=== PATIENT | male | born 1960 | race Caucasian/White ===

== ENCOUNTER 2018-07-11 15:12 | Inpatient (IN) ==
[2018-07-11] MEDS ORDERED: Ipratropium/Albuterol Neb 3 ML IH ONE (15:18)
[2018-07-11] MEDS ORDERED: predniSONE 20 MG TABLET PO ONE (15:18)
--- NOTE | 2018-07-11 15:19 | Emergency Department Note ---
Disposition Clinical Impression: COPD exacerbation, Hypercarbia Community acquired pneumonia Qualifiers: Laterality: right Lung location: lower lobe of lung Qualified Code(s): J18.1 - Lobar pneumonia, unspecified organism Disposition: Admitted As Inpatient Condition: Good General Adult HPI - General Chief complaint: ED Shortness of Breath/Dyspnea Stated complaint: ISHA Time Seen by Provider: 07/11/18 15:18 Source: patient, EMS Mode of arrival: EMS Limitations: no limitations Nursing Notes Reviewed: Yes Vital Signs Reviewed: Yes - History of Present Illness HPI Narrative: 58-year-old male with significant past medical history of COPD who wears 4 L nasal cannula baseline at home presenting to the emergency department with chief complaint of shortness of breath. Patient states today he woke up from a nap and had acute onset of shortness of breath. He denies any chest pain with this. Does state he had intermittent fevers at home but is unsure of what his maximum temperature has been. Patient denies any known sick contacts. Denies any chest pain, dizziness or headache. He has been trying his home nebulizer treatments without relief. - Related Data Home Medications Medication Instructions Recorded Confirmed ALPRAZolam [Xanax 1 MG Tablet] 1 mg PO QID 01/08/16 01/14/16 Albuterol Sulfate [Proair Hfa] 2 puff IH Q4H PRN 01/08/16 01/14/16 Budesonide/Formoterol 80/4.5 2 puff IH BID 01/08/16 01/14/16 [Symbicort 80/4.5] Carisoprodol [Soma] 350 mg PO TID 01/08/16 01/14/16 Oxycodone HCl/Acetaminophen 10 mg PO Q3H PRN 01/08/16 01/14/16 [Percocet 10-325 mg Tablet] Previous Rx's Medication Instructions Recorded Albuterol Neb [Proventil Neb] 2.5 mg IH Q4H PRN 30 Days inhsol 01/18/16 Nicotine Patch [Nicoderm] 21 mg TD HS #28 patch.td24 01/18/16 Tiotropium [Spiriva] 18 mcg IH DAILY #30 capsule 01/18/16 predniSONE [PredniSONE] 10 mg PO AD #53 tablet 01/18/16 Allergies Allergy/AdvReac Type Severity Reaction Status Date / Time No Known Allergies Allergy Verified 01/08/16 09:48 All systems ED: reviewed and negative except as stated. Constitutional: Reports: fever Eyes: Reports: as per HPI ENT ED: Reports: as per HPI Cardiovascular: Reports: dyspnea on exertion. Denies: chest pain, palpitations Respiratory: Reports: cough, dyspnea, wheezes. Denies: hemoptysis, stridor Gastrointestinal: Reports: as per HPI Genitourinary: Reports: as per HPI Musculoskeletal: Reports: as per HPI Integumentary: Reports: as per HPI Neurological: Denies: weakness, numbness, paresthesias Psychiatric: Reports: as per HPI Endocrine: Reports: as per HPI Hematological/Lymphatic: Reports: as per HPI Allergic/Immunologic: Reports: as per HPI Past Medical History - Past Medical History Attestation: Yes The following information was validated with the patient. Medical history: Reports: COPD, other Surgical history: Reports: no surgical history Psychiatric history: Reports: anxiety - Social History Smoking Status: Current every day smoker Alcohol use: Reports: none Drug use: Reports: none Physical Exam - General Limitations: no limitations General appearance: alert - Head Head exam: atraumatic, normocephalic, normal inspection - Eye Eye exam: Present: normal appearance. Absent: scleral icterus, conjunctival injection - ENT ENT exam: mucous membranes dry - Neck Neck exam: Present: normal inspection, full ROM. Absent: tenderness, meningismus - Chest Chest inspection: Present: normal inspection, symmetric chest wall rise. Absent : tenderness, rash - Respiratory Respiratory exam: Present: other (Diffuse inspiratory and expiratory wheezing, coarse breath sounds throughout) - Cardiovascular Cardiovascular exam: Present: regular rate, normal rhythm, normal heart sounds - Abdominal Exam Abdominal exam: Present: soft, Non-Tender. Absent: distention, guarding, rebound - Extremities Exam Extremities exam: Present: normal inspection, full ROM - Neurological Exam Neurological exam: Present: alert, oriented X3 - Psychiatric Psychiatric exam: Present: normal affect - Skin Skin exam: Present: warm, intact Course Course Narrative: 58-year-old male presenting for shortness of breath. On exam patient has inspiratory and expiratory wheezing along with coarse breath sounds throughout. Patient has known history of COPD. Patient arrived on 6 L nasal cannula with oxygen saturation in the upper 90s. We will obtain basic laboratory analysis along with chest x-ray, 3 [id number] DuoNeb nebs and oral prednisone. Disposition pending results. Patient agrees with this plan. He is alert and oriented 3 in the room with stable vital signs. - Reevaluation(s) Reevaluation #1: Patient has clear breath sounds on exam after 3 nebs but still tight. Chest x- ray does show pneumonia. Patient states he has become very dyspneic on exertion at home even on his home oxygen. Due to this and failure of nebulizer treatments as an outpatient will plan to admit the patient for pneumonia and COPD exacerbation. Patient is alert and oriented 3 in room with stable vital signs. Patient agrees with this plan. I spoke with the hospitalist psychological operations Dr. Justice who agrees to accept the patient at this time Vital Signs Temperature 97.6 F 07/11/18 15:21 Pulse Rate 89 07/11/18 15:21 Respiratory Rate 18 07/11/18 15:21 Blood Pressure 103/81 07/11/18 15:21 O2 Sat by Pulse Oximetry 100 07/11/18 15:21 Temperature 97.6 F 07/11/18 15:21 Pulse Rate 86 07/11/18 18:25 Respiratory Rate 16 07/11/18 18:25 Blood Pressure 105/73 07/11/18 18:25 O2 Sat by Pulse Oximetry 97 07/11/18 18:25 Oxygen Delivery Oxygen Delivery Nasal Cannula Medical Decision Making - Lab Data Result diagrams: 07/11/18 15:49 07/11/18 15:49 Lab Results 07/11/18 07/11/18 07/11/18 Range/Units 15:49 15:49 15:49 WBC 6.3 (4.3-11.1) K/mcL RBC 5.06 (4.19-5.50) M/mcL Hgb 14.8 (12.9-16.9) g/dL Hct 46.4 (37.5-50.1) % MCV 91.7 (83.0-100.0) fL MCH 29.2 (28.0-33.3) pg MCHC 31.9 (31.6-35.5) g/dL RDW 13.2 (11.5-14.5) % Plt Count 240 (140-400) K/mcL MPV 9.3 L (9.4-12.4) fL Immature Gran % 0.2 (0-4) % Seg Neutrophils % 78.0 % Lymphocytes % 9.8 % Monocytes % 8.1 % Eosinophils % 3.3 % Basophils % 0.6 % Neutrophils # 4.9 (1.6-8.9) K/mcL Lymphocytes # 0.6 (0.6-4.6) K/mcL Monocytes # 0.5 (0.0-1.3) K/mcL Eosinophils # 0.2 (0.0-0.6) K/mcL Basophils # 0.0 (0.0-0.2) K/mcL VBG pH (7.32-7.42) pH Units VBG pCO2 (41-51) mmHg VBG pO2 (25-50) mmHg VBG HCO3 (21-27) mEq/L Sodium 140 (136-145) mEq/L Potassium 4.4 (3.5-5.1) mEq/L Chloride 95 L (98-107) mEq/L Carbon Dioxide 42 H* (23-29) mEq/L BUN 8 (8-23) mg/dL Creatinine 0.80 (0.70-1.30) mg/dL Est GFR ( Amer) > 60 (> 60) Est GFR (Non-Af Amer) > 60 (> 60) BUN/Creatinine Ratio 10 (6-26) Glucose 97 (70-105) mg/dL Calculated Osmolality 288 (280-300) Lactic Acid 0.9 (0.5-2.2) mmol/L Calcium 9.1 (8.6-10.3) mg/dL Troponin I 0.03 (< 0.04) ng/mL B-Natriuretic Peptide (Less than 100) pg/mL Person Notif of [facility] 07/11/18 07/11/18 Range/Units 15:49 17:41 WBC (4.3-11.1) K/mcL RBC (4.19-5.50) M/mcL Hgb (12.9-16.9) g/dL Hct (37.5-50.1) % MCV (83.0-100.0) fL MCH (28.0-33.3) pg MCHC (31.6-35.5) g/dL RDW (11.5-14.5) % Plt Count (140-400) K/mcL MPV (9.4-12.4) fL Immature Gran % (0-4) % Seg Neutrophils % % Lymphocytes % % Monocytes % % Eosinophils % % Basophils % % Neutrophils # (1.6-8.9) K/mcL Lymphocytes # (0.6-4.6) K/mcL Monocytes # (0.0-1.3) K/mcL Eosinophils # (0.0-0.6) K/mcL Basophils # (0.0-0.2) K/mcL VBG pH 7.34 (7.32-7.42) pH Units VBG pCO2 80 H* (41-51) mmHg VBG pO2 41 (25-50) mmHg VBG HCO3 43 H (21-27) mEq/L Sodium (136-145) mEq/L Potassium (3.5-5.1) mEq/L Chloride (98-107) mEq/L Carbon Dioxide (23-29) mEq/L BUN (8-23) mg/dL Creatinine (0.70-1.30) mg/dL Est GFR ( Amer) (> 60) Est GFR (Non-Af Amer) (> 60) BUN/Creatinine Ratio (6-26) Glucose (70-105) mg/dL Calculated Osmolality (280-300) Lactic Acid (0.5-2.2) mmol/L Calcium (8.6-10.3) mg/dL Troponin I (< 0.04) ng/mL B-Natriuretic Peptide 30 (Less than 100) pg/mL Person Notif of [facility] - EKG Data EKG #1 EKG attestation: Yes I reviewed and interpreted this EKG. EKG results narrative: Sinus rhythm. Incomplete right bundle branch block 90 beats for minute. WA interval 134, QRS 112, QTC 452. No sign of acute ST segment elevation or ischemia. Compared to previous EKG completed on 01/13/2016 no significant changes noted
--- NOTE | 2018-07-11 15:49 | Emergency Department Note ---
Disposition Clinical Impression: Community acquired pneumonia, COPD exacerbation, Hypercarbia Disposition: Admitted As Inpatient Condition: Good General Adult HPI - General Chief complaint: ED Shortness of Breath/Dyspnea Stated complaint: ISHA Time Seen by Provider: 07/11/18 15:18 Source: EMS Limitations: no limitations - History of Present Illness Pain Scale: 7 - Related Data Home Medications Medication Instructions Recorded Confirmed ALPRAZolam [Xanax 1 MG Tablet] 1 mg PO QID 01/08/16 01/14/16 Albuterol Sulfate [Proair Hfa] 2 puff IH Q4H PRN 01/08/16 01/14/16 Budesonide/Formoterol 80/4.5 2 puff IH BID 01/08/16 01/14/16 [Symbicort 80/4.5] Carisoprodol [Soma] 350 mg PO TID 01/08/16 01/14/16 Oxycodone HCl/Acetaminophen 10 mg PO Q3H PRN 01/08/16 01/14/16 [Percocet 10-325 mg Tablet] Previous Rx's Medication Instructions Recorded Albuterol Neb [Proventil Neb] 2.5 mg IH Q4H PRN 30 Days inhsol 01/18/16 Nicotine Patch [Nicoderm] 21 mg TD HS #28 patch.td24 01/18/16 Tiotropium [Spiriva] 18 mcg IH DAILY #30 capsule 01/18/16 predniSONE [PredniSONE] 10 mg PO AD #53 tablet 01/18/16 Allergies Allergy/AdvReac Type Severity Reaction Status Date / Time No Known Allergies Allergy Verified 01/08/16 09:48 Past Medical History - Past Medical History Medical history: Reports: COPD, other Surgical history: Reports: no surgical history Psychiatric history: Reports: anxiety - Social History Smoking Status: Current every day smoker Smokeless Tobacco Status: No Alcohol use: Reports: none Drug use: Reports: none Physical Exam - General Limitations: no limitations General appearance: alert Course Vital Signs Temperature 97.6 F 07/11/18 15:21 Pulse Rate 89 07/11/18 15:21 Respiratory Rate 18 07/11/18 15:21 Blood Pressure 103/81 07/11/18 15:21 O2 Sat by Pulse Oximetry 100 07/11/18 15:21 Temperature 97.6 F 07/11/18 15:21 Pulse Rate 86 07/11/18 18:25 Respiratory Rate 16 07/11/18 18:25 Blood Pressure 105/73 07/11/18 18:25 O2 Sat by Pulse Oximetry 97 07/11/18 18:25 Oxygen Delivery Oxygen Delivery Nasal Cannula Medical Decision Making - Lab Data Result diagrams: 07/11/18 15:49 07/11/18 15:49 Lab Results 07/11/18 07/11/18 07/11/18 Range/Units 15:49 15:49 15:49 WBC 6.3 (4.3-11.1) K/mcL RBC 5.06 (4.19-5.50) M/mcL Hgb 14.8 (12.9-16.9) g/dL Hct 46.4 (37.5-50.1) % MCV 91.7 (83.0-100.0) fL MCH 29.2 (28.0-33.3) pg MCHC 31.9 (31.6-35.5) g/dL RDW 13.2 (11.5-14.5) % Plt Count 240 (140-400) K/mcL MPV 9.3 L (9.4-12.4) fL Immature Gran % 0.2 (0-4) % Seg Neutrophils % 78.0 % Lymphocytes % 9.8 % Monocytes % 8.1 % Eosinophils % 3.3 % Basophils % 0.6 % Neutrophils # 4.9 (1.6-8.9) K/mcL Lymphocytes # 0.6 (0.6-4.6) K/mcL Monocytes # 0.5 (0.0-1.3) K/mcL Eosinophils # 0.2 (0.0-0.6) K/mcL Basophils # 0.0 (0.0-0.2) K/mcL VBG pH (7.32-7.42) pH Units VBG pCO2 (41-51) mmHg VBG pO2 (25-50) mmHg VBG HCO3 (21-27) mEq/L Sodium 140 (136-145) mEq/L Potassium 4.4 (3.5-5.1) mEq/L Chloride 95 L (98-107) mEq/L Carbon Dioxide 42 H* (23-29) mEq/L BUN 8 (8-23) mg/dL Creatinine 0.80 (0.70-1.30) mg/dL Est GFR ( Amer) > 60 (> 60) Est GFR (Non-Af Amer) > 60 (> 60) BUN/Creatinine Ratio 10 (6-26) Glucose 97 (70-105) mg/dL Calculated Osmolality 288 (280-300) Lactic Acid 0.9 (0.5-2.2) mmol/L Calcium 9.1 (8.6-10.3) mg/dL Troponin I 0.03 (< 0.04) ng/mL B-Natriuretic Peptide (Less than 100) pg/mL Person Notif of Crit 07/11/18 07/11/18 Range/Units 15:49 17:41 WBC (4.3-11.1) K/mcL RBC (4.19-5.50) M/mcL Hgb (12.9-16.9) g/dL Hct (37.5-50.1) % MCV (83.0-100.0) fL MCH (28.0-33.3) pg MCHC (31.6-35.5) g/dL RDW (11.5-14.5) % Plt Count (140-400) K/mcL MPV (9.4-12.4) fL Immature Gran % (0-4) % Seg Neutrophils % % Lymphocytes % % Monocytes % % Eosinophils % % Basophils % % Neutrophils # (1.6-8.9) K/mcL Lymphocytes # (0.6-4.6) K/mcL Monocytes # (0.0-1.3) K/mcL Eosinophils # (0.0-0.6) K/mcL Basophils # (0.0-0.2) K/mcL VBG pH 7.34 (7.32-7.42) pH Units VBG pCO2 80 H* (41-51) mmHg VBG pO2 41 (25-50) mmHg VBG HCO3 43 H (21-27) mEq/L Sodium (136-145) mEq/L Potassium (3.5-5.1) mEq/L Chloride (98-107) mEq/L Carbon Dioxide (23-29) mEq/L BUN (8-23) mg/dL Creatinine (0.70-1.30) mg/dL Est GFR ( Amer) (> 60) Est GFR (Non-Af Amer) (> 60) BUN/Creatinine Ratio (6-26) Glucose (70-105) mg/dL Calculated Osmolality (280-300) Lactic Acid (0.5-2.2) mmol/L Calcium (8.6-10.3) mg/dL Troponin I (< 0.04) ng/mL B-Natriuretic Peptide 30 (Less than 100) pg/mL Person Notif of [facility] Attestation Statement - Attestation Attestation: I examined this patient and my medical decision-making was reviewed with the Resident Physician. I agree with the documented findings, disposition and treatment plan as described except to the extent set forth below. Patient presents to the ED with chief clinic office shortness of breath and subjective fever. Patient woke up from a nap today short of breath. History of COPD. Has home nebulizer that he has not used today. On examination he is visibly dyspneic. Tachycardic with accessory muscle use. Lungs diminished. Plan. steroids cardiac workup and reevaluate. Patient improved but still dyspneic above his baseline. Chest x-ray shows a right-sided infiltrate. Patient treated for pneumonia and admitted. Chest X-Ray 07/11/18 15:18 IMPRESSION: Right basilar consolidation is suspicious for pneumonia and there is an associated pleural effusion. D/ / William Manning MD / William Manning MD Interpreting Provider: William Manning MD
[2018-07-11 16:06] LABS: Basophils % 0.6 %; Eosinophils # 0.2 K/mcL (0.0-0.6); Eosinophils % 3.3 %; Hematocrit 46.4 % (37.5-50.1); Hemoglobin 14.8 g/dL (12.9-16.9); Immature Granulocytes % 0.2 % (0-4); Lymphocytes # 0.6 K/mcL (0.6-4.6); Lymphocytes % 9.8 %; Mean Corpuscular HGB Conc 31.9 g/dL (31.6-35.5); Mean Corpuscular Hemoglobin 29.2 pg (28.0-33.3); Mean Corpuscular Volume 91.7 fL (83.0-100.0); Mean Platelet Volume 9.3 fL (9.4-12.4); Monocytes # 0.5 K/mcL (0.0-1.3); Monocytes % 8.1 %; Neutrophils # 4.9 K/mcL (1.6-8.9); Platelet Count 240 K/mcL (140-400); Red Blood Count 5.06 M/mcL (4.19-5.50); Red Cell Distribution Width 13.2 % (11.5-14.5)
[2018-07-11 16:32] LABS: BUN/Creatinine Ratio 10 (6-26); Blood Urea Nitrogen 8 mg/dL (8-23); Calcium 9.1 mg/dL (8.6-10.3); Chloride 95 mEq/L (98-107); Glucose 97 mg/dL (70-105); Osmolality,Calculated 288 (280-300); Potassium 4.4 mEq/L (3.5-5.1); Sodium 140 mEq/L (136-145); Troponin I 0.03 ng/mL (< 0.04); eGFR For Non-African Americans > 60 (> 60)
[2018-07-11 16:35] LABS: Carbon Dioxide 42 mEq/L (23-29)
[2018-07-11] MEDS ORDERED: Levofloxacin 750 MG/150 ML 750 MG/150 ML BAG IVPB ONE (17:18)
[2018-07-11 17:50] LABS: VBG HCO3 43 mEq/L (21-27); VBG PCO2 80 mmHg (41-51); VBG PH 7.34 pH Units (7.32-7.42); VBG PO2 41 mmHg (25-50)
[2018-07-11] MEDS ORDERED: *HR* HYDROcodone/Acet 5/325 mg TABLET PO PRN (17:51)
[2018-07-11] MEDS ORDERED: *HR* Promethazine 25 MG/ML VIAL IVP PRN (17:51)
[2018-07-11] MEDS ORDERED: Naloxone 0.4 MG/ML INJ IVP PRN (17:51)
[2018-07-11] MEDS ORDERED: *HR* OxyCODONE/APAP 10/325 TABLET PO PRN (17:55)
--- NOTE | 2018-07-11 18:34 | Internal Med History&Physical ---
Date of Encounter: 07/11/18 Time of Encounter: 18:32 Internal Medicine - H&P: HPI Chief complaint: Shortness of breath Admitted From: Emergency Dept Plans for Post Hospital Care: Home History of present illness: Mr. Bermudez is a 58 year old male with a known past medical history of COPD, chronic hypoxic respiratory failure on 4 lit oxygen dependent at home, hypertension and chronic tobacco dependence patient presented emergency room complaining about a progressively worsening shortness of breath, cough with expectoration. Patient stated has been feeling sick for almost one month. His also had a similar symptoms at home. Denied any recent travel history. His shortness of breath seems to be worsening last few days. Denied any chest pain. Past Med Surg Social Fam HX - Past Medical History Medical history: COPD, other Additional medical history: SMOKER ANXIETY Psychiatric history: anxiety - Past Surgical History Surgical History: no surgical history - Social History Smoking Status: Current every day smoker Smokeless Tobacco Status: No Alcohol use: none Drug use: none - Family History Father Living Status: Hx Family Respiratory Disorders: Yes (emphysema) Internal Medicine - H&P: Meds ALPRAZolam [Xanax 1 MG Tablet] 1 mg PO QID 01/08/16 [History] Albuterol Sulfate [Proair Hfa] 2 puff IH Q4H PRN 01/08/16 [History] Budesonide/Formoterol 80/4.5 [Symbicort 80/4.5] 2 puff IH BID 01/08/16 [History ] Carisoprodol [Soma] 350 mg PO TID 01/08/16 [History] Oxycodone HCl/Acetaminophen [Percocet 10-325 mg Tablet] 10 mg PO Q3H PRN [History] Albuterol Neb [Proventil Neb] 2.5 mg IH Q4H PRN 30 Days inhsol 01/18/16 [Rx] Nicotine Patch [Nicoderm] 21 mg TD HS #28 patch.td24 01/18/16 [Rx] Tiotropium [Spiriva] 18 mcg IH DAILY #30 capsule 01/18/16 [Rx] predniSONE [PredniSONE] 10 mg PO AD #53 tablet 01/18/16 [Rx] 3 Allergy/AdvReac Type Severity Reaction Status Date / Time No Known Allergies Allergy Verified 01/08/16 09:48 All Systems PM: A 10-system review of systems was performed and is negative for pertinent findings except as documented above in the HPI. Review of systems: All the systems are reviewed everything is benign except the systems and symptoms I mentioned in the history of present illness - Constitutional Vitals: Temp Pulse Resp BP Pulse Ox 97.6 F 86 16 105/73 97 07/11/18 15:21 07/11/18 18:25 07/11/18 18:25 07/11/18 18:25 07/11/18 18:25 General appearance: Present: cooperative, mild distress (Able to finish full sentence without any pause), A&O X 3, answers questions appropriately Exam: C - Head Head exam: Present: atraumatic, normal inspection - Neck Neck exam general surgery: Present: supple - Respiratory Respiratory exam: Present: decreased breath sounds, respiratory distress (Mild) , wheezes (Moderate to severe), tachypnea. Absent: chest wall tenderness, rales , rhonchi - Cardiovascular Cardiovascular exam: Present: RRR, +S1, +S2. Absent: tachycardia - GI/Abdominal GI/Abdominal exam: Present: normal bowel sounds, soft. Absent: rebound, rigid, tenderness - Extremities Exam Extremities exam: Present: pedal edema. Absent: calf tenderness, tenderness Additional comments: 1+ - Back Exam Back exam: Absent: CVA tenderness (L), CVA tenderness (R) - Neurological Exam Neurological exam: Present: alert, oriented X3 - Psychiatric Psychiatric exam: Present: normal affect, normal mood - Skin Skin exam: Absent: rash Internal Med - H&P Results - Labs CBC & Chem 7: 07/11/18 15:49 07/11/18 15:49 - Assessment and plan (1) Acute and chronic respiratory failure with hypoxia Current Visit: No Status: Acute Assessment and plan: Admit the patient into tele his COPD exacerbation might be triggered by a bronchitis placed him on empirical antibiotic with levofloxacin will send for sputum culture, step pneumonia, Legionella and respiratory viral panel started him on high-dose IV steroids continue Duoneb scheduled he does use 4 lit O2 at home currently in the ER he was placed on 6 L oxygen try to wean him off the oxygen down to his baseline (2) Acute hypercapnic respiratory failure Current Visit: Yes Status: Acute Assessment and plan: Reviewed his alicia blood gas does have moderate hypercapnic we use BiPAP as needed patient requested for full-code (3) COPD exacerbation Current Visit: Yes Status: Acute Assessment and plan: See above (4) Acute bronchitis Current Visit: No Status: Acute Assessment and plan: Mostly bacterial started him on empirical antibiotic with the levofloxacin Qualifiers: Bronchitis organism: unspecified organism Qualified Code(s): J20.9 - Acute bronchitis, unspecified (5) DVT prophylaxis Current Visit: No Status: Acute Assessment and plan: on SQ Lovenox (6) Anxiety Current Visit: No Status: Chronic Assessment and plan: Resumed home benzo's (7) Tobacco abuse Current Visit: No Status: Chronic Assessment and plan: Counseled to quit smoking placed on nicotine patch - Time Spent With Patient Total time spent is greater than 50% in coordination of care (as documented) at patient's floor/unit and/or counseling patient:
[2018-07-11] MEDS: MethylPREDNISolone 40 MG/ML VIAL IVP SCH (19:37)
[2018-07-11] MEDS: Carisoprodol 350 MG TABLET PO SCH (19:57)
[2018-07-11] MEDS: Ipratropium/Albuterol Neb 3 ML IH SCH (20:27)
[2018-07-11] MEDS: Budesonide/Formoterol 80/4.5 MDI IH SCH (20:27)
[2018-07-11] MEDS ORDERED: Nicotine 21 MG PATCH.TD24 TD SCH (21:00)
[2018-07-11] MEDS: ALPRAZolam 1 MG TABLET PO PRN (21:12)
[2018-07-11 23:55] LABS: Adenovirus Not Detected (Not Detect); Bordetella Pertussis Not Detected (Not Detect); Chlamydophila pneumoniae Not Detected (Not Detect); Coronavirus 229E Not Detected (Not Detect); Coronavirus HKU1 Not Detected (Not Detect); Coronavirus NL63 Not Detected (Not Detect); Coronavirus OC43 Not Detected (Not Detect); Human Metapneumovirus Not Detected (Not Detect); Human Rhinovirus/Enterovirus Not Detected (Not Detect); Influenza A Subtype 2009 H1 Not Detected (Not Detect); Influenza A Untypeable Not Detected (Not Detect); Influenza B Not Detected (Not Detect); Mycoplasma pneumoniae Not Detected (Not Detect); Parainfluenza Virus 1 Not Detected (Not Detect); Parainfluenza Virus 2 Not Detected (Not Detect); Parainfluenza Virus 3 Not Detected (Not Detect); Parainfluenza Virus 4 Not Detected (Not Detect); Respiratory Syncytial Virus Not Detected (Not Detect)
[2018-07-12] MEDS: Ipratropium/Albuterol Neb 3 ML IH SCH ×7 (00:12→23:05)
[2018-07-12] MEDS: MethylPREDNISolone 40 MG/ML VIAL IVP SCH ×4 (00:39→21:25)
[2018-07-12] MEDS: *HR* OxyCODONE Immed Rel 15 MG TABLET PO SCH ×7 (00:39→21:26)
[2018-07-12] MEDS: ALPRAZolam 1 MG TABLET PO PRN ×4 (04:20→21:26)
[2018-07-12 05:11] LABS: Hematocrit 41.2 % (37.5-50.1); Immature Granulocytes % 0.5 % (0-4); Lymphocytes # 0.2 K/mcL (0.6-4.6); Lymphocytes % 4.4 %; Mean Corpuscular Volume 90.5 fL (83.0-100.0); Mean Platelet Volume 9.6 fL (9.4-12.4); Monocytes % 0.8 %; Platelet Count 230 K/mcL (140-400); Red Blood Count 4.55 M/mcL (4.19-5.50); Segmented Neutrophils % 94.3 %
[2018-07-12 05:32] LABS: BUN/Creatinine Ratio 13 (6-26); Blood Urea Nitrogen 10 mg/dL (8-23); Calcium 8.9 mg/dL (8.6-10.3); Carbon Dioxide 37 mEq/L (23-29); Chloride 91 mEq/L (98-107); Glucose 225 mg/dL (70-105); Hemoglobin 13.2 g/dL (12.9-16.9); Neutrophils # 3.7 K/mcL (1.6-8.9); Osmolality,Calculated 286 (280-300); Potassium 3.9 mEq/L (3.5-5.1); Sodium 135 mEq/L (136-145); eGFR For Non-African Americans > 60 (> 60)
[2018-07-12 05:56] LABS: Platelet Estimate Normal (Normal)
[2018-07-12] MEDS: *HR* Enoxaparin 40 MG/0.4 ML SYRINGE SQ SCH (06:10)
[2018-07-12] MEDS: Budesonide/Formoterol 80/4.5 MDI IH SCH ×2 (07:31→19:30)
[2018-07-12] MEDS: Nicotine 7 MG PATCH.TD24 TD SCH (09:03)
[2018-07-12] MEDS: Levofloxacin 750 MG/150 ML 750 MG/150 ML BAG IVPB SCH (09:04)
[2018-07-12] MEDS: Carisoprodol 350 MG TABLET PO SCH ×3 (10:11→21:26)
--- NOTE | 2018-07-12 13:12 | Internal Med Progress Note ---
<Sher Camargo - Last Filed: 07/12/18 12:59> Hospitalist Progress Note - Encounter Date of Encounter: 07/12/18 Time of Encounter: 12:59 - Subjective Interval History: Mr. Bermudez was admitted for COPD exacerbation, suspicious for pneumonia Patient reports continued shortness of breath though improved from yesterday He denies chest pain or hemoptysis, he does complain of cough but not very productive We are continuing treatment with antibiotics and bronchodilators - Exam Vitals: Temp Pulse Resp BP Pulse Ox 98.3 F 90 18 104/69 93 07/12/18 10:55 07/12/18 10:55 07/12/18 10:55 07/12/18 10:55 07/12/18 10:55 Exam: Patient will acute distress, alert and oriented 3 Heart in regular rate and rhythm without murmur or gallop Lung sounds diffusely diminished, however negative for wheeze or rales or rhonchi Abdomen soft and nontender with normal bowel sounds and no organomegaly Legs nonedematous or erythematous Skin warm and dry - Assessment and Plan (1) Acute on chronic respiratory failure with hypoxia and hypercapnia Current Visit: Yes Status: Acute Assessment and Plan: Patient saturating in the 90s on 4 L nasal cannula which is his home oxygen use day and night COPD exacerbation likely secondary to pneumonia, right lower lobe consolidation seen on chest x-ray at admission Legionella and Streptococcus pneumonia antigens negative, sputum culture pending Patient did not have admission in the last 90 days Plan Patient is receiving 40 mg methylprednisolone twice a day We will continue supplemental oxygen to maintain saturation above 88% We will continue Levaquin for pneumonia for 3 more days, today is #2 and 5 day course We will continue Duonebs as scheduled (2) COPD exacerbation Current Visit: Yes Status: Acute Assessment and Plan: Continue bronchodilator therapy and inhaled corticosteroids and systemic corticosteroids Rest of plan as seen above (3) Tobacco abuse Current Visit: No Status: Chronic Assessment and Plan: Counseled to quit smoking placed on nicotine patch (4) DVT prophylaxis Current Visit: No Status: Acute Assessment and Plan: on SQ Lovenox (5) Anxiety Current Visit: No Status: Chronic Assessment and Plan: Resumed home benzo's (6) Pneumonia Current Visit: Yes Status: Acute Assessment and Plan: Findings suspicious for pneumonia seen on chest x-ray at admission Patient has already been started on empiric antibiotics with levofloxacin This is suspected community-acquired pneumonia secondary to COPD exacerbation Plan Plan as seen above - Time Spent with Patient Total time spent is greater than 50% in coordination of care (as documented) at patient's floor/unit and/or counseling patient: less than 15 minutes Plan of Care Discussed with: patient Internal Medicine: Result - Labs CBC & Chem 7: 07/12/18 04:46 07/12/18 04:46 Labs: Short CBC 07/12/18 Range/Units 04:46 WBC 3.9 L (4.3-11.1) K/mcL Hgb 13.2 D (12.9-16.9) g/dL Hct 41.2 (37.5-50.1) % Plt Count 230 (140-400) K/mcL Neutrophils # 3.7 (1.6-8.9) K/mcL BMP 07/12/18 04:46 Sodium 135 L Potassium 3.9 Chloride 91 L Carbon Dioxide 37 H BUN 10 Creatinine 0.78 Glucose 225 H Calcium 8.9 Consult Discharge Plan - Plan Referrals: Andry Abdi Jr, MD [Primary Care Provider] - <Martha Vasques - Last Filed: 07/12/18 16:52> Hospitalist Progress Note - Encounter Date of Encounter: 07/12/18 - Exam Vitals: Temp Pulse Resp BP Pulse Ox 97.7 F 100 18 101/70 93 07/12/18 16:17 07/12/18 16:17 07/12/18 16:17 07/12/18 16:17 07/12/18 16:17 - Assessment and Plan (1) Tobacco abuse Current Visit: No Status: Chronic (2) DVT prophylaxis Current Visit: No Status: Acute (3) Anxiety Current Visit: No Status: Chronic (4) COPD exacerbation Current Visit: Yes Status: Acute (5) Acute on chronic respiratory failure with hypoxia and hypercapnia Current Visit: Yes Status: Acute (6) Pneumonia Current Visit: Yes Status: Acute - Time Spent with Patient Total time spent is greater than 50% in coordination of care (as documented) at patient's floor/unit and/or counseling patient: Internal Medicine: Result - Labs CBC & Chem 7: 07/12/18 04:46 07/12/18 04:46 Labs: Short CBC 07/12/18 Range/Units 04:46 WBC 3.9 L (4.3-11.1) K/mcL Hgb 13.2 D (12.9-16.9) g/dL Hct 41.2 (37.5-50.1) % Plt Count 230 (140-400) K/mcL Neutrophils # 3.7 (1.6-8.9) K/mcL BMP 07/12/18 04:46 Sodium 135 L Potassium 3.9 Chloride 91 L Carbon Dioxide 37 H BUN 10 Creatinine 0.78 Glucose 225 H Calcium 8.9 - Attending Attestation I examined this patient and my medical decision-making was reviewed with the Resident Physician Dr. Camargo. I agree with the documented findings, disposition and treatment plan as described except to the extent set forth below. Mr. Bermudez is a 58 year old male with a known past medical history of COPD, chronic hypoxic respiratory failure on 4 lit oxygen dependent at home, hypertension and chronic tobacco dependence patient presented emergency room complaining about a progressively worsening shortness of breath, cough with expectoration. Pt denied any CP. States he is feeling better today. Gen: A, A< O x3 Chest: Diminished BS b/l mild wheezing Heart: S1S2+ RRR a/p 1. Acute pneumonia - bacterial 2. Acute COPD exacerbation 3. Acute on chronic hypoxic respiratory failure improving start tapering steroids continue empirical antibiotic levofloxacin <Sher Camargo - Last Filed: 07/12/18 12:59> (6) Pneumonia Qualifiers: Pneumonia type: due to unspecified organism Laterality: right Lung location : lower lobe of lung Qualified Code(s): J18.1 - Lobar pneumonia, unspecified organism <Martha Vasques - Last Filed: 07/12/18 16:52> (6) Pneumonia Qualifiers: Pneumonia type: due to unspecified organism Laterality: right Lung location : lower lobe of lung Qualified Code(s): J18.1 - Lobar pneumonia, unspecified organism
[2018-07-13] MEDS: *HR* OxyCODONE Immed Rel 15 MG TABLET PO SCH ×8 (01:05→22:14)
[2018-07-13] MEDS: Ipratropium/Albuterol Neb 3 ML IH SCH ×6 (03:58→23:07)
[2018-07-13 04:38] LABS: Basophils % 0.1 %; Hematocrit 39.4 % (37.5-50.1); Hemoglobin 12.5 g/dL (12.9-16.9); Immature Granulocytes % 0.4 % (0-4); Lymphocytes # 0.3 K/mcL (0.6-4.6); Lymphocytes % 1.7 %; Mean Corpuscular HGB Conc 31.7 g/dL (31.6-35.5); Mean Corpuscular Hemoglobin 28.7 pg (28.0-33.3); Mean Corpuscular Volume 90.4 fL (83.0-100.0); Mean Platelet Volume 9.6 fL (9.4-12.4); Monocytes # 0.4 K/mcL (0.0-1.3); Monocytes % 1.9 %; Platelet Count 248 K/mcL (140-400); Red Blood Count 4.36 M/mcL (4.19-5.50); Red Cell Distribution Width 13.3 % (11.5-14.5); Segmented Neutrophils % 95.9 %
[2018-07-13 04:54] LABS: BUN/Creatinine Ratio 18 (6-26); Blood Urea Nitrogen 15 mg/dL (8-23); Carbon Dioxide 39 mEq/L (23-29); Chloride 93 mEq/L (98-107); Glucose 142 mg/dL (70-105); Osmolality,Calculated 285 (280-300); Potassium 4.6 mEq/L (3.5-5.1); Sodium 136 mEq/L (136-145); eGFR For Non-African Americans > 60 (> 60)
[2018-07-13] MEDS: *HR* Enoxaparin 40 MG/0.4 ML SYRINGE SQ SCH (05:57)
[2018-07-13] MEDS: Budesonide/Formoterol 80/4.5 MDI IH SCH ×2 (07:16→19:44)
[2018-07-13] MEDS: Carisoprodol 350 MG TABLET PO SCH ×3 (09:11→23:56)
[2018-07-13] MEDS: Nicotine 7 MG PATCH.TD24 TD SCH (09:13)
[2018-07-13] MEDS: Levofloxacin 750 MG/150 ML 750 MG/150 ML BAG IVPB SCH (09:15)
[2018-07-13] MEDS: MethylPREDNISolone 40 MG/ML VIAL IVP SCH ×3 (09:16→22:15)
[2018-07-13] MEDS: ALPRAZolam 1 MG TABLET PO PRN ×2 (09:20→18:23)
--- NOTE | 2018-07-13 09:20 | Internal Med Progress Note ---
<Sher Camargo - Last Filed: 07/13/18 11:48> Hospitalist Progress Note - Encounter Date of Encounter: 07/13/18 Time of Encounter: 09:16 - Subjective Interval History: Mr. Bermudez was admitted for COPD exacerbation, suspicious for pneumonia Patient reports continued shortness of breath, exacerbated today by increased activity He denies chest pain or hemoptysis, he does complain of cough but not very productive We are continuing treatment with antibiotics and bronchodilators and steroids - Exam Vitals: Temp Pulse Resp BP Pulse Ox 98.0 F 81 18 99/68 93 07/13/18 07:00 07/13/18 07:00 07/13/18 07:17 07/13/18 07:00 07/13/18 07:35 Exam: Patient in no acute distress, alert and oriented 3 Heart in regular rate and rhythm without murmur or gallop Lung sounds diffusely diminished, positive minimal scattered wheeze and rales, no rhonchi Abdomen soft , minimally tender in umbilical region, abdominal pulse visible and palpable, 1/6 bruit auscultated Legs nonedematous or erythematous Skin warm and dry - Assessment and Plan (1) Acute on chronic respiratory failure with hypoxia and hypercapnia Current Visit: Yes Status: Acute Assessment and Plan: Patient saturating in the 90s on 4 L nasal cannula which is his home oxygen use day and night COPD exacerbation likely secondary to pneumonia, right lower lobe consolidation seen on chest x-ray at admission Legionella and Streptococcus pneumonia antigens negative, sputum culture pending Patient did not have admission in the last 90 days Shortness of breath and physical exam slightly worse today Plan Patient is receiving 40 mg methylprednisolone twice a day, will increase to TID We will continue supplemental oxygen to maintain saturation above 88% We will continue Levaquin for pneumonia for 2 more days, today is #3 in 5 day course We will continue Duonebs as scheduled (2) COPD exacerbation Current Visit: Yes Status: Acute Assessment and Plan: Continue bronchodilator therapy and inhaled corticosteroids and systemic corticosteroids Rest of plan as seen above (3) Tobacco abuse Current Visit: No Status: Chronic Assessment and Plan: Counseled to quit smoking placed on nicotine patch patient did not tolerate lowest dose of nicotine patch because he is smoking so little at home Encouraged to quit altogether (4) DVT prophylaxis Current Visit: Yes Status: Acute Assessment and Plan: on SQ Lovenox (5) Anxiety Current Visit: Yes Status: Chronic Assessment and Plan: Resumed home benzo's (6) Pneumonia Current Visit: Yes Status: Acute Assessment and Plan: Findings suspicious for pneumonia seen on chest x-ray at admission Patient has already been started on empiric antibiotics with levofloxacin This is suspected community-acquired pneumonia secondary to COPD exacerbation White count increased today from 3 to 20 Sputum culture, strep pneumo antigen, legionella antigen all negative Plan Blood cultures ordered We will continue to monitor labs and clinical disposition Plan as seen above - Time Spent with Patient Total time spent is greater than 50% in coordination of care (as documented) at patient's floor/unit and/or counseling patient: Internal Medicine: Result - Labs CBC & Chem 7: 07/13/18 09:30 07/13/18 04:18 Labs: Short CBC 07/13/18 Range/Units 04:18 WBC 19.8 H D (4.3-11.1) K/mcL Hgb 12.5 L (12.9-16.9) g/dL Hct 39.4 (37.5-50.1) % Plt Count 248 (140-400) K/mcL Neutrophils # 19.0 H (1.6-8.9) K/mcL BMP 07/13/18 04:18 Sodium 136 Potassium 4.6 Chloride 93 L Carbon Dioxide 39 H BUN 15 Creatinine 0.84 Glucose 142 H Calcium 9.0 Consult Discharge Plan - Plan Referrals: Anrdy Abdi Jr, MD [Primary Care Provider] - <Maurilio Plummer - Last Filed: 07/13/18 18:33> Hospitalist Progress Note - Encounter Date of Encounter: 07/13/18 - Exam Vitals: Temp Pulse Resp BP Pulse Ox 97.8 F 102 18 101/62 90 07/13/18 15:42 07/13/18 15:42 07/13/18 15:45 07/13/18 15:42 07/13/18 15:45 - Assessment and Plan (1) Tobacco abuse Current Visit: No Status: Chronic (2) DVT prophylaxis Current Visit: Yes Status: Acute (3) Anxiety Current Visit: Yes Status: Chronic (4) COPD exacerbation Current Visit: Yes Status: Acute (5) Acute on chronic respiratory failure with hypoxia and hypercapnia Current Visit: Yes Status: Acute (6) Pneumonia Current Visit: Yes Status: Acute - Time Spent with Patient Total time spent is greater than 50% in coordination of care (as documented) at patient's floor/unit and/or counseling patient: Internal Medicine: Result - Labs CBC & Chem 7: 07/13/18 09:30 07/13/18 04:18 Labs: Short CBC 07/13/18 07/13/18 Range/Units 04:18 09:30 WBC 19.8 H D 21.4 H (4.3-11.1) K/mcL Hgb 12.5 L 12.9 (12.9-16.9) g/dL Hct 39.4 39.9 (37.5-50.1) % Plt Count 248 242 (140-400) K/mcL Neutrophils # 19.0 H 20.3 H (1.6-8.9) K/mcL BMP 07/13/18 04:18 Sodium 136 Potassium 4.6 Chloride 93 L Carbon Dioxide 39 H BUN 15 Creatinine 0.84 Glucose 142 H Calcium 9.0 - Attending Attestation I examined this patient and my medical decision-making was reviewed with the Resident Physician Dr. Guzman. I agree with the documented findings, disposition and treatment plan as described except to the extent set forth below. <Sher Camargo - Last Filed: 07/13/18 11:48> (6) Pneumonia Qualifiers: Pneumonia type: due to unspecified organism Laterality: right Lung location : lower lobe of lung Qualified Code(s): J18.1 - Lobar pneumonia, unspecified organism <Maurilio Plummer - Last Filed: 07/13/18 18:33> (6) Pneumonia Qualifiers: Pneumonia type: due to unspecified organism Laterality: right Lung location : lower lobe of lung Qualified Code(s): J18.1 - Lobar pneumonia, unspecified organism
[2018-07-13 09:45] LABS: Basophils % 0.1 %; Hematocrit 39.9 % (37.5-50.1); Hemoglobin 12.9 g/dL (12.9-16.9); Immature Granulocytes % 0.3 % (0-4); Lymphocytes # 0.4 K/mcL (0.6-4.6); Lymphocytes % 1.6 %; Mean Corpuscular HGB Conc 32.3 g/dL (31.6-35.5); Mean Corpuscular Hemoglobin 29.5 pg (28.0-33.3); Mean Corpuscular Volume 91.3 fL (83.0-100.0); Mean Platelet Volume 9.6 fL (9.4-12.4); Monocytes # 0.7 K/mcL (0.0-1.3); Monocytes % 3.2 %; Neutrophils # 20.3 K/mcL (1.6-8.9); Platelet Count 242 K/mcL (140-400); Red Blood Count 4.37 M/mcL (4.19-5.50); Red Cell Distribution Width 13.3 % (11.5-14.5); Segmented Neutrophils % 94.8 %
[2018-07-14] MEDS: *HR* OxyCODONE Immed Rel 15 MG TABLET PO SCH ×8 (00:46→21:58)
[2018-07-14] MEDS: Ipratropium/Albuterol Neb 3 ML IH SCH ×6 (04:04→23:55)
[2018-07-14] MEDS: ALPRAZolam 1 MG TABLET PO PRN ×4 (04:16→21:58)
[2018-07-14] MEDS: *HR* Enoxaparin 40 MG/0.4 ML SYRINGE SQ SCH (05:42)
[2018-07-14 06:57] LABS: Basophils % 0.1 %; Hematocrit 36.8 % (37.5-50.1); Hemoglobin 11.9 g/dL (12.9-16.9); Immature Granulocytes % 0.4 % (0-4); Lymphocytes # 0.3 K/mcL (0.6-4.6); Lymphocytes % 1.7 %; Mean Corpuscular HGB Conc 32.3 g/dL (31.6-35.5); Mean Corpuscular Hemoglobin 29.6 pg (28.0-33.3); Mean Corpuscular Volume 91.5 fL (83.0-100.0); Mean Platelet Volume 9.6 fL (9.4-12.4); Monocytes # 0.3 K/mcL (0.0-1.3); Monocytes % 1.7 %; Neutrophils # 15.1 K/mcL (1.6-8.9); Platelet Count 216 K/mcL (140-400); Red Blood Count 4.02 M/mcL (4.19-5.50); Red Cell Distribution Width 13.6 % (11.5-14.5); Segmented Neutrophils % 96.1 %
[2018-07-14 07:23] LABS: BUN/Creatinine Ratio 19 (6-26); Blood Urea Nitrogen 12 mg/dL (8-23); Calcium 8.8 mg/dL (8.6-10.3); Carbon Dioxide 37 mEq/L (23-29); Chloride 95 mEq/L (98-107); Glucose 123 mg/dL (70-105); Osmolality,Calculated 283 (280-300); Potassium 4.7 mEq/L (3.5-5.1); Sodium 136 mEq/L (136-145); eGFR For Non-African Americans > 60 (> 60)
[2018-07-14] MEDS: MethylPREDNISolone 40 MG/ML VIAL IVP SCH ×2 (10:13→16:00)
[2018-07-14] MEDS: Levofloxacin 750 MG/150 ML 750 MG/150 ML BAG IVPB SCH (10:13)
[2018-07-14] MEDS: Carisoprodol 350 MG TABLET PO SCH ×4 (10:14→22:03)
[2018-07-14] MEDS: Nicotine 7 MG PATCH.TD24 TD SCH (10:14)
[2018-07-14] MEDS: Budesonide/Formoterol 80/4.5 MDI IH SCH ×2 (11:28→19:48)
--- NOTE | 2018-07-14 17:15 | Internal Med Progress Note ---
<Sher Camargo - Last Filed: 07/14/18 16:59> Hospitalist Progress Note - Encounter Date of Encounter: 07/14/18 Time of Encounter: 09:00 - Subjective Interval History: Mr. Bermudez was admitted for COPD exacerbation, suspicious for pneumonia Patient reports continued shortness of breath, better today than yesterday We are continuing treatment with antibiotics and bronchodilators and steroids - Exam Vitals: Temp Pulse Resp BP Pulse Ox 97.8 F 109 17 105/75 90 07/14/18 15:15 07/14/18 15:15 07/14/18 15:15 07/14/18 15:15 07/14/18 15:15 Exam: Patient in no acute distress, alert and oriented 3 Heart in regular rate and rhythm without murmur or gallop Lung sounds diffusely diminished, no wheeze or rales, no rhonchi Abdomen soft , minimally tender in umbilical region, palpable abdominal mass in left upper quadrant Legs nonedematous or erythematous Skin warm and dry - Assessment and Plan (1) Acute on chronic respiratory failure with hypoxia and hypercapnia Current Visit: Yes Status: Acute Assessment and Plan: Patient saturating in the 90s on 4 L nasal cannula which is his home oxygen use day and night COPD exacerbation likely secondary to pneumonia, right lower lobe consolidation seen on chest x-ray at admission Legionella and Streptococcus pneumonia antigens negative, sputum culture pending Patient did not have admission in the last 90 days Shortness of breath and physical exam much better today Plan Patient is receiving 40 mg methylprednisolone TID We will continue supplemental oxygen to maintain saturation above 88% We will continue Levaquin for pneumonia for 1 more day, today is #4 in 5 day course We will continue Duonebs as scheduled (2) Pneumonia Current Visit: Yes Status: Acute Assessment and Plan: Findings suspicious for pneumonia seen on chest x-ray at admission Patient has already been started on empiric antibiotics with levofloxacin This is suspected community-acquired pneumonia secondary to COPD exacerbation White count decreased today from 20 to 15 Sputum culture, strep pneumo antigen, legionella antigen all negative Plan Blood cultures negative for growth so far We will continue to monitor labs and clinical disposition Plan as seen above (3) COPD exacerbation Current Visit: Yes Status: Acute Assessment and Plan: Continue bronchodilator therapy and inhaled corticosteroids and systemic corticosteroids Rest of plan as seen above (4) Tobacco abuse Current Visit: No Status: Chronic Assessment and Plan: Counseled to quit smoking placed on nicotine patch patient did not tolerate lowest dose of nicotine patch because he is smoking so little at home Encouraged to quit altogether (5) DVT prophylaxis Current Visit: Yes Status: Acute Assessment and Plan: on SQ Lovenox (6) Anxiety Current Visit: Yes Status: Chronic Assessment and Plan: Resumed home benzo's (7) Mass Current Visit: Yes Status: Acute Assessment and Plan: Palpable mass found on exam and left upper quadrant of abdomen Abdominal/pelvic CT without contrast was performed to rule out neoplasm CT revealed multiple nodules in the left lung, peritoneum Upper abdominal lymphadenopathy, sclerotic foci in iliac bone Left anterior abdominal wall mass Chest CTA in 2016 did not show any acute process Nodules suspicious for metastatic disease Patient was informed of imaging findings and offered consult to hematology/ oncology Patient preferred not to immediately pursue consultation or workup Patient was offered consultation once discharged and he is considering - Time Spent with Patient Total time spent is greater than 50% in coordination of care (as documented) at patient's floor/unit and/or counseling patient: Internal Medicine: Result - Labs CBC & Chem 7: 07/14/18 06:44 07/14/18 06:44 Labs: Short CBC 07/14/18 Range/Units 06:44 WBC 15.7 H (4.3-11.1) K/mcL Hgb 11.9 L (12.9-16.9) g/dL Hct 36.8 L (37.5-50.1) % Plt Count 216 (140-400) K/mcL Neutrophils # 15.1 H (1.6-8.9) K/mcL BMP 07/14/18 06:44 Sodium 136 Potassium 4.7 Chloride 95 L Carbon Dioxide 37 H BUN 12 Creatinine 0.62 L Glucose 123 H Calcium 8.8 - Impressions Impressions Aorta Ultrasound 07/14/18 09:00 IMPRESSION: No evidence of abdominal aortic aneurysm. Incidental subcutaneous mass measuring up to 1.5 cm corresponding to the palpable abnormality. Finding is of unclear etiology. Consider dedicated CT as clinically warranted. Cholelithiasis. D/ / 07/14/2018 11:56:39 [facility] Provider: Stacey Rojas MD Abdomen/Pelvis CT 07/14/18 14:15 IMPRESSION: Constellation of findings are highly suspicious for metastatic disease including left anterior abdominal palpable lesion, lung nodules, upper abdominal lymphadenopathy and multiple scattered peritoneal nodules. Left iliac bone lesions are favored to represent bone islands, though metastatic disease remains a possibility. Correlate for history of known malignancy. Consider PET-CT for further evaluation. Moderate right-sided effusion and associated airspace disease suspicious for pneumonia. The findings were sent to the Radiology Results Communication Center at 4:10 pm on 07/14/2018to be communicated to a licensed caregiver. D/ / Zach Caceres MD / Zach Caceres MD Interpreting Provider: Zach Caceres MD Consult Discharge Plan - Plan Referrals: Andry Abdi Jr, MD [Primary Care Provider] - <Maurilio Plummer - Last Filed: 07/14/18 17:54> Hospitalist Progress Note - Encounter Date of Encounter: 07/14/18 - Exam Vitals: Temp Pulse Resp BP Pulse Ox 97.8 F 109 17 105/75 90 07/14/18 15:15 07/14/18 15:15 07/14/18 15:15 07/14/18 15:15 07/14/18 15:15 - Assessment and Plan (1) Tobacco abuse Current Visit: No Status: Chronic (2) DVT prophylaxis Current Visit: Yes Status: Acute (3) Anxiety Current Visit: Yes Status: Chronic (4) COPD exacerbation Current Visit: Yes Status: Acute (5) Acute on chronic respiratory failure with hypoxia and hypercapnia Current Visit: Yes Status: Acute (6) Pneumonia Current Visit: Yes Status: Acute (7) Mass Current Visit: Yes Status: Acute - Time Spent with Patient Total time spent is greater than 50% in coordination of care (as documented) at patient's floor/unit and/or counseling patient: Internal Medicine: Result - Labs CBC & Chem 7: 07/14/18 06:44 07/14/18 06:44 Labs: Short CBC 07/14/18 Range/Units 06:44 WBC 15.7 H (4.3-11.1) K/mcL Hgb 11.9 L (12.9-16.9) g/dL Hct 36.8 L (37.5-50.1) % Plt Count 216 (140-400) K/mcL Neutrophils # 15.1 H (1.6-8.9) K/mcL BMP 07/14/18 06:44 Sodium 136 Potassium 4.7 Chloride 95 L Carbon Dioxide 37 H BUN 12 Creatinine 0.62 L Glucose 123 H Calcium 8.8 - Impressions Impressions Aorta Ultrasound 07/14/18 09:00 IMPRESSION: No evidence of abdominal aortic aneurysm. Incidental subcutaneous mass measuring up to 1.5 cm corresponding to the palpable abnormality. Finding is of unclear etiology. Consider dedicated CT as clinically warranted. Cholelithiasis. D/ / 07/14/2018 11:56:39 Stacey Rojas MD / [facility] Interpreting Provider: Stacey Rojas MD Abdomen/Pelvis CT 07/14/18 14:15 IMPRESSION: Constellation of findings are highly suspicious for metastatic disease including left anterior abdominal palpable lesion, lung nodules, upper abdominal lymphadenopathy and multiple scattered peritoneal nodules. Left iliac bone lesions are favored to represent bone islands, though metastatic disease remains a possibility. Correlate for history of known malignancy. Consider PET-CT for further evaluation. Moderate right-sided effusion and associated airspace disease suspicious for pneumonia. The findings were sent to the Radiology Results Communication Center at 4:10 pm on 07/14/2018to be communicated to a licensed caregiver. D/ / Zach Caceres MD / Zach Caceres MD Interpreting Provider: Zach Caceres MD - Attending Attestation I examined this patient and my medical decision-making was reviewed with the Resident Physician. I agree with the documented findings, disposition and treatment plan as described except to the extent set forth below. Respiratory-mcrae, he is not back to baseline breathing. But he is back to 4 L o2 which he is on at home. He has improving WBC count. There is slightly better air exchange on lung auscultation. A CT abdomen/pelvis was done to further evaluate abdominal mass. Findings were concerning for metastatic disease. I discussed this with him and offered to consult Oncology. Patient declined this and stated he would like to address this after discharge. He would like to talk to his about it before even considering seeking a consultation. We discussed risks of being lost to follow-up with these findings. Patient acknowledges this but does request to discuss this after being discharged. Will coordinate with primary care provider. <Sher Camargo - Last Filed: 07/14/18 16:59> (2) Pneumonia Qualifiers: Pneumonia type: due to unspecified organism Laterality: right Lung location : lower lobe of lung Qualified Code(s): J18.1 - Lobar pneumonia, unspecified organism <Maurilio Plummer - Last Filed: 07/14/18 17:54> (6) Pneumonia Qualifiers: Pneumonia type: due to unspecified organism Laterality: right Lung location : lower lobe of lung Qualified Code(s): J18.1 - Lobar pneumonia, unspecified organism
[2018-07-15] MEDS: MethylPREDNISolone 40 MG/ML VIAL IVP SCH ×4 (01:27→23:55)
[2018-07-15] MEDS: *HR* OxyCODONE Immed Rel 15 MG TABLET PO SCH ×9 (01:28→23:55)
[2018-07-15] MEDS: Ipratropium/Albuterol Neb 3 ML IH SCH ×5 (03:51→19:16)
[2018-07-15 04:20] LABS: Basophils % 0.1 %; Hematocrit 37.8 % (37.5-50.1); Hemoglobin 12.1 g/dL (12.9-16.9); Immature Granulocytes % 0.9 % (0-4); Lymphocytes # 0.2 K/mcL (0.6-4.6); Lymphocytes % 1.6 %; Mean Corpuscular Hemoglobin 29.9 pg (28.0-33.3); Mean Corpuscular Volume 93.3 fL (83.0-100.0); Mean Platelet Volume 9.6 fL (9.4-12.4); Monocytes # 0.5 K/mcL (0.0-1.3); Monocytes % 3.2 %; Neutrophils # 13.6 K/mcL (1.6-8.9); Platelet Count 230 K/mcL (140-400); Red Blood Count 4.05 M/mcL (4.19-5.50); Red Cell Distribution Width 13.5 % (11.5-14.5); Segmented Neutrophils % 94.2 %
[2018-07-15 04:40] LABS: Alanine Aminotransferase 20 Units/L (7-52); Albumin 3.2 g/dL (3.5-5.7); Albumin/Globulin Ratio 1.6 (1.1-2.2); Alkaline Phosphatase 69 Units/L (34-104); Aspartate Amino Transferase 19 Units/L (13-39); BUN/Creatinine Ratio 14 (6-26); Bilirubin,Total 0.3 mg/dL (0.3-1.0); Blood Urea Nitrogen 10 mg/dL (8-23); Calcium 8.5 mg/dL (8.6-10.3); Carbon Dioxide 41 mEq/L (23-29); Chloride 94 mEq/L (98-107); Glucose 174 mg/dL (70-105); Osmolality,Calculated 287 (280-300); Potassium 3.9 mEq/L (3.5-5.1); Sodium 137 mEq/L (136-145); Total Protein 5.2 g/dL (6.4-8.9); eGFR For Non-African Americans > 60 (> 60)
[2018-07-15] MEDS: ALPRAZolam 1 MG TABLET PO PRN ×3 (05:05→14:41)
[2018-07-15] MEDS: *HR* Enoxaparin 40 MG/0.4 ML SYRINGE SQ SCH (05:05)
[2018-07-15] MEDS: Budesonide/Formoterol 80/4.5 MDI IH SCH ×2 (07:30→19:15)
[2018-07-15] MEDS: Nicotine 7 MG PATCH.TD24 TD SCH (09:30)
[2018-07-15] MEDS: Carisoprodol 350 MG TABLET PO SCH ×3 (09:30→20:32)
[2018-07-15] MEDS: Levofloxacin 750 MG/150 ML 750 MG/150 ML BAG IVPB SCH (09:30)
--- NOTE | 2018-07-15 09:40 | Discharge Summary ---
- NOTES TO OUTPATIENT PROVIDER Notes to Outpatient Provider: Patient was admitted and treated for COPD exacerbation and community-acquired pneumonia. He was treated with Levaquin and bronchodilators and IV and systemic steroids. Patient was incidentally found to have multiple lung and peritoneal nodules on CT. This was reported to the patient and he decided that he wanted to discuss a consultation with oncology with his first, and possibly follow up outpatient. Orders not resulted at time of discharge: Pending orders 07/13/18 10:56 Culture,Blood [BC] Stat 07/15/18 07:46 Ionized Calcium,venous blood Routine Date of Encounter: 07/15/18 Time of Encounter: 09:35 - Discharge Diagnosis (1) Acute on chronic respiratory failure with hypoxia and hypercapnia Priority: Primary Status: Acute Assessment and Plan: Patient saturating in the 90s on 6 L nasal cannula which is his home oxygen use day and night COPD exacerbation likely secondary to pneumonia, right lower lobe consolidation seen on chest x-ray at admission Legionella and Streptococcus pneumonia antigens negative, sputum culture negative, blood cultures pending Patient did not have admission in the last 90 days Shortness of breath and physical exam baseline today Plan Patient is receiving 40 mg methylprednisolone TID We will continue supplemental oxygen to maintain saturation above 88% We will continue Levaquin for pneumonia 2 more days after discharge We will continue Duonebs as scheduled (2) Pneumonia Status: Acute Qualifiers: Pneumonia type: due to unspecified organism Laterality: right Lung location: lower lobe of lung Qualified Code(s): J18.1 - Lobar pneumonia, unspecified organism (3) COPD exacerbation Status: Acute (4) Tobacco abuse Status: Chronic (5) DVT prophylaxis Status: Acute (6) Anxiety Status: Chronic (7) Mass Status: Acute Hospital course: Mr. Bermudez is a 58 year old male - Time Spent with Patient Total time spent providing and/or coordinating discharge services: - Discharge Medications Home Medications: ALPRAZolam [Xanax 1 MG Tablet] 1 mg PO TID PRN 01/08/16 [History] Carisoprodol [Soma] 350 mg PO DAILY PRN 01/08/16 [History] OxyCODONE Immed Rel [Roxicodone 15 MG] 15 mg PO Q4HR 07/11/18 [History] predniSONE [PredniSONE] 10 mg PO DAILY 07/11/18 [History] Albuterol Sulfate [Proair Hfa] 2 puff IH Q4H PRN 07/12/18 [History] Allergies/Adverse Reactions: 3 Allergy/AdvReac Type Severity Reaction Status Date / Time No Known Allergies Allergy Verified 01/08/16 09:48 Date of admission: 07/11/18 17:51 Primary care physician: Andry Abdi Jr, MD Consults: 07/11/18 19:54 Consult to Nutrition [CONS] Routine Comment: Consulting Provider: NUTRITION Reason for Dietary Consult: MST Score Consult to Recycling Assistant [CONS] Routine Reason for SW Consult: [facility], UNABLE TO AFFORD MEDICATIONS, REHAB ( NOT SNF, BUT WOULD CONSIDER HH) 07/13/18 09:03 Consult to Physical Therapy [CONS] Routine Comment: Evaluate, develop and implement POC Reason for Consult: Patient has diminished mobility secondary to weakness, likely physical deconditioning. This is apart from his shortness of breath. Does patient have active BEDREST order?: No Is patient medically & hemodynamically stable?: Yes Patient assessed for mobility or mobilized this visit?: No Discharging clinician: Sher Camargo - Constitutional Vitals: Temp Pulse Resp BP Pulse Ox 97.8 F 88 18 103/68 86 07/15/18 07:13 07/15/18 07:13 07/15/18 07:31 07/15/18 07:13 07/15/18 07:31 General appearance: Present: cooperative, mild distress (Able to finish full sentence without any pause), A&O X 3, answers questions appropriately - Patient Status Condition: Good - Discharge Instructions Follow Up With: Andry Abdi Jr, MD [Primary Care Provider] -
[2018-07-15] MEDS ORDERED: *HR* Metoprolol 5 MG/5 ML VIAL IVP ONE ×2 (09:57→09:58)
--- NOTE | 2018-07-15 14:29 | Cardiology Consult Note ---
<Renata Short - Last Filed: 07/15/18 14:47> Date of Encounter: 07/15/18 Time of Encounter: 14:00 Assessment and Plan (1) Acute on chronic respiratory failure with hypoxia and hypercapnia Current Visit: Yes Status: Acute Per cardiology: -Admitted with respiratory failure. -Currently on Bipap. -Management per primary service. (2) Atrial fibrillation with RVR Current Visit: Yes Status: Acute Per cardiology: -New onset a.fib RVR in the setting of COPD, pneumonia. -Denies palpitations inpatient, however has had some outpateint. -No previous cardiac testing noted. -Mg, K within normal limits. -TTE pending. -Qurfo2hlxv score 1, possibly 2 (HTN, ?DM). Patient denies history of DM. Blood sugars have been elevated this admission, however is also receiving steroids. At this time recommend ASA. Of note, CT chest reviewed with possible metastatic disease. -Hemoglobin 14.8 admission, now 12.1. Denies active bleeding or blood loss. -Average HR previous 12 hours noted to be 115, a.fib. ECG with a.fib RVR, HR 144. -Currently on cardizem drip at 15mg/hour. Now in SR, HR 90s. -Will check hemoglobin A1C in am. IF elevated, would recommend head CT to rule out brain metastasis, also anemia work up for further recommendations regarding anticoagulation. -TSH ordered. -Will switch cardizem to po, since patient is now back in SR. -Consider outpatient stress test. Discussion w patient/family: The assessment and plan as outlined above was discussed with the patient who expressed understanding and agreement. All questions were answered. Thank you for involving us in the care of your patient. Please call with any questions. Discussed and reviewed with . History of Present Illness Consult date: 07/15/18 Requesting physician: Sher Camargo Consult reason: a.fib rvr Chief complaint: shortness of breath History of present illness: Mr. Bermudez is a 58 year old male with a relevant past medical history of COPD O2 dependent, degenerative disk disease, tobacco abuse, anxiety, ?HTN, ?DM who presented to [facility] with complaints of increased shortness of breath. Cardiology has been consulted for a.fib RVR. Patient denies current palpitations or fluttering. Patient states does have occasional palpitations at home. Denies chest pain. Past Med Surg Social Fam HX - Past Medical History Attestation: Yes The following information was validated with the patient. Source: patient, old records reviewed Medical history: COPD, hypertension, other Additional medical history: SMOKER ANXIETY Psychiatric history: anxiety - Past Surgical History Surgical History: no surgical history - Social History Smoking Status: Current every day smoker Packs per day: 0.25 Smokeless Tobacco Status: No Alcohol use: none Drug use: none - Family History Mother Living Status: Age at : 82 Hx Family Endocrine Disorder: Yes (DM) Hx Family Neurologic Disorders: Yes (ALZHEIMERS) Father Living Status: Age at : 67 Hx Family Respiratory Disorders: Yes (emphysema) Medications and Allergies ALPRAZolam [Xanax 1 MG Tablet] 1 mg PO TID PRN 01/08/16 [History] Carisoprodol [Soma] 350 mg PO DAILY PRN 01/08/16 [History] OxyCODONE Immed Rel [Roxicodone 15 MG] 15 mg PO Q4HR 07/11/18 [History] predniSONE [PredniSONE] 10 mg PO DAILY 07/11/18 [History] Albuterol Sulfate [Proair Hfa] 2 puff IH Q4H PRN 07/12/18 [History] 3 Allergy/AdvReac Type Severity Reaction Status Date / Time No Known Allergies Allergy Verified 01/08/16 09:48 All Systems Review: The remainder of the systems were reviewed and are negative - Cardiovascular Cardiovascular: as per HPI, dyspnea on exertion, palpitations Physical Examination Vital Signs, Last 4 Hours Temp Pulse Resp BP Pulse Ox 07/15/18 13:21 125 16 103/68 93 07/15/18 12:21 152 18 101/65 87 07/15/18 11:02 20 92 07/15/18 10:56 97.6 F 98 19 101/68 90 General: Conversant, No Apparent Distress HEENT: Atraumatic, Normocephaly, Mucus Membranes Moist Neck: No JVD, Normal carotid pulses Cardiac: Reg Rate and Rhythm, Normal S1 and S2, No Murmur Lungs: Other (Lung sounds diminished throughout. ) Neuro: Alert and responsive, No focal deficits noted Abdomen: Soft, Non-Tender Skin: No rashes noted on visualized skin Musculoskeletal: No Chest Wall Tenderness Extremities: No Clubbing, No Cyanosis, No Edema, Normal Pulses Results 07/15/18 03:59 07/15/18 03:59 Lab Results Impressions Abdomen/Pelvis CT 07/14/18 14:15 IMPRESSION: Constellation of findings are highly suspicious for metastatic disease including left anterior abdominal palpable lesion, lung nodules, upper abdominal lymphadenopathy and multiple scattered peritoneal nodules. Left iliac bone lesions are favored to represent bone islands, though metastatic disease remains a possibility. Correlate for history of known malignancy. Consider PET-CT for further evaluation. Moderate right-sided effusion and associated airspace disease suspicious for pneumonia. The findings were sent to the Radiology Results Communication Center at 4:10 pm on 07/14/2018to be communicated to a licensed caregiver. D/ / Zach Caceres MD / Zach Caceres MD Interpreting Provider: Zach Caceres MD Active Medications Albuterol/Ipratropium (Duoneb) 3 ml IH [id number] [facility] Stop: 01/10/19 20:01 Last Admin: 07/15/18 11:01 Dose: 3 ml Alprazolam (Xanax) 1 mg PO QID PRN; Protocol PRN Reason: Anxiety Stop: 01/10/19 17:56 Last Admin: 07/15/18 14:41 Dose: 1 mg Aspirin (Aspirin Ec) 81 mg PO DAILY [facility] Stop: 01/15/19 09:01 Budesonide/Formoterol Fumarate (Symbicort) 2 puff IH BIDR LIAN PRN Reason: Protocol Stop: 01/10/19 22:01 Last Admin: 07/15/18 07:30 Dose: 2 puff Carisoprodol (Soma) 350 mg PO TID [facility] Stop: 01/10/19 21:01 Last Admin: 07/15/18 14:43 Dose: Not Given Docusate Sodium (Colace) 100 mg PO BID PRN PRN Reason: Constipation Stop: 01/10/19 21:01 Enoxaparin Sodium (Lovenox) 40 mg SQ 0600 [facility] PRN Reason: Protocol Stop: 01/11/19 06:01 Last Admin: 07/15/18 05:05 Dose: 40 mg Levofloxacin/Dextrose (Levaquin Premix 750mg/150 Ml) 750 mg in 150 mls @ 100 mls/hr IVPB DAILY LIAN PRN Reason: Protocol Stop: 07/18/18 09:01 Last Infusion: 07/15/18 12:59 Dose: Infused Diltiazem HCl 50 mg/ Sodium (Chloride) 50 mls @ 5 mls/hr IVC .Q10H LIAN; 5 MG/HR PRN Reason: Protocol Stop: 01/14/19 11:01 Last Infusion: 07/15/18 14:20 Dose: 15 mg/hr, 15 mls/hr Ketorolac Tromethamine (Toradol) 10 mg PO Q6HR PRN PRN Reason: Severe Pain Stop: 07/17/18 10:19 Methylprednisolone (Solu-Medrol) 40 mg IVP Q8HR LIAN Stop: 01/12/19 16:01 Last Admin: 07/15/18 09:29 Dose: 40 mg Naloxone HCl (Narcan) 0.4 mg IVP Q2MIN PRN PRN Reason: SEE COMMENTS Stop: 01/10/19 17:52 Nicotine (Nicoderm) 7 mg TD DAILY LIAN PRN Reason: Protocol Stop: 01/11/19 09:01 Last Admin: 07/15/18 09:30 Dose: Not Given Oxycodone HCl (Roxicodone) 15 mg PO Q3HR LIAN PRN Reason: Protocol Stop: 01/11/19 12:01 Last Admin: 07/15/18 14:42 Dose: 15 mg Promethazine HCl (Phenergan) 12.5 mg IVP Q6HR PRN PRN Reason: Nausea And Vomiting Stop: 01/10/19 17:52 Laboratory Tests 07/11/18 07/11/18 07/12/18 15:49 15:49 04:46 Hgb 14.8 Potassium Creatinine Magnesium 2.0 Troponin I 0.03 07/15/18 07/15/18 03:59 03:59 Hgb 12.1 L Potassium 3.9 Creatinine 0.70 Magnesium Troponin I - Imaging and Cardiology Chest Xray: report reviewed Echo: pending - EKG Interpretation EKG results cardiology: personally reviewed (ECG with valeri RVR, HR 144.), other (Telemetry reviewed with average HR previous 12 hours noted to be 115, a.fib. Currently SR, HR 90s.) Consult Discharge Plan - Plan Referrals: Andry Abdi Jr, MD [Primary Care Provider] - 07/19/18 2:15 pm (Please follow up as schedule....) <Mir Guerra - Last Filed: 07/15/18 18:01> Date of Encounter: 07/15/18 - Attending Attestation Patient was seen and evaluated independently by me. Findings, assessment and plan were discussed at length with patient, questions answered. Agree with nurse practitioner's documentation. Addition as follows, 58 yoCM ho COPD, smoking. Admitted for COPD exacerbation/PNA. Consulted for Afib RVR with spontaneous conversion to SR. Also suspicion for wide spread of metastatic cancer (lung, abd, bone) VS stable, scattered rhonchi B/L, RRR, no LE edema A: Paroxysmal Afib, C score 1 currently, possible metast. cancer P: - TTE - cardizem po unless low LVEF on TTE given COPD - ASA for now till clear on C score and benefit and risk of anticoagulation Mir Guerra MD, PhD Assessment and Plan Discussion w patient/family: The assessment and plan as outlined above was discussed with the patient and/or family members who expressed understanding and agreement. All questions were answered. Thank you for involving us in the care of your patient. Please call with any questions. History of Present Illness History of present illness: Mr. Bermudez is a 58 year old male All Systems Review: The remainder of the systems were reviewed and are negative Physical Examination Vital Signs, Last 4 Hours Temp Pulse Resp BP Pulse Ox 07/15/18 16:07 18 91 07/15/18 15:17 97.8 F 66 16 109/79 93 07/15/18 14:47 81 17 108/75 93 Results 07/15/18 03:59 07/15/18 03:59 Lab Results 07/15/18 07/15/18 07/15/18 03:59 03:59 14:15 WBC 14.5 H Hgb 12.1 L Hct 37.8 Plt Count 230 Sodium 137 Potassium 3.9 Chloride 94 L Carbon Dioxide 41 H* BUN 10 Creatinine 0.70 Glucose 174 H Calcium 8.5 L Total Bilirubin 0.3 AST 19 ALT 20 Alkaline Phosphatase 69 TSH 0.275 L
--- NOTE | 2018-07-15 15:05 | Electrocardiograph Report ---
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
[2018-07-15] MEDS: Diltiazem CD (24hr) 300 MG CAPSULE PO SCH (15:48)
--- NOTE | 2018-07-15 17:25 | Internal Med Progress Note ---
<Morenonubiajuan miguelOjMichaelsamson Bell - Last Filed: 07/15/18 17:34> Hospitalist Progress Note - Encounter Date of Encounter: 07/15/18 - Exam Vitals: Temp Pulse Resp BP Pulse Ox 97.8 F 66 18 109/79 91 07/15/18 15:17 07/15/18 15:17 07/15/18 16:07 07/15/18 15:17 07/15/18 16:07 - Assessment and Plan (1) Tobacco abuse Current Visit: No Status: Chronic (2) DVT prophylaxis Current Visit: Yes Status: Acute (3) Anxiety Current Visit: Yes Status: Chronic (4) COPD exacerbation Current Visit: Yes Status: Acute (5) Acute on chronic respiratory failure with hypoxia and hypercapnia Current Visit: Yes Status: Acute (6) Pneumonia Current Visit: Yes Status: Acute (7) Mass Current Visit: Yes Status: Acute - Time Spent with Patient Total time spent is greater than 50% in coordination of care (as documented) at patient's floor/unit and/or counseling patient: Internal Medicine: Result - Labs CBC & Chem 7: 07/15/18 03:59 07/15/18 03:59 Labs: Short CBC 07/15/18 Range/Units 03:59 WBC 14.5 H (4.3-11.1) K/mcL Hgb 12.1 L (12.9-16.9) g/dL Hct 37.8 (37.5-50.1) % Plt Count 230 (140-400) K/mcL Neutrophils # 13.6 H (1.6-8.9) K/mcL BMP 07/15/18 03:59 Sodium 137 Potassium 3.9 Chloride 94 L Carbon Dioxide 41 H* BUN 10 Creatinine 0.70 Glucose 174 H Calcium 8.5 L Liver Function 07/15/18 Range/Units 03:59 Total Bilirubin 0.3 (0.3-1.0) mg/dL AST 19 (13-39) Units/L ALT 20 (7-52) Units/L Alkaline Phosphatase 69 (34-104) Units/L Albumin 3.2 L (3.5-5.7) g/dL Consult Discharge Plan - Plan Referrals: Andry Abdi Jr, MD [Primary Care Provider] - 07/19/18 2:15 pm (Please follow up as schedule....) - Attending Attestation I examined this patient and my medical decision-making was reviewed with the Resident Physician. I agree with the documented findings, disposition and treatment plan as described except to the extent set forth below. Patient insisted on going home today. However, he became severely tachycardic with HR in 170s and desaturated oxygen to 70-80% and needed increase in supplemental O2. An EKG done showed atrial fibrillation with RVR. Patient remained in moderate respiratory distress. He was started on Cardizem drip, given BIPAP, and Cardiology consulted. His heart rate improved on drip. BIPAP has helped patient symptoms significantly. Patient is not ready for discharge and he is in agreement to staying in hospital due to his rapid respiratory decline today. Continue steroids and duo neb therapy with antibiotics. <Sher Camargo - Last Filed: 07/15/18 18:22> Hospitalist Progress Note - Encounter Date of Encounter: 07/15/18 Time of Encounter: 08:00 - Subjective Interval History: Mr. Bermudez was admitted for COPD exacerbation, suspicious for pneumonia Patient reports continued shortness of breath, at baseline We are continuing treatment with antibiotics and bronchodilators and steroids He was anticipated for discharge today until he developed AFib RVR - Exam Vitals: Temp Pulse Resp BP Pulse Ox 97.8 F 66 18 109/79 91 07/15/18 15:17 07/15/18 15:17 07/15/18 16:07 07/15/18 15:17 07/15/18 16:07 Exam: Patient in no acute distress, alert and oriented 3 Heart tachycardic and irregular, no murmur or gallop Lung sounds diffusely diminished, no wheeze or rales, no rhonchi Abdomen soft , minimally tender in umbilical region, palpable abdominal mass in left upper quadrant Legs nonedematous or erythematous Skin warm and dry - Assessment and Plan (1) Acute on chronic respiratory failure with hypoxia and hypercapnia Current Visit: Yes Status: Acute Assessment and Plan: Patient saturating in the 90s on 6 L nasal cannula, 4L is his home oxygen use day and night COPD exacerbation likely secondary to pneumonia, right lower lobe consolidation seen on chest x-ray at admission Legionella and Streptococcus pneumonia antigens negative, sputum culture pending Patient did not have admission in the last 90 days Shortness of breath and physical exam much better today Plan Patient is receiving 40 mg methylprednisolone TID We will continue supplemental oxygen to maintain saturation above 88% We will continue Levaquin for pneumonia for 2 more days, today is #5 in 7 day course We will continue Duonebs as scheduled Patient receiving BiPAP (2) Pneumonia Current Visit: Yes Status: Acute Assessment and Plan: Findings suspicious for pneumonia seen on chest x-ray at admission Patient has already been started on empiric antibiotics with levofloxacin This is suspected community-acquired pneumonia secondary to COPD exacerbation White count decreased today from 15 to 14, coul be elevated secondary to steroids Sputum culture, strep pneumo antigen, legionella antigen all negative Plan Blood cultures negative for growth so far We will continue to monitor labs and clinical disposition Plan as seen above (3) COPD exacerbation Current Visit: Yes Status: Acute Assessment and Plan: Continue bronchodilator therapy and inhaled corticosteroids and systemic corticosteroids Rest of plan as seen above (4) Tobacco abuse Current Visit: No Status: Chronic Assessment and Plan: Counseled to quit smoking placed on nicotine patch patient did not tolerate lowest dose of nicotine patch because he is smoking so little at home Encouraged to quit altogether (5) DVT prophylaxis Current Visit: Yes Status: Acute Assessment and Plan: on SQ Lovenox (6) Anxiety Current Visit: Yes Status: Chronic Assessment and Plan: Resumed home benzo's (7) Mass Current Visit: Yes Status: Acute Assessment and Plan: Palpable mass found on exam and left upper quadrant of abdomen Abdominal/pelvic CT without contrast was performed to rule out neoplasm CT revealed multiple nodules in the left lung, peritoneum Upper abdominal lymphadenopathy, sclerotic foci in iliac bone Left anterior abdominal wall mass Chest CTA in 2016 did not show any acute process Nodules suspicious for metastatic disease Patient was informed of imaging findings and offered consult to hematology/ oncology Patient preferred not to immediately pursue consultation or workup Patient was offered consultation once discharged and he is considering (8) Atrial fibrillation with RVR Current Visit: Yes Status: Acute Assessment and Plan: Patient developed new onset atrial fibrillation with rapid ventricular rate today His blood pressure remained stable Cardizem drip was started and cardiology was consulted Rate was controlled on Cardizem drip Cardiology transitioning Cardizem drip to oral Cardizem, recommended aspirin for anticoagulation Patient currently hemodynamically stable, we will continue to monitor and defer to cardiology recommendations - Time Spent with Patient Total time spent is greater than 50% in coordination of care (as documented) at patient's floor/unit and/or counseling patient: Internal Medicine: Result - Labs CBC & Chem 7: 07/15/18 03:59 07/15/18 03:59 Labs: Short CBC 07/15/18 Range/Units 03:59 WBC 14.5 H (4.3-11.1) K/mcL Hgb 12.1 L (12.9-16.9) g/dL Hct 37.8 (37.5-50.1) % Plt Count 230 (140-400) K/mcL Neutrophils # 13.6 H (1.6-8.9) K/mcL BMP 07/15/18 03:59 Sodium 137 Potassium 3.9 Chloride 94 L Carbon Dioxide 41 H* BUN 10 Creatinine 0.70 Glucose 174 H Calcium 8.5 L Liver Function 07/15/18 Range/Units 03:59 Total Bilirubin 0.3 (0.3-1.0) mg/dL AST 19 (13-39) Units/L ALT 20 (7-52) Units/L Alkaline Phosphatase 69 (34-104) Units/L Albumin 3.2 L (3.5-5.7) g/dL <Maurilio Plummer - Last Filed: 07/15/18 17:34> (6) Pneumonia Qualifiers: Pneumonia type: due to unspecified organism Laterality: right Lung location : lower lobe of lung Qualified Code(s): J18.1 - Lobar pneumonia, unspecified organism <Sher Camargo - Last Filed: 07/15/18 18:22> (2) Pneumonia Qualifiers: Pneumonia type: due to unspecified organism Laterality: right Lung location : lower lobe of lung Qualified Code(s): J18.1 - Lobar pneumonia, unspecified organism
--- NOTE | 2018-07-15 17:42 | Electrocardiograph Report ---
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
[2018-07-15 21:22] LABS: ABG Base Excess 10 mEq/L (-2 to 3); ABG HCO3 41 mEq/L (21-27); ABG Oxygen Saturation 95 % (95-98); ABG PCO2 91 mmHg (35-45); ABG PH 7.26 pH Units (7.32-7.45); ABG PO2 94 mmHg (85-104); ABG TCO2 44 mEq/L (20-26); Blood Gas PEEP 6 cm H2O; Blood Gas Pressure Support 12 cm H2O
[2018-07-15] MEDS ORDERED: *HR* LORazepam 2 MG/ML VIAL IVP ONE (21:45)
--- NOTE | 2018-07-15 23:35 | Event Note ---
Date of Encounter: 07/15/18 Time of Encounter: 20:21 Alerted by patient's nurse FABIO Spring that she was finding it very hard to arouse patient and found him lethargic. Stated patient was currently on BiPAP and was alert and oriented 3 earlier today. Went to see patient who is sitting up in bed on BiPAP and attempting to eat fruit from a cup. Pt. stated he felt fine. ABG ordered which showed pH of 7.26, PCO2 91, PO2 94, HCO3 of 41, total CO2 44, O2 saturation of 95, and ABG base excess of 10. Discussed pt. w/Dr. Lord w/recommendation to continue BiPAP, order sitter to ensure that pt. kept BiPAP in place, and repeat ABG at 23:30. CXR 1V portable ordered. Nurse instructed to continue to monitor pt. closely for signs of respiratory distress or improvement.
[2018-07-15 23:37] LABS: ABG Base Excess 14 mEq/L (-2 to 3); ABG HCO3 46 mEq/L (21-27); ABG Oxygen Saturation 99 % (95-98); ABG PCO2 102 mmHg (35-45); ABG PH 7.26 pH Units (7.32-7.45); ABG PO2 168 mmHg (85-104); ABG TCO2 49 mEq/L (20-26); Blood Gas Modality avaps; Blood Gas PEEP 8 cm H2O; Blood Gas Respiration Rate 14; Blood Gas VT 500 cc
[2018-07-16] MEDS: Ipratropium/Albuterol Neb 3 ML IH SCH ×7 (00:10→23:04)
[2018-07-16] MEDS ORDERED: Furosemide 20 MG/2 ML VIAL IVP ONE (00:11)
[2018-07-16] MEDS: *HR* OxyCODONE Immed Rel 15 MG TABLET PO SCH ×8 (02:09→23:29)
[2018-07-16 02:41] LABS: ABG Base Excess 12 mEq/L (-2 to 3); ABG HCO3 41 mEq/L (21-27); ABG Oxygen Saturation 93 % (95-98); ABG PCO2 73 mmHg (35-45); ABG PH 7.35 pH Units (7.32-7.45); ABG PO2 75 mmHg (85-104); ABG TCO2 43 mEq/L (20-26)
[2018-07-16] MEDS: *HR* Enoxaparin 40 MG/0.4 ML SYRINGE SQ SCH (05:18)
[2018-07-16 05:51] LABS: Basophils % 0.1 %; Hematocrit 42.8 % (37.5-50.1); Hemoglobin 13.1 g/dL (12.9-16.9); Immature Granulocytes % 0.9 % (0-4); Lymphocytes # 0.4 K/mcL (0.6-4.6); Lymphocytes % 2.3 %; Mean Corpuscular HGB Conc 30.6 g/dL (31.6-35.5); Mean Corpuscular Volume 94.9 fL (83.0-100.0); Mean Platelet Volume 9.9 fL (9.4-12.4); Monocytes # 0.7 K/mcL (0.0-1.3); Monocytes % 4.5 %; Neutrophils # 14.8 K/mcL (1.6-8.9); Platelet Count 231 K/mcL (140-400); Red Blood Count 4.51 M/mcL (4.19-5.50); Red Cell Distribution Width 13.5 % (11.5-14.5); Segmented Neutrophils % 92.2 %
[2018-07-16 06:16] LABS: Triiodothyronine (T3) Free 2.36 pg/mL (2.50-3.90)
[2018-07-16 06:18] LABS: BUN/Creatinine Ratio 20 (6-26); Blood Urea Nitrogen 18 mg/dL (8-23); Calcium 9.1 mg/dL (8.6-10.3); Carbon Dioxide 41 mEq/L (23-29); Chloride 88 mEq/L (98-107); Glucose 148 mg/dL (70-105); Osmolality,Calculated 283 (280-300); Potassium 5.2 mEq/L (3.5-5.1); Sodium 134 mEq/L (136-145); eGFR For Non-African Americans > 60 (> 60)
[2018-07-16] MEDS: Budesonide/Formoterol 80/4.5 MDI IH SCH ×2 (07:27→20:45)
[2018-07-16 07:30] LABS: Estimated Average Glucose 114 mg/dl; Hemoglobin A1C 5.6 %
[2018-07-16] MEDS: Nicotine 7 MG PATCH.TD24 TD SCH (08:03)
[2018-07-16] MEDS: MethylPREDNISolone 40 MG/ML VIAL IVP SCH ×4 (08:03→23:29)
[2018-07-16] MEDS: Aspirin Enteric Coated 81 MG Tablet PO SCH (08:03)
[2018-07-16] MEDS: Levofloxacin 750 MG/150 ML 750 MG/150 ML BAG IVPB SCH (08:03)
[2018-07-16] MEDS: Carisoprodol 350 MG TABLET PO SCH (08:04)
[2018-07-16] MEDS: Diltiazem CD (24hr) 300 MG CAPSULE PO SCH (08:04)
--- NOTE | 2018-07-16 09:31 | Pulmonology Consult Note ---
Date of Encounter: 07/16/18 Time of Encounter: 09:30 Assessment and Plan (1) Acute on chronic respiratory failure with hypoxia and hypercapnia Current Visit: Yes Status: Acute Patient is presenting with COPD exacerbation complicated by pneumonia and moderate right-sided pleural effusion . Patient will need noninvasive ventilatory support to put him on BiPAP 18/8 overnight we will reassess in the morning (2) COPD exacerbation Current Visit: Yes Status: Acute To continue with bronchodilators and steroids. (3) Pneumonia Current Visit: Yes Status: Acute Patient has clinical and imaging evidence of pneumonia to continue with broad- spectrum antibiotics will broaden the coverage to cover anaerobic Organisms Qualifiers: Pneumonia type: due to unspecified organism Laterality: right Lung location: lower lobe of lung Qualified Code(s): J18.1 - Lobar pneumonia, unspecified organism (4) Mediastinal lymphadenopathy Current Visit: Yes Status: Acute Patient has mediastinal hilar lymphadenopathy with hilar mass suspicious for primary lung malignancy will need endobronchial ultrasound will do it as an outpatient as patient is having acute on chronic respiratory failure . (5) Hilar mass Current Visit: Yes Status: Acute (6) Atrial fibrillation with RVR Current Visit: Yes Status: Resolved Management according to cardiology History of Present Illness Consult date: 07/16/18 Requesting physician: Maurilio Plummer Reason for consult: dyspnea, COPD, pneumonia, pleural effusion, lung mass Chief complaint: Shortness of Breadth History of present illness: 58-year-old male with past medical history significant for extensive smoking history, COPD with oxygen-dependent baseline 3-4 L per minute with symptoms of acute exacerbation of COPD complicated by symptoms of pneumonia was recovering well but had atrial fibrillation with RVR most likely due to mental diastolic dysfunction worsening acute on chronic hypoxic and hypercapnic respiratory failure patient was shifted to stepdown pulmonary was consulted for evaluation for hilar mass with mediastinal lymphadenopathy to assess the need for bronchoscopy. Past Med Surg Social Fam HX - Past Medical History Medical history: COPD, hypertension, other Additional medical history: SMOKER ANXIETY Psychiatric history: anxiety - Past Surgical History Surgical History: no surgical history - Social History Smoking Status: Current every day smoker Packs per day: 0.25 Smokeless Tobacco Status: No Alcohol use: none Drug use: none - Family History Mother Living Status: Age at : 82 Hx Family Endocrine Disorder: Yes (DM) Hx Family Neurologic Disorders: Yes (ALZHEIMERS) Father Living Status: Age at : 67 Hx Family Respiratory Disorders: Yes (emphysema) Medications and Allergies ALPRAZolam [Xanax 1 MG Tablet] 1 mg PO TID PRN 01/08/16 [History] Carisoprodol [Soma] 350 mg PO DAILY PRN 01/08/16 [History] OxyCODONE Immed Rel [Roxicodone 15 MG] 15 mg PO Q4HR 07/11/18 [History] predniSONE [PredniSONE] 10 mg PO DAILY 07/11/18 [History] Albuterol Sulfate [Proair Hfa] 2 puff IH Q4H PRN 07/12/18 [History] 3 Allergy/AdvReac Type Severity Reaction Status Date / Time No Known Allergies Allergy Verified 01/08/16 09:48 All Systems: The remainder of the systems were reviewed and are negative Physical Examination Vital Signs: Vital Signs, Last 4 Hours Temp Pulse Resp BP Pulse Ox 07/16/18 07:31 16 91 07/16/18 06:46 98.0 F 59 16 99/65 91 Results - Laboratory Findings CBC and BMP: 07/16/18 05:16 07/16/18 10:44 ABG ABG pH 7.35 pH Units (7.32-7.45) 07/16/18 02:35 ABG pCO2 73 mmHg (35-45) H* D 07/16/18 02:35 ABG pO2 75 mmHg (85-104) L D 07/16/18 02:35 ABG O2 Saturation 93 % (95-98) L 07/16/18 02:35 Abnormal lab findings: Abnormal lab results WBC 16.1 K/mcL (4.3-11.1) H 07/16/18 05:16 MCHC 30.6 g/dL (31.6-35.5) L 07/16/18 05:16 Neutrophils # 14.8 K/mcL (1.6-8.9) H 07/16/18 05:16 Lymphocytes # 0.4 K/mcL (0.6-4.6) L 07/16/18 05:16 ABG pCO2 73 mmHg (35-45) H* D 07/16/18 02:35 ABG pO2 75 mmHg (85-104) L D 07/16/18 02:35 ABG HCO3 41 mEq/L (21-27) H 07/16/18 02:35 ABG Total CO2 43 mEq/L (20-26) H 07/16/18 02:35 ABG O2 Saturation 93 % (95-98) L 07/16/18 02:35 ABG Base Excess 12 mEq/L (-2 to 3) H 07/16/18 02:35 VBG pCO2 80 mmHg (41-51) H* 07/11/18 17:41 VBG HCO3 43 mEq/L (21-27) H 07/11/18 17:41 Sodium 134 mEq/L (136-145) L 07/16/18 05:16 Potassium 5.2 mEq/L (3.5-5.1) H 07/16/18 05:16 Chloride 88 mEq/L (98-107) L 07/16/18 05:16 Carbon Dioxide 41 mEq/L (23-29) H* 07/16/18 05:16 Glucose 148 mg/dL (70-105) H 07/16/18 05:16 Serum Total Protein 5.2 g/dL (6.4-8.9) L 07/15/18 03:59 Albumin 3.2 g/dL (3.5-5.7) L 07/15/18 03:59 Globulin 2.0 g/dL (2.4-3.5) L 07/15/18 03:59 TSH 0.275 mcIU/mL (0.340-5.600) L 07/15/18 14:15 Free T3 2.36 pg/mL (2.50-3.90) L 07/16/18 05:16 - Microbiology Findings Microbiology Findings: Microbiology, Last 48 Hours 07/11/18 20:25 Sputum Culture - Final Sputum - Clinical Findings Intake & Output: Intake & Output 07/15/18 07/16/18 07/16/18 23:59 07:59 15:59 Intake Total 126.5 / 126.5 Output Total 100 / 100 1250 / 1250 Balance 26.5 / 26.5 -1250 / -1250 Weight 80.1 kg Consult Discharge Plan - Plan Referrals: Andry Abdi Jr, MD [Primary Care Provider] - 07/26/18 12:00 pm (Please follow up as schedule....)
--- NOTE | 2018-07-16 09:33 | Internal Med Progress Note ---
<Sher Camargo - Last Filed: 07/16/18 13:42> Hospitalist Progress Note - Encounter Date of Encounter: 07/16/18 Time of Encounter: 09:29 - Subjective Interval History: Mr. Bermudez was admitted for COPD exacerbation, suspicious for pneumonia We have been treating with antibiotics and bronchodilators and steroids Yesterday patient developed atrial fibrillation with rapid ventricular rate, this was treated with Cardizem drip and aspirin for anticoagulation The patient did manage to convert back to sinus rhythm and is now in normal rate and rhythm Overnight patient had increasing hypoxia and lethargy with increased CO2 on ABG Patient was treated with increased steroids and BiPAP and ABG improved Patient is now saturating in the low 90s on 10 L high flow nasal cannula and is being transferred to [facility]. - Exam Vitals: Temp Pulse Resp BP Pulse Ox 98.0 F 59 16 99/65 91 07/16/18 06:46 07/16/18 06:46 07/16/18 07:31 07/16/18 06:46 07/16/18 07:31 Exam: Patient in no acute distress, alert and oriented 3, lethargic Heart in normal rate and rhythm without murmur or gallop Lung sounds diffusely diminished, no wheeze or rales, no rhonchi Abdomen soft , minimally tender in umbilical region, palpable abdominal mass in left upper quadrant Legs nonedematous or erythematous Skin warm and dry - Assessment and Plan (1) Acute on chronic respiratory failure with hypoxia and hypercapnia Current Visit: Yes Status: Acute Assessment and Plan: Patient saturating in the low 90s on 10 L HF nasal cannula, 4L is his home oxygen use day and night COPD exacerbation likely secondary to pneumonia, right lower lobe consolidation seen on chest x-ray at admission CXR yesterday showed worsening infiltrates, attributed to pneumonia or nodules Legionella and Streptococcus pneumonia antigens negative, sputum culture pending Patient did not have admission in the last 90 days Shortness of breath and physical exam worse today Plan Patient is receiving 60 mg methylprednisolone TID We will continue supplemental oxygen to maintain saturation above 88% Patient has gotten 6 days Levaquin, Cefepime and Vancomycin added today Pulmonology consulted who recommended stop Levaquin, add Flagyl, CT chest We will continue Duonebs and symbicort as scheduled Patient will be transferred to [facility] for closer management BiPAP (2) Pneumonia Current Visit: Yes Status: Acute Assessment and Plan: Worsening CXR findings, pulmonology consulted Antibiotics adjusted as seen above White count increased today from 114 to 16, could be elevated secondary to steroids Sputum culture, strep pneumo antigen, legionella antigen all negative Plan Blood cultures negative for growth so far We will continue to monitor labs and clinical disposition Plan as seen above (3) COPD exacerbation Current Visit: Yes Status: Acute Assessment and Plan: Continue bronchodilator therapy and inhaled corticosteroids and systemic corticosteroids Rest of plan as seen above (4) Tobacco abuse Current Visit: No Status: Chronic Assessment and Plan: Counseled to quit smoking placed on nicotine patch patient did not tolerate lowest dose of nicotine patch because he is smoking so little at home Encouraged to quit altogether (5) DVT prophylaxis Current Visit: Yes Status: Acute Assessment and Plan: on SQ Lovenox (6) Anxiety Current Visit: Yes Status: Chronic Assessment and Plan: Resumed home benzo's (7) Mass Current Visit: Yes Status: Acute Assessment and Plan: Palpable mass found on exam and left upper quadrant of abdomen Abdominal/pelvic CT without contrast was performed to rule out neoplasm CT revealed multiple nodules in the left lung, peritoneum Upper abdominal lymphadenopathy, sclerotic foci in iliac bone Left anterior abdominal wall mass Chest CTA in 2016 did not show any acute process Nodules suspicious for metastatic disease Patient was informed of imaging findings and offered consult to hematology/ oncology Patient preferred not to immediately pursue consultation or workup Patient was offered consultation once discharged and he is considering (8) Atrial fibrillation with RVR Current Visit: Yes Status: Resolved Assessment and Plan: Patient developed new onset atrial fibrillation with rapid ventricular rate yesterday His blood pressure remained stable Cardizem drip was started and cardiology was consulted Rate was controlled on Cardizem drip Cardiology transitioning Cardizem drip to oral Cardizem, recommended aspirin for anticoagulation Patient converted back to sinus normal rate We will continue to monitor - Time Spent with Patient Total time spent is greater than 50% in coordination of care (as documented) at patient's floor/unit and/or counseling patient: Internal Medicine: Result - Labs CBC & Chem 7: 07/16/18 05:16 07/16/18 10:44 Labs: Short CBC 07/16/18 Range/Units 05:16 WBC 16.1 H (4.3-11.1) K/mcL Hgb 13.1 (12.9-16.9) g/dL Hct 42.8 (37.5-50.1) % Plt Count 231 (140-400) K/mcL Neutrophils # 14.8 H (1.6-8.9) K/mcL BMP 07/16/18 05:16 Sodium 134 L Potassium 5.2 H Chloride 88 L Carbon Dioxide 41 H* BUN 18 Creatinine 0.89 Glucose 148 H Calcium 9.1 - ABG Interpretation ABG results: ABG ABG pH 7.35 pH Units (7.32-7.45) 07/16/18 02:35 ABG pCO2 73 mmHg (35-45) H* D 07/16/18 02:35 ABG pO2 75 mmHg (85-104) L D 07/16/18 02:35 ABG O2 Saturation 93 % (95-98) L 07/16/18 02:35 - Impressions Impressions Chest X-Ray 07/15/18 22:20 IMPRESSION: Progressive bibasilar airspace disease is suspicious for aspiration sequela versus multifocal pneumonia, however, this could also represent malignancy. As mentioned on recent prior CT, consideration should be given to PET-CT for further evaluation. Small right pleural effusion- either the parapneumonic or malignant. Consideration could be given to thoracentesis and sending fluid for cytology. D/ / Kamron Francisco / Kamron Francisco Interpreting Provider: Kamron Francisco Consult Discharge Plan - Plan Referrals: Andry Abdi Jr, MD [Primary Care Provider] - 07/26/18 12:00 pm (Please follow up as schedule....) <Maurilio Plummer - Last Filed: 07/16/18 14:38> Hospitalist Progress Note - Encounter Date of Encounter: 07/16/18 - Exam Vitals: Temp Pulse Resp BP Pulse Ox 97.7 F 65 18 112/70 92 07/16/18 12:37 07/16/18 12:37 07/16/18 12:37 07/16/18 12:37 07/16/18 12:37 - Assessment and Plan (1) Tobacco abuse Current Visit: No Status: Chronic (2) DVT prophylaxis Current Visit: Yes Status: Acute (3) Anxiety Current Visit: Yes Status: Chronic (4) COPD exacerbation Current Visit: Yes Status: Acute (5) Acute on chronic respiratory failure with hypoxia and hypercapnia Current Visit: Yes Status: Acute (6) Pneumonia Current Visit: Yes Status: Acute (7) Mass Current Visit: Yes Status: Acute (8) Atrial fibrillation with RVR Current Visit: Yes Status: Resolved - Time Spent with Patient Total time spent is greater than 50% in coordination of care (as documented) at patient's floor/unit and/or counseling patient: Internal Medicine: Result - Labs CBC & Chem 7: 07/16/18 05:16 07/16/18 10:44 Labs: Short CBC 07/16/18 Range/Units 05:16 WBC 16.1 H (4.3-11.1) K/mcL Hgb 13.1 (12.9-16.9) g/dL Hct 42.8 (37.5-50.1) % Plt Count 231 (140-400) K/mcL Neutrophils # 14.8 H (1.6-8.9) K/mcL BMP 07/16/18 07/16/18 05:16 10:44 Sodium 134 L Potassium 5.2 H 5.3 H Chloride 88 L Carbon Dioxide 41 H* BUN 18 Creatinine 0.89 Glucose 148 H Calcium 9.1 - ABG Interpretation ABG results: ABG ABG pH 7.35 pH Units (7.32-7.45) 07/16/18 02:35 ABG pCO2 73 mmHg (35-45) H* D 07/16/18 02:35 ABG pO2 75 mmHg (85-104) L D 07/16/18 02:35 ABG O2 Saturation 93 % (95-98) L 07/16/18 02:35 - Impressions Impressions Chest X-Ray 07/15/18 22:20 IMPRESSION: Progressive bibasilar airspace disease is suspicious for aspiration sequela versus multifocal pneumonia, however, this could also represent malignancy. As mentioned on recent prior CT, consideration should be given to PET-CT for further evaluation. Small right pleural effusion- either the parapneumonic or malignant. Consideration could be given to thoracentesis and sending fluid for cytology. D/ / Kamron Francisco / Kamron Francisco Interpreting Provider: Kamron Francisco Chest CT 07/16/18 11:00 IMPRESSION: There is significant mediastinal and right hilar adenopathy. There is a 5.9 cm right para-aortic lymph node along side the ascending thoracic aorta. Other mediastinal nodes as noted above. Right hilar mass/adenopathy size difficult to accurately estimate due to lack of IV contrast. Estimated at about 6 cm in AP dimension. Findings most compatible with neoplasm until proven otherwise. Several inferior lingular and left lower lobe nodules up to 1.1 cm at the lung base probably metastatic. Masslike right perihilar/basal lower lobe irregular consolidation also felt to be neoplastic. There is accompanying moderate right pleural effusion. Severe centrilobular emphysema. D/ / Harry Ferreira MD / Harry Ferreira MD Interpreting Provider: Harry Ferreira MD - Attending Attestation I examined this patient and my medical decision-making was reviewed with the Resident Physician. I agree with the documented findings, disposition and treatment plan as described except to the extent set forth below. Patient respiratory status worsened overnight. He required bipap therapy and this morning nursing noted to me that he was still respiratory distress. ABGs showed hypoxia and hypercapneia that improved with BIPAP. He is currently in moderate respiratory distress. Tachycardia resolved - Acute on Chronic Respiratory Failure with hypoxia: Worsening COPD and pneumonia. He is in moderate respiratory distress. Reviewed overnight Chest x- ray. Suspect worsening pneumonia and metastatic process. Will increase Solu Medrol to 40 mg IV Q8H, and consult Pulmonology. Will increase Solu Medrol to 40 mg IV Q8H, and consult Pulmonology. He does not want Heme/Oncology consulted at this time. - Atrial fibrillation with RVR - patient converted to sinus rhythm yesterday. He was started on Cardizem yesterday and since HR now <60 we will hold AM Cardizem dose for now. Cardiology is following and recommendations appreciated. Echocardiogram is pending. - Tobacco abuse - Abnormal CT abdomen/pelvis findings: highly suspicious for metastatic disease. As above. I discussed code status with him. Currently he is full code but would like to discuss with his code status and if he should get a Oncology consult. He is currently full code. <Sher Camargo - Last Filed: 07/16/18 13:42> (2) Pneumonia Qualifiers: Pneumonia type: due to unspecified organism Laterality: right Lung location : lower lobe of lung Qualified Code(s): J18.1 - Lobar pneumonia, unspecified organism <Maurilio Plummer - Last Filed: 07/16/18 14:38> (6) Pneumonia Qualifiers: Pneumonia type: due to unspecified organism Laterality: right Lung location : lower lobe of lung Qualified Code(s): J18.1 - Lobar pneumonia, unspecified organism
[2018-07-16 11:06] LABS: VBG Ionized Calcium 1.08 mmol/L (1.15-1.35)
[2018-07-16 11:30] LABS: Phosphorous 4.3 mg/dL (2.7-4.5); Potassium 5.3 mEq/L (3.5-5.1)
[2018-07-16] MEDS: Cefepime HCl 2,000 MG in Water for inj. (sterile) 20 ML 20 ML IVP SCH ×3 (12:51→23:28)
[2018-07-16] MEDS: MetroNIDAZOLE 500 MG/100 ML 500 MG/100 ML BAG IVPB SCH ×2 (15:45→23:28)
--- NOTE | 2018-07-16 16:08 | Event Note ---
Date of Encounter: 07/16/18 Time of Encounter: 16:05 - Cardiology Event Note Patient with a.fib in the setting of COPD, pneumonia, possible metastatic disease. Patient was started on cardizem. Patient currently SR. [id number] score 1 (HTN), hemoglobin A1c normal this am. TTE reviewed with LVEF 60-65%, moderate diastolic dysfunction, severe pulmonary hypertension, mild TR, aortic root dilated, measuring 4.1cm, no segmental wall motion abnormalities noted. Cardiology will sign off.
[2018-07-17] MEDS: *HR* OxyCODONE Immed Rel 15 MG TABLET PO SCH ×8 (03:34→23:28)
[2018-07-17] MEDS: Ipratropium/Albuterol Neb 3 ML IH SCH ×6 (04:24→23:49)
[2018-07-17] MEDS: *HR* Enoxaparin 40 MG/0.4 ML SYRINGE SQ SCH (06:16)
[2018-07-17 06:25] LABS: Basophils % 0.1 %; Hematocrit 39.8 % (37.5-50.1); Hemoglobin 12.4 g/dL (12.9-16.9); Lymphocytes # 0.4 K/mcL (0.6-4.6); Lymphocytes % 2.5 %; Mean Corpuscular HGB Conc 31.2 g/dL (31.6-35.5); Mean Corpuscular Volume 93.2 fL (83.0-100.0); Mean Platelet Volume 9.9 fL (9.4-12.4); Monocytes # 0.5 K/mcL (0.0-1.3); Monocytes % 3.7 %; Neutrophils # 12.8 K/mcL (1.6-8.9); Platelet Count 217 K/mcL (140-400); Red Blood Count 4.27 M/mcL (4.19-5.50); Red Cell Distribution Width 13.3 % (11.5-14.5); Segmented Neutrophils % 92.7 %
[2018-07-17 06:32] LABS: Heparin anti-factor XA LMWH 0.09 IU/mL (0.50-1.10); Prothrombin Time 11.1 Seconds (9.4-12.1)
[2018-07-17 06:35] LABS: Activated Partial Thrombo Time 22.5 Seconds (26.0-36.0)
[2018-07-17 06:46] LABS: BUN/Creatinine Ratio 27 (6-26); Blood Urea Nitrogen 15 mg/dL (8-23); Calcium 8.8 mg/dL (8.6-10.3); Carbon Dioxide 44 mEq/L (23-29); Chloride 90 mEq/L (98-107); Glucose 129 mg/dL (70-105); Osmolality,Calculated 287 (280-300); Potassium 4.6 mEq/L (3.5-5.1); Sodium 137 mEq/L (136-145); eGFR For Non-African Americans > 60 (> 60)
--- NOTE | 2018-07-17 08:26 | Electrocardiograph Report ---
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
[2018-07-17] MEDS: Nicotine 7 MG PATCH.TD24 TD SCH (08:45)
[2018-07-17] MEDS: Aspirin Enteric Coated 81 MG Tablet PO SCH (08:50)
[2018-07-17] MEDS: MethylPREDNISolone 40 MG/ML VIAL IVP SCH ×3 (08:50→23:24)
[2018-07-17] MEDS: Cefepime HCl 2,000 MG in Water for inj. (sterile) 20 ML 20 ML IVP SCH ×3 (08:50→23:21)
[2018-07-17] MEDS: Diltiazem CD (24hr) 300 MG CAPSULE PO SCH (08:50)
[2018-07-17] MEDS: MetroNIDAZOLE 500 MG/100 ML 500 MG/100 ML BAG IVPB SCH ×3 (08:51→23:26)
--- NOTE | 2018-07-17 09:48 | Internal Med Progress Note ---
<Sher Camargo - Last Filed: 07/17/18 10:43> Hospitalist Progress Note - Encounter Date of Encounter: 07/17/18 Time of Encounter: 09:48 - Subjective Interval History: Mr. Bermudez was admitted for COPD exacerbation, suspicious for pneumonia We have been treating with antibiotics and bronchodilators and steroids Patient developed atrial fibrillation with rapid ventricular rate, this was treated with Cardizem drip and aspirin for anticoagulation The patient did manage to convert back to sinus rhythm and is now in normal rate and rhythm, transitioned to oral diltiazem Patient had increasing hypoxia and lethargy with increased CO2 on ABG Patient was treated with increased steroids and BiPAP and ABG improved, Pulmonology consulted Patient had increased bicarb last night and this morning is lethargic - Exam Vitals: Temp Pulse Resp BP Pulse Ox 97.8 F 75 16 113/78 91 07/17/18 07:14 07/17/18 07:14 07/17/18 08:21 07/17/18 07:14 07/17/18 08:21 Exam: Patient in no acute distress, alert and oriented 3, lethargic Heart in normal rate and rhythm without murmur or gallop Lung sounds diffusely diminished, no wheeze or rales, no rhonchi, currently receiving breathing treatment Abdomen soft ,nontender, palpable subcutaneous abdominal mass in left upper quadrant Legs nonedematous or erythematous Skin warm and dry - Assessment and Plan (1) Acute on chronic respiratory failure with hypoxia and hypercapnia Current Visit: Yes Status: Acute Assessment and Plan: Patient saturating in the low 90s on 4 L HF nasal cannula, 4L is his home oxygen use day and night COPD exacerbation likely secondary to pneumonia, right lower lobe consolidation seen on chest x-ray at admission CXR 07/15 showed worsening infiltrates, attributed to pneumonia or nodules 07/[address] showed lymphadenopathy and nodules, with accompanying RLL pleural effusion Legionella and Streptococcus pneumonia antigens negative, sputum culture negative Plan Patient is receiving 60 mg methylprednisolone TID We will continue supplemental oxygen to maintain saturation above 88% Patient has gotten 6 days Levaquin, 2 days Cefepime and 2 days Vancomycin Pulmonology consulted who recommended stop Levaquin, add Flagyl, BiPAP, and outpatient EBUS We will continue Duonebs and symbicort as scheduled (2) Pneumonia Current Visit: Yes Status: Acute Assessment and Plan: Pulmonology assisting Antibiotics adjusted as seen above White count decreased today from 16 to 13 Sputum culture, strep pneumo antigen, legionella antigen all negative Plan Blood cultures negative for growth so far We will continue to monitor labs and clinical disposition Plan as seen above (3) COPD exacerbation Current Visit: Yes Status: Acute Assessment and Plan: Continue bronchodilator therapy and inhaled corticosteroids and systemic corticosteroids Rest of plan as seen above (4) Tobacco abuse Current Visit: No Status: Chronic Assessment and Plan: Counseled to quit smoking placed on nicotine patch patient did not tolerate lowest dose of nicotine patch because he is smoking so little at home Encouraged to quit altogether (5) DVT prophylaxis Current Visit: Yes Status: Acute Assessment and Plan: on SQ Lovenox (6) Anxiety Current Visit: Yes Status: Chronic Assessment and Plan: Resumed home benzo's (7) Mass Current Visit: Yes Status: Acute Assessment and Plan: Palpable mass found on exam and left upper quadrant of abdomen Abdominal/pelvic CT without contrast was performed to rule out neoplasm CT revealed multiple nodules in the left lung, peritoneum Upper abdominal lymphadenopathy, sclerotic foci in iliac bone Left anterior abdominal wall mass Chest CTA in 2016 did not show any acute process Nodules suspicious for metastatic disease Patient was informed of imaging findings and offered consult to hematology/ oncology Patient preferred not to immediately pursue consultation or workup Patient was offered consultation once discharged and he is considering Pulmonology offering outpatient EBUS (8) Atrial fibrillation with RVR Current Visit: Yes Status: Resolved Assessment and Plan: Patient developed new onset atrial fibrillation with rapid ventricular rate Cardizem drip was started and cardiology was consulted Rate was controlled on Cardizem drip Cardiology transitioning Cardizem drip to oral Cardizem, recommended aspirin for anticoagulation Patient converted back to sinus normal rate Patient currently hemodynamically stable We will continue to monitor Cardiology signed off - Time Spent with Patient Total time spent is greater than 50% in coordination of care (as documented) at patient's floor/unit and/or counseling patient: Internal Medicine: Result - Labs CBC & Chem 7: 07/17/18 05:43 07/17/18 05:43 Labs: Short CBC 07/17/18 Range/Units 05:43 WBC 13.8 H (4.3-11.1) K/mcL Hgb 12.4 L (12.9-16.9) g/dL Hct 39.8 (37.5-50.1) % Plt Count 217 (140-400) K/mcL Neutrophils # 12.8 H (1.6-8.9) K/mcL BMP 07/16/18 07/16/18 07/17/18 10:44 20:34 05:43 Sodium 137 Potassium 5.3 H 4.5 4.6 Chloride 90 L Carbon Dioxide 44 H* BUN 15 Creatinine 0.56 L Glucose 129 H Calcium 8.8 - ABG Interpretation ABG results: ABG ABG pH 7.35 pH Units (7.32-7.45) 07/16/18 02:35 ABG pCO2 73 mmHg (35-45) H* D 07/16/18 02:35 ABG pO2 75 mmHg (85-104) L D 07/16/18 02:35 ABG O2 Saturation 93 % (95-98) L 07/16/18 02:35 PT/INR, D-dimer PT 11.1 Seconds (9.4-12.1) 07/17/18 05:43 - Impressions Impressions Chest CT 07/16/18 11:00 IMPRESSION: There is significant mediastinal and right hilar adenopathy. There is a 5.9 cm right para-aortic lymph node along side the ascending thoracic aorta. Other mediastinal nodes as noted above. Right hilar mass/adenopathy size difficult to accurately estimate due to lack of IV contrast. Estimated at about 6 cm in AP dimension. Findings most compatible with neoplasm until proven otherwise. Several inferior lingular and left lower lobe nodules up to 1.1 cm at the lung base probably metastatic. Masslike right perihilar/basal lower lobe irregular consolidation also felt to be neoplastic. There is accompanying moderate right pleural effusion. Severe centrilobular emphysema. D/ / Harry Ferreira MD / Harry Ferreira MD Interpreting Provider: Harry Ferreira MD Echocardiogram 07/16/18 11:37 Impressions: LVEF 60-65%. Normal LV chamber size, wall thickness and function. Moderate left ventricular diastolic dysfunction. Normal right ventricular structure and function. Mild tricuspid regurgitation. Severe pulmonary hypertension. Estimated RVSP is 65 mmHg. Grossly, the aortic root appeared mildly dilated measuring 4.1 cm. Left Ventricular Wall Motion: Rest Echo Findings All wall segments showed normal motion. Findings: Study Quality * Technically sub-optimal due to poor echocardiographic windows. ECG Findings * Sinus bradycardia. Left Ventricle * LVEF 60-65%. * Normal LV chamber size, wall thickness and function. * Moderate left ventricular diastolic dysfunction. Right Ventricle * Normal right ventricular structure and function. Left Atrium * Mildly dilated left atrium. Right Atrium * Normal right atrial size. Interatrial Septum * Lipomatous appearing interatrial septum. Aortic Valve * Aortic valve not well visualized. * No aortic regurgitation. * No aortic stenosis. Mitral Valve * Normal mitral valve structure and function. * No mitral regurgitation. * No mitral stenosis. Tricuspid Valve * Normal tricuspid valve structure. * Mild tricuspid regurgitation. * Severe pulmonary hypertension. * Estimated RVSP is 65 mmHg. * Estimated RA pressure is 5 mmHg. Pulmonic Valve * Pulmonic valve is not well visualized. Aorta * Grossly, the aortic root appeared mildly dilated measuring 4.1 cm. Pericardium * The pericardium appears normal. IVC * Normal IVC dimensions and inspiratory collapse. Pulmonary Artery * Pulmonary artery not well visualized. Consult Discharge Plan - Plan Referrals: Andry Abdi Jr, MD [Primary Care Provider] - 07/26/18 12:00 pm (Please follow up as schedule....) <Maurilio Plummer - Last Filed: 07/17/18 15:21> Hospitalist Progress Note - Encounter Date of Encounter: 07/17/18 - Exam Vitals: Temp Pulse Resp BP Pulse Ox 97.5 F L 91 18 116/77 92 07/17/18 11:28 07/17/18 11:28 07/17/18 15:07 07/17/18 11:28 07/17/18 15:07 - Assessment and Plan (1) Tobacco abuse Current Visit: No Status: Chronic (2) DVT prophylaxis Current Visit: Yes Status: Acute (3) Anxiety Current Visit: Yes Status: Chronic (4) COPD exacerbation Current Visit: Yes Status: Acute (5) Acute on chronic respiratory failure with hypoxia and hypercapnia Current Visit: Yes Status: Acute (6) Pneumonia Current Visit: Yes Status: Acute (7) Mass Current Visit: Yes Status: Acute (8) Atrial fibrillation with RVR Current Visit: Yes Status: Resolved - Time Spent with Patient Total time spent is greater than 50% in coordination of care (as documented) at patient's floor/unit and/or counseling patient: Internal Medicine: Result - Labs CBC & Chem 7: 07/17/18 05:43 07/17/18 05:43 Labs: Short CBC 07/17/18 Range/Units 05:43 WBC 13.8 H (4.3-11.1) K/mcL Hgb 12.4 L (12.9-16.9) g/dL Hct 39.8 (37.5-50.1) % Plt Count 217 (140-400) K/mcL Neutrophils # 12.8 H (1.6-8.9) K/mcL BMP 07/16/18 07/17/18 20:34 05:43 Sodium 137 Potassium 4.5 4.6 Chloride 90 L Carbon Dioxide 44 H* BUN 15 Creatinine 0.56 L Glucose 129 H Calcium 8.8 - ABG Interpretation ABG results: ABG ABG pH 7.35 pH Units (7.32-7.45) 07/16/18 02:35 ABG pCO2 73 mmHg (35-45) H* D 07/16/18 02:35 ABG pO2 75 mmHg (85-104) L D 07/16/18 02:35 ABG O2 Saturation 93 % (95-98) L 07/16/18 02:35 PT/INR, D-dimer PT 11.1 Seconds (9.4-12.1) 07/17/18 05:43 - Impressions Impressions Echocardiogram 07/16/18 11:37 Impressions: LVEF 60-65%. Normal LV chamber size, wall thickness and function. Moderate left ventricular diastolic dysfunction. Normal right ventricular structure and function. Mild tricuspid regurgitation. Severe pulmonary hypertension. Estimated RVSP is 65 mmHg. Grossly, the aortic root appeared mildly dilated measuring 4.1 cm. Left Ventricular Wall Motion: Rest Echo Findings All wall segments showed normal motion. Findings: Study Quality * Technically sub-optimal due to poor echocardiographic windows. ECG Findings * Sinus bradycardia. Left Ventricle * LVEF 60-65%. * Normal LV chamber size, wall thickness and function. * Moderate left ventricular diastolic dysfunction. Right Ventricle * Normal right ventricular structure and function. Left Atrium * Mildly dilated left atrium. Right Atrium * Normal right atrial size. Interatrial Septum * Lipomatous appearing interatrial septum. Aortic Valve * Aortic valve not well visualized. * No aortic regurgitation. * No aortic stenosis. Mitral Valve * Normal mitral valve structure and function. * No mitral regurgitation. * No mitral stenosis. Tricuspid Valve * Normal tricuspid valve structure. * Mild tricuspid regurgitation. * Severe pulmonary hypertension. * Estimated RVSP is 65 mmHg. * Estimated RA pressure is 5 mmHg. Pulmonic Valve * Pulmonic valve is not well visualized. Aorta * Grossly, the aortic root appeared mildly dilated measuring 4.1 cm. Pericardium * The pericardium appears normal. IVC * Normal IVC dimensions and inspiratory collapse. Pulmonary Artery * Pulmonary artery not well visualized. - Attending Attestation I examined this patient and my medical decision-making was reviewed with the Resident Physician. I agree with the documented findings, disposition and treatment plan as described except to the extent set forth below. Patient states he feels better but still fatigued. 1. Acute and chronic Respiratory failure 2. Pneumonia 3. COPD exacerbation 4. Tobacco abuse 5. Abnormal CT exam: of chest and abdomen/pelvis 6. Atrial fibrillation with RVR (resolved) 7. Severe pulmonary hypertension - I discussed CT chest findings that are likely metastatic findings. He spoke with his and then later told me they want to be aggressive in his care. - He still wants me to discuss the case with his before consulted Hematology/Oncology. I called her with no response. He allows to leave a message of his status. He stated it is hard to get her to answer her phone. - Continue steroids, neb therapy, antibiotics <Sher Camargo - Last Filed: 07/17/18 10:43> (2) Pneumonia Qualifiers: Pneumonia type: due to unspecified organism Laterality: right Lung location : lower lobe of lung Qualified Code(s): J18.1 - Lobar pneumonia, unspecified organism <Maurilio Plummer - Last Filed: 07/17/18 15:21> (6) Pneumonia Qualifiers: Pneumonia type: due to unspecified organism Laterality: right Lung location : lower lobe of lung Qualified Code(s): J18.1 - Lobar pneumonia, unspecified organism
[2018-07-17] MEDS: Budesonide/Formoterol 80/4.5 MDI IH SCH ×2 (11:19→20:38)
[2018-07-17] MEDS: ALPRAZolam 1 MG TABLET PO PRN ×2 (13:56→18:11)
[2018-07-17 22:16] LABS: Adenovirus Not Detected (Not Detect); Bordetella Pertussis Not Detected (Not Detect); Chlamydophila pneumoniae Not Detected (Not Detect); Coronavirus 229E Not Detected (Not Detect); Coronavirus HKU1 Not Detected (Not Detect); Coronavirus NL63 Not Detected (Not Detect); Coronavirus OC43 Not Detected (Not Detect); Human Metapneumovirus Not Detected (Not Detect); Human Rhinovirus/Enterovirus Not Detected (Not Detect); Influenza A Subtype 2009 H1 Not Detected (Not Detect); Influenza A Untypeable Not Detected (Not Detect); Influenza B Not Detected (Not Detect); Mycoplasma pneumoniae Not Detected (Not Detect); Parainfluenza Virus 1 Not Detected (Not Detect); Parainfluenza Virus 2 Not Detected (Not Detect); Parainfluenza Virus 3 Not Detected (Not Detect); Parainfluenza Virus 4 Not Detected (Not Detect); Respiratory Syncytial Virus Not Detected (Not Detect)
[2018-07-18 00:45] LABS: Basophils % 0.1 %; Hematocrit 39.3 % (37.5-50.1); Hemoglobin 12.5 g/dL (12.9-16.9); Immature Granulocytes % 1.4 % (0-4); Lymphocytes # 0.2 K/mcL (0.6-4.6); Lymphocytes % 1.3 %; Mean Corpuscular HGB Conc 31.8 g/dL (31.6-35.5); Mean Corpuscular Hemoglobin 29.4 pg (28.0-33.3); Mean Corpuscular Volume 92.5 fL (83.0-100.0); Monocytes # 0.8 K/mcL (0.0-1.3); Monocytes % 4.8 %; Neutrophils # 16.1 K/mcL (1.6-8.9); Platelet Count 227 K/mcL (140-400); Red Blood Count 4.25 M/mcL (4.19-5.50); Red Cell Distribution Width 13.5 % (11.5-14.5); Segmented Neutrophils % 92.4 %
[2018-07-18 01:05] LABS: BUN/Creatinine Ratio 26 (6-26); Blood Urea Nitrogen 21 mg/dL (8-23); Calcium 8.5 mg/dL (8.6-10.3); Carbon Dioxide 38 mEq/L (23-29); Chloride 92 mEq/L (98-107); Glucose 174 mg/dL (70-105); Osmolality,Calculated 289 (280-300); Potassium 4.4 mEq/L (3.5-5.1); Sodium 136 mEq/L (136-145); eGFR For Non-African Americans > 60 (> 60)
[2018-07-18] MEDS: Ipratropium/Albuterol Neb 3 ML IH SCH ×6 (03:50→22:59)
[2018-07-18] MEDS: *HR* OxyCODONE Immed Rel 15 MG TABLET PO SCH ×8 (03:55→23:43)
[2018-07-18] MEDS: ALPRAZolam 1 MG TABLET PO PRN ×3 (04:05→21:00)
[2018-07-18] MEDS: *HR* Enoxaparin 40 MG/0.4 ML SYRINGE SQ SCH (06:43)
[2018-07-18] MEDS: Budesonide/Formoterol 80/4.5 MDI IH SCH ×2 (07:39→22:58)
[2018-07-18] MEDS: Aspirin Enteric Coated 81 MG Tablet PO SCH (08:52)
[2018-07-18] MEDS: Diltiazem CD (24hr) 300 MG CAPSULE PO SCH (08:52)
[2018-07-18] MEDS: Nicotine 7 MG PATCH.TD24 TD SCH (08:53)
[2018-07-18] MEDS: Cefepime HCl 2,000 MG in Water for inj. (sterile) 20 ML 20 ML IVP SCH ×3 (08:53→23:44)
[2018-07-18] MEDS: MethylPREDNISolone 40 MG/ML VIAL IVP SCH ×3 (08:54→23:44)
[2018-07-18] MEDS: MetroNIDAZOLE 500 MG/100 ML 500 MG/100 ML BAG IVPB SCH ×3 (08:54→23:44)
--- NOTE | 2018-07-18 10:11 | Internal Med Progress Note ---
<Sher Camargo - Last Filed: 07/18/18 10:09> Hospitalist Progress Note - Encounter Date of Encounter: 07/18/18 Time of Encounter: 10:11 - Subjective Interval History: Patient seen and examined this morning, no acute events overnight Mr. Bermudez was admitted for COPD exacerbation, suspicious for pneumonia We have been treating with antibiotics and bronchodilators and steroids Patient developed atrial fibrillation with rapid ventricular rate, this was treated with Cardizem drip and aspirin for anticoagulation The patient did manage to convert back to sinus rhythm and is now in normal rate and rhythm, transitioned to oral diltiazem Patient had increasing hypoxia and lethargy with increased CO2 on ABG Patient was treated with increased steroids and BiPAP and ABG improved, Pulmonology consulted Patient was found to have suspicious nodules on chest and abdomen and pelvis CT , hematology/oncology consulted His bicarbonate did improve overnight, he is still short of breath and slightly lethargic this morning - Exam Vitals: Temp Pulse Resp BP Pulse Ox 97.1 F L 110 18 102/62 96 07/18/18 07:32 07/18/18 09:00 07/18/18 07:39 07/18/18 07:32 07/18/18 07:39 Exam: Patient in no acute distress, alert and oriented 3, lethargic Heart in normal rate and rhythm without murmur or gallop Lungs diffusely diminished, right lower lobe rales, left lower lobe wheeze Abdomen soft ,nontender, palpable subcutaneous abdominal mass in left upper quadrant Legs nonedematous or erythematous Skin warm and dry - Assessment and Plan (1) Acute on chronic respiratory failure with hypoxia and hypercapnia Current Visit: Yes Status: Acute Assessment and Plan: Patient saturating in the low 90s on 15 L HF nasal cannula, 4L is his home oxygen use day and night COPD exacerbation, right lower lobe consolidation seen on chest x-ray at admission CXR 07/15 showed worsening infiltrates, attributed to pneumonia or nodules 07/[address] showed lymphadenopathy and nodules, with accompanying RLL pleural effusion Legionella and Streptococcus pneumonia antigens negative, sputum culture negative Plan Patient is receiving 60 mg methylprednisolone TID We will continue supplemental oxygen to maintain saturation above 88% Patient has gotten 3 days Cefepime, 3 days Flagyl and 3 days Vancomycin He was started on 6 days of Levaquin Pulmonology consulted who recommended stop Levaquin, add Flagyl, BiPAP, and outpatient EBUS We will continue Duonebs and symbicort as scheduled (2) Pneumonia Current Visit: Yes Status: Acute Assessment and Plan: Pulmonology assisting Antibiotics adjusted as seen above White count increased today from 13 to 17 Sputum culture, strep pneumo antigen, legionella antigen all negative Plan Blood cultures negative for growth so far We will continue to monitor labs and clinical disposition Plan as seen above (3) COPD exacerbation Current Visit: Yes Status: Acute Assessment and Plan: Continue bronchodilator therapy and inhaled corticosteroids and systemic corticosteroids Rest of plan as seen above (4) Mass Current Visit: Yes Status: Acute Assessment and Plan: Palpable mass found on exam and left upper quadrant of abdomen Abdominal/pelvic CT without contrast was performed to rule out neoplasm CT revealed multiple nodules in the left lung, peritoneum Upper abdominal lymphadenopathy, sclerotic foci in iliac bone Left anterior abdominal wall mass Chest CTA in 2016 did not show any acute process Nodules suspicious for metastatic disease Patient was informed of imaging findings and offered consult to hematology/ oncology Patient consented and consultation is pending Pulmonology offering outpatient EBUS (5) Tobacco abuse Current Visit: No Status: Chronic Assessment and Plan: Counseled to quit smoking placed on nicotine patch patient did not tolerate lowest dose of nicotine patch because he is smoking so little at home Encouraged to quit altogether (6) DVT prophylaxis Current Visit: Yes Status: Acute Assessment and Plan: on SQ Lovenox (7) Anxiety Current Visit: Yes Status: Chronic Assessment and Plan: Resumed home benzo's (8) Atrial fibrillation with RVR Current Visit: Yes Status: Resolved Assessment and Plan: Patient developed new onset atrial fibrillation with rapid ventricular rate Cardizem drip was started and cardiology was consulted Rate was controlled on Cardizem drip Cardiology transitioning Cardizem drip to oral Cardizem, recommended aspirin for anticoagulation Patient converted back to sinus normal rate Patient currently hemodynamically stable We will continue to monitor Cardiology signed off - Time Spent with Patient Total time spent is greater than 50% in coordination of care (as documented) at patient's floor/unit and/or counseling patient: Internal Medicine: Result - Labs CBC & Chem 7: 07/18/18 00:22 07/18/18 00:22 Labs: Short CBC 07/18/18 Range/Units 00:22 WBC 17.4 H (4.3-11.1) K/mcL Hgb 12.5 L (12.9-16.9) g/dL Hct 39.3 (37.5-50.1) % Plt Count 227 (140-400) K/mcL Neutrophils # 16.1 H (1.6-8.9) K/mcL BMP 07/18/18 00:22 Sodium 136 Potassium 4.4 Chloride 92 L Carbon Dioxide 38 H BUN 21 Creatinine 0.81 Glucose 174 H Calcium 8.5 L - ABG Interpretation ABG results: ABG ABG pH 7.35 pH Units (7.32-7.45) 07/16/18 02:35 ABG pCO2 73 mmHg (35-45) H* D 07/16/18 02:35 ABG pO2 75 mmHg (85-104) L D 07/16/18 02:35 ABG O2 Saturation 93 % (95-98) L 07/16/18 02:35 PT/INR, D-dimer PT 11.1 Seconds (9.4-12.1) 07/17/18 05:43 Consult Discharge Plan - Plan Referrals: Andry Abdi Jr, MD [Primary Care Provider] - 07/26/18 12:00 pm (Please follow up as schedule....) <Maurilio Plummer - Last Filed: 07/18/18 13:48> Hospitalist Progress Note - Encounter Date of Encounter: 07/18/18 - Exam Vitals: Temp Pulse Resp BP Pulse Ox 97.1 F L 110 18 98/65 91 07/18/18 11:39 07/18/18 09:00 07/18/18 11:39 07/18/18 11:39 07/18/18 11:39 - Assessment and Plan (1) Tobacco abuse Current Visit: No Status: Chronic (2) DVT prophylaxis Current Visit: Yes Status: Acute (3) Anxiety Current Visit: Yes Status: Chronic (4) COPD exacerbation Current Visit: Yes Status: Acute (5) Acute on chronic respiratory failure with hypoxia and hypercapnia Current Visit: Yes Status: Acute (6) Pneumonia Current Visit: Yes Status: Acute (7) Mass Current Visit: Yes Status: Acute (8) Atrial fibrillation with RVR Current Visit: Yes Status: Resolved - Time Spent with Patient Total time spent is greater than 50% in coordination of care (as documented) at patient's floor/unit and/or counseling patient: Internal Medicine: Result - Labs CBC & Chem 7: 07/18/18 00:22 07/18/18 00:22 Labs: Short CBC 07/18/18 Range/Units 00:22 WBC 17.4 H (4.3-11.1) K/mcL Hgb 12.5 L (12.9-16.9) g/dL Hct 39.3 (37.5-50.1) % Plt Count 227 (140-400) K/mcL Neutrophils # 16.1 H (1.6-8.9) K/mcL BMP 07/18/18 00:22 Sodium 136 Potassium 4.4 Chloride 92 L Carbon Dioxide 38 H BUN 21 Creatinine 0.81 Glucose 174 H Calcium 8.5 L - ABG Interpretation ABG results: ABG ABG pH 7.35 pH Units (7.32-7.45) 07/16/18 02:35 ABG pCO2 73 mmHg (35-45) H* D 07/16/18 02:35 ABG pO2 75 mmHg (85-104) L D 07/16/18 02:35 ABG O2 Saturation 93 % (95-98) L 07/16/18 02:35 PT/INR, D-dimer PT 11.1 Seconds (9.4-12.1) 07/17/18 05:43 - Attending Attestation I examined this patient and my medical decision-making was reviewed with the Resident Physician. I agree with the documented findings, disposition and treatment plan as described except to the extent set forth below. Patient states he feels significantly better. Staff did notice that he was fatigued this afternoon and somnolent. 1. Acute and chronic Respiratory failure 2. Pneumonia 3. COPD exacerbation 4. Tobacco abuse 5. Abnormal CT exam: of chest and abdomen/pelvis - likely cancer 6. Atrial fibrillation with RVR (resolved) 7. Severe pulmonary hypertension - I discussed CT chest findings that are likely metastatic findings. He spoke with his and then later told me they want to be aggressive in his care. - In regards to contacting , I called her with no answer to phone. He stated it is hard to get her to answer her phone. - Patient now would like Oncology consult, since at some point his told him he should do everything to make a full recovery. The patient and I discussed the course of COPD and likely cancer and that full recovery is unlikely. - Continue steroids, neb therapy, antibiotics - Patient states he would like to go home, however, he is unstable from a respiratory standpoint, he voices understanding of this. <Sher Camargo - Last Filed: 07/18/18 10:09> (2) Pneumonia Qualifiers: Pneumonia type: due to unspecified organism Laterality: right Lung location : lower lobe of lung Qualified Code(s): J18.1 - Lobar pneumonia, unspecified organism <Maurilio Plummer - Last Filed: 07/18/18 13:48> (6) Pneumonia Qualifiers: Pneumonia type: due to unspecified organism Laterality: right Lung location : lower lobe of lung Qualified Code(s): J18.1 - Lobar pneumonia, unspecified organism
[2018-07-18] MEDS: *HR* Metoprolol 5 MG/5 ML VIAL IVP PRN (13:46)
--- NOTE | 2018-07-18 15:50 | Oncology Inp Consult Note ---
Date of Encounter: 07/18/18 Time of Encounter: 15:47 Assessment and Plan (1) Hilar mass Status: Acute Assessment and plan: Large right hilar mass. Right anterior mediastinal lymphadenopathy and subcarinal adenopathy and upper abdominal adenopathy. Right pleural effusion. This is concerning for metastatic lung cancer. Small cell versus non-small cell. He has been symptomatic for last 1 month. We will try to establish diagnosis quickly. A bronchoscopy biopsy should be easy. Another option is to biopsy anterior mediastinal lymph node by CT guidance May consider a PET scan to complete staging Treatment to start shortly after confirming diagnosis He did smoke about a pack a day for 50 years trying to quit - Data of Consult Patient: new to practice Requesting Physician: Maurilio Plummer MD Primary Care Provider: Andry Abdi Jr, MD - Consult Narrative History of present illness: Mr. Bermudez is a 58 year old male admitted with acute shortness of breath and exacerbation of COPD. He is oxygen dependent 4 liters by nasal cannula at home CT abdomen and pelvis 07/14/2018 without contrast showed Upper abdominal lymphadenopathy with the largest periportal node measuring 2.7 x 1.2 Bones/Soft Tissues: Several sclerotic foci noted in the left iliac bone. Lesion in left anterior abdominal wall likely corresponds to palpable abnormality. This measures 1.[address] chest without contrast 07/16/2018 showed mediastinal and right hilar adenopathy. 6 cm right parietal aortic lymph node along ascending thoracic aorta. 3 x 5.3 cm subcarinal adenopathy also 5.9 x 4.9 cm right aortic lymph nodes right side of thoracic aorta 3.3 cm retrosternal lymph node Echocardiogram July 2018 showed ejection fraction 60-65%. Severe pulmonary hypertension with pulmonary pressure on 65. Significant diastolic dysfunction. Multiple tricuspid regurgitation CBC shows mild anemia hemoglobin 12.5. Mildly elevated glucose 180 secondary to steroids Currently treated with multiple antibiotics including cefepime, vancomycin and Flagyl. Also Solu-Medrol 40 mg IV every 8 hours Past Med Surg Social Fam HX - Past Medical History Medical history: COPD, hypertension, other Additional medical history: SMOKER ANXIETY Psychiatric history: anxiety - Past Surgical History Surgical History: no surgical history - Social History Smoking Status: Current every day smoker Packs per day: 0.25 Smokeless Tobacco Status: No Alcohol use: none Drug use: none - Family History Mother Living Status: Age at : 82 Hx Family Endocrine Disorder: Yes (DM) Hx Family Neurologic Disorders: Yes (ALZHEIMERS) Father Living Status: Age at : 67 Hx Family Respiratory Disorders: Yes (emphysema) Medications and Allergies ALPRAZolam [Xanax 1 MG Tablet] 1 mg PO TID PRN 01/08/16 [History] Carisoprodol [Soma] 350 mg PO DAILY PRN 01/08/16 [History] OxyCODONE Immed Rel [Roxicodone 15 MG] 15 mg PO Q4HR 07/11/18 [History] predniSONE [PredniSONE] 10 mg PO DAILY 07/11/18 [History] Albuterol Sulfate [Proair Hfa] 2 puff IH Q4H PRN 07/12/18 [History] 3 Allergy/AdvReac Type Severity Reaction Status Date / Time No Known Allergies Allergy Verified 01/08/16 09:48 Oncology - Exam - Constitutional Vitals: Temp Pulse Resp BP Pulse Ox 97.4 F L 73 20 95/73 90 07/18/18 15:31 07/18/18 15:31 07/18/18 15:31 07/18/18 15:31 07/18/18 15:31 Exam: GENERAL: Alert and oriented, well appearing. Mental Status: Affect appropriate for circumstances HEENT: Sclerae anicteric. No mucositis or thrush. No other oral or pharyngeal lesions or erythema. Skin: No rashes or petechiae. No evidence of skin malignancy Lymph nodes: No cervical, supraclavicular, axillary, or inguinal adenopathy. Lungs: Air entry decreased both lung right worse than left Cardiovascular: Regular rate and rhythm. No skipped beats Abdomen: Soft, nontender; no organomegaly or masses palpable. Extremities: No edema. No calf swelling or tenderness. No joint deformity. Neurologic: Alert, cranial nerves II-XII intact; normal gait; no focal weakness or sensory abnormalities Oncology - Results Labs: 3 07/18/18 07/18/18 07/18/18 00:22 00:22 00:22 WBC 17.4 H RBC 4.25 Hgb 12.5 L Hct 39.3 MCV 92.5 MCH 29.4 MCHC 31.8 RDW 13.5 Plt Count 227 MPV 10.0 Immature Gran % 1.4 Seg Neutrophils % 92.4 Lymphocytes % 1.3 Monocytes % 4.8 Eosinophils % 0.0 Basophils % 0.1 Neutrophils # 16.1 H Lymphocytes # 0.2 L Monocytes # 0.8 Eosinophils # 0.0 Basophils # 0.0 Platelet Estimate PT INR APTT Heparin Anti-Xa, LM Wt Sample Site ABG pH ABG pCO2 ABG pO2 ABG HCO3 ABG Total CO2 ABG O2 Saturation ABG Base Excess Misha Test Respiration Rate O2 Delivery Device Blood Gas Modality Inspired O2 Tidal Volume PEEP Pressure Support Sodium 136 Potassium 4.4 Chloride 92 L Carbon Dioxide 38 H BUN 21 Creatinine 0.81 Est GFR ( Amer) > 60 Est GFR (Non-Af Amer) > 60 BUN/Creatinine Ratio 26 Glucose 174 H Est Mean Plasma Glucose Hemoglobin A1c Calculated Osmolality 289 Calcium 8.5 L Venous Ioniz Calcium Phosphorus Magnesium Total Bilirubin AST ALT Alkaline Phosphatase B-Natriuretic Peptide Serum Total Protein Albumin Globulin Albumin/Globulin Ratio TSH Free T4 Free T3 Nasal Screen MRSA (PCR) Vancomycin Trough 10 Chlamy pneumoniae PCR Adenovirus (PCR) B. pertussis DNA (PCR) B.parapertussis DNA PCR Coronavirus OC43 (PCR) Coronavirus HKU1 (PCR) Coronavirus 229E (PCR) Coronavirus NL63 (PCR) Human Metapneumovir PCR Influenza A (H1) PCR Influ A (H1N1/09) PCR Influenza A (H3) PCR Influenza A Untype (PCR) Influenza Type B (PCR) M.pneumoniae DNA (PCR) Parainfluenza 1 (PCR) Parainfluenza 2 (PCR) Parainfluenza 3 (PCR) Parainfluenza 4 (PCR) RSV (PCR) Entero/Rhino (PCR) 3 07/17/18 07/17/18 07/17/18 21:00 21:00 05:43 WBC RBC Hgb Hct MCV MCH MCHC RDW Plt Count MPV Immature Gran % Seg Neutrophils % Lymphocytes % Monocytes % Eosinophils % Basophils % Neutrophils # Lymphocytes # Monocytes # Eosinophils # Basophils # Platelet Estimate PT 11.1 INR 1.0 APTT 22.5 L Heparin Anti-Xa, LM Wt 0.09 L Sample Site ABG pH ABG pCO2 ABG pO2 ABG HCO3 ABG Total CO2 ABG O2 Saturation ABG Base Excess Misha Test Respiration Rate O2 Delivery Device Blood Gas Modality Inspired O2 Tidal Volume PEEP Pressure Support Sodium Potassium Chloride Carbon Dioxide BUN Creatinine Est GFR ( Amer) Est GFR (Non-Af Amer) BUN/Creatinine Ratio Glucose Est Mean Plasma Glucose Hemoglobin A1c Calculated Osmolality Calcium Venous Ioniz Calcium Phosphorus Magnesium Total Bilirubin AST ALT Alkaline Phosphatase B-Natriuretic Peptide Serum Total Protein Albumin Globulin Albumin/Globulin Ratio TSH Free T4 Free T3 Nasal Screen MRSA (PCR) Negative Vancomycin Trough Chlamy pneumoniae PCR Not Detected Adenovirus (PCR) Not Detected B. pertussis DNA (PCR) Not Detected B.parapertussis DNA PCR Not Detected Coronavirus OC43 (PCR) Not Detected Coronavirus HKU1 (PCR) Not Detected Coronavirus 229E (PCR) Not Detected Coronavirus NL63 (PCR) Not Detected Human Metapneumovir PCR Not Detected Influenza A (H1) PCR Not Detected Influ A (H1N1/) PCR Not Detected Influenza A (H3) PCR Not Detected Influenza A Untype (PCR) Not Detected Influenza Type B (PCR) Not Detected M.pneumoniae DNA (PCR) Not Detected Parainfluenza 1 (PCR) Not Detected Parainfluenza 2 (PCR) Not Detected Parainfluenza 3 (PCR) Not Detected Parainfluenza 4 (PCR) Not Detected RSV (PCR) Not Detected Entero/Rhino (PCR) Not Detected 3 07/17/18 07/17/18 07/16/18 05:43 05:43 20:34 WBC 13.8 H RBC 4.27 Hgb 12.4 L Hct 39.8 MCV 93.2 MCH 29.0 MCHC 31.2 L RDW 13.3 Plt Count 217 MPV 9.9 Immature Gran % 1.0 Seg Neutrophils % 92.7 Lymphocytes % 2.5 Monocytes % 3.7 Eosinophils % 0.0 Basophils % 0.1 Neutrophils # 12.8 H Lymphocytes # 0.4 L Monocytes # 0.5 Eosinophils # 0.0 Basophils # 0.0 Platelet Estimate PT INR APTT Heparin Anti-Xa, LM Wt Sample Site ABG pH ABG pCO2 ABG pO2 ABG HCO3 ABG Total CO2 ABG O2 Saturation ABG Base Excess Misha Test Respiration Rate O2 Delivery Device Blood Gas Modality Inspired O2 Tidal Volume PEEP Pressure Support Sodium 137 Potassium 4.6 4.5 Chloride 90 L Carbon Dioxide 44 H* BUN 15 Creatinine 0.56 L Est GFR ( Amer) > 60 Est GFR (Non-Af Amer) > 60 BUN/Creatinine Ratio 27 H Glucose 129 H Est Mean Plasma Glucose Hemoglobin A1c Calculated Osmolality 287 Calcium 8.8 Venous Ioniz Calcium Phosphorus Magnesium Total Bilirubin AST ALT Alkaline Phosphatase B-Natriuretic Peptide Serum Total Protein Albumin Globulin Albumin/Globulin Ratio TSH Free T4 Free T3 Nasal Screen MRSA (PCR) Vancomycin Trough Chlamy pneumoniae PCR Adenovirus (PCR) B. pertussis DNA (PCR) B.parapertussis DNA PCR Coronavirus OC43 (PCR) Coronavirus HKU1 (PCR) Coronavirus 229E (PCR) Coronavirus NL63 (PCR) Human Metapneumovir PCR Influenza A (H1) PCR Influ A (H1N1) PCR Influenza A (H3) PCR Influenza A Untype (PCR) Influenza Type B (PCR) M.pneumoniae DNA (PCR) Parainfluenza 1 (PCR) Parainfluenza 2 (PCR) Parainfluenza 3 (PCR) Parainfluenza 4 (PCR) RSV (PCR) Entero/Rhino (PCR) 3 07/16/18 07/16/18 07/16/18 11:04 10:44 10:44 WBC RBC Hgb Hct MCV MCH MCHC RDW Plt Count MPV Immature Gran % Seg Neutrophils % Lymphocytes % Monocytes % Eosinophils % Basophils % Neutrophils # Lymphocytes # Monocytes # Eosinophils # Basophils # Platelet Estimate PT INR APTT Heparin Anti-Xa, LM Wt Sample Site ABG pH ABG pCO2 ABG pO2 ABG HCO3 ABG Total CO2 ABG O2 Saturation ABG Base Excess Misha Test Respiration Rate O2 Delivery Device Blood Gas Modality Inspired O2 Tidal Volume PEEP Pressure Support Sodium Potassium 5.3 H Chloride Carbon Dioxide BUN Creatinine Est GFR ( Amer) Est GFR (Non-Af Amer) BUN/Creatinine Ratio Glucose Est Mean Plasma Glucose Hemoglobin A1c Calculated Osmolality Calcium Venous Ioniz Calcium 1.08 L Phosphorus 4.3 Magnesium Total Bilirubin AST ALT Alkaline Phosphatase B-Natriuretic Peptide 68 Serum Total Protein Albumin Globulin Albumin/Globulin Ratio TSH Free T4 Free T3 Nasal Screen MRSA (PCR) Vancomycin Trough Chlamy pneumoniae PCR Adenovirus (PCR) B. pertussis DNA (PCR) B.parapertussis DNA PCR Coronavirus OC43 (PCR) Coronavirus HKU1 (PCR) Coronavirus 229E (PCR) Coronavirus NL63 (PCR) Human Metapneumovir PCR Influenza A (H1) PCR Influ A (H1N1) PCR Influenza A (H3) PCR Influenza A Untype (PCR) Influenza Type B (PCR) M.pneumoniae DNA (PCR) Parainfluenza 1 (PCR) Parainfluenza 2 (PCR) Parainfluenza 3 (PCR) Parainfluenza 4 (PCR) RSV (PCR) Entero/Rhino (PCR) 3 07/16/18 07/16/18 07/16/18 05:16 05:16 05:16 WBC 16.1 H RBC 4.51 Hgb 13.1 Hct 42.8 MCV 94.9 MCH 29.0 MCHC 30.6 L RDW 13.5 Plt Count 231 MPV 9.9 Immature Gran % 0.9 Seg Neutrophils % 92.2 Lymphocytes % 2.3 Monocytes % 4.5 Eosinophils % 0.0 Basophils % 0.1 Neutrophils # 14.8 H Lymphocytes # 0.4 L Monocytes # 0.7 Eosinophils # 0.0 Basophils # 0.0 Platelet Estimate PT INR APTT Heparin Anti-Xa, LM Wt Sample Site ABG pH ABG pCO2 ABG pO2 ABG HCO3 ABG Total CO2 ABG O2 Saturation ABG Base Excess Misha Test Respiration Rate O2 Delivery Device Blood Gas Modality Inspired O2 Tidal Volume PEEP Pressure Support Sodium 134 L Potassium 5.2 H Chloride 88 L Carbon Dioxide 41 H* BUN 18 Creatinine 0.89 Est GFR ( Amer) > 60 Est GFR (Non-Af Amer) > 60 BUN/Creatinine Ratio 20 Glucose 148 H Est Mean Plasma Glucose Hemoglobin A1c Calculated Osmolality 283 Calcium 9.1 Venous Ioniz Calcium Phosphorus Magnesium Total Bilirubin AST ALT Alkaline Phosphatase B-Natriuretic Peptide Serum Total Protein Albumin Globulin Albumin/Globulin Ratio TSH Free T4 0.75 Free T3 2.36 L Nasal Screen MRSA (PCR) Vancomycin Trough Chlamy pneumoniae PCR Adenovirus (PCR) B. pertussis DNA (PCR) B.parapertussis DNA PCR Coronavirus OC43 (PCR) Coronavirus HKU1 (PCR) Coronavirus 229E (PCR) Coronavirus NL63 (PCR) Human Metapneumovir PCR Influenza A (H1) PCR Influ A (H1N1/09) PCR Influenza A (H3) PCR Influenza A Untype (PCR) Influenza Type B (PCR) M.pneumoniae DNA (PCR) Parainfluenza 1 (PCR) Parainfluenza 2 (PCR) Parainfluenza 3 (PCR) Parainfluenza 4 (PCR) RSV (PCR) Entero/Rhino (PCR) 3 07/16/18 07/16/18 07/15/18 05:16 02:35 23:34 WBC RBC Hgb Hct MCV MCH MCHC RDW Plt Count MPV Immature Gran % Seg Neutrophils % Lymphocytes % Monocytes % Eosinophils % Basophils % Neutrophils # Lymphocytes # Monocytes # Eosinophils # Basophils # Platelet Estimate PT INR APTT Heparin Anti-Xa, Wt Sample Site L Radial R Radial ABG pH 7.35 7.26 L ABG pCO2 73 H* D 102 H* ABG pO2 75 L D 168 H D ABG HCO3 41 H 46 H ABG Total CO2 43 H 49 H ABG O2 Saturation 93 L 99 H ABG Base Excess 12 H 14 H Misha Test N/A N/A Respiration Rate 14 O2 Delivery Device BiPAP BiPAP Blood Gas Modality avaps Inspired O2 50.0 80.0 Tidal Volume 500 PEEP 8 Pressure Support Sodium Potassium Chloride Carbon Dioxide BUN Creatinine Est GFR ( Amer) Est GFR (Non-Af Amer) BUN/Creatinine Ratio Glucose Est Mean Plasma Glucose 114 Hemoglobin A1c 5.6 Calculated Osmolality Calcium Venous Ioniz Calcium Phosphorus Magnesium Total Bilirubin AST ALT Alkaline Phosphatase B-Natriuretic Peptide Serum Total Protein Albumin Globulin Albumin/Globulin Ratio TSH Free T4 Free T3 Nasal Screen MRSA (PCR) Vancomycin Trough Chlamy pneumoniae PCR Adenovirus (PCR) B. pertussis DNA (PCR) B.parapertussis DNA PCR Coronavirus OC43 (PCR) Coronavirus HKU1 (PCR) Coronavirus 229E (PCR) Coronavirus NL63 (PCR) Human Metapneumovir PCR Influenza A (H1) PCR Influ A (H1N1/09) PCR Influenza A (H3) PCR Influenza A Untype (PCR) Influenza Type B (PCR) M.pneumoniae DNA (PCR) Parainfluenza 1 (PCR) Parainfluenza 2 (PCR) Parainfluenza 3 (PCR) Parainfluenza 4 (PCR) RSV (PCR) Entero/Rhino (PCR) 3 07/15/18 07/15/18 07/15/18 21:17 14:15 03:59 WBC RBC Hgb Hct MCV MCH MCHC RDW Plt Count MPV Immature Gran % Seg Neutrophils % Lymphocytes % Monocytes % Eosinophils % Basophils % Neutrophils # Lymphocytes # Monocytes # Eosinophils # Basophils # Platelet Estimate PT INR APTT Heparin Anti-Xa, Wt Sample Site R Radial ABG pH 7.26 L ABG pCO2 91 H* ABG pO2 94 ABG HCO3 41 H ABG Total CO2 44 H ABG O2 Saturation 95 ABG Base Excess 10 H Misha Test Negative Respiration Rate O2 Delivery Device BiPAP Blood Gas Modality Inspired O2 80.0 Tidal Volume PEEP 6 Pressure Support 12 Sodium 137 Potassium 3.9 Chloride 94 L Carbon Dioxide 41 H* BUN 10 Creatinine 0.70 Est GFR ( Amer) > 60 Est GFR (Non-Af Amer) > 60 BUN/Creatinine Ratio 14 Glucose 174 H Est Mean Plasma Glucose Hemoglobin A1c Calculated Osmolality 287 Calcium 8.5 L Venous Ioniz Calcium Phosphorus Magnesium Total Bilirubin 0.3 AST 19 ALT 20 Alkaline Phosphatase 69 B-Natriuretic Peptide Serum Total Protein 5.2 L Albumin 3.2 L Globulin 2.0 L Albumin/Globulin Ratio 1.6 TSH 0.275 L Free T4 Free T3 Nasal Screen MRSA (PCR) Vancomycin Trough Chlamy pneumoniae PCR Adenovirus (PCR) B. pertussis DNA (PCR) B.parapertussis DNA PCR Coronavirus OC43 (PCR) Coronavirus HKU1 (PCR) Coronavirus 229E (PCR) Coronavirus NL63 (PCR) Human Metapneumovir PCR Influenza A (H1) PCR Influ A (H1N1/09) PCR Influenza A (H3) PCR Influenza A Untype (PCR) Influenza Type B (PCR) M.pneumoniae DNA (PCR) Parainfluenza 1 (PCR) Parainfluenza 2 (PCR) Parainfluenza 3 (PCR) Parainfluenza 4 (PCR) RSV (PCR) Entero/Rhino (PCR) 3 07/15/18 07/14/18 07/14/18 03:59 06:44 06:44 WBC 14.5 H 15.7 H RBC 4.05 L 4.02 L Hgb 12.1 L 11.9 L Hct 37.8 36.8 L MCV 93.3 91.5 MCH 29.9 29.6 MCHC 32.0 32.3 RDW 13.5 13.6 Plt Count 230 216 MPV 9.6 9.6 Immature Gran % 0.9 0.4 Seg Neutrophils % 94.2 96.1 Lymphocytes % 1.6 1.7 Monocytes % 3.2 1.7 Eosinophils % 0.0 0.0 Basophils % 0.1 0.1 Neutrophils # 13.6 H 15.1 H Lymphocytes # 0.2 L 0.3 L Monocytes # 0.5 0.3 Eosinophils # 0.0 0.0 Basophils # 0.0 0.0 Platelet Estimate PT INR APTT Heparin Anti-Xa, LM Wt Sample Site ABG pH ABG pCO2 ABG pO2 ABG HCO3 ABG Total CO2 ABG O2 Saturation ABG Base Excess Misha Test Respiration Rate O2 Delivery Device Blood Gas Modality Inspired O2 Tidal Volume PEEP Pressure Support Sodium 136 Potassium 4.7 Chloride 95 L Carbon Dioxide 37 H BUN 12 Creatinine 0.62 L Est GFR ( Amer) > 60 Est GFR (Non-Af Amer) > 60 BUN/Creatinine Ratio 19 Glucose 123 H Est Mean Plasma Glucose Hemoglobin A1c Calculated Osmolality 283 Calcium 8.8 Venous Ioniz Calcium Phosphorus Magnesium Total Bilirubin AST ALT Alkaline Phosphatase B-Natriuretic Peptide Serum Total Protein Albumin Globulin Albumin/Globulin Ratio TSH Free T4 Free T3 Nasal Screen MRSA (PCR) Vancomycin Trough Chlamy pneumoniae PCR Adenovirus (PCR) B. pertussis DNA (PCR) B.parapertussis DNA PCR Coronavirus OC43 (PCR) Coronavirus HKU1 (PCR) Coronavirus 229E (PCR) Coronavirus NL63 (PCR) Human Metapneumovir PCR Influenza A (H1) PCR Influ A (H1N1/09) PCR Influenza A (H3) PCR Influenza A Untype (PCR) Influenza Type B (PCR) M.pneumoniae DNA (PCR) Parainfluenza 1 (PCR) Parainfluenza 2 (PCR) Parainfluenza 3 (PCR) Parainfluenza 4 (PCR) RSV (PCR) Entero/Rhino (PCR) 3 07/13/18 07/13/18 07/13/18 09:30 04:18 04:18 WBC 21.4 H 19.8 H D RBC 4.37 4.36 Hgb 12.9 12.5 L Hct 39.9 39.4 MCV 91.3 90.4 MCH 29.5 28.7 MCHC 32.3 31.7 RDW 13.3 13.3 Plt Count 242 248 MPV 9.6 9.6 Immature Gran % 0.3 0.4 Seg Neutrophils % 94.8 95.9 Lymphocytes % 1.6 1.7 Monocytes % 3.2 1.9 Eosinophils % 0.0 0.0 Basophils % 0.1 0.1 Neutrophils # 20.3 H 19.0 H Lymphocytes # 0.4 L 0.3 L Monocytes # 0.7 0.4 Eosinophils # 0.0 0.0 Basophils # 0.0 0.0 Platelet Estimate PT INR APTT Heparin Anti-Xa, LM Wt Sample Site ABG pH ABG pCO2 ABG pO2 ABG HCO3 ABG Total CO2 ABG O2 Saturation ABG Base Excess Misha Test Respiration Rate O2 Delivery Device Blood Gas Modality Inspired O2 Tidal Volume PEEP Pressure Support Sodium 136 Potassium 4.6 Chloride 93 L Carbon Dioxide 39 H BUN 15 Creatinine 0.84 Est GFR ( Amer) > 60 Est GFR (Non-Af Amer) > 60 BUN/Creatinine Ratio 18 Glucose 142 H Est Mean Plasma Glucose Hemoglobin A1c Calculated Osmolality 285 Calcium 9.0 Venous Ioniz Calcium Phosphorus Magnesium Total Bilirubin AST ALT Alkaline Phosphatase B-Natriuretic Peptide Serum Total Protein Albumin Globulin Albumin/Globulin Ratio TSH Free T4 Free T3 Nasal Screen MRSA (PCR) Vancomycin Trough Chlamy pneumoniae PCR Adenovirus (PCR) B. pertussis DNA (PCR) B.parapertussis DNA PCR Coronavirus OC43 (PCR) Coronavirus HKU1 (PCR) Coronavirus 229E (PCR) Coronavirus NL63 (PCR) Human Metapneumovir PCR Influenza A (H1) PCR Influ A (H1N1/) PCR Influenza A (H3) PCR Influenza A Untype (PCR) Influenza Type B (PCR) M.pneumoniae DNA (PCR) Parainfluenza 1 (PCR) Parainfluenza 2 (PCR) Parainfluenza 3 (PCR) Parainfluenza 4 (PCR) RSV (PCR) Entero/Rhino (PCR) 3 07/12/18 07/12/18 07/11/18 04:46 04:46 20:04 WBC 3.9 L RBC 4.55 Hgb 13.2 D Hct 41.2 MCV 90.5 MCH 29.0 MCHC 32.0 RDW 13.0 Plt Count 230 MPV 9.6 Immature Gran % 0.5 Seg Neutrophils % 94.3 Lymphocytes % 4.4 Monocytes % 0.8 Eosinophils % 0.0 Basophils % 0.0 Neutrophils # 3.7 Lymphocytes # 0.2 L Monocytes # 0.0 Eosinophils # 0.0 Basophils # 0.0 Platelet Estimate Normal PT INR APTT Heparin Anti-Xa, LM Wt Sample Site ABG pH ABG pCO2 ABG pO2 ABG HCO3 ABG Total CO2 ABG O2 Saturation ABG Base Excess Misha Test Respiration Rate O2 Delivery Device Blood Gas Modality Inspired O2 Tidal Volume PEEP Pressure Support Sodium 135 L Potassium 3.9 Chloride 91 L Carbon Dioxide 37 H BUN 10 Creatinine 0.78 Est GFR ( Amer) > 60 Est GFR (Non-Af Amer) > 60 BUN/Creatinine Ratio 13 Glucose 225 H Est Mean Plasma Glucose Hemoglobin A1c Calculated Osmolality 286 Calcium 8.9 Venous Ioniz Calcium Phosphorus Magnesium 2.0 Total Bilirubin AST ALT Alkaline Phosphatase B-Natriuretic Peptide Serum Total Protein Albumin Globulin Albumin/Globulin Ratio TSH Free T4 Free T3 Nasal Screen MRSA (PCR) Vancomycin Trough Chlamy pneumoniae PCR Not Detected Adenovirus (PCR) Not Detected B. pertussis DNA (PCR) Not Detected B.parapertussis DNA PCR Not Detected Coronavirus OC43 (PCR) Not Detected Coronavirus HKU1 (PCR) Not Detected Coronavirus 229E (PCR) Not Detected Coronavirus NL63 (PCR) Not Detected Human Metapneumovir PCR Not Detected Influenza A (H1) PCR Not Detected Influ A (H1N1/09) PCR Not Detected Influenza A (H3) PCR Not Detected Influenza A Untype (PCR) Not Detected Influenza Type B (PCR) Not Detected M.pneumoniae DNA (PCR) Not Detected Parainfluenza 1 (PCR) Not Detected Parainfluenza 2 (PCR) Not Detected Parainfluenza 3 (PCR) Not Detected Parainfluenza 4 (PCR) Not Detected RSV (PCR) Not Detected Entero/Rhino (PCR) Not Detected Consult Discharge Plan - Plan Referrals: Andry Abdi Jr, MD [Primary Care Provider] - 07/26/18 12:00 pm (Please follow up as schedule....) Regis Braga MD [Partnered Physician] - 08/31/18 9:30 am Inpatient Charges Provider: Dr. Gera Orlando Consult Charges: [id number]
[2018-07-19] MEDS: *HR* OxyCODONE Immed Rel 15 MG TABLET PO SCH ×2 (03:42→06:16)
[2018-07-19] MEDS: Ipratropium/Albuterol Neb 3 ML IH SCH ×6 (04:10→23:50)
[2018-07-19 04:29] LABS: Basophils % 0.2 %; Hematocrit 41.4 % (37.5-50.1); Immature Granulocytes % 1.6 % (0-4); Lymphocytes # 0.3 K/mcL (0.6-4.6); Lymphocytes % 1.5 %; Mean Corpuscular HGB Conc 31.4 g/dL (31.6-35.5); Mean Corpuscular Hemoglobin 29.5 pg (28.0-33.3); Mean Corpuscular Volume 93.9 fL (83.0-100.0); Monocytes # 0.7 K/mcL (0.0-1.3); Monocytes % 3.1 %; Neutrophils # 20.9 K/mcL (1.6-8.9); Platelet Count 234 K/mcL (140-400); Red Blood Count 4.41 M/mcL (4.19-5.50); Red Cell Distribution Width 13.4 % (11.5-14.5); Segmented Neutrophils % 93.6 %
[2018-07-19 04:44] LABS: BUN/Creatinine Ratio 34 (6-26); Blood Urea Nitrogen 26 mg/dL (8-23); Calcium 8.6 mg/dL (8.6-10.3); Carbon Dioxide 41 mEq/L (23-29); Chloride 93 mEq/L (98-107); Glucose 157 mg/dL (70-105); Osmolality,Calculated 288 (280-300); Potassium 5.1 mEq/L (3.5-5.1); Sodium 135 mEq/L (136-145); eGFR For Non-African Americans > 60 (> 60)
[2018-07-19] MEDS: *HR* Enoxaparin 40 MG/0.4 ML SYRINGE SQ SCH (06:17)
[2018-07-19] MEDS: Cefepime HCl 2,000 MG in Water for inj. (sterile) 20 ML 20 ML IVP SCH ×3 (07:43→23:41)
[2018-07-19] MEDS: ALPRAZolam 1 MG TABLET PO PRN ×2 (07:44→23:41)
[2018-07-19] MEDS: Budesonide/Formoterol 80/4.5 MDI IH SCH ×2 (07:44→20:37)
[2018-07-19] MEDS: MetroNIDAZOLE 500 MG/100 ML 500 MG/100 ML BAG IVPB SCH ×3 (07:44→23:40)
[2018-07-19] MEDS: Diltiazem CD (24hr) 300 MG CAPSULE PO SCH (07:44)
[2018-07-19] MEDS: Aspirin Enteric Coated 81 MG Tablet PO SCH (07:44)
[2018-07-19] MEDS: Nicotine 7 MG PATCH.TD24 TD SCH ×2 (07:44→07:53)
[2018-07-19] MEDS: MethylPREDNISolone 40 MG/ML VIAL IVP SCH ×3 (07:45→23:40)
[2018-07-19] MEDS ORDERED: Aminoglycoside Consult 1 EACH MC ONE (07:59)
[2018-07-19] MEDS: *HR* OxyCODONE Immed Rel 15 MG TABLET PO PRN ×4 (10:15→23:41)
--- NOTE | 2018-07-19 10:20 | Internal Med Progress Note ---
<Sher Camargo - Last Filed: 07/19/18 13:39> Hospitalist Progress Note - Encounter Date of Encounter: 07/19/18 Time of Encounter: 10:18 - Subjective Interval History: Patient seen and examined this morning, no acute events overnight Mr. Bermudez was admitted for COPD exacerbation, suspicious for pneumonia We have been treating with antibiotics and bronchodilators and steroids Patient developed atrial fibrillation with rapid ventricular rate, this was treated with Cardizem drip and aspirin for anticoagulation The patient did manage to convert back to sinus rhythm and is now in normal rate and rhythm, transitioned to oral diltiazem Patient had increasing hypoxia and lethargy with increased CO2 on ABG Patient was treated with increased steroids and BiPAP and ABG improved, Pulmonology consulted Patient was found to have suspicious nodules on chest and abdomen and pelvis CT , hematology/oncology consulted Bicarbonate worsened overnight, however shortness of breath and lethargy improved this morning - Exam Vitals: Temp Pulse Resp BP Pulse Ox 97.3 F L 77 18 96/63 91 07/19/18 07:26 07/19/18 07:26 07/19/18 07:44 07/19/18 07:26 07/19/18 07:44 Exam: Patient in no acute distress, alert and oriented 3 Heart in normal rate and rhythm without murmur or gallop Lungs diffusely diminished, right lower lobe rales, left lower lobe wheeze Abdomen soft ,nontender, palpable subcutaneous abdominal mass in left upper quadrant New bilateral lower extremity edema 1+pitting Skin warm and dry - Assessment and Plan (1) Acute on chronic respiratory failure with hypoxia and hypercapnia Current Visit: Yes Status: Acute Assessment and Plan: Patient saturating in the low 90s on 15 L HF nasal cannula, 4L is his home oxygen use day and night COPD exacerbation, right lower lobe consolidation seen on chest x-ray at admission CXR 07/15 showed worsening infiltrates, attributed to pneumonia or nodules 07/[address] showed lymphadenopathy and nodules, with accompanying RLL pleural effusion Legionella and Streptococcus pneumonia antigens negative, sputum culture negative Patient also established new onset lower extremity edema today Plan Patient is receiving 60 mg methylprednisolone TID We will continue supplemental oxygen to maintain saturation above 88% Patient has gotten 4 days Cefepime, 4 days Flagyl Vancomycin discontinued after 3 days Pulmonology consulted who is recommending continued antimicrobial therapy, BiPAP , and outpatient EBUS We will continue Duonebs and symbicort as scheduled 20mg IV LAsix once (2) Pneumonia Current Visit: Yes Status: Acute Assessment and Plan: Pulmonology assisting Antibiotics adjusted as seen above White count increased today from 17 to 22 Sputum culture, strep pneumo antigen, legionella antigen all negative Plan Blood cultures negative for growth so far We will continue to monitor labs and clinical disposition Plan as seen above (3) COPD exacerbation Current Visit: Yes Status: Acute Assessment and Plan: Continue bronchodilator therapy and inhaled corticosteroids and systemic corticosteroids Rest of plan as seen above (4) Mass Current Visit: Yes Status: Acute Assessment and Plan: Palpable mass found on exam and left upper quadrant of abdomen Abdominal/pelvic CT without contrast was performed to rule out neoplasm CT revealed multiple nodules in the left lung, peritoneum Upper abdominal lymphadenopathy, sclerotic foci in iliac bone Left anterior abdominal wall mass Chest CTA in 2015 did not show any acute process Nodules suspicious for metastatic disease Patient was informed of imaging findings and offered consult to hematology/ oncology Heme/Onc concerned for metastatic lung cancer, squamous or small cell, they are recommending biopsy, further recommendations to come Pulmonology offering outpatient EBUS CTA performed 07/19 showed hilar lymphadenopathy compressing right pulmonary artery, multiple nodules, small bilateral pleural effusions (5) Tobacco abuse Current Visit: No Status: Chronic Assessment and Plan: Counseled to quit smoking placed on nicotine patch patient did not tolerate lowest dose of nicotine patch because he is smoking so little at home Encouraged to quit altogether (6) DVT prophylaxis Current Visit: Yes Status: Acute Assessment and Plan: on SQ Lovenox (7) Anxiety Current Visit: Yes Status: Chronic Assessment and Plan: Resumed home benzo's (8) Atrial fibrillation with RVR Current Visit: Yes Status: Resolved Assessment and Plan: Patient developed new onset atrial fibrillation with rapid ventricular rate Cardizem drip was started and cardiology was consulted Rate was controlled on Cardizem drip Cardiology transitioning Cardizem drip to oral Cardizem, recommended aspirin for anticoagulation Patient converted back to sinus normal rate Patient currently hemodynamically stable We will continue to monitor Cardiology signed off - Time Spent with Patient Total time spent is greater than 50% in coordination of care (as documented) at patient's floor/unit and/or counseling patient: Internal Medicine: Result - Labs CBC & Chem 7: 07/19/18 04:01 07/19/18 04:01 Labs: Short CBC 07/19/18 Range/Units 04:01 WBC 22.3 H (4.3-11.1) K/mcL Hgb 13.0 (12.9-16.9) g/dL Hct 41.4 (37.5-50.1) % Plt Count 234 (140-400) K/mcL Neutrophils # 20.9 H (1.6-8.9) K/mcL BMP 07/19/18 04:01 Sodium 135 L Potassium 5.1 Chloride 93 L Carbon Dioxide 41 H* BUN 26 H Creatinine 0.77 Glucose 157 H Calcium 8.6 - ABG Interpretation ABG results: ABG ABG pH 7.35 pH Units (7.32-7.45) 07/16/18 02:35 ABG pCO2 73 mmHg (35-45) H* D 07/16/18 02:35 ABG pO2 75 mmHg (85-104) L D 07/16/18 02:35 ABG O2 Saturation 93 % (95-98) L 07/16/18 02:35 PT/INR, D-dimer PT 11.1 Seconds (9.4-12.1) 07/17/18 05:43 Consult Discharge Plan - Plan Referrals: Andry Abdi Jr, MD [Primary Care Provider] - 07/26/18 12:00 pm (Please follow up as schedule....) Regis Braga MD [Partnered Physician] - 08/31/18 9:30 am <Maurilio Plummer - Last Filed: 07/19/18 17:40> Hospitalist Progress Note - Encounter Date of Encounter: 07/19/18 - Exam Vitals: Temp Pulse Resp BP Pulse Ox 97.3 F L 59 18 106/64 90 07/19/18 15:29 07/19/18 15:29 07/19/18 16:24 07/19/18 15:29 07/19/18 16:24 - Assessment and Plan (1) Tobacco abuse Current Visit: No Status: Chronic (2) DVT prophylaxis Current Visit: Yes Status: Acute (3) Anxiety Current Visit: Yes Status: Chronic (4) COPD exacerbation Current Visit: Yes Status: Acute (5) Acute on chronic respiratory failure with hypoxia and hypercapnia Current Visit: Yes Status: Acute (6) Pneumonia Current Visit: Yes Status: Acute (7) Mass Current Visit: Yes Status: Acute (8) Atrial fibrillation with RVR Current Visit: Yes Status: Resolved - Time Spent with Patient Total time spent is greater than 50% in coordination of care (as documented) at patient's floor/unit and/or counseling patient: Internal Medicine: Result - Labs CBC & Chem 7: 07/19/18 04:01 07/19/18 04:01 Labs: Short CBC 07/19/18 Range/Units 04:01 WBC 22.3 H (4.3-11.1) K/mcL Hgb 13.0 (12.9-16.9) g/dL Hct 41.4 (37.5-50.1) % Plt Count 234 (140-400) K/mcL Neutrophils # 20.9 H (1.6-8.9) K/mcL BMP 07/19/18 04:01 Sodium 135 L Potassium 5.1 Chloride 93 L Carbon Dioxide 41 H* BUN 26 H Creatinine 0.77 Glucose 157 H Calcium 8.6 - ABG Interpretation ABG results: ABG ABG pH 7.35 pH Units (7.32-7.45) 07/16/18 02:35 ABG pCO2 73 mmHg (35-45) H* D 07/16/18 02:35 ABG pO2 75 mmHg (85-104) L D 07/16/18 02:35 ABG O2 Saturation 93 % (95-98) L 07/16/18 02:35 PT/INR, D-dimer PT 11.1 Seconds (9.4-12.1) 07/17/18 05:43 - Impressions Impressions Chest CTA 07/19/18 11:22 IMPRESSION: No evidence of pulmonary embolism although there is compression of the distal right pulmonary artery and some of its branches secondary to the right hilar/infrahilar mass. Extensive mediastinal and right hilar lymphadenopathy with a large right hilar/infrahilar mass with dimensions provided above. These findings are most compatible with bronchogenic carcinoma. Enlarged nodules in the left lung most likely represent contralateral metastasis. Patchy consolidation of the right lower lobe may represent pneumonia or neoplastic involvement. Moderate right and small left pleural effusions. Upper abdominal lymphadenopathy. D/ / Armand Medel / Armand Medel Interpreting Provider: Armand Medel - Attending Attestation I examined this patient and my medical decision-making was reviewed with the Resident Physician. I agree with the documented findings, disposition and treatment plan as described except to the extent set forth below. Patient states he feels significantly better. Staff did notice that he was fatigued this afternoon and somnolent. 1. Acute and chronic Respiratory failure 2. Pneumonia 3. COPD exacerbation 4. Tobacco abuse 5. Abnormal CT exam: of chest and abdomen/pelvis - likely cancer 6. Atrial fibrillation with RVR (resolved) 7. Severe pulmonary hypertension - In regards to contacting , I called her with no answer to phone. He stated it is hard to get her to answer her phone. - Patient now would like Oncology consult, since at some point his told him he should do everything to make a full recovery. The patient and I discussed the course of COPD and likely cancer and that full recovery is unlikely. - Continue steroids, neb therapy, antibiotics - Patient agrees to continue inpatient hospital care, initially wanted to leave AMA. <Sher Camargo - Last Filed: 07/19/18 13:39> (2) Pneumonia Qualifiers: Pneumonia type: due to unspecified organism Laterality: right Lung location : lower lobe of lung Qualified Code(s): J18.1 - Lobar pneumonia, unspecified organism <Maurilio Plummer - Last Filed: 07/19/18 17:40> (6) Pneumonia Qualifiers: Pneumonia type: due to unspecified organism Laterality: right Lung location : lower lobe of lung Qualified Code(s): J18.1 - Lobar pneumonia, unspecified organism
[2018-07-19] MEDS ORDERED: Isovue-370 500 ML INFUS..BTL IV ONE (11:22)
[2018-07-19] MEDS ORDERED: Furosemide 20 MG/2 ML VIAL IVP ONE (11:29)
[2018-07-19] MEDS: *HR* Metoprolol 5 MG/5 ML VIAL IVP PRN (14:01)
--- NOTE | 2018-07-19 14:47 | Oncology Inp Progress Note ---
<Hitesh Orlando S - Last Filed: 07/19/18 17:19> Date of Encounter: 07/19/18 (1) Hilar mass Current Visit: Yes Status: Acute - Constitutional Vitals: Vital Signs Temp Pulse Resp BP Pulse Ox 07/19/18 16:24 18 90 07/19/18 15:29 97.3 F L 59 19 106/64 92 07/19/18 12:14 97.9 F 96 20 115/78 90 07/19/18 07:44 18 91 07/19/18 07:26 97.3 F L 77 20 96/63 92 07/19/18 04:10 22 91 07/19/18 03:51 97.9 F 64 22 117/77 91 07/18/18 23:22 97.8 F 65 14 95/70 89 07/18/18 22:59 16 92 07/18/18 21:42 92 07/18/18 20:45 67 07/18/18 19:49 16 97/58 90 07/18/18 18:46 97.7 F 69 18 97/58 90 Intake and Output 07/19/18 07/19/18 07/19/18 07:59 15:59 23:59 Intake Total 370 / 370 460 / 460 Output Total 250 / 250 1280 / 1280 Balance 120 / 120 -820 / -820 Intake: IV Fluids 370 / 370 100 / 100 Maxipime 2,000 MG In Water for 20 / 20 inj. (sterile) 20 ML @ 300 mls/ hr IVP Q8HR [facility] Rx#:[id number] Flagyl Premix 500 MG/100 ML 500 100 / 100 100 / 100 mg In 100 ml @ 100 mls/hr IVPB Q8HR [facility] Rx#:[id number] Vancocin 1,500 MG In 0.9 % 250 / 250 Sodium Chloride 250 ML @ 166.67 mls/hr IVPB Q12H [facility] Rx#: [id number] Oral 360 / 360 Output: Urine 250 / 250 1280 / 1280 Other: Meal Lunch Percent of Meal Consumed 100% Weight 79.8 kg Patient Weight 07/19/18 23:59 Weight 79.8 kg Oncology: Obj Data - Labs CBC & Chem 7: 07/19/18 04:01 07/19/18 04:01 Labs: Laboratory Results - last 24 hr 07/19/18 07/19/18 04:01 04:01 WBC 22.3 H RBC 4.41 Hgb 13.0 Hct 41.4 MCV 93.9 MCH 29.5 MCHC 31.4 L RDW 13.4 Plt Count 234 MPV 10.0 Immature Gran % 1.6 Seg Neutrophils % 93.6 Lymphocytes % 1.5 Monocytes % 3.1 Eosinophils % 0.0 Basophils % 0.2 Neutrophils # 20.9 H Lymphocytes # 0.3 L Monocytes # 0.7 Eosinophils # 0.0 Basophils # 0.0 Sodium 135 L Potassium 5.1 Chloride 93 L Carbon Dioxide 41 H* BUN 26 H Creatinine 0.77 Est GFR ( Amer) > 60 Est GFR (Non-Af Amer) > 60 BUN/Creatinine Ratio 34 H Glucose 157 H Calculated Osmolality 288 Calcium 8.6 - Impressions Impressions Chest CTA 07/19/18 11:22 IMPRESSION: No evidence of pulmonary embolism although there is compression of the distal right pulmonary artery and some of its branches secondary to the right hilar/infrahilar mass. Extensive mediastinal and right hilar lymphadenopathy with a large right hilar/infrahilar mass with dimensions provided above. These findings are most compatible with bronchogenic carcinoma. Enlarged nodules in the left lung most likely represent contralateral metastasis. Patchy consolidation of the right lower lobe may represent pneumonia or neoplastic involvement. Moderate right and small left pleural effusions. Upper abdominal lymphadenopathy. D/ / Armand Medel / Armand Medel Interpreting Provider: Armand Medel - ABG Interpretation ABG results: ABG ABG pH 7.35 pH Units (7.32-7.45) 07/16/18 02:35 ABG pCO2 73 mmHg (35-45) H* D 07/16/18 02:35 ABG pO2 75 mmHg (85-104) L D 07/16/18 02:35 ABG O2 Saturation 93 % (95-98) L 07/16/18 02:35 PT/INR, D-dimer PT 11.1 Seconds (9.4-12.1) 07/17/18 05:43 Consult Discharge Plan - Plan Referrals: Andry Abdi Jr, MD [Primary Care Provider] - 07/26/18 12:00 pm (Please follow up as schedule....) Regis Braga MD [Partnered Physician] - 08/31/18 9:30 am Inpatient Charges Provider: Dr. Gera Orlando Follow Up: [id number] - Attending Attestation I examined this patient and my medical decision-making was reviewed with the Advanced Practice Nurse. I agree with the documented findings, disposition and treatment plan as described except to the extent set forth below. Bulky mediastinal adenopathy and hilar mass concerning for lung cancer. This could be small cell lung cancer. We will try to get a biopsy soon so we can start treatment. Dr. Munoz is going to see the patient tomorrow <Nevaeh Mckenzie - Last Filed: 07/20/18 07:49> Date of Encounter: 07/19/18 Time of Encounter: 14:00 (1) Acute on chronic respiratory failure with hypoxia and hypercapnia Current Visit: Yes Status: Acute Assessment and plan: Discussed potential clearance for bronchoscopy with biopsy with Dr. Munoz who will see patient tomorrow morning. Made NPO after midnight for potential bronchoscopy tomorrow pending assessment of respiratory status Continue supportive management, appreciate continued recommendations per pulmonology (2) Hilar mass Current Visit: Yes Status: Acute Assessment and plan: Large right hilar mass, enlarged left lung nodules. Right anterior mediastinal lymphadenopathy and subcarinal adenopathy and upper abdominal adenopathy. Moderate right pleural effusion. This is concerning for metastatic lung cancer. Small cell versus non-small cell. He has been symptomatic for last 1 month. We will try to establish diagnosis quickly, with the idea that treatment will also help his symptoms related to lung mass. Planning for bronchoscopy with biopsy as discussed above, Dr. Munoz to assess tomorrow. Another option is to biopsy anterior mediastinal lymph node by CT guidance Currently on 15 L high flow, with desaturations with exertion, CTA today negative for PE although there is compression of the distal right pulmonary artery and some of its branches secondary to the right hilar/infrahilar mass- again findings noted as discussed above Check LDH in am May consider a outpatient PET scan to complete staging, MRI brain Treatment to start shortly after confirming diagnosis Tobacco cessation education-He did smoke about a pack a day for 50 years trying to quit Oncology: Subj Interval history: Mr. Bermudez is sitting up in bed, eating jello, denies pain, nausea, vomiting, headache, urinary complaint, dizziness or chest pain. He experiences SOB with any exertion, currently on 15L high flow NC, he desats with movement. He reports constipation with no reported BM since admission. - Constitutional Vitals: Vital Signs Temp Pulse Resp BP Pulse Ox 07/19/18 12:14 97.9 F 96 20 115/78 90 07/19/18 07:44 18 91 07/19/18 07:26 97.3 F L 77 20 96/63 92 07/19/18 04:10 22 91 07/19/18 03:51 97.9 F 64 22 117/77 91 07/18/18 23:22 97.8 F 65 14 95/70 89 07/18/18 22:59 16 92 07/18/18 21:42 92 07/18/18 20:45 67 07/18/18 19:49 16 97/58 90 07/18/18 18:46 97.7 F 69 18 97/58 90 07/18/18 15:31 97.4 F L 73 20 95/73 90 07/18/18 15:11 18 89 Intake and Output 07/18/18 07/19/18 07/19/18 23:59 07:59 15:59 Intake Total 495 / 495 350 / 350 360 / 360 Output Total 250 / 250 1280 / 1280 Balance 495 / 495 100 / 100 -920 / -920 Intake: IV Fluids 140 / 140 350 / 350 Maxipime 2,000 MG In Water for 40 / 40 inj. (sterile) 20 ML @ 300 mls/ hr IVP Q8HR [facility] Rx#:[id number] Flagyl Premix 500 MG/100 ML 500 100 / 100 100 / 100 mg In 100 ml @ 100 mls/hr IVPB Q8HR [facility] Rx#:[id number] Vancocin 1,500 MG In 0.9 % 250 / 250 Sodium Chloride 250 ML @ 166.67 mls/hr IVPB Q12H [facility] Rx#: [id number] Oral 355 / 355 360 / 360 Output: Urine 250 / 250 1280 / 1280 Other: Meal Lunch Percent of Meal Consumed 100% Weight 79.8 kg Patient Weight 07/19/18 23:59 Weight 79.8 kg General appearance: cooperative, no acute distress, no febrile - Head Head exam: Present: atraumatic - ENT ENT exam: Present: mucous membranes moist - Respiratory Respiratory exam: Present: decreased breath sounds, wheezes. Absent: respiratory distress - Cardiovascular Cardiovascular exam: Present: RRR, +S1, +S2 - GI/Abdominal GI/Abdominal exam: Present: normal bowel sounds, soft. Absent: tenderness - Extremities Exam Extremities exam: Absent: calf tenderness Additional comments: 1+ pitting BLE edema - Neurological Exam Neurological exam: Present: alert, oriented X3, no focal deficits, strengths equal and symetr throughout - Psychiatric Psychiatric exam: Present: normal affect, normal mood - Skin Skin exam: Present: dry, intact, normal color, warm Oncology: Obj Data - Labs CBC & Chem 7: 07/20/18 04:56 07/20/18 04:56 Labs: Laboratory Results - last 24 hr 07/19/18 07/19/18 04:01 04:01 WBC 22.3 H RBC 4.41 Hgb 13.0 Hct 41.4 MCV 93.9 MCH 29.5 MCHC 31.4 L RDW 13.4 Plt Count 234 MPV 10.0 Immature Gran % 1.6 Seg Neutrophils % 93.6 Lymphocytes % 1.5 Monocytes % 3.1 Eosinophils % 0.0 Basophils % 0.2 Neutrophils # 20.9 H Lymphocytes # 0.3 L Monocytes # 0.7 Eosinophils # 0.0 Basophils # 0.0 Sodium 135 L Potassium 5.1 Chloride 93 L Carbon Dioxide 41 H* BUN 26 H Creatinine 0.77 Est GFR ( Amer) > 60 Est GFR (Non-Af Amer) > 60 BUN/Creatinine Ratio 34 H Glucose 157 H Calculated Osmolality 288 Calcium 8.6 - Impressions Impressions Chest CTA 07/19/18 11:22 IMPRESSION: No evidence of pulmonary embolism although there is compression of the distal right pulmonary artery and some of its branches secondary to the right hilar/infrahilar mass. Extensive mediastinal and right hilar lymphadenopathy with a large right hilar/infrahilar mass with dimensions provided above. These findings are most compatible with bronchogenic carcinoma. Enlarged nodules in the left lung most likely represent contralateral metastasis. Patchy consolidation of the right lower lobe may represent pneumonia or neoplastic involvement. Moderate right and small left pleural effusions. Upper abdominal lymphadenopathy. D/ / Armand Medel / Armand Medel Interpreting Provider: Armand Medel - ABG Interpretation ABG results: ABG ABG pH 7.35 pH Units (7.32-7.45) 07/16/18 02:35 ABG pCO2 73 mmHg (35-45) H* D 07/16/18 02:35 ABG pO2 75 mmHg (85-104) L D 07/16/18 02:35 ABG O2 Saturation 93 % (95-98) L 07/16/18 02:35 PT/INR, D-dimer PT 11.1 Seconds (9.4-12.1) 07/17/18 05:43 Inpatient Charges Provider: Dr. Gera Orlando Follow Up: [id number]
[2018-07-19] MEDS: Sennosides/Docusate Sodium TABLET PO SCH (20:50)
[2018-07-19] MEDS ORDERED: Furosemide 40 MG/4 ML VIAL IVP ONE (21:52)
[2018-07-20] MEDS: Ipratropium/Albuterol Neb 3 ML IH SCH ×6 (04:18→23:36)
[2018-07-20 05:43] LABS: Basophils % 0.2 %; Hematocrit 38.9 % (37.5-50.1); Hemoglobin 12.4 g/dL (12.9-16.9); Immature Granulocytes % 2.1 % (0-4); Lymphocytes # 0.2 K/mcL (0.6-4.6); Lymphocytes % 1.1 %; Mean Corpuscular HGB Conc 31.9 g/dL (31.6-35.5); Mean Corpuscular Hemoglobin 28.9 pg (28.0-33.3); Mean Corpuscular Volume 90.7 fL (83.0-100.0); Monocytes # 0.7 K/mcL (0.0-1.3); Monocytes % 3.6 %; Platelet Count 212 K/mcL (140-400); Red Blood Count 4.29 M/mcL (4.19-5.50); Red Cell Distribution Width 13.5 % (11.5-14.5)
[2018-07-20] MEDS: *HR* Enoxaparin 40 MG/0.4 ML SYRINGE SQ SCH (05:44)
[2018-07-20] MEDS: *HR* OxyCODONE Immed Rel 15 MG TABLET PO PRN ×5 (05:44→21:18)
[2018-07-20 06:07] LABS: BUN/Creatinine Ratio 38 (6-26); Blood Urea Nitrogen 27 mg/dL (8-23); Calcium 8.4 mg/dL (8.6-10.3); Carbon Dioxide 45 mEq/L (23-29); Chloride 90 mEq/L (98-107); Glucose 140 mg/dL (70-105); Osmolality,Calculated 291 (280-300); Potassium 4.2 mEq/L (3.5-5.1); Sodium 137 mEq/L (136-145); eGFR For Non-African Americans > 60 (> 60)
[2018-07-20] MEDS: Budesonide/Formoterol 80/4.5 MDI IH SCH ×2 (07:43→19:44)
[2018-07-20] MEDS: MetroNIDAZOLE 500 MG/100 ML 500 MG/100 ML BAG IVPB SCH ×3 (08:41→23:29)
[2018-07-20] MEDS: MethylPREDNISolone 40 MG/ML VIAL IVP SCH ×3 (08:42→20:04)
[2018-07-20] MEDS: Cefepime HCl 2,000 MG in Water for inj. (sterile) 20 ML 20 ML IVP SCH ×3 (08:42→23:24)
--- NOTE | 2018-07-20 09:14 | Internal Med Progress Note ---
<Sher Camargo - Last Filed: 07/20/18 16:46> Hospitalist Progress Note - Encounter Date of Encounter: 07/20/18 Time of Encounter: 09:11 - Subjective Interval History: Patient seen and examined this morning, no acute events overnight Mr. Bermudez was admitted for COPD exacerbation, suspicious for pneumonia We have been treating with antibiotics and bronchodilators and steroids Patient developed atrial fibrillation with rapid ventricular rate, this was treated with Cardizem drip and aspirin for anticoagulation The patient did manage to convert back to sinus rhythm and is now in normal rate and rhythm, transitioned to oral diltiazem Patient had increasing hypoxia and lethargy with increased CO2 on ABG Patient was treated with increased steroids and BiPAP and ABG improved, Pulmonology consulted Patient was found to have suspicious nodules on chest and abdomen and pelvis CT , hematology/oncology consulted Bicarbonate worsened overnight, however shortness of breath and lethargy improved this morning Patient going for bronchoscopy this morning - Exam Vitals: Temp Pulse Resp BP Pulse Ox 98.3 F 58 18 125/87 92 07/20/18 06:57 07/20/18 06:57 07/20/18 07:45 07/20/18 06:57 07/20/18 07:45 Exam: Patient in no acute distress, alert and oriented 3 Heart in normal rate and rhythm without murmur or gallop Lungs diffusely diminished,no wheeze or rales auscultated Abdomen soft ,nontender, palpable subcutaneous abdominal mass in left upper quadrant Bilateral upper extremity non pitting edema, bilateral lower extremity pitting edema Skin warm and dry - Assessment and Plan (1) Acute on chronic respiratory failure with hypoxia and hypercapnia Current Visit: Yes Status: Acute Assessment and Plan: Patient saturating in the low 90s on 10 L HF nasal cannula, 4L is his home oxygen use day and night COPD exacerbation, right lower lobe consolidation seen on chest x-ray at admission CXR 07/15 showed worsening infiltrates, attributed to pneumonia or nodules 07/[address] showed lymphadenopathy and nodules, with accompanying RLL pleural effusion Legionella and Streptococcus pneumonia antigens negative, sputum culture negative Patient going for bronchoscopy tomorrow Plan Patient is receiving 60 mg methylprednisolone TID We will continue supplemental oxygen to maintain saturation above 88% Patient has gotten 5 days Cefepime, 5 days Flagyl Pulmonology consulted who is recommending continued antimicrobial therapy, BiPAP , and bronchoscopy We will continue Duonebs and symbicort as scheduled (2) Pneumonia Current Visit: Yes Status: Acute Assessment and Plan: Pulmonology assisting Antibiotics adjusted as seen above White count decreased today from 22 to 20 Sputum culture, strep pneumo antigen, legionella antigen all negative Plan Blood cultures negative for growth so far We will continue to monitor labs and clinical disposition Plan as seen above (3) COPD exacerbation Current Visit: Yes Status: Acute Assessment and Plan: Continue bronchodilator therapy and inhaled corticosteroids and systemic corticosteroids Rest of plan as seen above (4) Mass Current Visit: Yes Status: Acute Assessment and Plan: Palpable mass found on exam and left upper quadrant of abdomen Abdominal/pelvic CT without contrast was performed to rule out neoplasm CT revealed multiple nodules in the left lung, peritoneum Upper abdominal lymphadenopathy, sclerotic foci in iliac bone Left anterior abdominal wall mass Chest CTA in 2015 did not show any acute process Nodules suspicious for metastatic disease Patient was informed of imaging findings and offered consult to hematology/ oncology Heme/Onc concerned for metastatic lung cancer, squamous or small cell, they are recommending biopsy, further recommendations to come CTA performed 07/19 showed hilar lymphadenopathy compressing right pulmonary artery, multiple nodules, small bilateral pleural effusions Diagnostic bronchoscopy tomorrow (5) Tobacco abuse Current Visit: No Status: Chronic Assessment and Plan: Counseled to quit smoking placed on nicotine patch patient did not tolerate lowest dose of nicotine patch because he is smoking so little at home Encouraged to quit altogether (6) DVT prophylaxis Current Visit: Yes Status: Acute Assessment and Plan: on SQ Lovenox (7) Anxiety Current Visit: Yes Status: Chronic Assessment and Plan: Resumed home benzo's (8) Atrial fibrillation with RVR Current Visit: Yes Status: Resolved Assessment and Plan: Patient developed new onset atrial fibrillation with rapid ventricular rate Cardizem drip was started and cardiology was consulted Rate was controlled on Cardizem drip Cardiology transitioning Cardizem drip to oral Cardizem, recommended aspirin for anticoagulation Patient converted back to sinus normal rate Patient currently hemodynamically stable We will continue to monitor Cardiology signed off - Time Spent with Patient Total time spent is greater than 50% in coordination of care (as documented) at patient's floor/unit and/or counseling patient: Internal Medicine: Result - Labs CBC & Chem 7: 07/20/18 04:56 07/20/18 04:56 Labs: Short CBC 07/20/18 Range/Units 04:56 WBC 20.4 H (4.3-11.1) K/mcL Hgb 12.4 L (12.9-16.9) g/dL Hct 38.9 (37.5-50.1) % Plt Count 212 (140-400) K/mcL Neutrophils # 19.0 H (1.6-8.9) K/mcL BMP 07/20/18 04:56 Sodium 137 Potassium 4.2 Chloride 90 L Carbon Dioxide 45 H* BUN 27 H Creatinine 0.71 Glucose 140 H Calcium 8.4 L - ABG Interpretation ABG results: ABG ABG pH 7.35 pH Units (7.32-7.45) 07/16/18 02:35 ABG pCO2 73 mmHg (35-45) H* D 07/16/18 02:35 ABG pO2 75 mmHg (85-104) L D 07/16/18 02:35 ABG O2 Saturation 93 % (95-98) L 07/16/18 02:35 PT/INR, D-dimer PT 11.1 Seconds (9.4-12.1) 07/17/18 05:43 - Impressions Impressions Chest CTA 07/19/18 11:22 IMPRESSION: No evidence of pulmonary embolism although there is compression of the distal right pulmonary artery and some of its branches secondary to the right hilar/infrahilar mass. Extensive mediastinal and right hilar lymphadenopathy with a large right hilar/infrahilar mass with dimensions provided above. These findings are most compatible with bronchogenic carcinoma. Enlarged nodules in the left lung most likely represent contralateral metastasis. Patchy consolidation of the right lower lobe may represent pneumonia or neoplastic involvement. Moderate right and small left pleural effusions. Upper abdominal lymphadenopathy. D/ / Armand Medel / Armand Medel Interpreting Provider: Armand Medel Consult Discharge Plan - Plan Referrals: Andry Abdi Jr, MD [Primary Care Provider] - 07/26/18 12:00 pm (Please follow up as schedule....) Regis Braga MD [Partnered Physician] - 08/31/18 9:30 am <Martha Vasques - Last Filed: 07/20/18 17:23> Hospitalist Progress Note - Encounter Date of Encounter: 07/20/18 - Exam Vitals: Temp Pulse Resp BP Pulse Ox 97.7 F 70 24 117/73 84 07/20/18 17:00 07/20/18 17:00 07/20/18 17:00 07/20/18 17:00 07/20/18 17:00 - Assessment and Plan (1) Tobacco abuse Current Visit: No Status: Chronic (2) DVT prophylaxis Current Visit: Yes Status: Acute (3) Anxiety Current Visit: Yes Status: Chronic (4) COPD exacerbation Current Visit: Yes Status: Acute (5) Acute on chronic respiratory failure with hypoxia and hypercapnia Current Visit: Yes Status: Acute (6) Pneumonia Current Visit: Yes Status: Acute (7) Mass Current Visit: Yes Status: Acute (8) Atrial fibrillation with RVR Current Visit: Yes Status: Resolved - Time Spent with Patient Total time spent is greater than 50% in coordination of care (as documented) at patient's floor/unit and/or counseling patient: Internal Medicine: Result - Labs CBC & Chem 7: 07/20/18 04:56 07/20/18 04:56 Labs: Short CBC 07/20/18 Range/Units 04:56 WBC 20.4 H (4.3-11.1) K/mcL Hgb 12.4 L (12.9-16.9) g/dL Hct 38.9 (37.5-50.1) % Plt Count 212 (140-400) K/mcL Neutrophils # 19.0 H (1.6-8.9) K/mcL BMP 07/20/18 04:56 Sodium 137 Potassium 4.2 Chloride 90 L Carbon Dioxide 45 H* BUN 27 H Creatinine 0.71 Glucose 140 H Calcium 8.4 L - ABG Interpretation ABG results: ABG ABG pH 7.35 pH Units (7.32-7.45) 07/16/18 02:35 ABG pCO2 73 mmHg (35-45) H* D 07/16/18 02:35 ABG pO2 75 mmHg (85-104) L D 07/16/18 02:35 ABG O2 Saturation 93 % (95-98) L 07/16/18 02:35 PT/INR, D-dimer PT 11.1 Seconds (9.4-12.1) 07/17/18 05:43 - Attending Attestation I examined this patient and my medical decision-making was reviewed with the Resident Physician Dr. Camargo. I agree with the documented findings, disposition and treatment plan as described except to the extent set forth below. Mr. Bermudez is a 58 year old male with a known past medical history of COPD, chronic hypoxic respiratory failure on 4 lit oxygen dependent at home, hypertension and chronic tobacco dependence patient presented emergency room complaining about a progressively worsening shortness of breath, cough with expectoration. Patient was admitted in the hospital for acute hypoxic respiratory failure due to pneumonia. His his CT of the chest showed left lower lobe nodule and severe mediastinal lymphadenopathy concerning for metastatic disease. Patient hypoxia seemed to be worsened later and currently he is on 10 lit O2 now. Gen: A, A< O x3 Chest: Diminished BS b/l moderate wheezing, mild crackles,rales + Heart: S1S2+ RRR a/p 1. Acute pneumonia - bacterial 2. Acute COPD exacerbation 3. Acute on chronic hypoxic respiratory failure 4. Lung nodule - concerning for malignancy possible bronchoscope today cont steorids + Duoneb + Broad spec abx use BiPAP prn appreciate Pulm / Heme Onc recommendations <Sher Camargo - Last Filed: 07/20/18 16:46> (2) Pneumonia Qualifiers: Pneumonia type: due to unspecified organism Laterality: right Lung location : lower lobe of lung Qualified Code(s): J18.1 - Lobar pneumonia, unspecified organism <Martha Vasques - Last Filed: 07/20/18 17:23> (6) Pneumonia Qualifiers: Pneumonia type: due to unspecified organism Laterality: right Lung location : lower lobe of lung Qualified Code(s): J18.1 - Lobar pneumonia, unspecified organism
[2018-07-20] MEDS: *HR* Metoprolol 5 MG/5 ML VIAL IVP PRN (10:09)
[2018-07-20] MEDS: Diltiazem CD (24hr) 300 MG CAPSULE PO SCH (10:20)
[2018-07-20] MEDS: Sennosides/Docusate Sodium TABLET PO SCH ×2 (10:20→20:18)
[2018-07-20] MEDS: Aspirin Enteric Coated 81 MG Tablet PO SCH (10:21)
--- NOTE | 2018-07-20 13:24 | Pulmonology Progress Note ---
<Cindy Munoz M - Last Filed: 07/20/18 14:01> Date of Encounter: 07/20/18 Objective PUL Vital signs: Last Vital Signs Temp 98.0 F 07/20/18 11:44 Pulse 96 07/20/18 11:44 Resp 18 07/20/18 11:44 BP 130/79 07/20/18 11:44 Pulse Ox 96 07/20/18 11:44 Results - Laboratory Findings CBC and BMP: 07/20/18 04:56 07/20/18 04:56 ABG ABG pH 7.35 pH Units (7.32-7.45) 07/16/18 02:35 ABG pCO2 73 mmHg (35-45) H* D 07/16/18 02:35 ABG pO2 75 mmHg (85-104) L D 07/16/18 02:35 ABG O2 Saturation 93 % (95-98) L 07/16/18 02:35 PT/INR, D-dimer PT 11.1 Seconds (9.4-12.1) 07/17/18 05:43 Abnormal lab findings: Abnormal lab results WBC 20.4 K/mcL (4.3-11.1) H 07/20/18 04:56 Hgb 12.4 g/dL (12.9-16.9) L 07/20/18 04:56 Neutrophils # 19.0 K/mcL (1.6-8.9) H 07/20/18 04:56 Lymphocytes # 0.2 K/mcL (0.6-4.6) L 07/20/18 04:56 APTT 22.5 Seconds (26.0-36.0) L 07/17/18 05:43 Heparin Anti-Xa, LM Wt 0.09 IU/mL (0.50-1.10) L 07/17/18 05:43 ABG pCO2 73 mmHg (35-45) H* D 07/16/18 02:35 ABG pO2 75 mmHg (85-104) L D 07/16/18 02:35 ABG HCO3 41 mEq/L (21-27) H 07/16/18 02:35 ABG Total CO2 43 mEq/L (20-26) H 07/16/18 02:35 ABG O2 Saturation 93 % (95-98) L 07/16/18 02:35 ABG Base Excess 12 mEq/L (-2 to 3) H 07/16/18 02:35 VBG pCO2 80 mmHg (41-51) H* 07/11/18 17:41 VBG HCO3 43 mEq/L (21-27) H 07/11/18 17:41 Chloride 90 mEq/L (98-107) L 07/20/18 04:56 Carbon Dioxide 45 mEq/L (23-29) H* 07/20/18 04:56 BUN 27 mg/dL (8-23) H 07/20/18 04:56 BUN/Creatinine Ratio 38 (6-26) H 07/20/18 04:56 Glucose 140 mg/dL (70-105) H 07/20/18 04:56 Calcium 8.4 mg/dL (8.6-10.3) L 07/20/18 04:56 Venous Ioniz Calcium 1.08 mmol/L (1.15-1.35) L 07/16/18 11:04 Serum Total Protein 5.2 g/dL (6.4-8.9) L 07/15/18 03:59 Albumin 3.2 g/dL (3.5-5.7) L 07/15/18 03:59 Globulin 2.0 g/dL (2.4-3.5) L 07/15/18 03:59 TSH 0.275 mcIU/mL (0.340-5.600) L 07/15/18 14:15 Free T3 2.36 pg/mL (2.50-3.90) L 07/16/18 05:16 - Microbiology Findings Microbiology Findings: Microbiology, Last 48 Hours 07/13/18 10:56 Blood Culture - Final Peripheral Venipuncture No growth. Final report. 07/13/18 10:56 Blood Culture - Final Peripheral Venipuncture No growth. Final report. - Clinical Findings Intake & Output: Intake & Output 07/19/18 07/20/18 07/20/18 23:59 07:59 15:59 Intake Total 860 / 860 100 / 100 100 / 100 Output Total 650 / 650 1050 / 1050 425 / 425 Balance 210 / 210 -950 / -950 -325 / -325 Weight 80.7 kg Consult Discharge Plan - Plan Referrals: Andry Abdi Jr, MD [Primary Care Provider] - 07/26/18 12:00 pm (Please follow up as schedule....) Regis Braga MD [Partnered Physician] - 08/31/18 9:30 am - Attending Attestation I examined this patient and my medical decision-making was reviewed with the Resident Physician. I agree with the documented findings, disposition and treatment plan as described except to the extent set forth below. Patient seen and examined. Labs, radiology, chart personally reviewed. Agree with resident's history and physical, assessment, plan with following comments: CLINICAL EDUCATION MANAGER: Patient follows commands, Pulmonary: Acceptable oxygenation and ventilation. I have seen and examined patient with the nurse and explained to him about bronchoscopy and he is high risk, however diagnosis is important for the treatment and suspect small cell lung cancer and there is also pleural effusion that might be malignant and there is possibility he will need Pleurx bladder catheter. I have explained to him all the risks and benefits. Unfortunately anesthesia could not accommodate this morning for bronchoscopy and procedure will be scheduled for tomorrow morning.A bronchoscopy is recommended. The procedure , risks, benefits, complications, and expected outcomes have been reviewed. Benefits of diagnosis, as well as risks to include bleeding, infection, pneumothorax which may require surgical intervention, and in a small population. The patient is aware that sometimes test is nondiagnostic. Discussed with patient and agrees to proceed. <Carlito Bell - Last Filed: 07/20/18 16:24> Date of Encounter: 07/20/18 Time of Encounter: 10:30 Assessment and Plan (1) Acute exacerbation of chronic obstructive pulmonary disease (COPD) Current Visit: No Status: Acute SpO2 91% on 10lpm O2 No tachypnea Day 5 of abx therapy, currently on Cefepime and Flagyl Continue 40mg Solumedrol q8h Continue scheduled Duonebs Continue Symbicort Continue supplemental O2 with SpO2 goal of >88% Plan for bronchoscopy tomorrow since anesthesia not able to accommodate for today. NPO after midnight (2) Mediastinal lymphadenopathy Current Visit: Yes Status: Acute Lung nodules noted on CT likely metastatic Pleural effusion could also be related to metastatic disease vs infection Plan for bronchoscopy tomorrow as above (3) Tobacco abuse Current Visit: No Status: Chronic Spent >10 minutes discussing the importances of cessation and treatment alternatives with pt Subjective Principal diagnosis: COPD exacerbation Interval history: Mr. Bermudez is a 58M with PMH of COPD on 4lpm O2 at home, HTN, and tobacco dependence who originally presented to the ED on 07/11 for progressively worsening shortness of breath. CXR at that time revealed a right basilar consolidation suspicious for pneumonia. On 07/14 it was noted that there was a palpable abdominal mass and CT of the abdomen/pelvis revealed lung nodules, abdominal lymphadenopathy, and peritoneal nodules. Today pt is resting comfortably in bed. Denies any fever, chills, chest pain, worsened shortness of breath, abdominal pain, nausea, or vomiting. No new or acute complaints. He is very anxious to have the bronchoscopy done. Objective PUL Vital signs: Last Vital Signs Temp 98.0 F 07/20/18 11:44 Pulse 96 07/20/18 11:44 Resp 18 07/20/18 11:44 BP 130/79 07/20/18 11:44 Pulse Ox 96 07/20/18 11:44 General appearance: agitated Eyes: nonicteric ENT: oropharynx moist Neck: supple Effort: normal Auscultation: bilateral: diminished breath sounds Percussion: bilateral: not dull Tactile fremitus: bilateral: normal Cardiovascular: regular rate and rhythm Gastrointestinal: non-tender, non-distended Integumentary: normal Extremities: no cyanosis, no edema, no clubbing, pink and warm Musculoskeletal: no deformities Gait: normal posture normal mental status, non-focal exam mood appropriate, affect normal Results - Laboratory Findings CBC and BMP: 07/20/18 04:56 07/20/18 04:56 ABG ABG pH 7.35 pH Units (7.32-7.45) 07/16/18 02:35 ABG pCO2 73 mmHg (35-45) H* D 07/16/18 02:35 ABG pO2 75 mmHg (85-104) L D 07/16/18 02:35 ABG O2 Saturation 93 % (95-98) L 07/16/18 02:35 PT/INR, D-dimer PT 11.1 Seconds (9.4-12.1) 07/17/18 05:43 Abnormal lab findings: Abnormal lab results WBC 20.4 K/mcL (4.3-11.1) H 07/20/18 04:56 Hgb 12.4 g/dL (12.9-16.9) L 07/20/18 04:56 Neutrophils # 19.0 K/mcL (1.6-8.9) H 07/20/18 04:56 Lymphocytes # 0.2 K/mcL (0.6-4.6) L 07/20/18 04:56 APTT 22.5 Seconds (26.0-36.0) L 07/17/18 05:43 Heparin Anti-Xa, LM Wt 0.09 IU/mL (0.50-1.10) L 07/17/18 05:43 ABG pCO2 73 mmHg (35-45) H* D 07/16/18 02:35 ABG pO2 75 mmHg (85-104) L D 07/16/18 02:35 ABG HCO3 41 mEq/L (21-27) H 07/16/18 02:35 ABG Total CO2 43 mEq/L (20-26) H 07/16/18 02:35 ABG O2 Saturation 93 % (95-98) L 07/16/18 02:35 ABG Base Excess 12 mEq/L (-2 to 3) H 07/16/18 02:35 VBG pCO2 80 mmHg (41-51) H* 07/11/18 17:41 VBG HCO3 43 mEq/L (21-27) H 07/11/18 17:41 Chloride 90 mEq/L (98-107) L 07/20/18 04:56 Carbon Dioxide 45 mEq/L (23-29) H* 07/20/18 04:56 BUN 27 mg/dL (8-23) H 07/20/18 04:56 BUN/Creatinine Ratio 38 (6-26) H 07/20/18 04:56 Glucose 140 mg/dL (70-105) H 07/20/18 04:56 Calcium 8.4 mg/dL (8.6-10.3) L 07/20/18 04:56 Venous Ioniz Calcium 1.08 mmol/L (1.15-1.35) L 07/16/18 11:04 Serum Total Protein 5.2 g/dL (6.4-8.9) L 07/15/18 03:59 Albumin 3.2 g/dL (3.5-5.7) L 07/15/18 03:59 Globulin 2.0 g/dL (2.4-3.5) L 07/15/18 03:59 TSH 0.275 mcIU/mL (0.340-5.600) L 07/15/18 14:15 Free T3 2.36 pg/mL (2.50-3.90) L 07/16/18 05:16 - Microbiology Findings Microbiology Findings: Microbiology, Last 48 Hours 07/13/18 10:56 Blood Culture - Final Peripheral Venipuncture No growth. Final report. 07/13/18 10:56 Blood Culture - Final Peripheral Venipuncture No growth. Final report. - Diagnostic Findings CT scan - chest: report reviewed, image reviewed - Clinical Findings Intake & Output: Intake & Output 07/19/18 07/20/18 07/20/18 23:59 07:59 15:59 Intake Total 860 / 860 100 / 100 Output Total 650 / 650 1050 / 1050 200 / 200 Balance 210 / 210 -950 / -950 -200 / -200 Weight 80.7 kg
[2018-07-20] MEDS: Furosemide 20 MG/2 ML VIAL IVP SCH (20:18)
[2018-07-20] MEDS: ALPRAZolam 1 MG TABLET PO PRN (21:18)
--- NOTE | 2018-07-20 21:46 | Anesthesia Evaluation PreOp ---
Date of Encounter: 07/20/18 Time of Encounter: 21:43 - Past History Planned Operation: EBUS Cardiac History: HTN (NEWLY DIAGNOSED SEVERE PULM HTN), Arrhythmia (AFIB RVR THIS ADMISSION, SPONT CONVERTED TO SINUS RHYTHM), Other (SEVERE PULM HTN) Pulmonary History: Smoker, COPD (SEVERE, HOME O2 4LPM, CHRONIC HYPOXIA, CHRONIC HYPERCAPNIA, ADMITTED WITH INCREASING SOB, AND COPD EXACERBATION, ON BIPAP PRN FOR HYPERCAPNIA), Other (RIGHT HILAR MASS, ? 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: Other (ANXIETY) Other Medical History: Diabetes Type II (ELEVATED BLOOD GLUCOSE THIS ADMISSION SECONDARY STEROIDS), Other (~30 LB WEIGHT LOSS OVER LAST 4 MONTHS) Alcohol Use: none Drug use: none Medications and Allergies ALPRAZolam [Xanax 1 MG Tablet] 1 mg PO TID PRN 01/08/16 [History] Carisoprodol [Soma] 350 mg PO DAILY PRN 01/08/16 [History] OxyCODONE Immed Rel [Roxicodone 15 MG] 15 mg PO Q4HR 07/11/18 [History] predniSONE [PredniSONE] 10 mg PO DAILY 07/11/18 [History] Albuterol Sulfate [Proair Hfa] 2 puff IH Q4H PRN 07/12/18 [History] 3 Allergy/AdvReac Type Severity Reaction Status Date / Time No Known Allergies Allergy Verified 01/08/16 09:48 - Meds/Allergy Pre-op Review Medications Reviewed: Yes Allergies Reviewed: Yes Beta Blockers on Current Med List: Yes (PRN) Anesthesia Results - Labs 07/20/18 04:56 07/20/18 04:56 Laboratory Last Values WBC 20.4 K/mcL (4.3-11.1) H 07/20/18 04:56 RBC 4.29 M/mcL (4.19-5.50) 07/20/18 04:56 Hgb 12.4 g/dL (12.9-16.9) L 07/20/18 04:56 Hct 38.9 % (37.5-50.1) 07/20/18 04:56 MCV 90.7 fL (83.0-100.0) 07/20/18 04:56 MCH 28.9 pg (28.0-33.3) 07/20/18 04:56 MCHC 31.9 g/dL (31.6-35.5) 07/20/18 04:56 RDW 13.5 % (11.5-14.5) 07/20/18 04:56 Plt Count 212 K/mcL (140-400) 07/20/18 04:56 MPV 10.0 fL (9.4-12.4) 07/20/18 04:56 Immature Gran % 2.1 % (0-4) 07/20/18 04:56 Seg Neutrophils % 93.0 % 07/20/18 04:56 Lymphocytes % 1.1 % 07/20/18 04:56 Monocytes % 3.6 % 07/20/18 04:56 Eosinophils % 0.0 % 07/20/18 04:56 Basophils % 0.2 % 07/20/18 04:56 Neutrophils # 19.0 K/mcL (1.6-8.9) H 07/20/18 04:56 Lymphocytes # 0.2 K/mcL (0.6-4.6) L 07/20/18 04:56 Monocytes # 0.7 K/mcL (0.0-1.3) 07/20/18 04:56 Eosinophils # 0.0 K/mcL (0.0-0.6) 07/20/18 04:56 Basophils # 0.0 K/mcL (0.0-0.2) 07/20/18 04:56 Platelet Estimate Normal (Normal) 07/12/18 04:46 PT 11.1 Seconds (9.4-12.1) 07/17/18 05:43 INR 1.0 07/17/18 05:43 APTT 22.5 Seconds (26.0-36.0) L 07/17/18 05:43 Heparin Anti-Xa, LM Wt 0.09 IU/mL (0.50-1.10) L 07/17/18 05:43 Sample Site L Radial 07/16/18 02:35 ABG pH 7.35 pH Units (7.32-7.45) 07/16/18 02:35 ABG pCO2 73 mmHg (35-45) H* D 07/16/18 02:35 ABG pO2 75 mmHg (85-104) L D 07/16/18 02:35 ABG HCO3 41 mEq/L (21-27) H 07/16/18 02:35 ABG Total CO2 43 mEq/L (20-26) H 07/16/18 02:35 ABG O2 Saturation 93 % (95-98) L 07/16/18 02:35 ABG Base Excess 12 mEq/L (-2 to 3) H 07/16/18 02:35 Misha Test N/A 07/16/18 02:35 VBG pH 7.34 pH Units (7.32-7.42) 07/11/18 17:41 VBG pCO2 80 mmHg (41-51) H* 07/11/18 17:41 VBG pO2 41 mmHg (25-50) 07/11/18 17:41 VBG HCO3 43 mEq/L (21-27) H 07/11/18 17:41 Respiration Rate 14 07/15/18 23:34 O2 Delivery Device BiPAP 07/16/18 02:35 Blood Gas Modality avaps 07/15/18 23:34 Inspired O2 50.0 (1-15=lpm [id number]=%) 07/16/18 02:35 Tidal Volume 500 cc 07/15/18 23:34 PEEP 8 cm H2O 07/15/18 23:34 Pressure Support 12 cm H2O 07/15/18 21:17 Sodium 137 mEq/L (136-145) 07/20/18 04:56 Potassium 4.2 mEq/L (3.5-5.1) 07/20/18 04:56 Chloride 90 mEq/L (98-107) L 07/20/18 04:56 Carbon Dioxide 45 mEq/L (23-29) H* 07/20/18 04:56 BUN 27 mg/dL (8-23) H 07/20/18 04:56 Creatinine 0.71 mg/dL (0.70-1.30) 07/20/18 04:56 Est GFR ( Amer) > 60 (> 60) 07/20/18 04:56 Est GFR (Non-Af Amer) > 60 (> 60) 07/20/18 04:56 BUN/Creatinine Ratio 38 (6-26) H 07/20/18 04:56 Glucose 140 mg/dL (70-105) H 07/20/18 04:56 Est Mean Plasma Glucose 114 mg/dl 07/16/18 05:16 Hemoglobin A1c 5.6 % (-5.6) 07/16/18 05:16 Calculated Osmolality 291 (280-300) 07/20/18 04:56 Lactic Acid 0.9 mmol/L (0.5-2.2) 07/11/18 15:49 Calcium 8.4 mg/dL (8.6-10.3) L 07/20/18 04:56 Venous Ioniz Calcium 1.08 mmol/L (1.15-1.35) L 07/16/18 11:04 Phosphorus 4.3 mg/dL (2.7-4.5) 07/16/18 10:44 Magnesium 2.0 mg/dL (1.6-2.6) 07/12/18 04:46 Total Bilirubin 0.3 mg/dL (0.3-1.0) 07/15/18 03:59 AST 19 Units/L (13-39) 07/15/18 03:59 ALT 20 Units/L (7-52) 07/15/18 03:59 Alkaline Phosphatase 69 Units/L (34-104) 07/15/18 03:59 Lactate Dehydrogenase 184 Units/L (140-271) 07/20/18 04:56 Troponin I 0.03 ng/mL (< 0.04) 07/11/18 15:49 B-Natriuretic Peptide 68 pg/mL (Less than 100) 07/16/18 10:44 Serum Total Protein 5.2 g/dL (6.4-8.9) L 07/15/18 03:59 Albumin 3.2 g/dL (3.5-5.7) L 07/15/18 03:59 Globulin 2.0 g/dL (2.4-3.5) L 07/15/18 03:59 Albumin/Globulin Ratio 1.6 (1.1-2.2) 07/15/18 03:59 TSH 0.275 mcIU/mL (0.340-5.600) L 07/15/18 14:15 Free T4 0.75 ng/dl (0.70-2.00) 07/16/18 05:16 Free T3 2.36 pg/mL (2.50-3.90) L 07/16/18 05:16 Nasal Screen MRSA (PCR) Negative (Negative) 07/17/18 21:00 Vancomycin Trough 10 mcg/mL (5-10) 07/18/18 00:22 Chlamy pneumoniae PCR Not Detected (Not Detect) 07/17/18 21:00 Adenovirus (PCR) Not Detected (Not Detect) 07/17/18 21:00 B. pertussis DNA (PCR) Not Detected (Not Detect) 07/17/18 21:00 B.parapertussis DNA PCR Not Detected (Not Detect) 07/17/18 21:00 Coronavirus OC43 (PCR) Not Detected (Not Detect) 07/17/18 21:00 Coronavirus HKU1 (PCR) Not Detected (Not Detect) 07/17/18 21:00 Coronavirus 229E (PCR) Not Detected (Not Detect) 07/17/18 21:00 Coronavirus NL63 (PCR) Not Detected (Not Detect) 07/17/18 21:00 Human Metapneumovir PCR Not Detected (Not Detect) 07/17/18 21:00 Influenza A (H1) PCR Not Detected (Not Detect) 07/17/18 21:00 Influ A (H1N1/09) PCR Not Detected (Not Detect) 07/17/18 21:00 Influenza A (H3) PCR Not Detected (Not Detect) 07/17/18 21:00 Influenza A Untype (PCR) Not Detected (Not Detect) 07/17/18 21:00 Influenza Type B (PCR) Not Detected (Not Detect) 07/17/18 21:00 M.pneumoniae DNA (PCR) Not Detected (Not Detect) 07/17/18 21:00 Parainfluenza 1 (PCR) Not Detected (Not Detect) 07/17/18 21:00 Parainfluenza 2 (PCR) Not Detected (Not Detect) 07/17/18 21:00 Parainfluenza 3 (PCR) Not Detected (Not Detect) 07/17/18 21:00 Parainfluenza 4 (PCR) Not Detected (Not Detect) 07/17/18 21:00 RSV (PCR) Not Detected (Not Detect) 07/17/18 21:00 Entero/Rhino (PCR) Not Detected (Not Detect) 07/17/18 21:00 Person Notif of Myles HOPE 07/11/18 17:41 - Imaging Additional studies: TTE 07/16/2018: LVEF 60-65%. Normal LV chamber size, wall thickness and function. Moderate left ventricular diastolic dysfunction. Normal right ventricular structure and function. Mild tricuspid regurgitation. Severe pulmonary hypertension. Estimated RVSP is 65 mmHg. Grossly, the aortic root appeared mildly dilated measuring 4.1 cm. CTA OF THE CHEST 07/19/2018 Pulmonary Arteries: No filling defects within the pulmonary arteries to suggest pulmonary embolism. There is compression of the right pulmonary artery and its branches secondary to the right hilar mass. Main pulmonary artery is normal in diameter. Mediastinum: Redemonstration of extensive mediastinal and right hilar confluent adenopathy with a large confluent anterior mediastinal mass measuring 6.1 cm in AP dimension. Confluent right hilar/subcarinal mass with measurement of approximately 6.3 by 11.9 cm AP/TR. Right infrahilar mass measuring approximately 6.3 x 7.6 cm AP/TR. The right inferior pulmonary vein is completely obliterated. Normal heart size. No pericardial effusion. Thoracic aorta is normal in caliber. Lungs/pleura: Along with the previously described right hilar/infrahilar mass, there is patchy consolidation within the right lower lobe which may represent pneumonia or neoplastic involvement. Moderate size right pleural effusion and small left pleural effusion with left lower lung atelectasis. Redemonstration of multiple nodules in the left lung measuring up to 1.2 cm in the lingula. Extensive emphysematous changes in both lungs. Upper Abdomen: Partially visualized upper abdomen with enlarged lymph nodes. Soft Tissues/Bones: No definite lytic or sclerotic bone lesion. Anesthesia Exam Vital Signs/O2 Sat/Glucose, Most Recent Temp Pulse Resp BP Pulse Ox 97.9 F 73 24 108/72 91 07/20/18 19:35 07/20/18 19:35 07/20/18 19:44 07/20/18 19:35 07/20/18 19:44 HEIGHT 1.88m WEIGHT 81 kg BMI 23 NPO (# of Hours): INSTRUCTED NPO >MN - HEENT Mallampati: I Teeth: Edentulous Denture Type: Upper: Complete Oral Opening: Greater than 3 - Cardiac Rhythm: Regular - Pulmonary Breath Sounds: bilateral Rhonchi Respiratory Effort: Symmetrical - Additional Findings Active Medications Albuterol/Ipratropium (Duoneb) 3 ml IH [id number] LIAN Stop: 01/10/19 20:01 Last Admin: 07/20/18 19:44 Dose: 3 ml Alprazolam (Xanax) 0.5 mg PO QID PRN; Protocol PRN Reason: Anxiety Stop: 01/10/19 17:56 Last Admin: 07/20/18 21:18 Dose: 0.5 mg Aspirin (Aspirin Ec) 81 mg PO DAILY [facility] Stop: 01/15/19 09:01 Last Admin: 07/20/18 10:21 Dose: 81 mg Budesonide/Formoterol Fumarate (Symbicort) 2 puff IH BIDR LIAN PRN Reason: Protocol Stop: 01/10/19 22:01 Last Admin: 07/20/18 19:44 Dose: 2 puff Diltiazem HCl (Cardizem Cd) 300 mg PO DAILY [facility] Stop: 01/14/19 15:01 Last Admin: 07/20/18 10:20 Dose: 300 mg Enoxaparin Sodium (Lovenox) 40 mg SQ 0600 LIAN PRN Reason: Protocol Stop: 01/11/19 06:01 Last Admin: 07/20/18 05:44 Dose: 40 mg Furosemide (Lasix) 20 mg IVP BIDDIURETIC LIAN Stop: 01/19/19 21:01 Last Admin: 07/20/18 20:18 Dose: 20 mg Cefepime HCl 2,000 mg/ Sterile (Water) 20 mls @ 300 mls/hr IVP Q8HR [facility] Stop: 01/15/19 08:01 Last Infusion: 07/20/18 19:35 Dose: Infused Metronidazole (Flagyl Premix 500 Mg/100 Ml) 500 mg in 100 mls @ 100 mls/hr IVPB Q8HR LIAN Stop: 01/15/19 16:01 Last Infusion: 07/20/18 19:34 Dose: Infused Methylprednisolone (Solu-Medrol) 40 mg IVP Q12HR [facility] Stop: 01/19/19 18:01 Last Admin: 07/20/18 20:04 Dose: Not Given Metoprolol Tartrate (Lopressor) 5 mg IVP Q6HR PRN PRN Reason: SEE COMMENTS Stop: 01/17/19 13:17 Last Admin: 07/20/18 10:09 Dose: 5 mg Naloxone HCl (Narcan) 0.4 mg IVP Q2MIN PRN PRN Reason: SEE COMMENTS Stop: 01/10/19 17:52 Oxycodone HCl (Roxicodone) 15 mg PO Q3HR PRN; Protocol PRN Reason: Moderate Pain Stop: 01/11/19 12:01 Last Admin: 07/20/18 21:18 Dose: 15 mg Anesthesia Assess/Plan ASA Score: 4 Modified [place] Scale for Level of Consciousness: Cooperative, oriented, and tranquil Anesthetic Plan: General Monitoring Plan: Standard Monitors Recovery Plan: PACU Anes Supervising Prov Stmt: Patient understands that he is at increased risk for perioperative complications including arrhythmias and post op vent support. Patient wishes to proceed.
[2018-07-21] MEDS: *HR* OxyCODONE Immed Rel 15 MG TABLET PO PRN ×5 (03:08→23:52)
[2018-07-21] MEDS: Ipratropium/Albuterol Neb 3 ML IH SCH ×6 (03:22→23:45)
[2018-07-21] MEDS: *HR* Enoxaparin 40 MG/0.4 ML SYRINGE SQ SCH (04:34)
[2018-07-21 04:42] LABS: Basophils % 0.1 %; Hematocrit 40.3 % (37.5-50.1); Lymphocytes # 0.4 K/mcL (0.6-4.6); Lymphocytes % 1.7 %; Mean Corpuscular HGB Conc 32.3 g/dL (31.6-35.5); Mean Corpuscular Hemoglobin 29.6 pg (28.0-33.3); Mean Corpuscular Volume 91.8 fL (83.0-100.0); Mean Platelet Volume 10.2 fL (9.4-12.4); Monocytes # 0.9 K/mcL (0.0-1.3); Monocytes % 4.4 %; Neutrophils # 18.4 K/mcL (1.6-8.9); Platelet Count 204 K/mcL (140-400); Red Blood Count 4.39 M/mcL (4.19-5.50); Red Cell Distribution Width 13.5 % (11.5-14.5); Segmented Neutrophils % 91.8 %
[2018-07-21 06:03] LABS: Blood Urea Nitrogen 25 mg/dL (8-23); Calcium 8.4 mg/dL (8.6-10.3); Carbon Dioxide 43 mEq/L (23-29); Chloride 89 mEq/L (98-107); Glucose 143 mg/dL (70-105); Osmolality,Calculated 291 (280-300); Potassium 4.2 mEq/L (3.5-5.1); Sodium 137 mEq/L (136-145)
[2018-07-21] MEDS: MethylPREDNISolone 40 MG/ML VIAL IVP SCH ×2 (06:46→17:47)
[2018-07-21 07:25] LABS: BUN/Creatinine Ratio 37 (6-26); eGFR For Non-African Americans > 60 (> 60)
[2018-07-21] MEDS: MetroNIDAZOLE 500 MG/100 ML 500 MG/100 ML BAG IVPB SCH ×2 (07:43→15:04)
[2018-07-21] MEDS: Furosemide 20 MG/2 ML VIAL IVP SCH ×2 (07:43→17:46)
[2018-07-21] MEDS: Budesonide/Formoterol 80/4.5 MDI IH SCH ×2 (07:43→20:53)
[2018-07-21] MEDS: Cefepime HCl 2,000 MG in Water for inj. (sterile) 20 ML 20 ML IVP SCH ×3 (07:43→23:55)
[2018-07-21] MEDS ORDERED: Dexamethasone 4 MG/ML VIAL ONE (07:56)
[2018-07-21] MEDS ORDERED: *HR* Propofol 200 MG/20 ML VIAL IVP ONE (07:56)
[2018-07-21] MEDS ORDERED: *HR* Succinylcholine 200 MG/10 ML VIAL IVP ONE (07:56)
[2018-07-21] MEDS ORDERED: Lidocaine -MPF 2% 2 ML VIAL ONE (07:56)
[2018-07-21] MEDS ORDERED: Ondansetron 4 MG/2 ML VIAL ONE (07:56)
[2018-07-21] MEDS ORDERED: *HR* FentaNYL (PF) 100 MCG/2 ML VIAL ONE (07:56)
[2018-07-21] MEDS ORDERED: EPHEDrine 50 MG/ML VIAL ONE (08:11)
[2018-07-21] MEDS ORDERED: *HR* EPINEPHrine 1 MG/ML AMPUL ONE (08:12)
[2018-07-21] MEDS: *HR* Metoprolol 5 MG/5 ML VIAL IVP PRN (09:10)
[2018-07-21] MEDS ORDERED: Ondansetron 4 MG/2 ML VIAL IVP ONE (09:26)
[2018-07-21] MEDS ORDERED: *HR* FentaNYL (PF) 100 MCG/2 ML VIAL IVP PRN (09:26)
[2018-07-21] MEDS ORDERED: *HR* EPINEPHrine 1 MG/10 ML SYRINGE INTRATRACH PRN (10:49)
[2018-07-21] MEDS ORDERED: *HR* EPINEPHrine 1 MG/10 ML SYRINGE ONE (10:54)
--- NOTE | 2018-07-21 11:36 | Anesthesia Evaluation Post Op ---
Date of Encounter: 07/21/18 Time of Encounter: 11:35 - Vital Signs Vital Signs: Vital Signs/O2 Sat, Most Current Temp Pulse Resp BP Pulse Ox 98.0 F 86 22 116/79 98 07/21/18 11:15 07/21/18 11:15 07/21/18 11:15 07/21/18 11:15 07/21/18 11:15 - Lungs Lungs: Rhonchi - Airway Airway: Non-obstructed - Cardiovascular Regular Rate - Mental Status Mental Status: Alert & Oriented, Answers Appropriately - Pain Pain Scale: 0 Pain Scale used: Numeric (1 - 10) - Nausea Vomiting Nausea Vomiting: Not Present - Hydration Hydration: Ice chips, Has not voided - Discharge PostOp Status: Transfer Patient to floor
[2018-07-21] MEDS: Sennosides/Docusate Sodium TABLET PO SCH ×2 (11:42→19:42)
[2018-07-21] MEDS: Aspirin Enteric Coated 81 MG Tablet PO SCH (11:42)
[2018-07-21] MEDS: Diltiazem CD (24hr) 300 MG CAPSULE PO SCH (11:42)
--- NOTE | 2018-07-21 11:54 | Internal Med Progress Note ---
<Sher Camargo - Last Filed: 07/21/18 14:59> Hospitalist Progress Note - Encounter Date of Encounter: 07/21/18 Time of Encounter: 11:16 - Subjective Interval History: Patient seen and examined this morning, no acute events overnight Mr. Bermudez was admitted for COPD exacerbation, suspicious for pneumonia We have been treating with antibiotics and bronchodilators and steroids Patient developed atrial fibrillation with rapid ventricular rate, this was treated with Cardizem drip and aspirin for anticoagulation The patient did manage to convert back to sinus rhythm and is now in normal rate and rhythm, transitioned to oral diltiazem Patient had increasing hypoxia and lethargy with increased CO2 on ABG Patient was treated with increased steroids and BiPAP and ABG improved, Pulmonology consulted Patient was found to have suspicious nodules on chest and abdomen and pelvis CT , hematology/oncology consulted Bicarbonate improved overnight, however shortness of breath and lethargy improved this morning Patient received bronchoscopy this morning - Exam Vitals: Temp Pulse Resp BP Pulse Ox 98.0 F 86 22 116/79 98 07/21/18 11:15 07/21/18 11:15 07/21/18 11:15 07/21/18 11:15 07/21/18 11:15 Exam: Patient in no acute distress, alert and oriented 3 Heart in atrial fibrillation with rapid ventricular rate Lungs diffusely diminished,no wheeze or rales auscultated Abdomen soft ,nontender, palpable subcutaneous abdominal mass in left upper quadrant Bilateral upper extremity non pitting edema, bilateral lower extremity pitting edema Skin warm and dry - Assessment and Plan (1) Acute on chronic respiratory failure with hypoxia and hypercapnia Current Visit: Yes Status: Acute Assessment and Plan: Patient saturating in the low 90s on 10 L HF nasal cannula, 4L is his home oxygen use day and night COPD exacerbation CXR 07/15 showed worsening infiltrates, attributed to pneumonia or nodules 07/[address] showed lymphadenopathy and nodules, with accompanying RLL pleural effusion Legionella and Streptococcus pneumonia antigens negative, sputum culture negative Patient had bronchoscop today Plan Patient is receiving 40 mg methylprednisolone BID We will continue supplemental oxygen to maintain saturation above 88% Patient has gotten 6 days Cefepime, 6 days Flagyl Pulmonology consulted who is recommending continued antimicrobial therapy, BiPAP We will continue Duonebs and symbicort as scheduled (2) Pneumonia Current Visit: Yes Status: Acute Assessment and Plan: Pulmonology assisting Antibiotics adjusted as seen above White count remains 20 today Sputum culture, strep pneumo antigen, legionella antigen all negative Plan Blood cultures negative for growth so far We will continue to monitor labs and clinical disposition Plan as seen above (3) COPD exacerbation Current Visit: Yes Status: Acute Assessment and Plan: Continue bronchodilator therapy and inhaled corticosteroids and systemic corticosteroids Rest of plan as seen above (4) Mass Current Visit: Yes Status: Acute Assessment and Plan: Palpable mass found on exam and left upper quadrant of abdomen Abdominal/pelvic CT without contrast was performed to rule out neoplasm CT revealed multiple nodules in the left lung, peritoneum Upper abdominal lymphadenopathy, sclerotic foci in iliac bone Left anterior abdominal wall mass Chest CTA in 2016 did not show any acute process Nodules suspicious for metastatic disease Patient was informed of imaging findings and offered consult to hematology/ oncology Heme/Onc concerned for metastatic lung cancer, squamous or small cell, they are recommending biopsy, further recommendations to come CTA performed 07/19 showed hilar lymphadenopathy compressing right pulmonary artery, multiple nodules, small bilateral pleural effusions Diagnostic bronchoscopy preliminary results concerning for small cell lung cancer Palliative care consult for goals of care discussed with patient and he agreed Palliative care consulted and pending (5) Tobacco abuse Current Visit: No Status: Chronic Assessment and Plan: Counseled to quit smoking placed on nicotine patch patient did not tolerate lowest dose of nicotine patch because he is smoking so little at home Encouraged to quit altogether (6) DVT prophylaxis Current Visit: Yes Status: Acute Assessment and Plan: on SQ Lovenox (7) Anxiety Current Visit: Yes Status: Chronic Assessment and Plan: Resumed home benzo's (8) Atrial fibrillation with RVR Current Visit: Yes Status: Resolved Assessment and Plan: Patient developed new onset atrial fibrillation with rapid ventricular rate Cardizem drip was started and cardiology was consulted Rate was controlled on Cardizem drip Cardiology transitioning Cardizem drip to oral Cardizem, recommended aspirin for anticoagulation Patient converted back to sinus normal rate Patient currently hemodynamically stable We will continue to monitor Cardiology signed off - Time Spent with Patient Total time spent is greater than 50% in coordination of care (as documented) at patient's floor/unit and/or counseling patient: Internal Medicine: Result - Labs CBC & Chem 7: 07/21/18 03:47 07/21/18 03:47 Labs: Short CBC 07/21/18 Range/Units 03:47 WBC 20.1 H (4.3-11.1) K/mcL Hgb 13.0 (12.9-16.9) g/dL Hct 40.3 (37.5-50.1) % Plt Count 204 (140-400) K/mcL Neutrophils # 18.4 H (1.6-8.9) K/mcL BMP 07/21/18 03:47 Sodium 137 Potassium 4.2 Chloride 89 L Carbon Dioxide 43 H* BUN 25 H Creatinine 0.68 L Glucose 143 H Calcium 8.4 L - ABG Interpretation ABG results: ABG ABG pH 7.35 pH Units (7.32-7.45) 07/16/18 02:35 ABG pCO2 73 mmHg (35-45) H* D 07/16/18 02:35 ABG pO2 75 mmHg (85-104) L D 07/16/18 02:35 ABG O2 Saturation 93 % (95-98) L 07/16/18 02:35 PT/INR, D-dimer PT 11.1 Seconds (9.4-12.1) 07/17/18 05:43 Consult Discharge Plan - Plan Referrals: Andry Abdi Jr, MD [Primary Care Provider] - 07/26/18 12:00 pm (Please follow up as schedule....) Regis Braga MD [Partnered Physician] - 08/31/18 9:30 am <Martha Vasques - Last Filed: 07/21/18 17:22> Hospitalist Progress Note - Encounter Date of Encounter: 07/21/18 - Exam Vitals: Temp Pulse Resp BP Pulse Ox 98.0 F 101 20 121/85 90 07/21/18 16:14 07/21/18 16:14 07/21/18 16:14 07/21/18 16:14 07/21/18 16:14 - Assessment and Plan (1) Tobacco abuse Current Visit: No Status: Chronic (2) DVT prophylaxis Current Visit: Yes Status: Acute (3) Anxiety Current Visit: Yes Status: Chronic (4) COPD exacerbation Current Visit: Yes Status: Acute (5) Acute on chronic respiratory failure with hypoxia and hypercapnia Current Visit: Yes Status: Acute (6) Pneumonia Current Visit: Yes Status: Acute (7) Mass Current Visit: Yes Status: Acute (8) Atrial fibrillation with RVR Current Visit: Yes Status: Resolved - Time Spent with Patient Total time spent is greater than 50% in coordination of care (as documented) at patient's floor/unit and/or counseling patient: Internal Medicine: Result - Labs CBC & Chem 7: 07/21/18 03:47 07/21/18 03:47 Labs: Short CBC 07/21/18 Range/Units 03:47 WBC 20.1 H (4.3-11.1) K/mcL Hgb 13.0 (12.9-16.9) g/dL Hct 40.3 (37.5-50.1) % Plt Count 204 (140-400) K/mcL Neutrophils # 18.4 H (1.6-8.9) K/mcL BMP 07/21/18 03:47 Sodium 137 Potassium 4.2 Chloride 89 L Carbon Dioxide 43 H* BUN 25 H Creatinine 0.68 L Glucose 143 H Calcium 8.4 L - ABG Interpretation ABG results: ABG ABG pH 7.35 pH Units (7.32-7.45) 07/16/18 02:35 ABG pCO2 73 mmHg (35-45) H* D 07/16/18 02:35 ABG pO2 75 mmHg (85-104) L D 07/16/18 02:35 ABG O2 Saturation 93 % (95-98) L 07/16/18 02:35 PT/INR, D-dimer PT 11.1 Seconds (9.4-12.1) 07/17/18 05:43 - Attending Attestation I examined this patient and my medical decision-making was reviewed with the Resident Physician Dr. Camargo. I agree with the documented findings, disposition and treatment plan as described except to the extent set forth below. Mr. Bermudez is a 58 year old male with a known past medical history of COPD, chronic hypoxic respiratory failure on 4 lit oxygen dependent at home, hypertension and chronic tobacco dependence patient presented emergency room complaining about a progressively worsening shortness of breath, cough with expectoration. Patient was admitted in the hospital for acute hypoxic respiratory failure due to pneumonia. His his CT of the chest showed left lower lobe nodule and severe mediastinal lymphadenopathy concerning for metastatic disease. Patient hypoxia seemed to be worsened later and currently he is on 12 lit O2 now. No events over night. Had bronchoscopy today. Gen: A, A< O x3 Chest: Diminished BS b/l moderate wheezing, mild crackles,rales + Heart: S1S2+ RRR a/p 1. Acute pneumonia - bacterial 2. Acute COPD exacerbation 3. Acute on chronic hypoxic respiratory failure 4. Lung nodule - concerning for malignancy Had bronchoscope today.. talked to Pulm concerning for Small cell lung cancer.. will wait for path report pt is concerned about his at home.. SW and Palliative care consulted cont steroids + Duoneb + Broad spec abx use BiPAP prn appreciate Pulm / Heme Onc recommendations <Sher Camargo - Last Filed: 07/21/18 14:59> (2) Pneumonia Qualifiers: Pneumonia type: due to unspecified organism Laterality: right Lung location : lower lobe of lung Qualified Code(s): J18.1 - Lobar pneumonia, unspecified organism <Martha Vasques - Last Filed: 07/21/18 17:22> (6) Pneumonia Qualifiers: Qualified Code(s): J18.1 - Lobar pneumonia, unspecified organism
[2018-07-21 14:39] LABS: Source of Body Fluid LLL BAL; Source of Body Fluid RUL BAL
[2018-07-21] MEDS: ALPRAZolam 1 MG TABLET PO PRN ×2 (15:40→23:52)
[2018-07-21 16:37] LABS: Appearance of Body Fluid Cloudy (Clear); Volume of Body Fluid 16 mL
[2018-07-21 16:39] LABS: Appearance of Body Fluid Cloudy (Clear); Volume of Body Fluid 22 mL
--- NOTE | 2018-07-21 16:50 | Palliative - Consult Note ---
Date of Encounter: 07/21/18 Time of Encounter: 16:44 - Assessment and Plan (1) Advanced care planning/counseling discussion Current Visit: Yes Status: Acute Assessment and plan: Discussed advanced care planning, including intub ation and CPR. Pt is , have 2 children from a previous relationship and 3 step-daughters. Pt decided to chose as POA his Pio (primary) and his son Gurpreet Littlejohn. He deffers all decision making to his . Form was filled. (2) Goals of care, counseling/discussion Current Visit: Yes Status: Acute Assessment and plan: Discussed with pt about his current medical condition, trajectory of illness, prognosis and treatment options. Pt is aware that findings from bronchoscopy are concordant with cancer. Pathology in process, Treatment options have not been discussed with oncology yet. Prognostication cannot be completed until oncology input is received. Further goals of care discussion once more data are available. Per patient his primary goal is to return home to his , because he is the 's primary caregiver. Pt will need [employer] for social dispositions. Palliative care will follow (3) Chronic pain Current Visit: Yes Status: Chronic Assessment and plan: Pt has chronic lower back oliver for 40 years, on Oxycodone 15mg q3hrs PRN at home. Pt was restarted on home dose here, states the pain is well controlled. pt takes all doses of the medication. will consider switching to a long acting medication, once goals of care are better defined. Pt on adequate bowel regimen Qualifiers: Chronic pain type: chronic pain syndrome Qualified Code(s): G89.4 - Chronic pain syndrome (4) Tobacco abuse Current Visit: No Status: Chronic (5) COPD with acute exacerbation Current Visit: No Status: Acute Assessment and plan: management per primary team (6) Pneumonia Current Visit: Yes Status: Acute Assessment and plan: management per primary team. Qualifiers: Pneumonia type: due to unspecified organism Laterality: right Lung location: lower lobe of lung Qualified Code(s): J18.1 - Lobar pneumonia, unspecified organism (7) Hilar mass Current Visit: Yes Status: Acute Assessment and plan: CTA performed 07/19 showed hilar lymphadenopathy compressing right pulmonary artery, multiple nodules, small bilateral pleural effusions Diagnostic bronchoscopy preliminary results concerning for small cell lung cancer Oncology on the case, recommendations to follow. Palliative-CN HPI - Data of Consult Consult date: 07/21/18 Requesting Physician: Maurilio Plummer MD Primary Care Provider: Andry Abdi Jr, MD - Consult Narrative Palliative Care/Comfort Measures: Palliative care Reason for consult: GO discussion History of present illness: Mr. Bermudez is a 58 year old male with a known past medical history of COPD, chronic hypoxic respiratory failure on 4 lit oxygen dependent at home, hypertension, was admitted on 07/11/18 for pneumonia and COPD exacerbation. Hospital course was complicated by worsening respiratory failure. Patient was found to have suspicious nodules on chest and abdomen and pelvis CT, hematology/ oncology consulted. Bronchoscopy was performed today. Palliative care consult for goals of care and advanced directives. Pt today was lying in bed, complaining of feeling SOB, but better. He stated that at his baseline, he can do most of hi ADLs, but with help from his . he is still able to drive and takes care of his that has severe arthritis. He has Chronis lower back pain, on opiate at home. CC: Maurilio Plummer MD - Time Spent with Patient Time: Total time spent is greater than 70 minutes, with greater than 50% face to face with patient, in coordination of care (as documented) at patient's floor/unit and/or counseling patient: Past Med Surg Social Fam HX - Past Medical History Medical history: COPD, hypertension, other Additional medical history: SMOKER ANXIETY Psychiatric history: anxiety - Past Surgical History Surgical History: no surgical history - Social History Smoking Status: Current every day smoker Packs per day: 0.25 Smokeless Tobacco Status: No Alcohol use: none Drug use: none - Family History Mother Living Status: Age at : 82 Hx Family Endocrine Disorder: Yes (DM) Hx Family Neurologic Disorders: Yes (ALZHEIMERS) Father Living Status: Age at : 67 Hx Family Respiratory Disorders: Yes (emphysema) Medications and Allergies ALPRAZolam [Xanax 1 MG Tablet] 1 mg PO TID PRN 01/08/16 [History] Carisoprodol [Soma] 350 mg PO DAILY PRN 01/08/16 [History] OxyCODONE Immed Rel [Roxicodone 15 MG] 15 mg PO Q4HR 07/11/18 [History] predniSONE [PredniSONE] 10 mg PO DAILY 07/11/18 [History] Albuterol Sulfate [Proair Hfa] 2 puff IH Q4H PRN 07/12/18 [History] 3 Allergy/AdvReac Type Severity Reaction Status Date / Time No Known Allergies Allergy Verified 01/08/16 09:48 - Constitutional Constitutional ROS PAL: fatigue, weight loss - EENT Eyes: no change in vision - Cardiovascular Cardiovascular ROS: no chest pain, no leg edema - Respiratory Respiratory: cough, dyspnea, dyspnea on exertion, no hemoptysis - Genitourinary Genitourinary ROS male: no dysuria - Musculoskeletal Musculoskeletal ROS IM: muscle weakness - Neurological Neurological ROS: no abnormal gait, no lack of coordination Palliative Care-Exam - Constitutional Vitals: Temp Pulse Resp BP Pulse Ox 98.0 F 101 20 121/85 90 07/21/18 16:14 07/21/18 16:14 07/21/18 16:14 07/21/18 16:14 07/21/18 16:14 General appearance: Present: cooperative, no acute distress. Absent: febrile Exam: Vitals reviewed General appearance: alert, oriented x3, Eyes: nonicteric, left lower eyelid edema EENT: oropharynx moist Chest: reduced breath sounds, increased normal effort Cardiovascular: regular rate and rhythm Gastrointestinal: soft, non-tender, non-distended, palpable subcutaneous abdominal mass in left upper quadrant Integumentary: normal Extremities: bilateral edema Neurologic: normal mental status, non-focal exam Psych: mood appropriate, affect normal Internal Medicine - CN: Reslt - Labs CBC & Chem 7: 07/21/18 03:47 07/21/18 03:47 Labs: Short CBC 07/21/18 Range/Units 03:47 WBC 20.1 H (4.3-11.1) K/mcL Hgb 13.0 (12.9-16.9) g/dL Hct 40.3 (37.5-50.1) % Plt Count 204 (140-400) K/mcL Neutrophils # 18.4 H (1.6-8.9) K/mcL BMP 07/21/18 03:47 Sodium 137 Potassium 4.2 Chloride 89 L Carbon Dioxide 43 H* BUN 25 H Creatinine 0.68 L Glucose 143 H Calcium 8.4 L - ABG Interpretation ABG results: ABG ABG pH 7.35 pH Units (7.32-7.45) 07/16/18 02:35 ABG pCO2 73 mmHg (35-45) H* D 07/16/18 02:35 ABG pO2 75 mmHg (85-104) L D 07/16/18 02:35 ABG O2 Saturation 93 % (95-98) L 07/16/18 02:35 PT/INR, D-dimer PT 11.1 Seconds (9.4-12.1) 07/17/18 05:43 Consult Discharge Plan - Plan Referrals: Andry Abdi Jr, MD [Primary Care Provider] - 07/26/18 12:00 pm (Please follow up as schedule....) Regis Braga MD [Partnered Physician] - 08/31/18 9:30 am Palliative Quality Palliative Quality: Screen for Code Status: NA, Screen for Goals of Care: NA, Screen for Pain: NA, If Pain Regimen Started, Initiate Bowel Regimen: NA, Screen for Nausea/Vomitting: NA
--- NOTE | 2018-07-21 17:24 | Oncology Inp Progress Note ---
<Nevaeh Mckenzie L - Last Filed: 07/22/18 08:19> Date of Encounter: 07/21/18 Time of Encounter: 17:00 (1) Hilar mass Current Visit: Yes Status: Acute Assessment and plan: Large right hilar mass, enlarged left lung nodules. Right anterior mediastinal lymphadenopathy and subcarinal adenopathy and upper abdominal adenopathy. Moderate right pleural effusion. CTA chest revealed compression of the distal right pulmonary artery. This is concerning for metastatic lung cancer. Small cell versus non-small cell. CT abdomen/pelvis revealed left anterior abdominal palpable lesion, lung nodules , upper abdominal lymphadenopathy and multiple scattered peritoneal nodules. Left iliac bone lesions are favored to represent bone islands, though metastatic disease remains a possibility. He has been symptomatic for last 1 month. We are working to establish diagnosis quickly, with the idea that treatment will also help to alleviate his symptoms. S/P Bronchoscopy today which located a lesion in the right bronchus intermedius and right upper lobe. VIVIAN is suggestive of malignancy and concerning for small cell with final pathology pending. Plan to discuss with pathology tomorrow---if we can receive confirmation of small cell lung cancer will plan to initiate inpatient chemotherapy with likely cisplatin and etoposide. Course of treatment dependent upon final pathology results and timing of pathology MRI brain tomorrow May consider a outpatient PET scan to complete staging Treatment to start shortly after confirming diagnosis Oncology: Subj Interval history: Mr. Bermudez is resting in bed, reports increase in LE edema, SOB stable he continues to require 10L O2 per high flow nasal cannula. He has been OOB more often today to chair and bathroom. He denies CP, Abdominal pain, H/A, dizziness , visual changes. - Constitutional Vitals: Vital Signs Temp Pulse Resp BP Pulse Ox 07/21/18 16:14 98.0 F 101 20 121/85 90 07/21/18 16:09 18 94 07/21/18 12:05 97.9 F 109 18 117/75 90 07/21/18 11:15 98.0 F 86 22 116/79 98 07/21/18 11:00 80 20 128/66 95 07/21/18 10:50 98.2 F 84 20 117/78 95 07/21/18 09:58 98 F 74 18 110/71 99 07/21/18 07:44 18 90 07/21/18 06:41 97.8 F 86 18 103/68 91 09/19/18 03:23 97.6 F 56 18 97/77 92 07/21/18 03:22 25 91 07/20/18 23:36 14 93 07/20/18 23:07 98.1 F 78 19 117/79 90 07/20/18 19:44 24 91 07/20/18 19:35 97.9 F 73 22 108/72 93 Intake and Output 07/21/18 07/21/18 07/21/18 07:59 15:59 23:59 Intake Total 140 / 140 340 / 340 Output Total 1475 / 1475 Balance 140 / 140 -1135 / -1135 Intake: IV Fluids 140 / 140 100 / 100 Maxipime 2,000 MG In Water for 40 / 40 inj. (sterile) 20 ML @ 300 mls/ hr IVP Q8HR [facility] Rx#:[id number] Flagyl Premix 500 MG/100 ML 500 100 / 100 100 / 100 mg In 100 ml @ 100 mls/hr IVPB Q8HR [facility] Rx#:[id number] Oral 240 / 240 Output: Urine 1475 / 1475 Other: Meal Lunch Percent of Meal Consumed 100% Weight 81 kg Patient Weight 07/21/18 23:59 Weight 81 kg General appearance: cooperative, no acute distress, no febrile - Head Head exam: Present: atraumatic - ENT ENT exam: Present: mucous membranes moist - Respiratory Respiratory exam: Present: decreased breath sounds, wheezes. Absent: respiratory distress - Cardiovascular Cardiovascular exam: Present: RRR, +S1, +S2 - GI/Abdominal GI/Abdominal exam: Present: soft. Absent: guarding, rebound, tenderness Additional comments: palpable mass LLQ - Extremities Exam Extremities exam: Absent: calf tenderness Additional comments: BLE 1-2+ pitting edema - Neurological Exam Neurological exam: Present: alert, oriented X3, no focal deficits, strengths equal and symetr throughout - Psychiatric Psychiatric exam: Present: normal affect, normal mood - Skin Skin exam: Present: dry, intact, normal color, warm Oncology: Obj Data - Labs CBC & Chem 7: 07/22/18 04:08 07/22/18 04:08 - ABG Interpretation ABG results: ABG ABG pH 7.35 pH Units (7.32-7.45) 07/16/18 02:35 ABG pCO2 73 mmHg (35-45) H* D 07/16/18 02:35 ABG pO2 75 mmHg (85-104) L D 07/16/18 02:35 ABG O2 Saturation 93 % (95-98) L 07/16/18 02:35 PT/INR, D-dimer PT 11.1 Seconds (9.4-12.1) 07/17/18 05:43 Consult Discharge Plan - Plan Referrals: Andry Abdi Jr, MD [Primary Care Provider] - (Please follow up as schedule.... ) Regis Braga MD [Partnered Physician] - 08/31/18 9:30 am Inpatient Charges Provider: Dr. Gera Orlando <Hitesh Orlando - Last Filed: 07/26/18 08:29> Date of Encounter: 07/21/18 (1) Hilar mass Current Visit: Yes Status: Acute - Constitutional Vitals: Vital Signs Temp Pulse Resp BP Pulse Ox 07/26/18 07:41 18 97 07/26/18 07:23 97.4 F L 61 17 104/72 95 07/26/18 05:50 98.1 F 65 17 102/70 96 07/26/18 05:42 17 96 07/26/18 05:37 14 94 07/26/18 03:15 98.1 F 65 16 102/70 88 07/26/18 00:10 97.3 F L 65 16 113/73 95 07/25/18 23:32 16 87 07/25/18 20:47 20 103/63 87 07/25/18 20:03 76 22 103/63 86 07/25/18 19:25 98.2 F 85 22 103/63 86 07/25/18 17:00 83 20 89 07/25/18 16:48 18 89 07/25/18 15:54 97.8 F 96 20 94/64 90 07/25/18 13:42 107 22 91 07/25/18 11:54 95 18 90 07/25/18 11:15 20 90 07/25/18 10:54 97.7 F 95 20 100/55 88 07/25/18 08:50 98 20 90 Intake and Output 07/25/18 07/26/18 07/26/18 23:59 07:59 15:59 Intake Total 520 / 520 Output Total 450 / 450 300 / 300 Balance 70 / 70 -300 / -300 Intake: Oral 520 / 520 Output: Urine 450 / 450 300 / 300 Other: Meal Dinner Percent of Meal Consumed 90% Weight 91.1 kg Patient Weight 07/26/18 23:59 Weight 91.1 kg Oncology: Obj Data - Labs CBC & Chem 7: 07/26/18 04:11 07/26/18 04:11 Labs: Laboratory Results - last 24 hr 07/26/18 07/26/18 07/26/18 04:11 04:11 04:11 WBC 22.6 H RBC 4.16 L Hgb 12.1 L D Hct 38.1 MCV 91.6 MCH 29.1 MCHC 31.8 RDW 13.4 Plt Count 134 L MPV 10.4 Sodium 133 L Potassium 5.2 H Chloride 88 L Carbon Dioxide 43 H* BUN 43 H Creatinine 1.13 Est GFR ( Amer) > 60 Est GFR (Non-Af Amer) > 60 BUN/Creatinine Ratio 38 H Glucose 145 H Calculated Osmolality 289 Uric Acid 3.4 Calcium 8.3 L Phosphorus 4.7 H Magnesium 2.2 Total Bilirubin 0.4 AST 18 ALT 33 Alkaline Phosphatase 56 Serum Total Protein 4.5 L Albumin 2.8 L Globulin 1.7 L Albumin/Globulin Ratio 1.6 - ABG Interpretation ABG results: ABG ABG pH 7.35 pH Units (7.32-7.45) 07/16/18 02:35 ABG pCO2 73 mmHg (35-45) H* D 07/16/18 02:35 ABG pO2 75 mmHg (85-104) L D 07/16/18 02:35 ABG O2 Saturation 93 % (95-98) L 07/16/18 02:35 PT/INR, D-dimer PT 11.1 Seconds (9.4-12.1) 07/17/18 05:43 Inpatient Charges Provider: Dr. Gera Orlando Follow Up: [id number] - Attending Attestation I examined this patient and my medical decision-making was reviewed with the Advanced Practice Nurse. I agree with the documented findings, disposition and treatment plan as described except to the extent set forth below. 1. Extensive mediastinal adenopathy and upper abdominal adenopathy. 2. COPD shortness of breath exacerbated by about findings. Currently on supplemental oxygen. He was on supplemental oxygen prior to admission 3. Elevated neutrophil count around 20,000. Likely from steroids
[2018-07-22] MEDS: MetroNIDAZOLE 500 MG/100 ML 500 MG/100 ML BAG IVPB SCH ×2 (00:16→07:44)
[2018-07-22] MEDS: Ipratropium/Albuterol Neb 3 ML IH SCH ×6 (04:08→23:57)
[2018-07-22] MEDS: *HR* OxyCODONE Immed Rel 15 MG TABLET PO PRN ×5 (04:08→19:59)
[2018-07-22 04:25] LABS: Basophils % 0.1 %; Hematocrit 39.9 % (37.5-50.1); Hemoglobin 12.6 g/dL (12.9-16.9); Immature Granulocytes % 1.2 % (0-4); Lymphocytes # 0.3 K/mcL (0.6-4.6); Lymphocytes % 1.5 %; Mean Corpuscular HGB Conc 31.6 g/dL (31.6-35.5); Mean Corpuscular Hemoglobin 28.4 pg (28.0-33.3); Mean Corpuscular Volume 89.9 fL (83.0-100.0); Mean Platelet Volume 10.1 fL (9.4-12.4); Monocytes # 0.9 K/mcL (0.0-1.3); Monocytes % 4.1 %; Neutrophils # 20.3 K/mcL (1.6-8.9); Platelet Count 186 K/mcL (140-400); Red Blood Count 4.44 M/mcL (4.19-5.50); Red Cell Distribution Width 13.7 % (11.5-14.5); Segmented Neutrophils % 93.1 %
[2018-07-22 04:43] LABS: BUN/Creatinine Ratio 35 (6-26); Blood Urea Nitrogen 24 mg/dL (8-23); Calcium 8.3 mg/dL (8.6-10.3); Carbon Dioxide 45 mEq/L (23-29); Chloride 88 mEq/L (98-107); Glucose 213 mg/dL (70-105); Osmolality,Calculated 294 (280-300); Potassium 4.7 mEq/L (3.5-5.1); Sodium 137 mEq/L (136-145); eGFR For Non-African Americans > 60 (> 60)
[2018-07-22] MEDS: MethylPREDNISolone 40 MG/ML VIAL IVP SCH (05:59)
[2018-07-22] MEDS: *HR* Enoxaparin 40 MG/0.4 ML SYRINGE SQ SCH (06:01)
[2018-07-22] MEDS: Furosemide 20 MG/2 ML VIAL IVP SCH ×2 (07:44→16:18)
[2018-07-22] MEDS: ALPRAZolam 1 MG TABLET PO PRN (07:44)
[2018-07-22] MEDS: Aspirin Enteric Coated 81 MG Tablet PO SCH (07:45)
[2018-07-22] MEDS: Cefepime HCl 2,000 MG in Water for inj. (sterile) 20 ML 20 ML IVP SCH (07:45)
[2018-07-22] MEDS: Diltiazem CD (24hr) 300 MG CAPSULE PO SCH (07:45)
[2018-07-22] MEDS: Sennosides/Docusate Sodium TABLET PO SCH ×3 (07:45→19:59)
[2018-07-22] MEDS: Budesonide/Formoterol 80/4.5 MDI IH SCH ×2 (07:55→20:52)
[2018-07-22] MEDS: *HR* Metoprolol 5 MG/5 ML VIAL IVP PRN (08:24)
--- NOTE | 2018-07-22 08:42 | Pulmonology Progress Note ---
<Carlito Bell - Last Filed: 07/22/18 12:51> Date of Encounter: 07/22/18 Time of Encounter: 08:42 Assessment and Plan (1) Acute exacerbation of chronic obstructive pulmonary disease (COPD) Current Visit: No Status: Acute SpO2 93% on 12lpm O2 No tachypnea On day 12 of abx therapy, however infectious causes of exacerbation unlikely given obstructing mass seen on bronchoscopy. Stop abx Continue steroids - switch from IV to po 40mg Prednisone Continue scheduled Duonebs Continue Symbicort Continue supplemental O2 with SpO2 goal of >88% (2) Mediastinal lymphadenopathy Current Visit: Yes Status: Acute Lung nodules noted on CT likely metastatic Pleural effusion could also be related to metastatic disease vs infection Underwent bronchoscopy with EBUS on 07/21 - rapid path concerning for small cell Await final pathology result Once path returns - management per heme/onc (3) Mass of right lung Current Visit: Yes Status: Acute Large right lung mass obstructing right middle and lower lobes noted on bronchoscopy on 07/21 Await pathology results Management per heme/onc once path comes back - per note considering inpatient therapy (4) Tobacco abuse Current Visit: No Status: Chronic Spent >10 minutes discussing the importances of cessation and treatment alternatives with pt Subjective Principal diagnosis: COPD exacerbation Interval history: Mr. Bermudez is a 58M with PMH of COPD on 4lpm O2 at home, HTN, and tobacco dependence who originally presented to the ED on 07/11 for progressively worsening shortness of breath. CXR at that time revealed a right basilar consolidation suspicious for pneumonia. On 07/14 it was noted that there was a palpable abdominal mass and CT of the abdomen/pelvis revealed lung nodules, abdominal lymphadenopathy, and peritoneal nodules. He underwent bronchoscopy with EBUS on 07/21 with rapid pathology concerning for small cell lung cancer. Today pt is resting comfortably in bed and eating breakfast. States he has no new complaints. Admits to a mild increased dry cough since the bronchoscopy. No hemoptysis or increased sputum production. Denies any fever, chills, chest pain , worsened shortness of breath, abdominal pain, nausea, or vomiting. Objective PUL Vital signs: Last Vital Signs Temp 97.9 F 07/22/18 07:34 Pulse 123 07/22/18 07:34 Resp 18 07/22/18 07:59 BP 102/69 07/22/18 07:34 Pulse Ox 93 07/22/18 07:59 General appearance: no acute distress, alert Eyes: nonicteric ENT: oropharynx moist Neck: supple, no lymphadenopathy, no JVD Effort: normal Auscultation: right: diminished breath sounds (nearly absent right middle and lower breath sounds), bilateral: wheezes (diffuse expiratory ) Percussion: bilateral: not dull Tactile fremitus: bilateral: normal Cardiovascular: regular rate and rhythm Gastrointestinal: soft, non-tender, non-distended Integumentary: normal Extremities: no cyanosis, no edema, no clubbing, pink and warm Musculoskeletal: no deformities Gait: normal posture normal mental status, non-focal exam mood appropriate, affect normal Results - Laboratory Findings CBC and BMP: 07/22/18 04:08 07/22/18 04:08 ABG ABG pH 7.35 pH Units (7.32-7.45) 07/16/18 02:35 ABG pCO2 73 mmHg (35-45) H* D 07/16/18 02:35 ABG pO2 75 mmHg (85-104) L D 07/16/18 02:35 ABG O2 Saturation 93 % (95-98) L 07/16/18 02:35 PT/INR, D-dimer PT 11.1 Seconds (9.4-12.1) 07/17/18 05:43 Abnormal lab findings: Abnormal lab results WBC 21.8 K/mcL (4.3-11.1) H 07/22/18 04:08 Hgb 12.6 g/dL (12.9-16.9) L 07/22/18 04:08 Neutrophils # 20.3 K/mcL (1.6-8.9) H 07/22/18 04:08 Lymphocytes # 0.3 K/mcL (0.6-4.6) L 07/22/18 04:08 APTT 22.5 Seconds (26.0-36.0) L 07/17/18 05:43 Heparin Anti-Xa, LM Wt 0.09 IU/mL (0.50-1.10) L 07/17/18 05:43 ABG pCO2 73 mmHg (35-45) H* D 07/16/18 02:35 ABG pO2 75 mmHg (85-104) L D 07/16/18 02:35 ABG HCO3 41 mEq/L (21-27) H 07/16/18 02:35 ABG Total CO2 43 mEq/L (20-26) H 07/16/18 02:35 ABG O2 Saturation 93 % (95-98) L 07/16/18 02:35 ABG Base Excess 12 mEq/L (-2 to 3) H 07/16/18 02:35 VBG pCO2 80 mmHg (41-51) H* 07/11/18 17:41 VBG HCO3 43 mEq/L (21-27) H 07/11/18 17:41 Chloride 88 mEq/L (98-107) L 07/22/18 04:08 Carbon Dioxide 45 mEq/L (23-29) H* 07/22/18 04:08 BUN 24 mg/dL (8-23) H 07/22/18 04:08 Creatinine 0.69 mg/dL (0.70-1.30) L 07/22/18 04:08 BUN/Creatinine Ratio 35 (6-26) H 07/22/18 04:08 Glucose 213 mg/dL (70-105) H 07/22/18 04:08 Calcium 8.3 mg/dL (8.6-10.3) L 07/22/18 04:08 Venous Ioniz Calcium 1.08 mmol/L (1.15-1.35) L 07/16/18 11:04 Serum Total Protein 5.2 g/dL (6.4-8.9) L 07/15/18 03:59 Albumin 3.2 g/dL (3.5-5.7) L 07/15/18 03:59 Globulin 2.0 g/dL (2.4-3.5) L 07/15/18 03:59 TSH 0.275 mcIU/mL (0.340-5.600) L 07/15/18 14:15 Free T3 2.36 pg/mL (2.50-3.90) L 07/16/18 05:16 Fluid Appearance Cloudy (Clear) A 07/21/18 08:00 - Microbiology Findings Microbiology Findings: Microbiology, Last 48 Hours 07/21/18 08:00 Respiratory Culture - Preliminary Right Upper Lobe Lung 07/21/18 08:00 Respiratory Culture - Preliminary Left Lower Lobe Lung - Clinical Findings Intake & Output: Intake & Output 07/21/18 07/22/18 07/22/18 23:59 07:59 15:59 Intake Total 360 / 360 120 / 120 Output Total 800 / 800 300 / 300 Balance -440 / -440 -180 / -180 Weight 82.5 kg Consult Discharge Plan - Plan Referrals: Andry Abdi Jr, MD [Primary Care Provider] - 07/26/18 12:00 pm (Please follow up as schedule....) Regis Braga MD [Partnered Physician] - 08/31/18 9:30 am <Cindy Munoz - Last Filed: 07/22/18 16:03> Date of Encounter: 07/22/18 Objective PUL Vital signs: Last Vital Signs Temp 97.9 F 07/22/18 11:36 Pulse 114 07/22/18 12:11 Resp 20 07/22/18 11:36 BP 106/79 07/22/18 11:36 Pulse Ox 93 07/22/18 11:36 Results - Laboratory Findings CBC and BMP: 07/22/18 04:08 07/22/18 04:08 ABG ABG pH 7.35 pH Units (7.32-7.45) 07/16/18 02:35 ABG pCO2 73 mmHg (35-45) H* D 07/16/18 02:35 ABG pO2 75 mmHg (85-104) L D 07/16/18 02:35 ABG O2 Saturation 93 % (95-98) L 07/16/18 02:35 PT/INR, D-dimer PT 11.1 Seconds (9.4-12.1) 07/17/18 05:43 Abnormal lab findings: Abnormal lab results WBC 21.8 K/mcL (4.3-11.1) H 07/22/18 04:08 Hgb 12.6 g/dL (12.9-16.9) L 07/22/18 04:08 Neutrophils # 20.3 K/mcL (1.6-8.9) H 07/22/18 04:08 Lymphocytes # 0.3 K/mcL (0.6-4.6) L 07/22/18 04:08 APTT 22.5 Seconds (26.0-36.0) L 07/17/18 05:43 Heparin Anti-Xa, LM Wt 0.09 IU/mL (0.50-1.10) L 07/17/18 05:43 ABG pCO2 73 mmHg (35-45) H* D 07/16/18 02:35 ABG pO2 75 mmHg (85-104) L D 07/16/18 02:35 ABG HCO3 41 mEq/L (21-27) H 07/16/18 02:35 ABG Total CO2 43 mEq/L (20-26) H 07/16/18 02:35 ABG O2 Saturation 93 % (95-98) L 07/16/18 02:35 ABG Base Excess 12 mEq/L (-2 to 3) H 07/16/18 02:35 VBG pCO2 80 mmHg (41-51) H* 07/11/18 17:41 VBG HCO3 43 mEq/L (21-27) H 07/11/18 17:41 Chloride 88 mEq/L (98-107) L 07/22/18 04:08 Carbon Dioxide 45 mEq/L (23-29) H* 07/22/18 04:08 BUN 24 mg/dL (8-23) H 07/22/18 04:08 Creatinine 0.69 mg/dL (0.70-1.30) L 07/22/18 04:08 BUN/Creatinine Ratio 35 (6-26) H 07/22/18 04:08 Glucose 213 mg/dL (70-105) H 07/22/18 04:08 Calcium 8.3 mg/dL (8.6-10.3) L 07/22/18 04:08 Venous Ioniz Calcium 1.08 mmol/L (1.15-1.35) L 07/16/18 11:04 Serum Total Protein 5.2 g/dL (6.4-8.9) L 07/15/18 03:59 Albumin 3.2 g/dL (3.5-5.7) L 07/15/18 03:59 Globulin 2.0 g/dL (2.4-3.5) L 07/15/18 03:59 TSH 0.275 mcIU/mL (0.340-5.600) L 07/15/18 14:15 Free T3 2.36 pg/mL (2.50-3.90) L 07/16/18 05:16 Fluid Appearance Cloudy (Clear) A 07/21/18 08:00 - Microbiology Findings Microbiology Findings: Microbiology, Last 48 Hours 07/21/18 08:00 Respiratory Culture - Preliminary Left Lower Lobe Lung 07/21/18 08:00 Respiratory Culture - Preliminary Right Upper Lobe Lung - Clinical Findings Intake & Output: Intake & Output 07/22/18 07/22/18 07/22/18 07:59 15:59 23:59 Intake Total 120 / 120 720 / 720 Output Total 300 / 300 200 / 200 Balance -180 / -180 520 / 520 Weight 82.5 kg - Attending Attestation I examined this patient and my medical decision-making was reviewed with the Resident Physician. I agree with the documented findings, disposition and treatment plan as described except to the extent set forth below. Patient seen and examined. Labs, radiology, chart personally reviewed. Agree with resident's history and physical, assessment, plan with following comments: PROFESSOR OF SOCIOLOGY: Patient follows commands, Pulmonary: Acceptable oxygenation and ventilation however without treatment of his metastatic small cell lung cancer I expect his condition would deteriorate. Discussed with oncology and oncology service is following up regarding treatment. I have explained to patient we will be happy to talk to the and she has any questions. He feels overall prognosis is poor. After treatment patient will need another bronchoscopy to check his airway and is still obstructed he might benefit from stent placement.
--- NOTE | 2018-07-22 09:37 | Internal Med Progress Note ---
<Sher Camargo - Last Filed: 07/22/18 16:39> Hospitalist Progress Note - Encounter Date of Encounter: 07/22/18 Time of Encounter: 09:32 - Subjective Interval History: Patient seen and examined this morning, no acute events overnight Mr. Bermudez was admitted for COPD exacerbation, suspicious for pneumonia We have been treating with antibiotics and bronchodilators and steroids Patient developed atrial fibrillation with rapid ventricular rate, this was treated with Cardizem drip and aspirin for anticoagulation The patient did manage to convert back to sinus rhythm and is now in normal rate and rhythm, transitioned to oral diltiazem Patient being treated with increased steroids and BiPAP, Pulmonology consulted Patient was found to have suspicious nodules on chest and abdomen and pelvis CT , hematology/oncology consulted Bronchoscopy with biopsy performed, suspicious for small cell lung cancer, final pathology pending Oncology waiting for final pathology to recommend treatment, to hopefully be started immediately 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 and is very concerned about getting back to her He has been having increased frequency of AFib RVR and increased O2 demand - Exam Vitals: Temp Pulse Resp BP Pulse Ox 97.9 F 123 18 102/69 93 07/22/18 07:34 07/22/18 07:34 07/22/18 07:59 07/22/18 07:34 07/22/18 07:59 Exam: Patient in no acute distress, alert and oriented 3 Heart in atrial fibrillation with rapid ventricular rate Lungs diffusely diminished,no wheeze or rales auscultated Ventilating and saturating in the low 90s on 15L HFNC Abdomen soft ,nontender, palpable subcutaneous abdominal mass in left upper quadrant Bilateral upper extremity non pitting edema, bilateral lower extremity pitting edema Skin warm and dry - Assessment and Plan (1) Acute on chronic respiratory failure with hypoxia and hypercapnia Current Visit: Yes Status: Acute Assessment and Plan: Patient saturating in the low 90s on 15 L HF nasal cannula, 4L is his home oxygen use day and night COPD exacerbation CXR 07/15 showed worsening infiltrates, attributed to pneumonia or nodules 07/[address] showed lymphadenopathy and nodules, with accompanying RLL pleural effusion Legionella and Streptococcus pneumonia antigens negative, sputum culture negative Patient had bronchoscopy yesterday, final pathology pending Plan Patient is receiving 40 mg prednisone We will continue supplemental oxygen to maintain saturation above 88% Patient has gotten 7 days Cefepime, 7 days Flagyl, antibiotics discontinued Pulmonology consulted who is recommending discontinued antimicrobial therapy, oral steroids Previous CTA showed lymphadenopathy and lesions with mass effect on the pulmonary artery Patients symptoms may be more related to nodules than infection, reason for antibiotic discontinuation We will continue Duonebs and symbicort as scheduled (2) Pneumonia Current Visit: Yes Status: Acute Assessment and Plan: Pulmonology assisting Antibiotics adjusted as seen above White count increased from 20 to 21, likely due to steroids Sputum culture, strep pneumo antigen, legionella antigen all negative Plan Blood cultures negative for growth so far We will continue to monitor labs and clinical disposition Plan as seen above (3) COPD exacerbation Current Visit: Yes Status: Acute Assessment and Plan: Continue bronchodilator therapy and inhaled corticosteroids and systemic corticosteroids Rest of plan as seen above (4) Mass Current Visit: Yes Status: Acute Assessment and Plan: Palpable mass found on exam and left upper quadrant of abdomen Abdominal/pelvic CT without contrast was performed to rule out neoplasm CT revealed multiple nodules in the left lung, peritoneum CTA performed 07/19 showed hilar lymphadenopathy compressing right pulmonary artery, multiple nodules, small bilateral pleural effusions Diagnostic bronchoscopy preliminary results concerning for small cell lung cancer Palliative care consulted for goals of care discussed with patient Bronchoscopy biopsy final pathology small cell lung cancer Oncology will start inpatient chemotherapy tomorrow (5) Tobacco abuse Current Visit: No Status: Chronic Assessment and Plan: Counseled to quit smoking placed on nicotine patch patient did not tolerate lowest dose of nicotine patch because he is smoking so little at home Encouraged to quit altogether (6) DVT prophylaxis Current Visit: Yes Status: Acute Assessment and Plan: on SQ Lovenox (7) Anxiety Current Visit: Yes Status: Chronic Assessment and Plan: Resumed home benzo's (8) Atrial fibrillation with RVR Current Visit: Yes Status: Resolved Assessment and Plan: Patient developed new onset atrial fibrillation with rapid ventricular rate Cardizem drip was started and cardiology was consulted Rate was controlled on Cardizem drip Cardiology transitioning Cardizem drip to oral Cardizem, recommended aspirin for anticoagulation Patient converted back to sinus normal rate Patient currently hemodynamically stable Having increased episodes of RVR, likely stress related We will continue to monitor and treat with rate control Metoprolol 25mg po bid started Cardiology signed off - Time Spent with Patient Total time spent is greater than 50% in coordination of care (as documented) at patient's floor/unit and/or counseling patient: Internal Medicine: Result - Labs CBC & Chem 7: 07/22/18 04:08 07/22/18 04:08 Labs: Short CBC 07/22/18 Range/Units 04:08 WBC 21.8 H (4.3-11.1) K/mcL Hgb 12.6 L (12.9-16.9) g/dL Hct 39.9 (37.5-50.1) % Plt Count 186 (140-400) K/mcL Neutrophils # 20.3 H (1.6-8.9) K/mcL BMP 07/22/18 04:08 Sodium 137 Potassium 4.7 Chloride 88 L Carbon Dioxide 45 H* BUN 24 H Creatinine 0.69 L Glucose 213 H Calcium 8.3 L - ABG Interpretation ABG results: ABG ABG pH 7.35 pH Units (7.32-7.45) 07/16/18 02:35 ABG pCO2 73 mmHg (35-45) H* D 07/16/18 02:35 ABG pO2 75 mmHg (85-104) L D 07/16/18 02:35 ABG O2 Saturation 93 % (95-98) L 07/16/18 02:35 PT/INR, D-dimer PT 11.1 Seconds (9.4-12.1) 07/17/18 05:43 Consult Discharge Plan - Plan Referrals: Andry Abdi Jr, MD [Primary Care Provider] - 07/26/18 12:00 pm (Please follow up as schedule....) Regis Braga MD [Partnered Physician] - 08/31/18 9:30 am <Martha Vasques - Last Filed: 07/22/18 16:57> Hospitalist Progress Note - Encounter Date of Encounter: 07/22/18 - Exam Vitals: Temp Pulse Resp BP Pulse Ox 98.0 F 64 18 99/80 92 07/22/18 16:44 07/22/18 16:44 07/22/18 16:44 07/22/18 16:44 07/22/18 16:44 - Assessment and Plan (1) Tobacco abuse Current Visit: No Status: Chronic (2) DVT prophylaxis Current Visit: Yes Status: Acute (3) Anxiety Current Visit: Yes Status: Chronic (4) COPD exacerbation Current Visit: Yes Status: Acute (5) Acute on chronic respiratory failure with hypoxia and hypercapnia Current Visit: Yes Status: Acute (6) Pneumonia Current Visit: Yes Status: Acute (7) Mass Current Visit: Yes Status: Acute (8) Atrial fibrillation with RVR Current Visit: Yes Status: Resolved - Time Spent with Patient Total time spent is greater than 50% in coordination of care (as documented) at patient's floor/unit and/or counseling patient: Internal Medicine: Result - Labs CBC & Chem 7: 07/22/18 04:08 07/22/18 04:08 Labs: Short CBC 07/22/18 Range/Units 04:08 WBC 21.8 H (4.3-11.1) K/mcL Hgb 12.6 L (12.9-16.9) g/dL Hct 39.9 (37.5-50.1) % Plt Count 186 (140-400) K/mcL Neutrophils # 20.3 H (1.6-8.9) K/mcL BMP 07/22/18 04:08 Sodium 137 Potassium 4.7 Chloride 88 L Carbon Dioxide 45 H* BUN 24 H Creatinine 0.69 L Glucose 213 H Calcium 8.3 L - ABG Interpretation ABG results: ABG ABG pH 7.35 pH Units (7.32-7.45) 07/16/18 02:35 ABG pCO2 73 mmHg (35-45) H* D 07/16/18 02:35 ABG pO2 75 mmHg (85-104) L D 07/16/18 02:35 ABG O2 Saturation 93 % (95-98) L 07/16/18 02:35 PT/INR, D-dimer PT 11.1 Seconds (9.4-12.1) 07/17/18 05:43 - Attending Attestation I examined this patient and my medical decision-making was reviewed with the Resident Physician Dr. Camargo. I agree with the documented findings, disposition and treatment plan as described except to the extent set forth below. Mr. Bermudez is a 58 year old male with a known past medical history of COPD, chronic hypoxic respiratory failure on 4 lit oxygen dependent at home, hypertension and chronic tobacco dependence patient presented emergency room complaining about a progressively worsening shortness of breath, cough with expectoration. Patient was admitted in the hospital for acute hypoxic respiratory failure due to pneumonia. His his CT of the chest showed left lower lobe nodule and severe mediastinal lymphadenopathy concerning for metastatic disease. Patient hypoxia seemed to be worsened later and currently he is on 12 lit O2 now. No events over night. Had bronchoscopy on 07/21/18. Gen: A, A, O x3 Chest: Diminished BS b/l moderate wheezing, mild crackles,rales + Heart: S1S2+ RRR a/p 1. Acute pneumonia - bacterial 2. Acute COPD exacerbation 3. Acute on chronic hypoxic respiratory failure 4. Lung nodule - concerning for malignancy Had bronchoscope today.. talked to Pulm concerning for Small cell lung cancer.. will wait for path report pt is concerned about his at home.. SW and Palliative care consulted cont Duoneb Since he had 10 days of broad spec abx already.. will d/c all abx today start tapering steroids use BiPAP prn appreciate Pulm / Heme Onc recommendations <Sher Camargo - Last Filed: 07/22/18 16:39> (2) Pneumonia Qualifiers: Pneumonia type: due to unspecified organism Laterality: right Lung location : lower lobe of lung Qualified Code(s): J18.1 - Lobar pneumonia, unspecified organism <Martha Vasques - Last Filed: 07/22/18 16:57> (6) Pneumonia Qualifiers: Pneumonia type: due to unspecified organism Laterality: right Lung location : lower lobe of lung Qualified Code(s): J18.1 - Lobar pneumonia, unspecified organism
[2018-07-22] MEDS: predniSONE 20 MG TABLET PO SCH (11:54)
[2018-07-22] MEDS: ALPRAZolam 0.5 MG TABLET PO PRN ×2 (14:05→19:59)
[2018-07-22] MEDS ORDERED: Gadolinium Contrast Agent (WT Based) IV PRN (16:42)
--- NOTE | 2018-07-22 18:17 | Oncology Inp Progress Note ---
<Nevaeh Mckenzie L - Last Filed: 07/22/18 18:56> Date of Encounter: 07/22/18 Time of Encounter: 16:30 (1) Hilar mass Current Visit: Yes Status: Acute Assessment and plan: 1. Large right hilar mass, enlarged left lung nodules. Right anterior mediastinal lymphadenopathy and subcarinal adenopathy and upper abdominal adenopathy. Moderate right pleural effusion. CTA chest revealed compression of the distal right pulmonary artery. CT abdomen/pelvis revealed left anterior abdominal palpable lesion, lung nodules , upper abdominal lymphadenopathy and multiple scattered peritoneal nodules. Left iliac bone lesions are favored to represent bone islands, though metastatic disease remains a possibility. S/P Bronchoscopy which located a lesion in the right bronchus intermedius and right upper lobe. Pathology resulted today-subcarinal fine needle aspiration positive for malignant cells consistent with small cell lung cancer, TTF-1 positive, Napsin A Negative, CK 7 Focally positive, Synaptophysin Positive, P63 Negative. Planning to initiate inpatient chemotherapy with Day 1 Cisplatin and Etoposide tomorrow followed by Day 2 Etoposide Thursday. Allpurinol added to be given tonight to prevent symptoms related to tumor lysis. MRI brain wo/w ordered. Please refer to Dr. Orlando's attestation below for additional details. 2. Chemotherapy education was also provided at today's visit. See below for details. I covered the following information during visit: Cisplatin/Etoposide specific cycle information was reviewed Side effects of each of the medications: Given in detail, with education handouts provided to patient and family). We discussed specific side effects in detail which may include but not limited to: nausea, vomiting, diarrhea, flu like symptoms, myelosuppression and risk of infection, neuropathy, hair loss, fatigue, mucositis and mouth sores, ototoxicity, nephrotoxicity, among others. We discussed remedies, and when to contact the office for problems. Disease/diagnosis-specific information provided, pathology report and staging information discussed. Fertility issues: Reviewed. This is not a factor for the patient. Discussed sexual precautions to take while on chemotherapy. Advance directives information: We will revisit as needed in the future Discuss possible OTC/ herbal interactions: Not Applicable at this time. Clinic processes discussed: Logistics on chemotherapy day, timing of laboratories, and reason for on treatment visits prior to treatment. Supportive Medications: Allopurinol for prevention of tumor lysis syndrome, Zofran and compazine for nausea rx will be provided with discharge, Reviewed in detail with patient. Chemo calendar: To be given as later date Timing of labs: Discussed in relation to treatment Pain Management: Discussed that this will continue to be an ongoing assessment, to notify if pain is not controlled with current regimen. Handling of body excretions: Handling of body excretions: Safe handling of body secretions for 48 hours following treatment were discussed at today's visit, handout also provided. He does not have pets in the home, no contact with farm animals. Fever: If patient has fever 100.4 degrees or higher, he will call the office. If after hours, he will phone after hours line and for further instructions. He was advised to fever is after hours and 101 or 102 degrees he should go to the local emergency room for treatment evaluation. Large groups of people: Advised on risk of serious infection and to avoid any known sick contacts Clinical Trials screening: Will discuss with clinical trial RN Genetics counseling: Based on initial history, does not require counseling at this time. Oncology: Subj Interval history: Mr. Bermudez is resting in bed, he did get up to side of bed with minimal assist to stand up and use urinal. Appetite is ok today. SOB stable, he remains on 10- 15L high flow O2 to keep saturations around 90%. He reports lower back pain and LE pain with edema. - Constitutional Vitals: Vital Signs Temp Pulse Resp BP Pulse Ox 07/22/18 16:44 98.0 F 64 18 99/80 92 07/22/18 16:22 103 20 93 07/22/18 12:11 114 07/22/18 11:41 22 93 07/22/18 11:36 97.9 F 122 20 106/79 93 07/22/18 09:45 94 07/22/18 07:59 18 93 07/22/18 07:34 97.9 F 123 18 102/69 93 07/22/18 04:08 18 92 07/22/18 03:32 97.8 F 149 15 113/90 92 07/21/18 23:46 14 90 07/21/18 23:35 98.0 F 88 18 98/58 91 07/21/18 20:53 18 95 07/21/18 19:10 98.1 F 115 19 94/74 90 Intake and Output 07/22/18 07/22/18 07/22/18 07:59 15:59 23:59 Intake Total 120 / 120 720 / 720 Output Total 300 / 300 200 / 200 300 / 300 Balance -180 / -180 520 / 520 -300 / -300 Intake: IV Fluids 120 / 120 120 / 120 Maxipime 2,000 MG In Water for inj. (sterile) 20 ML @ 300 mls/ hr IVP Q8HR [facility] Rx#:[id number] Flagyl Premix 500 MG/100 ML 500 100 / 100 100 / 100 mg In 100 ml @ 100 mls/hr IVPB Q8HR [facility] Rx#:[id number] Oral 600 / 600 Output: Urine 300 / 300 200 / 200 300 / 300 Other: Meal Lunch Dinner Percent of Meal Consumed 85% 15% Weight 82.5 kg Patient Weight 07/22/18 23:59 Weight 82.5 kg General appearance: cooperative, no acute distress, no febrile - Head Head exam: Present: atraumatic - ENT ENT exam: Present: mucous membranes moist - Respiratory Respiratory exam: Present: decreased breath sounds, wheezes. Absent: respiratory distress - Cardiovascular Cardiovascular exam: Present: RRR, +S1, +S2 - GI/Abdominal GI/Abdominal exam: Present: normal bowel sounds, soft. Absent: guarding, rebound, tenderness Additional comments: palpable abdominal mass - Extremities Exam Extremities exam: Absent: calf tenderness Additional comments: BLE edema 2+ pitting - Neurological Exam Neurological exam: Present: alert, oriented X3, no focal deficits, strengths equal and symetr throughout - Psychiatric Psychiatric exam: Present: normal affect, normal mood - Skin Skin exam: Present: dry, intact, normal color, warm Oncology: Obj Data - Labs CBC & Chem 7: 07/22/18 04:08 07/22/18 04:08 Labs: Laboratory Results - last 24 hr 07/22/18 07/22/18 07/22/18 04:08 04:08 04:08 WBC 21.8 H RBC 4.44 Hgb 12.6 L Hct 39.9 MCV 89.9 MCH 28.4 MCHC 31.6 RDW 13.7 Plt Count 186 MPV 10.1 Immature Gran % 1.2 Seg Neutrophils % 93.1 Lymphocytes % 1.5 Monocytes % 4.1 Eosinophils % 0.0 Basophils % 0.1 Neutrophils # 20.3 H Lymphocytes # 0.3 L Monocytes # 0.9 Eosinophils # 0.0 Basophils # 0.0 Sodium 137 Potassium 4.7 Chloride 88 L Carbon Dioxide 45 H* BUN 24 H Creatinine 0.69 L Est GFR ( Amer) > 60 Est GFR (Non-Af Amer) > 60 BUN/Creatinine Ratio 35 H Glucose 213 H Calculated Osmolality 294 Calcium 8.3 L Magnesium 2.1 - ABG Interpretation ABG results: ABG ABG pH 7.35 pH Units (7.32-7.45) 07/16/18 02:35 ABG pCO2 73 mmHg (35-45) H* D 07/16/18 02:35 ABG pO2 75 mmHg (85-104) L D 07/16/18 02:35 ABG O2 Saturation 93 % (95-98) L 07/16/18 02:35 PT/INR, D-dimer PT 11.1 Seconds (9.4-12.1) 07/17/18 05:43 Consult Discharge Plan - Plan Referrals: Andry Abdi Jr, MD [Primary Care Provider] - (Please follow up as schedule.... ) Regis Braga MD [Partnered Physician] - 08/31/18 9:30 am Inpatient Charges Provider: Dr. Gera Orlando <Hitesh Orlando S - Last Filed: 07/26/18 19:37> Date of Encounter: 07/22/18 (1) Hilar mass Current Visit: Yes Status: Acute - Constitutional Vitals: Vital Signs Temp Pulse Resp BP Pulse Ox 07/26/18 19:23 20 90 07/26/18 16:34 12 107/67 94 07/26/18 15:49 97.9 F 66 89 107/67 07/26/18 11:26 22 88 07/26/18 11:03 98.8 F 61 93 117/79 07/26/18 07:41 18 97 07/26/18 07:23 97.4 F L 61 17 104/72 95 07/26/18 05:50 98.1 F 65 17 102/70 96 07/26/18 05:42 17 96 07/26/18 05:37 14 94 07/26/18 03:15 98.1 F 65 16 102/70 88 07/26/18 00:10 97.3 F L 65 16 113/73 95 07/25/18 23:32 16 87 07/25/18 20:47 20 103/63 87 07/25/18 20:03 76 22 103/63 86 Intake and Output 07/26/18 07/26/18 07/26/18 07:59 15:59 23:59 Intake Total 120 / 120 240 / 240 Output Total 300 / 300 450 / 450 600 / 600 Balance -300 / -300 -330 / -330 -360 / -360 Intake: Oral 120 / 120 240 / 240 Output: Urine 300 / 300 450 / 450 600 / 600 Other: Meal Breakfast Percent of Meal Consumed 50% Weight 91.1 kg Patient Weight 07/26/18 23:59 Weight 91.1 kg Oncology: Obj Data - Labs CBC & Chem 7: 07/26/18 04:11 07/26/18 04:11 Labs: Laboratory Results - last 24 hr 07/26/18 07/26/18 07/26/18 04:11 04:11 04:11 WBC 22.6 H RBC 4.16 L Hgb 12.1 L D Hct 38.1 MCV 91.6 MCH 29.1 MCHC 31.8 RDW 13.4 Plt Count 134 L MPV 10.4 Sodium 133 L Potassium 5.2 H Chloride 88 L Carbon Dioxide 43 H* BUN 43 H Creatinine 1.13 Est GFR ( Amer) > 60 Est GFR (Non-Af Amer) > 60 BUN/Creatinine Ratio 38 H Glucose 145 H Calculated Osmolality 289 Uric Acid 3.4 Calcium 8.3 L Phosphorus 4.7 H Magnesium 2.2 Total Bilirubin 0.4 AST 18 ALT 33 Alkaline Phosphatase 56 Serum Total Protein 4.5 L Albumin 2.8 L Globulin 1.7 L Albumin/Globulin Ratio 1.6 - ABG Interpretation ABG results: ABG ABG pH 7.35 pH Units (7.32-7.45) 07/16/18 02:35 ABG pCO2 73 mmHg (35-45) H* D 07/16/18 02:35 ABG pO2 75 mmHg (85-104) L D 07/16/18 02:35 ABG O2 Saturation 93 % (95-98) L 07/16/18 02:35 PT/INR, D-dimer PT 11.1 Seconds (9.4-12.1) 07/17/18 05:43 Inpatient Charges Provider: Dr. Gera Orlando Follow Up: [id number] - Attending Attestation I examined this patient and my medical decision-making was reviewed with the Advanced Practice Nurse. I agree with the documented findings, disposition and treatment plan as described except to the extent set forth below. 1. Small cell lung cancer extensive stage with thick significant mediastinal adenopathy and upper abdominal lymphadenopathy We will start treatment as an inpatient Started allopurinol 300 mg at bedtime to minimize tumor lysis Chemotherapy Intent: Palliative Cisplatin 80 mg/m IV day 1 Etoposide 80 mg/m IV day 1-3 (only 2 days for cycle 1 Neulasta day 4 from cycle 2 We will watch out for tumor lysis 2. Leukocytosis leukocyte count around 20,000. This could be secondary to steroids
[2018-07-23] MEDS ORDERED: Furosemide 20 MG/2 ML VIAL IVP PRN
[2018-07-23] MEDS ORDERED: SODIUM CHLORIDE 0.9% IV SCH ×2
[2018-07-23] MEDS ORDERED: MAGNESIUM SULFATE IV SCH
[2018-07-23] MEDS ORDERED: 0.9 % Sodium Chloride w KCl 20 MEQ/1,000 ML MLS IVC ONE
[2018-07-23] MEDS ORDERED: Fosaprepitant Dimeglumine 150 MG in 0.9 % Sodium Chloride 250 ML IV SCH
[2018-07-23] MEDS ORDERED: Prochlorperazine 10 MG/2 ML VIAL IV PRN
[2018-07-23] MEDS ORDERED: CISPLATIN IV SCH
[2018-07-23] MEDS ORDERED: ETOPOSIDE IV SCH
[2018-07-23] MEDS ORDERED: Dexamethasone 4 MG/ML VIAL IVP PRN
[2018-07-23] MEDS ORDERED: Famotidine 20 MG/2 ML VIAL IV PRN
[2018-07-23] MEDS ORDERED: *HR* LORazepam 2 MG/ML VIAL IV PRN
[2018-07-23] MEDS: *HR* OxyCODONE Immed Rel 15 MG TABLET PO PRN ×2 (03:35→09:37)
[2018-07-23] MEDS: ALPRAZolam 0.5 MG TABLET PO PRN ×2 (03:35→09:38)
[2018-07-23 03:58] LABS: Basophils % 0.2 %
[2018-07-23 03:59] LABS: Basophils # 0.1 K/mcL (0.0-0.2); Hematocrit 41.1 % (37.5-50.1); Hemoglobin 12.9 g/dL (12.9-16.9); Immature Granulocytes % 1.2 % (0-4); Lymphocytes # 0.5 K/mcL (0.6-4.6); Lymphocytes % 1.6 %; Mean Corpuscular HGB Conc 31.4 g/dL (31.6-35.5); Mean Corpuscular Hemoglobin 28.7 pg (28.0-33.3); Mean Corpuscular Volume 91.5 fL (83.0-100.0); Mean Platelet Volume 10.3 fL (9.4-12.4); Monocytes # 1.4 K/mcL (0.0-1.3); Monocytes % 4.7 %; Neutrophils # 28.2 K/mcL (1.6-8.9); Platelet Count 179 K/mcL (140-400); Red Blood Count 4.49 M/mcL (4.19-5.50); Red Cell Distribution Width 13.9 % (11.5-14.5); Segmented Neutrophils % 92.3 %
[2018-07-23 04:24] LABS: Platelet Estimate Normal (Normal); Toxic Granulation Present (Not Present)
[2018-07-23] MEDS: Ipratropium/Albuterol Neb 3 ML IH SCH ×6 (04:32→23:51)
[2018-07-23 04:50] LABS: Carbon Dioxide 45 mEq/L (23-29)
[2018-07-23 04:51] LABS: BUN/Creatinine Ratio 36 (6-26); Blood Urea Nitrogen 26 mg/dL (8-23); Calcium 8.6 mg/dL (8.6-10.3); Chloride 87 mEq/L (98-107); Glucose 177 mg/dL (70-105); Osmolality,Calculated 293 (280-300); Potassium 4.3 mEq/L (3.5-5.1); Sodium 137 mEq/L (136-145); eGFR For Non-African Americans > 60 (> 60)
[2018-07-23] MEDS: *HR* Enoxaparin 40 MG/0.4 ML SYRINGE SQ SCH (05:30)
[2018-07-23] MEDS: Budesonide/Formoterol 80/4.5 MDI IH SCH ×2 (07:18→21:27)
--- NOTE | 2018-07-23 09:01 | Pulmonology Progress Note ---
<RayTracieCarlito A - Last Filed: 07/23/18 09:41> Date of Encounter: 07/23/18 Time of Encounter: 08:45 Assessment and Plan (1) Small cell lung cancer Current Visit: Yes Status: Acute Lung nodules noted on CT from 07/14 Large right lung mass obstructing right middle and lower lobes noted on bronchoscopy on 07/21 VIVIAN of mediastinal nodes concerning for small cell Pathology result positive for small cell lung cancer Management per heme/onc - planning for inpatient chemotherapy starting today (2) Acute exacerbation of chronic obstructive pulmonary disease (COPD) Current Visit: No Status: Acute SpO2 93% on 12lpm O2 No tachypnea Continue steroids po 40mg Prednisone Continue scheduled Duonebs Continue Symbicort Continue supplemental O2 with SpO2 goal of >88% (3) Tobacco abuse Current Visit: No Status: Chronic Spent >10 minutes discussing the importances of cessation and treatment alternatives with pt Subjective Principal diagnosis: COPD exacerbation Interval history: Mr. Bermudez is a 58M with PMH of COPD on 4lpm O2 at home, HTN, and tobacco dependence who originally presented to the ED on 07/11 for progressively worsening shortness of breath. CXR at that time revealed a right basilar consolidation suspicious for pneumonia. On 07/14 it was noted that there was a palpable abdominal mass and CT of the abdomen/pelvis revealed lung nodules, abdominal lymphadenopathy, and peritoneal nodules. He underwent bronchoscopy with EBUS on 07/21 with VIVIAN concerning for small cell lung cancer. Final pathology report revealed small cell lung cancer, and heme/onc is pursuing inpatient chemotherapy. Today pt is resting comfortably in bed. States he has no new complaints, but is nervous to start chemotherapy. No hemoptysis or increased sputum production. Denies any fever, chills, chest pain, worsened shortness of breath, abdominal pain, nausea, or vomiting. Objective PUL Vital signs: Last Vital Signs Temp 97.5 F L 07/23/18 08:30 Pulse 52 07/23/18 08:30 Resp 20 07/23/18 08:30 BP 97/58 07/23/18 08:30 Pulse Ox 92 07/23/18 08:30 General appearance: no acute distress, alert Eyes: nonicteric ENT: oropharynx moist Neck: supple, no JVD Effort: normal Auscultation: left: wheezes, right: diminished breath sounds (mid and lower ) Percussion: bilateral: not dull Tactile fremitus: bilateral: normal Cardiovascular: irregular rhythm Gastrointestinal: soft, non-tender, non-distended Integumentary: normal Extremities: no cyanosis, no edema, no clubbing, pink and warm Musculoskeletal: no deformities Gait: normal posture normal mental status, non-focal exam mood appropriate, affect normal Results - Laboratory Findings CBC and BMP: 07/23/18 03:33 07/23/18 03:33 ABG ABG pH 7.35 pH Units (7.32-7.45) 07/16/18 02:35 ABG pCO2 73 mmHg (35-45) H* D 07/16/18 02:35 ABG pO2 75 mmHg (85-104) L D 07/16/18 02:35 ABG O2 Saturation 93 % (95-98) L 07/16/18 02:35 PT/INR, D-dimer PT 11.1 Seconds (9.4-12.1) 07/17/18 05:43 Abnormal lab findings: Abnormal lab results WBC 30.5 K/mcL (4.3-11.1) H* 07/23/18 03:33 MCHC 31.4 g/dL (31.6-35.5) L 07/23/18 03:33 Neutrophils # 28.2 K/mcL (1.6-8.9) H 07/23/18 03:33 Lymphocytes # 0.5 K/mcL (0.6-4.6) L 07/23/18 03:33 Monocytes # 1.4 K/mcL (0.0-1.3) H 07/23/18 03:33 Toxic Granulation Present (Not Present) A 07/23/18 03:33 APTT 22.5 Seconds (26.0-36.0) L 07/17/18 05:43 Heparin Anti-Xa, LM Wt 0.09 IU/mL (0.50-1.10) L 07/17/18 05:43 ABG pCO2 73 mmHg (35-45) H* D 07/16/18 02:35 ABG pO2 75 mmHg (85-104) L D 07/16/18 02:35 ABG HCO3 41 mEq/L (21-27) H 07/16/18 02:35 ABG Total CO2 43 mEq/L (20-26) H 07/16/18 02:35 ABG O2 Saturation 93 % (95-98) L 07/16/18 02:35 ABG Base Excess 12 mEq/L (-2 to 3) H 07/16/18 02:35 VBG pCO2 80 mmHg (41-51) H* 07/11/18 17:41 VBG HCO3 43 mEq/L (21-27) H 07/11/18 17:41 Chloride 87 mEq/L (98-107) L 07/23/18 03:33 Carbon Dioxide 45 mEq/L (23-29) H* 07/23/18 03:33 BUN 26 mg/dL (8-23) H 07/23/18 03:33 BUN/Creatinine Ratio 36 (6-26) H 07/23/18 03:33 Glucose 177 mg/dL (70-105) H 07/23/18 03:33 Venous Ioniz Calcium 1.08 mmol/L (1.15-1.35) L 07/16/18 11:04 Serum Total Protein 5.2 g/dL (6.4-8.9) L 07/15/18 03:59 Albumin 3.2 g/dL (3.5-5.7) L 07/15/18 03:59 Globulin 2.0 g/dL (2.4-3.5) L 07/15/18 03:59 TSH 0.275 mcIU/mL (0.340-5.600) L 07/15/18 14:15 Free T3 2.36 pg/mL (2.50-3.90) L 07/16/18 05:16 Fluid Appearance Cloudy (Clear) A 07/21/18 08:00 - Microbiology Findings Microbiology Findings: Microbiology, Last 48 Hours 07/21/18 08:00 Respiratory Culture - Preliminary Left Lower Lobe Lung 07/21/18 08:00 Respiratory Culture - Preliminary Right Upper Lobe Lung 07/23/18 04:58 Blood Culture - Preliminary Peripheral Venipuncture Culture is incubating and being continuously monitored for growth. Final report to follow. 07/23/18 04:58 Blood Culture - Preliminary Peripheral Venipuncture Culture is incubating and being continuously monitored for growth. Final report to follow. - Diagnostic Findings Chest x-ray: report reviewed, image reviewed - Clinical Findings Intake & Output: Intake & Output 07/22/18 07/23/18 07/23/18 23:59 07:59 15:59 Intake Total 840 / 840 300 / 300 Output Total 600 / 600 250 / 250 Balance 240 / 240 50 / 50 Weight 84.6 kg Consult Discharge Plan - Plan Referrals: Andry Abdi Jr, MD [Primary Care Provider] - 07/26/18 12:00 pm (Please follow up as schedule....) Regis Braga MD [Partnered Physician] - 08/31/18 9:30 am <Cindy Munoz - Last Filed: 07/23/18 12:09> Date of Encounter: 07/23/18 Objective PUL Vital signs: Last Vital Signs Temp 98.0 F 07/23/18 11:35 Pulse 90 07/23/18 11:35 Resp 20 07/23/18 11:35 BP 88/58 07/23/18 11:35 Pulse Ox 91 07/23/18 11:35 Results - Laboratory Findings CBC and BMP: 07/23/18 03:33 07/23/18 03:33 ABG ABG pH 7.35 pH Units (7.32-7.45) 07/16/18 02:35 ABG pCO2 73 mmHg (35-45) H* D 07/16/18 02:35 ABG pO2 75 mmHg (85-104) L D 07/16/18 02:35 ABG O2 Saturation 93 % (95-98) L 07/16/18 02:35 PT/INR, D-dimer PT 11.1 Seconds (9.4-12.1) 07/17/18 05:43 Abnormal lab findings: Abnormal lab results WBC 30.5 K/mcL (4.3-11.1) H* 07/23/18 03:33 MCHC 31.4 g/dL (31.6-35.5) L 07/23/18 03:33 Neutrophils # 28.2 K/mcL (1.6-8.9) H 07/23/18 03:33 Lymphocytes # 0.5 K/mcL (0.6-4.6) L 07/23/18 03:33 Monocytes # 1.4 K/mcL (0.0-1.3) H 07/23/18 03:33 Toxic Granulation Present (Not Present) A 07/23/18 03:33 APTT 22.5 Seconds (26.0-36.0) L 07/17/18 05:43 Heparin Anti-Xa, LM Wt 0.09 IU/mL (0.50-1.10) L 07/17/18 05:43 ABG pCO2 73 mmHg (35-45) H* D 07/16/18 02:35 ABG pO2 75 mmHg (85-104) L D 07/16/18 02:35 ABG HCO3 41 mEq/L (21-27) H 07/16/18 02:35 ABG Total CO2 43 mEq/L (20-26) H 07/16/18 02:35 ABG O2 Saturation 93 % (95-98) L 07/16/18 02:35 ABG Base Excess 12 mEq/L (-2 to 3) H 07/16/18 02:35 VBG pCO2 80 mmHg (41-51) H* 07/11/18 17:41 VBG HCO3 43 mEq/L (21-27) H 07/11/18 17:41 Chloride 87 mEq/L (98-107) L 07/23/18 03:33 Carbon Dioxide 45 mEq/L (23-29) H* 07/23/18 03:33 BUN 26 mg/dL (8-23) H 07/23/18 03:33 BUN/Creatinine Ratio 36 (6-26) H 07/23/18 03:33 Glucose 177 mg/dL (70-105) H 07/23/18 03:33 Venous Ioniz Calcium 1.08 mmol/L (1.15-1.35) L 07/16/18 11:04 Serum Total Protein 5.2 g/dL (6.4-8.9) L 07/15/18 03:59 Albumin 3.2 g/dL (3.5-5.7) L 07/15/18 03:59 Globulin 2.0 g/dL (2.4-3.5) L 07/15/18 03:59 TSH 0.275 mcIU/mL (0.340-5.600) L 07/15/18 14:15 Free T3 2.36 pg/mL (2.50-3.90) L 07/16/18 05:16 Fluid Appearance Cloudy (Clear) A 07/21/18 08:00 - Microbiology Findings Microbiology Findings: Microbiology, Last 48 Hours 07/21/18 08:00 Respiratory Culture - Preliminary Left Lower Lobe Lung 07/21/18 08:00 Respiratory Culture - Preliminary Right Upper Lobe Lung 07/23/18 04:58 Blood Culture - Preliminary Peripheral Venipuncture Culture is incubating and being continuously monitored for growth. Final report to follow. 07/23/18 04:58 Blood Culture - Preliminary Peripheral Venipuncture Culture is incubating and being continuously monitored for growth. Final report to follow. - Clinical Findings Intake & Output: Intake & Output 07/22/18 07/23/18 07/23/18 23:59 07:59 15:59 Intake Total 840 / 840 300 / 300 990 / 990 Output Total 600 / 600 250 / 250 575 / 575 Balance 240 / 240 50 / 50 415 / 415 Weight 84.6 kg - Attending Attestation I examined this patient and my medical decision-making was reviewed with the Resident Physician. I agree with the documented findings, disposition and treatment plan as described except to the extent set forth below. Patient seen and examined. Labs, radiology, chart personally reviewed. Agree with resident's history and physical, assessment, plan with following comments: [employer]EL [employer]: Patient follows commands, Pulmonary: Acceptable oxygenation and ventilation. No significant changes and recommendation same as recommended yesterday.
--- NOTE | 2018-07-23 09:20 | Oncology Inp Progress Note ---
<Josiah Castro G - Last Filed: 07/23/18 09:16> Date of Encounter: 07/23/18 Time of Encounter: 09:16 (1) Small cell lung cancer Current Visit: Yes Status: Acute Assessment and plan: Patient presented with large hilar mass with mediastinal adenopathy. Patient underwent bronchoscopy and pathology revealed small cell lung cancer. Patient is sexually symptomatic from his tumor burden therefore we will start inpatient chemotherapy with cisplatin and etoposide today with plan for day 2 treatments tomorrow. Allopurinol was started last night for prevention of tumor lysis syndrome. We will check CBC, CMP, uric acid daily MRI brain to evaluate for metastatic disease is pending. Chemotherapy education was provided at yesterday's visit by Nevaeh Mckenzie CNP. See below for details. Following information was covered during visit: Cisplatin/Etoposide specific cycle information was reviewed Side effects of each of the medications: Given in detail, with education handouts provided to patient and family). We discussed specific side effects in detail which may include but not limited to: nausea, vomiting, diarrhea, flu like symptoms, myelosuppression and risk of infection, neuropathy, hair loss, fatigue, mucositis and mouth sores, ototoxicity, nephrotoxicity, among others. We discussed remedies, and when to contact the office for problems. Disease/diagnosis-specific information provided, pathology report and staging information discussed. Fertility issues: Reviewed. This is not a factor for the patient. Discussed sexual precautions to take while on chemotherapy. Advance directives information: We will revisit as needed in the future Discuss possible OTC/ herbal interactions: Not Applicable at this time. Clinic processes discussed: Logistics on chemotherapy day, timing of laboratories, and reason for on treatment visits prior to treatment. Supportive Medications: Allopurinol for prevention of tumor lysis syndrome, Zofran and compazine for nausea rx will be provided with discharge, Reviewed in detail with patient. Chemo calendar: To be given as later date Timing of labs: Discussed in relation to treatment Pain Management: Discussed that this will continue to be an ongoing assessment, to notify if pain is not controlled with current regimen. Handling of body excretions: Handling of body excretions: Safe handling of body secretions for 48 hours following treatment were discussed at today's visit, handout also provided. He does not have pets in the home, no contact with farm animals. Fever: If patient has fever 100.4 degrees or higher, he will call the office. If after hours, he will phone after hours line and for further instructions. He was advised to fever is after hours and 101 or 102 degrees he should go to the local emergency room for treatment evaluation. Large groups of people: Advised on risk of serious infection and to avoid any known sick contacts Clinical Trials screening: Will discuss with clinical trial RN Genetics counseling: Based on initial history, does not require counseling at this time. Oncology: Subj Interval history: Patient seen and examined at bedside. Patient states that he feels okay today. Still reports shortness of breath and cough. - Constitutional Vitals: Vital Signs Temp Pulse Resp BP Pulse Ox 07/23/18 08:30 97.5 F L 52 20 97/58 92 07/23/18 07:18 18 92 07/23/18 07:00 98.1 F 94 20 100/63 91 07/23/18 04:32 18 93 07/23/18 03:35 90 07/23/18 03:22 97.6 F 82 18 102/69 93 07/22/18 23:57 18 92 07/22/18 23:30 70 07/22/18 23:07 97.8 F 69 16 95/67 90 07/22/18 20:52 16 92 07/22/18 20:22 97.8 F 103 18 88/66 91 07/22/18 20:14 48 07/22/18 20:10 92 07/22/18 16:44 98.0 F 64 18 99/80 92 07/22/18 16:22 103 20 93 07/22/18 12:11 114 07/22/18 11:41 22 93 07/22/18 11:36 97.9 F 122 20 106/79 93 07/22/18 09:45 94 Intake and Output 07/22/18 07/23/18 07/23/18 23:59 07:59 15:59 Intake Total 840 / 840 300 / 300 240 / 240 Output Total 600 / 600 250 / 250 Balance 240 / 240 50 / 50 240 / 240 Intake: Oral 840 / 840 300 / 300 240 / 240 Output: Urine 600 / 600 250 / 250 Other: Meal Dinner Breakfast Percent of Meal Consumed 15% 100% Weight 84.6 kg Patient Weight 07/23/18 23:59 Weight 84.6 kg General appearance: mild distress (respiratory) - Respiratory Respiratory exam: Present: decreased breath sounds, rhonchi (mild, diffuse). Absent: wheezes - Cardiovascular Cardiovascular exam: Present: RRR. Absent: diastolic murmur, systolic murmur - GI/Abdominal GI/Abdominal exam: Present: normal bowel sounds, soft. Absent: distended, tenderness - Extremities Exam Extremities exam: Absent: pedal edema - Neurological Exam Neurological exam: Present: alert, oriented X3 Oncology: Obj Data - Labs CBC & Chem 7: 07/23/18 03:33 07/23/18 03:33 Labs: Laboratory Results - last 24 hr 07/23/18 07/23/18 07/23/18 03:33 03:33 04:58 WBC 30.5 H* RBC 4.49 Hgb 12.9 Hct 41.1 MCV 91.5 MCH 28.7 MCHC 31.4 L RDW 13.9 Plt Count 179 MPV 10.3 Immature Gran % 1.2 Seg Neutrophils % 92.3 Lymphocytes % 1.6 Monocytes % 4.7 Eosinophils % 0.0 Basophils % 0.2 Neutrophils # 28.2 H Lymphocytes # 0.5 L Monocytes # 1.4 H Eosinophils # 0.0 Basophils # 0.1 Toxic Granulation Present A Platelet Estimate Normal Sodium 137 Potassium 4.3 Chloride 87 L Carbon Dioxide 45 H* BUN 26 H Creatinine 0.73 Est GFR ( Amer) > 60 Est GFR (Non-Af Amer) > 60 BUN/Creatinine Ratio 36 H Glucose 177 H Calculated Osmolality 293 Lactic Acid 2.2 Calcium 8.6 - Impressions Impressions Chest X-Ray 07/23/18 04:39 IMPRESSION: COPD with superimposed pulmonary edema with small pleural effusions right greater than left. D/ / 07/23/2018 08:31:03 Uriel Mcwilliams MD / [email or web address] Interpreting Provider: Uriel Mcwilliams MD - ABG Interpretation ABG results: ABG ABG pH 7.35 pH Units (7.32-7.45) 07/16/18 02:35 ABG pCO2 73 mmHg (35-45) H* D 07/16/18 02:35 ABG pO2 75 mmHg (85-104) L D 07/16/18 02:35 ABG O2 Saturation 93 % (95-98) L 07/16/18 02:35 PT/INR, D-dimer PT 11.1 Seconds (9.4-12.1) 07/17/18 05:43 Consult Discharge Plan - Plan Referrals: Andry Abdi Jr, MD [Primary Care Provider] - 07/26/18 12:00 pm (Please follow up as schedule....) Regis Braga MD [Partnered Physician] - 08/31/18 9:30 am <Carol Caldera - Last Filed: 07/23/18 17:49> Date of Encounter: 07/23/18 Oncology: Subj Interval history: I examined this patient and my medical decision-making was reviewed with Dr Josiah Castro, resident physician. I agree with the documented findings, disposition and treatment plan as described except to the extent set forth below. - Constitutional Vitals: Vital Signs Temp Pulse Resp BP Pulse Ox 07/23/18 17:01 71 20 89 07/23/18 16:19 97.9 F 56 18 95/65 88 07/23/18 15:29 16 92 07/23/18 14:25 53 20 91 07/23/18 12:00 77 20 90 07/23/18 11:35 98.0 F 90 20 88/58 91 07/23/18 11:12 98.4 F 58 18 109/69 91 07/23/18 11:08 18 91 07/23/18 10:27 118 22 96 07/23/18 09:35 111 07/23/18 09:30 111 21 101/69 93 07/23/18 08:30 97.5 F L 52 20 97/58 92 07/23/18 07:18 18 92 07/23/18 07:00 98.1 F 94 20 100/63 91 07/23/18 04:32 18 93 07/23/18 03:35 90 07/23/18 03:22 97.6 F 82 18 102/69 93 07/22/18 23:57 18 92 07/22/18 23:30 70 07/22/18 23:07 97.8 F 69 16 95/67 90 07/22/18 20:52 16 92 07/22/18 20:22 97.8 F 103 18 88/66 91 07/22/18 20:14 48 07/22/18 20:10 92 Intake and Output 07/23/18 07/23/18 07/23/18 07:59 15:59 23:59 Intake Total 300 / 300 2672.5 / 2672.5 Output Total 250 / 250 575 / 575 Balance 50 / 50 2097.5 / 2097.5 Intake: IV Fluids 2432.5 / 2432.5 CISplatin 170 MG Magnesium 1174 / 1174 Sulfate 2 GM In 0.9 % Sodium Chloride 1,000 ML @ 587 mls/hr IV ONCE LIAN Rx#:[id number] Etoposide 170 mg In 0.9 % 508.5 / 508.5 Sodium Chloride 500 ML @ 508.5 mls/hr IV ONCE LIAN Rx#: [id number] Emend 150 MG In 0.9 % Sodium 250 / 250 Chloride 250 ML @ 500 mls/hr IV ONCE LIAN Rx#:[id number] KCl 20 mEq in 0.9% Sodium 500 / 500 Chloride 20 meq In 1,000 ml @ 500 MLS/HR 500 mls/hr IVC .Q2H ONE Rx#:[id number] Oral 300 / 300 240 / 240 Output: Urine 250 / 250 575 / 575 Other: Meal Breakfast Percent of Meal Consumed 100% Weight 84.6 kg Patient Weight 07/23/18 23:59 Weight 84.6 kg Oncology: Obj Data - Labs CBC & Chem 7: 07/23/18 03:33 07/23/18 03:33 Labs: Laboratory Results - last 24 hr 07/23/18 07/23/18 07/23/18 03:33 03:33 04:58 WBC 30.5 H* RBC 4.49 Hgb 12.9 Hct 41.1 MCV 91.5 MCH 28.7 MCHC 31.4 L RDW 13.9 Plt Count 179 MPV 10.3 Immature Gran % 1.2 Seg Neutrophils % 92.3 Lymphocytes % 1.6 Monocytes % 4.7 Eosinophils % 0.0 Basophils % 0.2 Neutrophils # 28.2 H Lymphocytes # 0.5 L Monocytes # 1.4 H Eosinophils # 0.0 Basophils # 0.1 Toxic Granulation Present A Platelet Estimate Normal Sodium 137 Potassium 4.3 Chloride 87 L Carbon Dioxide 45 H* BUN 26 H Creatinine 0.73 Est GFR ( Amer) > 60 Est GFR (Non-Af Amer) > 60 BUN/Creatinine Ratio 36 H Glucose 177 H Calculated Osmolality 293 Lactic Acid 2.2 Calcium 8.6 Urine Color Urine Clarity Urine pH Ur Specific [place] Urine Protein Urine Glucose (UA) Urine Ketones Urine Blood Urine Nitrite Urine Bilirubin Urine Urobilinogen Ur Leukocyte Esterase Ur Culture Indicated? 07/23/18 07/23/18 08:55 11:52 WBC RBC Hgb Hct MCV MCH MCHC RDW Plt Count MPV Immature Gran % Seg Neutrophils % Lymphocytes % Monocytes % Eosinophils % Basophils % Neutrophils # Lymphocytes # Monocytes # Eosinophils # Basophils # Toxic Granulation Platelet Estimate Sodium Potassium Chloride Carbon Dioxide BUN Creatinine Est GFR ( Amer) Est GFR (Non-Af Amer) BUN/Creatinine Ratio Glucose Calculated Osmolality Lactic Acid 1.9 Calcium Urine Color Yellow Urine Clarity Clear Urine pH 6.5 Ur Specific [place] 1.010 Urine Protein Negative Urine Glucose (UA) Normal Urine Ketones Negative Urine Blood Negative Urine Nitrite Negative Urine Bilirubin Negative Urine Urobilinogen Normal Ur Leukocyte Esterase Negative Ur Culture Indicated? NO - Impressions Impressions Chest X-Ray 07/23/18 04:39 IMPRESSION: COPD with superimposed pulmonary edema with small pleural effusions right greater than left. D/ / 07/23/2018 08:31:03 Uriel Mcwilliams MD / [facility] Interpreting Provider: Uriel Mcwilliams MD - ABG Interpretation ABG results: ABG ABG pH 7.35 pH Units (7.32-7.45) 07/16/18 02:35 ABG pCO2 73 mmHg (35-45) H* D 07/16/18 02:35 ABG pO2 75 mmHg (85-104) L D 07/16/18 02:35 ABG O2 Saturation 93 % (95-98) L 07/16/18 02:35 PT/INR, D-dimer PT 11.1 Seconds (9.4-12.1) 07/17/18 05:43 Inpatient Charges Provider: Dr. Irwin Caldera Follow Up: 24476
[2018-07-23] MEDS: Dexamethasone 4 MG/ML VIAL IVP ONE ×2 (09:41→09:53)
[2018-07-23] MEDS: Diltiazem CD (24hr) 300 MG CAPSULE PO SCH (09:58)
[2018-07-23] MEDS: Aspirin Enteric Coated 81 MG Tablet PO SCH (09:58)
[2018-07-23] MEDS: predniSONE 20 MG TABLET PO SCH (09:59)
[2018-07-23] MEDS: Sennosides/Docusate Sodium TABLET PO SCH ×2 (09:59→21:24)
--- NOTE | 2018-07-23 10:06 | Palliative Progress Note ---
Date of Encounter: 07/23/18 Time of Encounter: 10:04 - Assessment and plan (1) Goals of care, counseling/discussion Current Visit: Yes Status: Acute Assessment and plan: Discussed with pt about his diagnosis, prognosis and treatment options. Pt has decided to proceed with chemotherapy, he is aware of the tumor burden and side effects of treatment. He states "all I care about is to remain alive so I can provide for my ". DIRECTOR OF OUTREACH attempting to find resources for pt's to come in, finding many barriers. Pt will attempt to advocate with his son for help, but does not think he will be successful. Discussed advanced care planning, including intubation and CPR. Pt does not feel ready to make a decision at this time, but he will discuss with his ( POA) once discharged. Patient aware that he will remain full code. (2) Chronic pain Current Visit: Yes Status: Chronic Assessment and plan: Patient has chronic back pain for several years. On Oxycodone 15 mg q3hrs prn, taking 5 doses in 24hrs, about 75mg in 24hrs. he states at his best the pain is 6/10, and that is bearable. Discussed with pt conversion to a long acing medication. Pt disagrees with fentanyl patch, but is willing to try Oxycodone ER will start Oxycodone ER 20 mg q12hr, and Oxycodone IR 10 mg q4hrs for breakthrough. Qualifiers: Chronic pain type: chronic pain syndrome Qualified Code(s): G89.4 - Chronic pain syndrome (3) COPD with acute exacerbation Current Visit: No Status: Acute (4) Pneumonia Current Visit: Yes Status: Acute Assessment and plan: management per primary team Qualifiers: Pneumonia type: due to unspecified organism Laterality: right Lung location: lower lobe of lung Qualified Code(s): J18.1 - Lobar pneumonia, unspecified organism (5) Hilar mass Current Visit: Yes Status: Acute Assessment and plan: Biopsy positive for small cell lung cancer. Oncology on the case, chemo to start today. - Time Spent With Patient Total time spent is greater than 50% face to face with pt in coordination of care (as documented) at patient's floor/unit and/or counseling patient: Greater than 35 minutes - Subjective Interval history: Patient is feeling subjectively better today, but is worried about starting chemotherapy. - Constitutional Vitals: Abnormal lab results WBC 30.5 K/mcL (4.3-11.1) H* 07/23/18 03:33 MCHC 31.4 g/dL (31.6-35.5) L 07/23/18 03:33 Neutrophils # 28.2 K/mcL (1.6-8.9) H 07/23/18 03:33 Lymphocytes # 0.5 K/mcL (0.6-4.6) L 07/23/18 03:33 Monocytes # 1.4 K/mcL (0.0-1.3) H 07/23/18 03:33 Toxic Granulation Present (Not Present) A 07/23/18 03:33 APTT 22.5 Seconds (26.0-36.0) L 07/17/18 05:43 Heparin Anti-Xa, LM Wt 0.09 IU/mL (0.50-1.10) L 07/17/18 05:43 ABG pCO2 73 mmHg (35-45) H* D 07/16/18 02:35 ABG pO2 75 mmHg (85-104) L D 07/16/18 02:35 ABG HCO3 41 mEq/L (21-27) H 07/16/18 02:35 ABG Total CO2 43 mEq/L (20-26) H 07/16/18 02:35 ABG O2 Saturation 93 % (95-98) L 07/16/18 02:35 ABG Base Excess 12 mEq/L (-2 to 3) H 07/16/18 02:35 VBG pCO2 80 mmHg (41-51) H* 07/11/18 17:41 VBG HCO3 43 mEq/L (21-27) H 07/11/18 17:41 Chloride 87 mEq/L (98-107) L 07/23/18 03:33 Carbon Dioxide 45 mEq/L (23-29) H* 07/23/18 03:33 BUN 26 mg/dL (8-23) H 07/23/18 03:33 BUN/Creatinine Ratio 36 (6-26) H 07/23/18 03:33 Glucose 177 mg/dL (70-105) H 07/23/18 03:33 Venous Ioniz Calcium 1.08 mmol/L (1.15-1.35) L 07/16/18 11:04 Serum Total Protein 5.2 g/dL (6.4-8.9) L 07/15/18 03:59 Albumin 3.2 g/dL (3.5-5.7) L 07/15/18 03:59 Globulin 2.0 g/dL (2.4-3.5) L 07/15/18 03:59 TSH 0.275 mcIU/mL (0.340-5.600) L 07/15/18 14:15 Free T3 2.36 pg/mL (2.50-3.90) L 07/16/18 05:16 Fluid Appearance Cloudy (Clear) A 07/21/18 08:00 Exam: Vitals reviewed General appearance: alert, oriented x3, in no acute distress Eyes: nonicteric, left lower eyelid edema EENT: oropharynx moist Chest: reduced breath sounds, increased effort Cardiovascular: regular rate and rhythm Gastrointestinal: soft, non-tender, non-distended, palpable subcutaneous abdominal mass in left upper quadrant Integumentary: normal Extremities: bilateral edema Neurologic: normal mental status, non-focal exam Psych: mood appropriate, affect normal Palliative Quality Palliative Quality: Screen for Code Status: NA, Screen for Goals of Care: NA, Screen for Pain: NA, If Pain Regimen Started, Initiate Bowel Regimen: NA, Screen for Nausea/Vomitting: NA - Labs CBC & Chem 7: 07/23/18 03:33 07/23/18 03:33 Labs: Laboratory Results - last 24 hr 07/23/18 07/23/18 07/23/18 03:33 03:33 04:58 WBC 30.5 H* RBC 4.49 Hgb 12.9 Hct 41.1 MCV 91.5 MCH 28.7 MCHC 31.4 L RDW 13.9 Plt Count 179 MPV 10.3 Immature Gran % 1.2 Seg Neutrophils % 92.3 Lymphocytes % 1.6 Monocytes % 4.7 Eosinophils % 0.0 Basophils % 0.2 Neutrophils # 28.2 H Lymphocytes # 0.5 L Monocytes # 1.4 H Eosinophils # 0.0 Basophils # 0.1 Toxic Granulation Present A Platelet Estimate Normal Sodium 137 Potassium 4.3 Chloride 87 L Carbon Dioxide 45 H* BUN 26 H Creatinine 0.73 Est GFR ( Amer) > 60 Est GFR (Non-Af Amer) > 60 BUN/Creatinine Ratio 36 H Glucose 177 H Calculated Osmolality 293 Lactic Acid 2.2 Calcium 8.6 07/23/18 08:55 WBC RBC Hgb Hct MCV MCH MCHC RDW Plt Count MPV Immature Gran % Seg Neutrophils % Lymphocytes % Monocytes % Eosinophils % Basophils % Neutrophils # Lymphocytes # Monocytes # Eosinophils # Basophils # Toxic Granulation Platelet Estimate Sodium Potassium Chloride Carbon Dioxide BUN Creatinine Est GFR ( Amer) Est GFR (Non-Af Amer) BUN/Creatinine Ratio Glucose Calculated Osmolality Lactic Acid 1.9 Calcium - Impressions Impressions Chest X-Ray 07/23/18 04:39 IMPRESSION: COPD with superimposed pulmonary edema with small pleural effusions right greater than left. D/ / 07/23/2018 08:31:03 [facility]riel Mcwilliams MD / [facility] Inter[facility]ting Provider: Uriel Mcwilliams MD - ABG Interpretation ABG results: ABG ABG pH 7.35 pH Units (7.32-7.45) 07/16/18 02:35 ABG pCO2 73 mmHg (35-45) H* D 07/16/18 02:35 ABG pO2 75 mmHg (85-104) L D 07/16/18 02:35 ABG O2 Saturation 93 % (95-98) L 07/16/18 02:35 PT/INR, D-dimer PT 11.1 Seconds (9.4-12.1) 07/17/18 05:43 Consult Discharge Plan - Plan Referrals: Andry Abdi Jr, MD [Primary Care Provider] - 07/26/18 12:00 pm (Please follow up as schedule....) Regis Braga MD [Partnered Physician] - 08/31/18 9:30 am
[2018-07-23] MEDS: *HR* OxyCODONE ER (12 HR) 20 MG TABLET PO SCH ×2 (12:13→18:09)
[2018-07-23 12:37] LABS: Bilirubin,Urine Negative (Negative); Blood,Urine Negative (Negative); Clarity,Urine Clear (Clear); Color,Urine Yellow (Yellow); Glucose,Urine (UA) Normal (Normal); Ketones,Urine Negative (Negative); Leukocyte Esterase,Urine Negative (Negative); Nitrite,Urine Negative (Negative); PH,Urine 6.5 pH Units (5.0-8.0); Protein,Urine Negative (Neg-Trace); Urobilinogen,Urine Normal (Normal)
--- NOTE | 2018-07-23 15:15 | Internal Med Progress Note ---
<Sher Camargo - Last Filed: 07/23/18 15:42> Hospitalist Progress Note - Encounter Date of Encounter: 07/23/18 Time of Encounter: 15:09 - Subjective Interval History: Patient seen and examined this morning, no acute events overnight Mr. Bermudez was admitted for COPD exacerbation, suspicious for pneumonia We have been treating with antibiotics and bronchodilators and steroids Patient developed atrial fibrillation with rapid ventricular rate, this was treated with Cardizem drip and aspirin for anticoagulation The patient did manage to convert back to sinus rhythm and is now in normal rate and rhythm, transitioned to oral diltiazem Patient being treated with increased steroids and BiPAP, Pulmonology consulted Patient was found to have suspicious nodules on chest and abdomen and pelvis CT , hematology/oncology consulted Final pathology significant for small cell lung cancer, inpatient chemotherapy initiated today with cisplatin and etoposide He has been having increased frequency of AFib RVR and increased O2 demand - Exam Vitals: Temp Pulse Resp BP Pulse Ox 98.0 F 53 20 88/58 91 07/23/18 11:35 07/23/18 14:25 07/23/18 14:25 07/23/18 11:35 07/23/18 14:25 Exam: Patient in no acute distress, alert and oriented 3 Heart in atrial fibrillation with rapid ventricular rate Lungs diffusely diminished,no wheeze or rales auscultated Ventilating and saturating in the low 90s on 15L HFNC Abdomen soft ,nontender, palpable subcutaneous abdominal mass in left upper quadrant Bilateral upper extremity non pitting edema, bilateral lower extremity pitting edema Skin warm and dry - Assessment and Plan (1) Acute on chronic respiratory failure with hypoxia and hypercapnia Current Visit: Yes Status: Acute Assessment and Plan: Patient saturating in the low 90s on 12 L HF nasal cannula, 4L is his home oxygen use day and night CXR 07/15 showed worsening infiltrates, attributed to pneumonia or nodules 07/[address] showed lymphadenopathy and nodules, with accompanying RLL pleural effusion Legionella and Streptococcus pneumonia antigens negative, sputum culture negative Plan Patient is receiving 40 mg prednisone daily We will continue supplemental oxygen to maintain saturation above 88% Patient received 7 days Cefepime, 7 days Flagyl, antibiotics discontinued Pulmonology consulted, antibiotics discontinued Previous CTA showed lymphadenopathy and lesions with mass effect on the pulmonary artery Patients symptoms may be more related to nodules than infection, reason for antibiotic discontinuation We will continue Duonebs and symbicort as scheduled (2) Pneumonia Current Visit: Yes Status: Resolved Assessment and Plan: Pulmonology assisting Antibiotics discontinued Patient is not febrile, clinical picture not indicative of infection White count increased from 21 to 30, likely due to steroids and neoplastic process Sputum culture, strep pneumo antigen, legionella antigen all negative Plan Blood cultures negative for growth so far We will continue to monitor labs and clinical disposition Plan as seen above (3) COPD exacerbation Current Visit: Yes Status: Acute Assessment and Plan: Continue bronchodilator therapy and inhaled corticosteroids and systemic corticosteroids Rest of plan as seen above (4) Mass Current Visit: Yes Status: Acute Assessment and Plan: Palpable mass found on exam and left upper quadrant of abdomen Abdominal/pelvic CT without contrast was performed to rule out neoplasm CT revealed multiple nodules in the left lung, peritoneum CTA performed 07/19 showed hilar lymphadenopathy compressing right pulmonary artery, multiple nodules, small bilateral pleural effusions Diagnostic bronchoscopy preliminary results concerning for small cell lung cancer Palliative care consulted for goals of care discussed with patient Bronchoscopy biopsy final pathology small cell lung cancer Oncology started inpatient chemotherapy with cisplatin and etoposide We will continue to monitor for chemo side effects and electrolyte disturbances Palliative care consulted and assisting with supportive care and goals of care plan DIRECTOR DATA ANALYTICS involved in attempting to assist patient in seeing his (5) Tobacco abuse Current Visit: No Status: Chronic Assessment and Plan: Counseled to quit smoking placed on nicotine patch patient did not tolerate lowest dose of nicotine patch because he is smoking so little at home Encouraged to quit altogether (6) DVT prophylaxis Current Visit: Yes Status: Acute Assessment and Plan: on SQ Lovenox (7) Anxiety Current Visit: Yes Status: Chronic Assessment and Plan: Resumed home benzo's (8) Atrial fibrillation with RVR Current Visit: Yes Status: Resolved Assessment and Plan: Patient developed new onset atrial fibrillation with rapid ventricular rate Cardizem drip was started and cardiology was consulted Rate was controlled on Cardizem drip Cardiology transitioning Cardizem drip to oral Cardizem, recommended aspirin for anticoagulation Patient converted back to sinus normal rate Patient currently hemodynamically stable Having increased episodes of RVR, likely stress related We will continue to monitor and treat with rate control Metoprolol 25mg po bid started Cardiology signed off - Time Spent with Patient Total time spent is greater than 50% in coordination of care (as documented) at patient's floor/unit and/or counseling patient: Internal Medicine: Result - Labs CBC & Chem 7: 07/23/18 03:33 07/23/18 03:33 Labs: Short CBC 07/23/18 Range/Units 03:33 WBC 30.5 H* (4.3-11.1) K/mcL Hgb 12.9 (12.9-16.9) g/dL Hct 41.1 (37.5-50.1) % Plt Count 179 (140-400) K/mcL Neutrophils # 28.2 H (1.6-8.9) K/mcL BMP 07/23/18 03:33 Sodium 137 Potassium 4.3 Chloride 87 L Carbon Dioxide 45 H* BUN 26 H Creatinine 0.73 Glucose 177 H Calcium 8.6 Urine 07/23/18 Range/Units 11:52 Urine Color Yellow (Yellow) Urine Clarity Clear (Clear) Urine pH 6.5 (5.0-8.0) pH Units Ur Specific [place] 1.010 (1.010-1.025) Urine Protein Negative (Neg-Trace) mg/dL Urine Glucose (UA) Normal (Normal) mg/dL - ABG Interpretation ABG results: ABG ABG pH 7.35 pH Units (7.32-7.45) 07/16/18 02:35 ABG pCO2 73 mmHg (35-45) H* D 07/16/18 02:35 ABG pO2 75 mmHg (85-104) L D 07/16/18 02:35 ABG O2 Saturation 93 % (95-98) L 07/16/18 02:35 PT/INR, D-dimer PT 11.1 Seconds (9.4-12.1) 07/17/18 05:43 - Impressions Impressions Chest X-Ray 07/23/18 04:39 IMPRESSION: COPD with superimposed pulmonary edema with small pleural effusions right greater than left. D/ / 07/23/2018 08:31:03 [facility] Inter[facility]ting Provider: Uriel Mcwilliams MD Consult Discharge Plan - Plan Referrals: Andry Abdi Jr, MD [Primary Care Provider] - 07/26/18 12:00 pm (Please follow up as schedule....) Regis Braga MD [Partnered Physician] - 08/31/18 9:30 am <Martha Vasques - Last Filed: 07/23/18 16:25> Hospitalist Progress Note - Encounter Date of Encounter: 07/23/18 - Exam Vitals: Temp Pulse Resp BP Pulse Ox 98.0 F 53 16 88/58 92 07/23/18 11:35 07/23/18 14:25 07/23/18 15:29 07/23/18 11:35 07/23/18 15:29 - Assessment and Plan (1) Tobacco abuse Current Visit: No Status: Chronic (2) DVT prophylaxis Current Visit: Yes Status: Acute (3) Anxiety Current Visit: Yes Status: Chronic (4) COPD exacerbation Current Visit: Yes Status: Acute (5) Acute on chronic respiratory failure with hypoxia and hypercapnia Current Visit: Yes Status: Acute (6) Pneumonia Current Visit: Yes Status: Resolved (7) Mass Current Visit: Yes Status: Acute (8) Atrial fibrillation with RVR Current Visit: Yes Status: Resolved - Time Spent with Patient Total time spent is greater than 50% in coordination of care (as documented) at patient's floor/unit and/or counseling patient: Internal Medicine: Result - Labs CBC & Chem 7: 07/23/18 03:33 07/23/18 03:33 Labs: Short CBC 07/23/18 Range/Units 03:33 WBC 30.5 H* (4.3-11.1) K/mcL Hgb 12.9 (12.9-16.9) g/dL Hct 41.1 (37.5-50.1) % Plt Count 179 (140-400) K/mcL Neutrophils # 28.2 H (1.6-8.9) K/mcL BMP 07/23/18 03:33 Sodium 137 Potassium 4.3 Chloride 87 L Carbon Dioxide 45 H* BUN 26 H Creatinine 0.73 Glucose 177 H Calcium 8.6 Urine 07/23/18 Range/Units 11:52 Urine Color Yellow (Yellow) Urine Clarity Clear (Clear) Urine pH 6.5 (5.0-8.0) pH Units Ur Specific [place] 1.010 (1.010-1.025) Urine Protein Negative (Neg-Trace) mg/dL Urine Glucose (UA) Normal (Normal) mg/dL - ABG Interpretation ABG results: ABG ABG pH 7.35 pH Units (7.32-7.45) 07/16/18 02:35 ABG pCO2 73 mmHg (35-45) H* D 07/16/18 02:35 ABG pO2 75 mmHg (85-104) L D 07/16/18 02:35 ABG O2 Saturation 93 % (95-98) L 07/16/18 02:35 PT/INR, D-dimer PT 11.1 Seconds (9.4-12.1) 07/17/18 05:43 - Impressions Impressions Chest X-Ray 07/23/18 04:39 IMPRESSION: COPD with superimposed pulmonary edema with small pleural effusions right greater than left. D/ / 07/23/2018 08:31:03 Uriel Mcwilliams MD / [facility] Interpreting Provider: Uriel Mcwilliams MD - Attending Attestation I examined this patient and my medical decision-making was reviewed with the Resident Physician Dr. Camargo. I agree with the documented findings, disposition and treatment plan as described except to the extent set forth below. Mr. Bermudez is a 58 year old male with a known past medical history of COPD, chronic hypoxic respiratory failure on 4 lit oxygen dependent at home, hypertension and chronic tobacco dependence patient presented emergency room complaining about a progressively worsening shortness of breath, cough with expectoration. Patient was admitted in the hospital for acute hypoxic respiratory failure due to pneumonia. His his CT of the chest showed left lower lobe nodule and severe mediastinal lymphadenopathy concerning for metastatic disease.Had bronchoscopy on 07/21/18. currently he is on 12 lit O2 now. No events over night. . Gen: A, A, O x3 Chest: Diminished BS b/l moderate wheezing, mild crackles,rales + Heart: S1S2+ Tachy a/p 1. Acute pneumonia - bacterial 2. Acute COPD exacerbation 3. Acute on chronic hypoxic respiratory failure 4. Possible small cell lung cancer pt is concerned about his at home. SW working on all the resources to accommodate transportation for his to see him here in the hospital He wanted remain full code. Heme Onc started him on Chemo today SW and Palliative care consulted cont Duoneb He had 10 days of broad spec abx.. D/c all abx on 07/22/18 switch to PO steroids use BiPAP prn appreciate Pulm / Heme Onc recommendations <Sher Camargo - Last Filed: 07/23/18 15:42> (2) Pneumonia Qualifiers: Pneumonia type: due to unspecified organism Laterality: right Lung location : lower lobe of lung Qualified Code(s): J18.1 - Lobar pneumonia, unspecified organism <Martha aVsques - Last Filed: 07/23/18 16:25> (6) Pneumonia Qualifiers: Pneumonia type: due to unspecified organism Laterality: right Lung location : lower lobe of lung Qualified Code(s): J18.1 - Lobar pneumonia, unspecified organism
[2018-07-24] MEDS ORDERED: Famotidine 20 MG/2 ML VIAL IV PRN
[2018-07-24] MEDS ORDERED: Prochlorperazine 10 MG/2 ML VIAL IV PRN
[2018-07-24] MEDS ORDERED: *HR* LORazepam 2 MG/ML VIAL IV PRN
[2018-07-24] MEDS ORDERED: Dexamethasone 4 MG/ML VIAL IVP SCH
[2018-07-24] MEDS ORDERED: Dexamethasone 4 MG/ML VIAL IVP PRN
[2018-07-24] MEDS ORDERED: ETOPOSIDE IV SCH
[2018-07-24] MEDS ORDERED: SODIUM CHLORIDE 0.9% IV SCH
[2018-07-24] MEDS: Ipratropium/Albuterol Neb 3 ML IH SCH ×5 (04:44→19:41)
[2018-07-24] MEDS: *HR* Enoxaparin 40 MG/0.4 ML SYRINGE SQ SCH (05:30)
[2018-07-24] MEDS: *HR* OxyCODONE ER (12 HR) 20 MG TABLET PO SCH ×2 (05:30→17:48)
[2018-07-24 05:36] LABS: Basophils % 0.2 %; Eosinophils % 0.1 %; Monocytes % 2.9 %; Red Cell Distribution Width 13.9 % (11.5-14.5)
[2018-07-24 05:37] LABS: Basophils # 0.1 K/mcL (0.0-0.2); Hematocrit 42.5 % (37.5-50.1); Hemoglobin 12.8 g/dL (12.9-16.9); Immature Granulocytes % 1.3 % (0-4); Lymphocytes # 0.3 K/mcL (0.6-4.6); Lymphocytes % 0.9 %; Mean Corpuscular HGB Conc 30.1 g/dL (31.6-35.5); Mean Corpuscular Hemoglobin 28.4 pg (28.0-33.3); Mean Corpuscular Volume 94.4 fL (83.0-100.0); Mean Platelet Volume 10.2 fL (9.4-12.4); Monocytes # 0.9 K/mcL (0.0-1.3); Platelet Count 162 K/mcL (140-400); Segmented Neutrophils % 94.6 %
[2018-07-24 05:42] LABS: Neutrophils # 27.7 K/mcL (1.6-8.9)
[2018-07-24 05:58] LABS: Alanine Aminotransferase 36 Units/L (7-52); Albumin/Globulin Ratio 1.7 (1.1-2.2); Alkaline Phosphatase 70 Units/L (34-104); Aspartate Amino Transferase 22 Units/L (13-39); BUN/Creatinine Ratio 39 (6-26); Bilirubin,Total 0.5 mg/dL (0.3-1.0); Blood Urea Nitrogen 32 mg/dL (8-23); Calcium 8.4 mg/dL (8.6-10.3); Carbon Dioxide 43 mEq/L (23-29); Chloride 92 mEq/L (98-107); Globulin 1.8 g/dL (2.4-3.5); Glucose 157 mg/dL (70-105); Osmolality,Calculated 296 (280-300); Platelet Estimate Normal (Normal); Potassium 5.5 mEq/L (3.5-5.1); Sodium 138 mEq/L (136-145); Total Protein 4.8 g/dL (6.4-8.9); Uric Acid 3.2 mg/dL (2.3-7.6); eGFR For Non-African Americans > 60 (> 60)
[2018-07-24] MEDS: predniSONE 20 MG TABLET PO SCH (09:10)
[2018-07-24] MEDS: Aspirin Enteric Coated 81 MG Tablet PO SCH (09:13)
[2018-07-24] MEDS: Diltiazem CD (24hr) 300 MG CAPSULE PO SCH (09:19)
[2018-07-24] MEDS: Sennosides/Docusate Sodium TABLET PO SCH ×2 (09:23→20:46)
--- NOTE | 2018-07-24 09:55 | Internal Med Progress Note ---
<Veda Robertson - Last Filed: 07/24/18 09:49> Hospitalist Progress Note - Encounter Date of Encounter: 07/24/18 Time of Encounter: 09:50 - Exam Vitals: Temp Pulse Resp BP Pulse Ox 97.8 F 59 22 90/64 91 07/24/18 07:11 07/24/18 07:11 07/24/18 07:50 07/24/18 07:11 07/24/18 07:50 Exam: Gen.: alert and oriented x-ray, pleasant, no acute distress. Patient sitting up in bed comfortably eating breakfast. CV radio rate, irregular rhythm. No murmurs noted. Lungs: decreased breath sounds diffusely. No wheezing present. Abdomen: soft, nondistended, nontender, bowel sounds present. Extremities: +2 bilateral lower extremity pitting edema present. Skin: arms diffusely erythematous with some bruising present - Assessment and Plan (1) Acute on chronic respiratory failure with hypoxia and hypercapnia Current Visit: Yes Status: Acute Assessment and Plan: Currently on 15 L high flow oxygen etiology multifactorial secondary to severe COPD (on 4L oxygen at home), pneumonia, mass effect from small cell lung cancer patient completed course of antibiotics for pneumonia (received 7 days cefepime , 7 days Flagyl) 07/11/18 sputum culture negative 07/13/18 blood cultures negative Legionella and strep pneumoniae antigens negative Plan day 2 of inpatient chemotherapy, see below appreciate pulmonology and heme/onc recommendations 07/23/18 blood cultures X2 final report pending continue 40 mg prednisone daily supplemental oxygen to maintain saturation above 88% scheduled bronchodilators, Symbicort (2) COPD exacerbation Current Visit: Yes Status: Acute Assessment and Plan: Plan as #1 above (3) Pneumonia Current Visit: Yes Status: Resolved Assessment and Plan: Patient completed course of antibiotics, which are currently discontinued (4) Atrial fibrillation with RVR Current Visit: Yes Status: Resolved Assessment and Plan: Patient developed new onset atrial fibrillation with RVR during hospitalization etiology likely multifactorial secondary to COPD exacerbation, lung malignancy with mass effect. CHADS2/VASC: 1 echocardiogram from 07/16/18 showed LVEF 60-65%, normal LV chamber size, wall thickness, function, moderate LV diastolic dysfunction, normal RV structure and function, mild tricuspid regurgitation, mild pulmonary hypertension. Consult to cardiology was made, recommended aspirin. Patient successfully transition from Cardizem gtt to PO Cardizem Plan: rate control with metoprolol PRN IV metoprolol continue PO Cardizem consider outpatient stress test (5) Chronic pain Current Visit: Yes Status: Chronic Assessment and Plan: Per palliative care team (6) Anxiety Current Visit: Yes Status: Chronic Assessment and Plan: Continue home dose of Xanax (7) Tobacco abuse Current Visit: No Status: Chronic Assessment and Plan: Smoking cessation given. Patient could not tolerate Nicotine patch (8) Advanced care planning/counseling discussion Current Visit: Yes Status: Acute Assessment and Plan: Appreciate palliative care recommendations. Patient has decided to proceed with chemotherapy and is aware of the side effects. His current goal is to get better so that he could take care of his life. Per palliative care note, patient is not ready at this time to make a decision regarding advanced care planning, desire for intubation and CPR. (9) DVT prophylaxis Current Visit: Yes Status: Acute Assessment and Plan: Continue SQ Lovenox (10) Small cell lung cancer Current Visit: Yes Status: Acute Assessment and Plan: 07/19/18 chest CTA showed no evidence of PE. There was compression of the distal right pulmonary artery and some of its branches secondary to write hilar/ infra hilar mass Bronchoscopy done 07/21/18 showed mediastinal mass with adenopathy, lesion was found in the bronchus intermediaries and right upper lobe, biopsy results positive for small cell lung cancer. Bronchoalveolar lavage was performed. 07/22/18 brain MRI was unremarkable, no evidence of metastatic disease. Plan: appreciate oncology recommendations Day 2 of inpatient chemotherapy with cisplatin and etoposide allopurinol to prevent tumor lysis syndrome - Time Spent with Patient Total time spent is greater than 50% in coordination of care (as documented) at patient's floor/unit and/or counseling patient: Internal Medicine: Result - Labs CBC & Chem 7: 07/24/18 05:22 07/24/18 05:22 Labs: Short CBC 07/24/18 Range/Units 05:22 WBC 29.3 H (4.3-11.1) K/mcL Hgb 12.8 L (12.9-16.9) g/dL Hct 42.5 (37.5-50.1) % Plt Count 162 (140-400) K/mcL Neutrophils # 27.7 H (1.6-8.9) K/mcL BMP 07/24/18 05:22 Sodium 138 Potassium 5.5 H Chloride 92 L Carbon Dioxide 43 H* BUN 32 H Creatinine 0.82 Glucose 157 H Calcium 8.4 L Liver Function 07/24/18 Range/Units 05:22 Total Bilirubin 0.5 (0.3-1.0) mg/dL AST 22 (13-39) Units/L ALT 36 (7-52) Units/L Alkaline Phosphatase 70 (34-104) Units/L Albumin 3.0 L (3.5-5.7) g/dL Urine 07/23/18 Range/Units 11:52 Urine Color Yellow (Yellow) Urine Clarity Clear (Clear) Urine pH 6.5 (5.0-8.0) pH Units Ur Specific [place] 1.010 (1.010-1.025) Urine Protein Negative (Neg-Trace) mg/dL Urine Glucose (UA) Normal (Normal) mg/dL - ABG Interpretation ABG results: ABG ABG pH 7.35 pH Units (7.32-7.45) 07/16/18 02:35 ABG pCO2 73 mmHg (35-45) H* D 07/16/18 02:35 ABG pO2 75 mmHg (85-104) L D 07/16/18 02:35 ABG O2 Saturation 93 % (95-98) L 07/16/18 02:35 PT/INR, D-dimer PT 11.1 Seconds (9.4-12.1) 07/17/18 05:43 - Impressions Impressions Brain MRI 07/22/18 16:42 IMPRESSION: Unremarkable brain MRI. No evidence of metastatic disease. D/ / Josiah Benites MD / Josiah Benites MD Interpreting Provider: Josiah Benites MD Consult Discharge Plan - Plan Referrals: Andry Abdi Jr, MD [Primary Care Provider] - 07/26/18 12:00 pm (Please follow up as schedule....) Regis Braga MD [Partnered Physician] - 08/31/18 9:30 am <Martha Vasques - Last Filed: 07/24/18 15:31> Hospitalist Progress Note - Encounter Date of Encounter: 07/24/18 - Exam Vitals: Temp Pulse Resp BP Pulse Ox 97.8 F 91 20 102/80 91 07/24/18 11:48 07/24/18 13:00 07/24/18 13:00 07/24/18 13:00 07/24/18 13:00 - Assessment and Plan (1) Tobacco abuse Current Visit: No Status: Chronic (2) DVT prophylaxis Current Visit: Yes Status: Acute (3) Anxiety Current Visit: Yes Status: Chronic (4) COPD exacerbation Current Visit: Yes Status: Acute (5) Acute on chronic respiratory failure with hypoxia and hypercapnia Current Visit: Yes Status: Acute (6) Pneumonia Current Visit: Yes Status: Resolved (7) Atrial fibrillation with RVR Current Visit: Yes Status: Resolved (8) Advanced care planning/counseling discussion Current Visit: Yes Status: Acute (9) Chronic pain Current Visit: Yes Status: Chronic (10) Small cell lung cancer Current Visit: Yes Status: Acute - Time Spent with Patient Total time spent is greater than 50% in coordination of care (as documented) at patient's floor/unit and/or counseling patient: Internal Medicine: Result - Labs CBC & Chem 7: 07/24/18 05:22 07/24/18 05:22 Labs: Short CBC 07/24/18 Range/Units 05:22 WBC 29.3 H (4.3-11.1) K/mcL Hgb 12.8 L (12.9-16.9) g/dL Hct 42.5 (37.5-50.1) % Plt Count 162 (140-400) K/mcL Neutrophils # 27.7 H (1.6-8.9) K/mcL BMP 07/24/18 05:22 Sodium 138 Potassium 5.5 H Chloride 92 L Carbon Dioxide 43 H* BUN 32 H Creatinine 0.82 Glucose 157 H Calcium 8.4 L Liver Function 07/24/18 Range/Units 05:22 Total Bilirubin 0.5 (0.3-1.0) mg/dL AST 22 (13-39) Units/L ALT 36 (7-52) Units/L Alkaline Phosphatase 70 (34-104) Units/L Albumin 3.0 L (3.5-5.7) g/dL - ABG Interpretation ABG results: ABG ABG pH 7.35 pH Units (7.32-7.45) 07/16/18 02:35 ABG pCO2 73 mmHg (35-45) H* D 07/16/18 02:35 ABG pO2 75 mmHg (85-104) L D 07/16/18 02:35 ABG O2 Saturation 93 % (95-98) L 07/16/18 02:35 PT/INR, D-dimer PT 11.1 Seconds (9.4-12.1) 07/17/18 05:43 - Impressions Impressions Brain MRI 07/22/18 16:42 IMPRESSION: Unremarkable brain MRI. No evidence of metastatic disease. D/ / Josiah Benites MD / Josiah Benites MD Interpreting Provider: Josiah Benites MD - Attending Attestation I examined this patient and my medical decision-making was reviewed with the Resident Physician Dr. Robertson. I agree with the documented findings, disposition and treatment plan as described except to the extent set forth below. Mr. Bermudez is a 58 year old male with a known past medical history of COPD, chronic hypoxic respiratory failure on 4 lit oxygen dependent at home, hypertension and chronic tobacco dependence patient presented emergency room complaining about a progressively worsening shortness of breath, cough with expectoration. Patient was admitted in the hospital for acute hypoxic respiratory failure due to pneumonia. His his CT of the chest showed left lower lobe nodule and severe mediastinal lymphadenopathy concerning for metastatic disease.Had bronchoscopy on 07/21/18. currently he is on 12 lit O2 now. No events over night. Patient did tolerate chemotherapy well yesterday. States he is feeling little better today Gen: A, A, O x3 Chest: Diminished BS b/l moderate wheezing, mild crackles,rales + Heart: S1S2+ Tachy a/p 1. Acute pneumonia - bacterial 2. Acute COPD exacerbation 3. Acute on chronic hypoxic respiratory failure 4. Possible small cell lung cancer continue chemotherapy as per oncology recommendations today's chemotherapy day # 2 He wanted remain full code. SW and Palliative care consulted cont Deepthi He had 10 days of broad spec abx.. D/c all abx on 07/22/18 switch to PO steroids use BiPAP prn appreciate Pulm / Heme Onc recommendations <EstephanieVeda - Last Filed: 07/24/18 09:49> (3) Pneumonia Qualifiers: Pneumonia type: due to unspecified organism Laterality: right Lung location : lower lobe of lung Qualified Code(s): J18.1 - Lobar pneumonia, unspecified organism (5) Chronic pain Qualifiers: Chronic pain type: chronic pain syndrome Qualified Code(s): G89.4 - Chronic pain syndrome <Martha Vasques - Last Filed: 07/24/18 15:31> (6) Pneumonia Qualifiers: Pneumonia type: due to unspecified organism Laterality: right Lung location : lower lobe of lung Qualified Code(s): J18.1 - Lobar pneumonia, unspecified organism (9) Chronic pain Qualifiers: Chronic pain type: chronic pain syndrome Qualified Code(s): G89.4 - Chronic pain syndrome
[2018-07-24] MEDS ORDERED: Nicotine 21 MG PATCH.TD24 TD PRN (09:57)
[2018-07-24] MEDS ORDERED: 0.9 % Sodium Chloride 500 ML ONE (10:34)
[2018-07-24] MEDS: Budesonide/Formoterol 80/4.5 MDI IH SCH ×2 (10:54→19:42)
[2018-07-24] MEDS: *HR* OxyCODONE Immed Rel 5 MG TABLET PO PRN (12:22)
[2018-07-24] MEDS: ALPRAZolam 0.5 MG TABLET PO PRN (14:26)
[2018-07-25] MEDS: Ipratropium/Albuterol Neb 3 ML IH SCH ×7 (00:07→23:32)
[2018-07-25] MEDS: *HR* OxyCODONE Immed Rel 5 MG TABLET PO PRN ×4 (01:46→22:51)
[2018-07-25 05:00] LABS: Immature Granulocytes % 0.9 % (0-4)
[2018-07-25 05:02] LABS: Basophils # 0.1 K/mcL (0.0-0.2); Basophils % 0.2 %; Hematocrit 44.6 % (37.5-50.1); Hemoglobin 13.7 g/dL (12.9-16.9); Lymphocytes # 0.3 K/mcL (0.6-4.6); Lymphocytes % 0.8 %; Mean Corpuscular HGB Conc 30.7 g/dL (31.6-35.5); Mean Corpuscular Hemoglobin 29.3 pg (28.0-33.3); Mean Corpuscular Volume 95.3 fL (83.0-100.0); Mean Platelet Volume 11.1 fL (9.4-12.4); Monocytes # 0.9 K/mcL (0.0-1.3); Monocytes % 2.6 %; Neutrophils # 31.3 K/mcL (1.6-8.9); Platelet Count 162 K/mcL (140-400); Red Blood Count 4.68 M/mcL (4.19-5.50); Red Cell Distribution Width 13.7 % (11.5-14.5); Segmented Neutrophils % 95.5 %
[2018-07-25 05:18] LABS: Platelet Estimate Normal (Normal)
[2018-07-25 05:21] LABS: Alanine Aminotransferase 39 Units/L (7-52); Albumin 3.2 g/dL (3.5-5.7); Albumin/Globulin Ratio 1.5 (1.1-2.2); Alkaline Phosphatase 60 Units/L (34-104); Aspartate Amino Transferase 19 Units/L (13-39); BUN/Creatinine Ratio 42 (6-26); Bilirubin,Total 0.4 mg/dL (0.3-1.0); Blood Urea Nitrogen 38 mg/dL (8-23); Calcium 8.6 mg/dL (8.6-10.3); Carbon Dioxide 43 mEq/L (23-29); Chloride 89 mEq/L (98-107); Globulin 2.1 g/dL (2.4-3.5); Glucose 160 mg/dL (70-105); Osmolality,Calculated 292 (280-300); Potassium 5.2 mEq/L (3.5-5.1); Sodium 135 mEq/L (136-145); Total Protein 5.3 g/dL (6.4-8.9); Uric Acid 3.4 mg/dL (2.3-7.6); eGFR For Non-African Americans > 60 (> 60)
[2018-07-25] MEDS: *HR* OxyCODONE ER (12 HR) 20 MG TABLET PO SCH ×2 (05:39→18:31)
[2018-07-25] MEDS: *HR* Enoxaparin 40 MG/0.4 ML SYRINGE SQ SCH (05:39)
[2018-07-25] MEDS: Budesonide/Formoterol 80/4.5 MDI IH SCH ×2 (08:09→20:47)
[2018-07-25] MEDS: Diltiazem CD (24hr) 300 MG CAPSULE PO SCH (09:42)
[2018-07-25] MEDS: predniSONE 20 MG TABLET PO SCH (09:42)
[2018-07-25] MEDS: Sennosides/Docusate Sodium TABLET PO SCH ×2 (09:43→19:45)
[2018-07-25] MEDS: Aspirin Enteric Coated 81 MG Tablet PO SCH (09:43)
--- NOTE | 2018-07-25 10:36 | Internal Med Progress Note ---
<Veda Robertson - Last Filed: 07/25/18 10:34> Hospitalist Progress Note - Encounter Date of Encounter: 07/25/18 Time of Encounter: 10:34 - Exam Vitals: Temp Pulse Resp BP Pulse Ox 97.8 F 89 20 96/68 90 07/25/18 07:00 07/25/18 08:50 07/25/18 08:50 07/25/18 07:00 07/25/18 08:50 Exam: Gen.: alert and oriented x-ray, pleasant, no acute distress. Patient sitting up in bed comfortably eating breakfast. CV: distant heart sounds. Lungs: decreased breath sounds diffusely. No wheezing present. Abdomen: soft, nondistended, nontender, bowel sounds present. Extremities: +3 bilateral lower extremity pitting edema present. Skin: arms diffusely erythematous with some bruising present - Assessment and Plan (1) Acute on chronic respiratory failure with hypoxia and hypercapnia Current Visit: Yes Status: Acute Assessment and Plan: Currently on 15 L high flow oxygen etiology multifactorial secondary to severe COPD (on 4L oxygen at home), pneumonia, mass effect from small cell lung cancer patient completed course of antibiotics for pneumonia (received 7 days cefepime , 7 days Flagyl) 07/11/18 sputum culture negative 07/13/18 blood cultures negative Legionella and strep pneumoniae antigens negative Plan completed 2 days of inpatient chemotherapy, further management of squamous cell lung cancer per oncology recommendations. appreciate pulmonology and heme/onc recommendations 07/23/18 blood cultures X2 final report pending continue 40 mg prednisone daily supplemental oxygen to maintain saturation above 88% scheduled bronchodilators, Symbicort (2) COPD exacerbation Current Visit: Yes Status: Acute Assessment and Plan: Plan as #1 above (3) Pneumonia Current Visit: Yes Status: Resolved Assessment and Plan: Patient completed course of antibiotics, which are currently discontinued (4) Atrial fibrillation with RVR Current Visit: Yes Status: Resolved Assessment and Plan: Patient developed new onset atrial fibrillation with RVR during hospitalization etiology likely multifactorial secondary to COPD exacerbation, lung malignancy with mass effect. CHADS2/VASC: 1 echocardiogram from 07/16/18 showed LVEF 60-65%, normal LV chamber size, wall thickness, function, moderate LV diastolic dysfunction, normal RV structure and function, mild tricuspid regurgitation, mild pulmonary hypertension. Consult to cardiology was made, recommended aspirin. Patient successfully transition from Cardizem gtt to PO Cardizem Plan: rate control with metoprolol PRN IV metoprolol continue PO Cardizem consider outpatient stress test (5) Chronic pain Current Visit: Yes Status: Chronic Assessment and Plan: Per palliative care team (6) Anxiety Current Visit: Yes Status: Chronic Assessment and Plan: Continue home dose of Xanax (7) Tobacco abuse Current Visit: No Status: Chronic Assessment and Plan: Smoking cessation given. Patient could not tolerate Nicotine patch (8) Advanced care planning/counseling discussion Current Visit: Yes Status: Acute Assessment and Plan: Appreciate palliative care recommendations. Patient has decided to proceed with chemotherapy and is aware of the side effects. His current goal is to get better so that he could take care of his life. Per palliative care note, patient is not ready at this time to make a decision regarding advanced care planning, desire for intubation and CPR. (9) DVT prophylaxis Current Visit: Yes Status: Acute Assessment and Plan: Continue SQ Lovenox (10) Small cell lung cancer Current Visit: Yes Status: Acute Assessment and Plan: 07/19/18 chest CTA showed no evidence of PE. There was compression of the distal right pulmonary artery and some of its branches secondary to write hilar/ infra hilar mass Bronchoscopy done 07/21/18 showed mediastinal mass with adenopathy, lesion was found in the bronchus intermediaries and right upper lobe, biopsy results positive for small cell lung cancer. Bronchoalveolar lavage was performed. 07/22/18 brain MRI was unremarkable, no evidence of metastatic disease. Plan: appreciate oncology recommendations completed two days of inpatient chemotherapy. further management per oncology allopurinol to prevent tumor lysis syndrome - Time Spent with Patient Total time spent is greater than 50% in coordination of care (as documented) at patient's floor/unit and/or counseling patient: Internal Medicine: Result - Labs CBC & Chem 7: 07/25/18 04:36 07/25/18 04:36 Labs: Short CBC 07/25/18 Range/Units 04:36 WBC 32.8 H* (4.3-11.1) K/mcL Hgb 13.7 (12.9-16.9) g/dL Hct 44.6 (37.5-50.1) % Plt Count 162 (140-400) K/mcL Neutrophils # 31.3 H (1.6-8.9) K/mcL BMP 07/25/18 04:36 Sodium 135 L Potassium 5.2 H Chloride 89 L Carbon Dioxide 43 H* BUN 38 H Creatinine 0.90 Glucose 160 H Calcium 8.6 Liver Function 07/25/18 Range/Units 04:36 Total Bilirubin 0.4 (0.3-1.0) mg/dL AST 19 (13-39) Units/L ALT 39 (7-52) Units/L Alkaline Phosphatase 60 (34-104) Units/L Albumin 3.2 L (3.5-5.7) g/dL - ABG Interpretation ABG results: ABG ABG pH 7.35 pH Units (7.32-7.45) 07/16/18 02:35 ABG pCO2 73 mmHg (35-45) H* D 07/16/18 02:35 ABG pO2 75 mmHg (85-104) L D 07/16/18 02:35 ABG O2 Saturation 93 % (95-98) L 07/16/18 02:35 PT/INR, D-dimer PT 11.1 Seconds (9.4-12.1) 07/17/18 05:43 Consult Discharge Plan - Plan Referrals: Andry Abdi Jr, MD [Primary Care Provider] - 07/26/18 12:00 pm (Please follow up as schedule....) Regis Braga MD [Partnered Physician] - 08/31/18 9:30 am <Martha Vasques - Last Filed: 07/25/18 13:18> Hospitalist Progress Note - Encounter Date of Encounter: 07/25/18 - Exam Vitals: Temp Pulse Resp BP Pulse Ox 97.7 F 95 18 100/55 90 07/25/18 10:54 07/25/18 11:54 07/25/18 11:54 07/25/18 10:54 07/25/18 11:54 - Assessment and Plan (1) Tobacco abuse Current Visit: No Status: Chronic (2) DVT prophylaxis Current Visit: Yes Status: Acute (3) Anxiety Current Visit: Yes Status: Chronic (4) COPD exacerbation Current Visit: Yes Status: Acute (5) Acute on chronic respiratory failure with hypoxia and hypercapnia Current Visit: Yes Status: Acute (6) Pneumonia Current Visit: Yes Status: Resolved (7) Atrial fibrillation with RVR Current Visit: Yes Status: Resolved (8) Advanced care planning/counseling discussion Current Visit: Yes Status: Acute (9) Chronic pain Current Visit: Yes Status: Chronic (10) Small cell lung cancer Current Visit: Yes Status: Acute - Time Spent with Patient Total time spent is greater than 50% in coordination of care (as documented) at patient's floor/unit and/or counseling patient: Internal Medicine: Result - Labs CBC & Chem 7: 07/25/18 04:36 07/25/18 04:36 Labs: Short CBC 07/25/18 Range/Units 04:36 WBC 32.8 H* (4.3-11.1) K/mcL Hgb 13.7 (12.9-16.9) g/dL Hct 44.6 (37.5-50.1) % Plt Count 162 (140-400) K/mcL Neutrophils # 31.3 H (1.6-8.9) K/mcL BMP 07/25/18 04:36 Sodium 135 L Potassium 5.2 H Chloride 89 L Carbon Dioxide 43 H* BUN 38 H Creatinine 0.90 Glucose 160 H Calcium 8.6 Liver Function 07/25/18 Range/Units 04:36 Total Bilirubin 0.4 (0.3-1.0) mg/dL AST 19 (13-39) Units/L ALT 39 (7-52) Units/L Alkaline Phosphatase 60 (34-104) Units/L Albumin 3.2 L (3.5-5.7) g/dL - ABG Interpretation ABG results: ABG ABG pH 7.35 pH Units (7.32-7.45) 07/16/18 02:35 ABG pCO2 73 mmHg (35-45) H* D 07/16/18 02:35 ABG pO2 75 mmHg (85-104) L D 07/16/18 02:35 ABG O2 Saturation 93 % (95-98) L 07/16/18 02:35 PT/INR, D-dimer PT 11.1 Seconds (9.4-12.1) 07/17/18 05:43 - Attending Attestation I examined this patient and my medical decision-making was reviewed with the Resident Physician Dr. Robertson. I agree with the documented findings, disposition and treatment plan as described except to the extent set forth below. Mr. Bermudez is a 58 year old male with a known past medical history of COPD, chronic hypoxic respiratory failure on 4 lit oxygen dependent at home, hypertension and chronic tobacco dependence patient presented emergency room complaining about a progressively worsening shortness of breath, cough with expectoration. Patient was admitted in the hospital for acute hypoxic respiratory failure due to pneumonia. His his CT of the chest showed left lower lobe nodule and severe mediastinal lymphadenopathy concerning for metastatic disease.Had bronchoscopy on 07/21/18. currently he is on 15 lit high flow O2 now. No events over night. Patient is tolerating chemotherapy well. States he is feeling little better today Gen: A, A, O x3 Chest: Diminished BS b/l moderate wheezing, mild crackles,rales + Heart: S1S2+ a/p 1. Acute pneumonia - bacterial 2. Acute COPD exacerbation 3. Acute on chronic hypoxic respiratory failure 4. Small cell lung cancer continue chemotherapy as per oncology recommendations He wanted remain full code. SW and Palliative care consulted cont Duoneb He had 10 days of broad spec abx.. D/c all abx on 07/22/18 cont tapering PO steroids use BiPAP prn appreciate Pulm / Heme Onc recommendations <Veda Robertson - Last Filed: 07/25/18 10:34> (3) Pneumonia Qualifiers: Pneumonia type: due to unspecified organism Laterality: right Lung location : lower lobe of lung Qualified Code(s): J18.1 - Lobar pneumonia, unspecified organism (5) Chronic pain Qualifiers: Chronic pain type: chronic pain syndrome Qualified Code(s): G89.4 - Chronic pain syndrome <Martha Vasques - Last Filed: 07/25/18 13:18> (6) Pneumonia Qualifiers: Pneumonia type: due to unspecified organism Laterality: right Lung location : lower lobe of lung Qualified Code(s): J18.1 - Lobar pneumonia, unspecified organism (9) Chronic pain Qualifiers: Chronic pain type: chronic pain syndrome Qualified Code(s): G89.4 - Chronic pain syndrome
[2018-07-25] MEDS: ALPRAZolam 0.5 MG TABLET PO PRN (13:51)
--- NOTE | 2018-07-25 14:13 | Oncology Inp Progress Note ---
Date of Encounter: 07/25/18 Time of Encounter: 09:00 (1) Small cell lung cancer Current Visit: Yes Status: Acute Assessment and plan: received day 2 chemotherapy yesterday no ac events overnight and yesterday WBC high, monitor next wk, outpatient neulasta possibly Labs reviewed K is overall stable, mildly up Plan d.w pt in detail Oncology: Subj Interval history: sob better, no nausea/emesis - Constitutional Vitals: Vital Signs Temp Pulse Resp BP Pulse Ox 07/25/18 13:42 107 22 91 07/25/18 11:54 95 18 90 07/25/18 11:15 20 90 07/25/18 10:54 97.7 F 95 20 100/55 88 07/25/18 08:50 98 20 90 07/25/18 08:09 18 90 07/25/18 07:00 97.8 F 82 22 96/68 90 07/25/18 03:50 18 91 07/25/18 02:58 97.7 F 75 16 87/60 90 07/25/18 00:07 16 90 07/24/18 23:38 98.3 F 61 18 88/61 90 07/24/18 21:22 18 104/54 90 07/24/18 20:03 97.8 F 76 22 104/54 89 07/24/18 19:42 18 88 07/24/18 16:25 82 20 90 07/24/18 16:19 97.8 F 69 20 97/58 91 07/24/18 16:09 18 89 Intake and Output 07/24/18 07/25/18 07/25/18 23:59 07:59 15:59 Intake Total 240 / 240 240 / 240 620 / 620 Output Total 430 / 430 200 / 200 300 / 300 Balance -190 / -190 40 / 40 320 / 320 Intake: Oral 240 / 240 240 / 240 620 / 620 Output: Urine 430 / 430 200 / 200 300 / 300 Other: Meal Lunch Percent of Meal Consumed 95% # Bowel Movements 0 Weight 91.716 kg Patient Weight 07/25/18 23:59 Weight 91.716 kg General appearance: mild distress - Head Head exam: Present: atraumatic, normal inspection - Neck Neck exam: Present: normal inspection - Respiratory Respiratory exam: Present: CTAB - Cardiovascular Cardiovascular exam: Present: +S1, +S2 - GI/Abdominal GI/Abdominal exam: Present: normal bowel sounds, soft - Extremities Exam Extremities exam: Present: pedal edema - Neurological Exam Neurological exam: Present: alert, oriented X3, no focal deficits Oncology: Obj Data - Labs CBC & Chem 7: 07/25/18 04:36 07/25/18 04:36 Labs: Laboratory Results - last 24 hr 07/25/18 07/25/18 04:36 04:36 WBC 32.8 H* RBC 4.68 Hgb 13.7 Hct 44.6 MCV 95.3 MCH 29.3 MCHC 30.7 L RDW 13.7 Plt Count 162 MPV 11.1 Immature Gran % 0.9 Seg Neutrophils % 95.5 Lymphocytes % 0.8 Monocytes % 2.6 Eosinophils % 0.0 Basophils % 0.2 Neutrophils # 31.3 H Lymphocytes # 0.3 L Monocytes # 0.9 Eosinophils # 0.0 Basophils # 0.1 Platelet Estimate Normal Sodium 135 L Potassium 5.2 H Chloride 89 L Carbon Dioxide 43 H* BUN 38 H Creatinine 0.90 Est GFR ( Amer) > 60 Est GFR (Non-Af Amer) > 60 BUN/Creatinine Ratio 42 H Glucose 160 H Calculated Osmolality 292 Uric Acid 3.4 Calcium 8.6 Total Bilirubin 0.4 AST 19 ALT 39 Alkaline Phosphatase 60 Serum Total Protein 5.3 L Albumin 3.2 L Globulin 2.1 L Albumin/Globulin Ratio 1.5 - ABG Interpretation ABG results: ABG ABG pH 7.35 pH Units (7.32-7.45) 07/16/18 02:35 ABG pCO2 73 mmHg (35-45) H* D 07/16/18 02:35 ABG pO2 75 mmHg (85-104) L D 07/16/18 02:35 ABG O2 Saturation 93 % (95-98) L 07/16/18 02:35 PT/INR, D-dimer PT 11.1 Seconds (9.4-12.1) 07/17/18 05:43 Consult Discharge Plan - Plan Referrals: Andry Abdi Jr, MD [Primary Care Provider] - 07/26/18 12:00 pm (Please follow up as schedule....) Regis Braga MD [Partnered Physician] - 08/31/18 9:30 am Inpatient Charges Provider: Dr. Irwin Caldera Follow Up: 10007
[2018-07-26 04:47] LABS: Hematocrit 38.1 % (37.5-50.1); Hemoglobin 12.1 g/dL (12.9-16.9); Mean Corpuscular HGB Conc 31.8 g/dL (31.6-35.5); Mean Corpuscular Hemoglobin 29.1 pg (28.0-33.3); Mean Corpuscular Volume 91.6 fL (83.0-100.0); Mean Platelet Volume 10.4 fL (9.4-12.4); Platelet Count 134 K/mcL (140-400); Red Blood Count 4.16 M/mcL (4.19-5.50); Red Cell Distribution Width 13.4 % (11.5-14.5)
[2018-07-26 05:10] LABS: Magnesium 2.2 mg/dL (1.6-2.6); Phosphorous 4.7 mg/dL (2.7-4.5)
[2018-07-26 05:12] LABS: Alanine Aminotransferase 33 Units/L (7-52); Albumin 2.8 g/dL (3.5-5.7); Albumin/Globulin Ratio 1.6 (1.1-2.2); Alkaline Phosphatase 56 Units/L (34-104); Aspartate Amino Transferase 18 Units/L (13-39); BUN/Creatinine Ratio 38 (6-26); Bilirubin,Total 0.4 mg/dL (0.3-1.0); Blood Urea Nitrogen 43 mg/dL (8-23); Calcium 8.3 mg/dL (8.6-10.3); Carbon Dioxide 43 mEq/L (23-29); Chloride 88 mEq/L (98-107); Globulin 1.7 g/dL (2.4-3.5); Glucose 145 mg/dL (70-105); Osmolality,Calculated 289 (280-300); Potassium 5.2 mEq/L (3.5-5.1); Sodium 133 mEq/L (136-145); Total Protein 4.5 g/dL (6.4-8.9); Uric Acid 3.4 mg/dL (2.3-7.6); eGFR For Non-African Americans > 60 (> 60)
[2018-07-26] MEDS: *HR* OxyCODONE ER (12 HR) 20 MG TABLET PO SCH ×2 (05:24→17:12)
[2018-07-26] MEDS: *HR* Enoxaparin 40 MG/0.4 ML SYRINGE SQ SCH (05:24)
[2018-07-26] MEDS: Ipratropium/Albuterol Neb 3 ML IH SCH ×6 (05:31→23:49)
[2018-07-26] MEDS: Sennosides/Docusate Sodium TABLET PO SCH ×2 (08:24→20:11)
[2018-07-26] MEDS: Diltiazem CD (24hr) 300 MG CAPSULE PO SCH (08:24)
[2018-07-26] MEDS: Aspirin Enteric Coated 81 MG Tablet PO SCH (08:24)
[2018-07-26] MEDS: predniSONE 10 MG TABLET PO SCH (08:24)
[2018-07-26] MEDS: Budesonide/Formoterol 80/4.5 MDI IH SCH ×2 (11:22→19:19)
[2018-07-26] MEDS ORDERED: 0.9 % Sodium Chloride 1,000 ML IVC SCH (11:30)
[2018-07-26] MEDS: *HR* OxyCODONE Immed Rel 5 MG TABLET PO PRN ×2 (11:53→20:12)
--- NOTE | 2018-07-26 15:15 | Palliative Progress Note ---
Date of Encounter: 07/26/18 Time of Encounter: 10:00 - Assessment and plan (1) Goals of care, counseling/discussion Current Visit: Yes Status: Acute Assessment and plan: Patient had clear GOC, he would like to continue current management and treatment. Again encouraged pt to discuss GOC with his family. (2) Chronic pain Current Visit: Yes Status: Chronic Assessment and plan: Patient feels he is getting more pain medication then usual. discussed pain medication regimen, explained to pt the use of long acting medication, and that the PRN medication is to be requested only for breakthrough pain and not routinely. patient agrees to continue current dosage of long acting, and reduce the request of prn doses to the minimum necessary. will continue Oxycodone ER 20 mg q12hr, and Oxycodone IR 10 mg q6hrs for breakthrough. Qualifiers: Chronic pain type: chronic pain syndrome Qualified Code(s): G89.4 - Chronic pain syndrome (3) COPD with acute exacerbation Current Visit: No Status: Acute (4) Pneumonia Current Visit: Yes Status: Resolved Assessment and plan: ABX course completed Qualifiers: Pneumonia type: due to unspecified organism Laterality: right Lung location: lower lobe of lung Qualified Code(s): J18.1 - Lobar pneumonia, unspecified organism (5) Hilar mass Current Visit: Yes Status: Acute Assessment and plan: Biopsy positive for small cell lung cancer. completed two days of inpatient chemotherapy. further management per oncology - Time Spent With Patient Total time spent is greater than 50% in coordination of care (as documented) at patient's floor/unit and/or counseling patient: 25 - 35 minutes - Subjective Interval history: Patient is feeling well today, still SOB, but no other complains. He is on NC 10L, SpO2 89-90% - Constitutional Vitals: Abnormal lab results WBC 22.6 K/mcL (4.3-11.1) H 07/26/18 04:11 RBC 4.16 M/mcL (4.19-5.50) L 07/26/18 04:11 Hgb 12.1 g/dL (12.9-16.9) L D 07/26/18 04:11 Plt Count 134 K/mcL (140-400) L 07/26/18 04:11 Neutrophils # 31.3 K/mcL (1.6-8.9) H 07/25/18 04:36 Lymphocytes # 0.3 K/mcL (0.6-4.6) L 07/25/18 04:36 Toxic Granulation Present (Not Present) A 07/23/18 03:33 APTT 22.5 Seconds (26.0-36.0) L 07/17/18 05:43 Heparin Anti-Xa, LM Wt 0.09 IU/mL (0.50-1.10) L 07/17/18 05:43 ABG pCO2 73 mmHg (35-45) H* D 07/16/18 02:35 ABG pO2 75 mmHg (85-104) L D 07/16/18 02:35 ABG HCO3 41 mEq/L (21-27) H 07/16/18 02:35 ABG Total CO2 43 mEq/L (20-26) H 07/16/18 02:35 ABG O2 Saturation 93 % (95-98) L 07/16/18 02:35 ABG Base Excess 12 mEq/L (-2 to 3) H 07/16/18 02:35 VBG pCO2 80 mmHg (41-51) H* 07/11/18 17:41 VBG HCO3 43 mEq/L (21-27) H 07/11/18 17:41 Sodium 133 mEq/L (136-145) L 07/26/18 04:11 Potassium 5.2 mEq/L (3.5-5.1) H 07/26/18 04:11 Chloride 88 mEq/L (98-107) L 07/26/18 04:11 Carbon Dioxide 43 mEq/L (23-29) H* 07/26/18 04:11 BUN 43 mg/dL (8-23) H 07/26/18 04:11 BUN/Creatinine Ratio 38 (6-26) H 07/26/18 04:11 Glucose 145 mg/dL (70-105) H 07/26/18 04:11 Calcium 8.3 mg/dL (8.6-10.3) L 07/26/18 04:11 Venous Ioniz Calcium 1.08 mmol/L (1.15-1.35) L 07/16/18 11:04 Phosphorus 4.7 mg/dL (2.7-4.5) H 07/26/18 04:11 Serum Total Protein 4.5 g/dL (6.4-8.9) L 07/26/18 04:11 Albumin 2.8 g/dL (3.5-5.7) L 07/26/18 04:11 Globulin 1.7 g/dL (2.4-3.5) L 07/26/18 04:11 TSH 0.275 mcIU/mL (0.340-5.600) L 07/15/18 14:15 Free T3 2.36 pg/mL (2.50-3.90) L 07/16/18 05:16 Fluid Appearance Cloudy (Clear) A 07/21/18 08:00 Exam: General appearance: alert, oriented x3, in no acute distress Eyes: nonicteric, left lower eyelid edema EENT: oropharynx moist Chest: reduced breath sounds, increased effort Cardiovascular: regular rate and rhythm Gastrointestinal: soft, non-tender, non-distended, palpable subcutaneous abdominal mass in left upper quadrant Integumentary: normal Extremities: bilateral edema Neurologic: normal mental status, non-focal exam Psych: mood appropriate, affect normal Palliative Quality Palliative Quality: Screen for Code Status: NA, Screen for Goals of Care: NA, Screen for Pain: NA, If Pain Regimen Started, Initiate Bowel Regimen: NA, Screen for Nausea/Vomitting: NA - Labs CBC & Chem 7: 07/26/18 04:11 07/26/18 04:11 Labs: Laboratory Results - last 24 hr 07/26/18 07/26/18 07/26/18 04:11 04:11 04:11 WBC 22.6 H RBC 4.16 L Hgb 12.1 L D Hct 38.1 MCV 91.6 MCH 29.1 MCHC 31.8 RDW 13.4 Plt Count 134 L MPV 10.4 Sodium 133 L Potassium 5.2 H Chloride 88 L Carbon Dioxide 43 H* BUN 43 H Creatinine 1.13 Est GFR ( Amer) > 60 Est GFR (Non-Af Amer) > 60 BUN/Creatinine Ratio 38 H Glucose 145 H Calculated Osmolality 289 Uric Acid 3.4 Calcium 8.3 L Phosphorus 4.7 H Magnesium 2.2 Total Bilirubin 0.4 AST 18 ALT 33 Alkaline Phosphatase 56 Serum Total Protein 4.5 L Albumin 2.8 L Globulin 1.7 L Albumin/Globulin Ratio 1.6 - ABG Interpretation ABG results: ABG ABG pH 7.35 pH Units (7.32-7.45) 07/16/18 02:35 ABG pCO2 73 mmHg (35-45) H* D 07/16/18 02:35 ABG pO2 75 mmHg (85-104) L D 07/16/18 02:35 ABG O2 Saturation 93 % (95-98) L 07/16/18 02:35 PT/INR, D-dimer PT 11.1 Seconds (9.4-12.1) 07/17/18 05:43 Consult Discharge Plan - Plan Referrals: Andry Abdi Jr, MD [Primary Care Provider] - (Please follow up as schedule.... ) Regis Braga MD [Partnered Physician] - 08/31/18 9:30 am
[2018-07-26] MEDS: ALPRAZolam 0.5 MG TABLET PO PRN (17:12)
--- NOTE | 2018-07-26 18:05 | Oncology Inp Progress Note ---
Date of Encounter: 07/26/18 Time of Encounter: 16:00 (1) Small cell lung cancer Current Visit: Yes Status: Acute Assessment and plan: He has received chemotherpay over the weekend. There are some indications that he may be experiencing tumor lysis. Agree with hydration at this point. Drew was receiving allopurinol. His respiratory status has not improved and potentially has even worsened since starting chemotherapy. Although, the chemotherapy seems to be affecting the cancer and potentially causing tumor lysis, the degree of impact to result in symptomatic improvement has been nil. We had a long conversation with the patient regarding his prognosis. I informed him that this is stage 4 cancer and that it is incurable which he understood. I informed him that I was not confident that the chemotherapy will improve his symptoms at this point and wiht the tumor lysis may have actually made things worse. We discussed that we would take it 1 day at a time but that ultimately, he may not be able to leave the hospital at all before dying. Even hospice at home may be a significant challenge because he has no dependable family in the area (his is sickly herself) and thus would not be able to get 24 hour support let alone the oxygen suppoprt that may be necessary. Therefore, we will continue to see if there is any symptomatic improvement. If he did not get the 3rd dose of etoposide as planned, we could consider that. However, I think that may be a futile endeavour which I eplained to him. Meanwhile, we did agree that he would be DNr/DNI. (2) Hypoxemia Current Visit: No Status: Acute (3) Acute and chronic respiratory failure with hypoxia Current Visit: No Status: Acute Assessment and plan: still requiring significant oxygen suppoirt. See above. he desats to the 70s with minimal movement. (4) Acute kidney injury Current Visit: Yes Status: Acute Assessment and plan: Could be from tumor lysis or the cisplatin directly. Agree with fluids. Oncology: Subj Interval history: Patient indicates that he is having a hard time breathing today and that today is a bad day. He also did not sleep well. The nurses reported that there might be some confusion also. I did perceive some possible tangential thinking today during our interview. He feels having the BiPAP more would help. He received chemotherapy over the weekend but has not experienced any significant change in his sympotoms and potentially some worsening. - Constitutional Vitals: Vital Signs Temp Pulse Resp BP Pulse Ox 07/26/18 16:34 12 107/67 94 07/26/18 15:49 97.9 F 66 89 107/67 07/26/18 11:26 22 88 07/26/18 11:03 98.8 F 61 93 117/79 07/26/18 07:41 18 97 07/26/18 07:23 97.4 F L 61 17 104/72 95 07/26/18 05:50 98.1 F 65 17 102/70 96 07/26/18 05:42 17 96 07/26/18 05:37 14 94 07/26/18 03:15 98.1 F 65 16 102/70 88 07/26/18 00:10 97.3 F L 65 16 113/73 95 07/25/18 23:32 16 87 07/25/18 20:47 20 103/63 87 07/25/18 20:03 76 22 103/63 86 07/25/18 19:25 98.2 F 85 22 103/63 86 Intake and Output 07/26/18 07/26/18 07/27/18 08:59 16:59 00:59 Intake Total 120 / 120 240 / 240 Output Total 300 / 300 450 / 450 Balance -300 / -300 -330 / -330 240 / 240 Intake: Oral 120 / 120 240 / 240 Output: Urine 300 / 300 450 / 450 Other: Meal Breakfast Percent of Meal Consumed 50% Weight 91.1 kg Patient Weight 07/27/18 00:59 Weight 91.1 kg General appearance: cooperative, mild distress, thin, no no acute distress - Eye Eye exam: Present: EOMI - ENT ENT exam: Present: mucous membranes dry - Respiratory Respiratory exam: Present: accessory muscle use, respiratory distress - Cardiovascular Cardiovascular exam: Present: RRR - GI/Abdominal GI/Abdominal exam: Absent: tenderness - Extremities Exam Extremities exam: Absent: joint swelling - Neurological Exam Neurological exam: Present: alert, oriented X3 Oncology: Obj Data - Labs CBC & Chem 7: 07/26/18 04:11 07/26/18 04:11 Labs: Laboratory Results - last 24 hr 07/26/18 07/26/18 07/26/18 04:11 04:11 04:11 WBC 22.6 H RBC 4.16 L Hgb 12.1 L D Hct 38.1 MCV 91.6 MCH 29.1 MCHC 31.8 RDW 13.4 Plt Count 134 L MPV 10.4 Sodium 133 L Potassium 5.2 H Chloride 88 L Carbon Dioxide 43 H* BUN 43 H Creatinine 1.13 Est GFR ( Amer) > 60 Est GFR (Non-Af Amer) > 60 BUN/Creatinine Ratio 38 H Glucose 145 H Calculated Osmolality 289 Uric Acid 3.4 Calcium 8.3 L Phosphorus 4.7 H Magnesium 2.2 Total Bilirubin 0.4 AST 18 ALT 33 Alkaline Phosphatase 56 Serum Total Protein 4.5 L Albumin 2.8 L Globulin 1.7 L Albumin/Globulin Ratio 1.6 - ABG Interpretation ABG results: ABG ABG pH 7.35 pH Units (7.32-7.45) 07/16/18 02:35 ABG pCO2 73 mmHg (35-45) H* D 07/16/18 02:35 ABG pO2 75 mmHg (85-104) L D 07/16/18 02:35 ABG O2 Saturation 93 % (95-98) L 07/16/18 02:35 PT/INR, D-dimer PT 11.1 Seconds (9.4-12.1) 07/17/18 05:43 Consult Discharge Plan - Plan Referrals: Andry Abdi Jr, MD [Primary Care Provider] - (Please follow up as schedule.... ) Regis Braga MD [Partnered Physician] - 08/31/18 9:30 am
--- NOTE | 2018-07-26 18:44 | Internal Med Progress Note ---
<Charu Johnson - Last Filed: 07/26/18 18:56> Hospitalist Progress Note - Encounter Date of Encounter: 07/26/18 Time of Encounter: 08:50 - Subjective Interval History: Mr. Bermudez was examined at bedside this morning. He had no acute events overnight. He as admitted for COPD exacerbation. He also had developed a fibrillation with rapid ventricular rate and was treated with cardizem drip and was converted to sinus rhythm. He is transitioned to oral diltiazem. He was having increased demand for steroids and oxygen as pulmonology was consulted. He was found to have hilar mass with mediastinal hilar lyhadenopathy on 07/16 and underwent bronchoscopy on 07/21 and was found to have small cell lung cancer per pathology. This morning he only complained of poor appetite and asked to have his oxycodone decreased. He also stated he was unable to sleep last night. He denied fever, chills, nausea or chest pain. - Exam Vitals: Temp Pulse Resp BP Pulse Ox 97.9 F 66 12 107/67 94 07/26/18 15:49 07/26/18 15:49 07/26/18 16:34 07/26/18 16:34 07/26/18 16:34 Exam: Constitutional: Alert, in no acute distress HEENT: Normocephalic, atraumatic Heart: Normal, regular rate and rhythm, no murmurs Lungs: diminished breath sounds at all lung lobes no wheezes, rales, or rhonchi Abdomen: Soft, non distended, non tender Extremities: No clubbing, +3 pitting edema bilateral lower extremities Skin: Skin warm and dry, no lesions, no rashes, no jaundice Neurologic: Cooperative with exam, oriented to person, place and time Psych: Thought content congruent, appropriate affect - Assessment and Plan (1) Tobacco abuse Current Visit: No Status: Chronic Assessment and Plan: Smoking cessation provided at admission. Patient could not tolerate Nicotine patch. (2) Anxiety Current Visit: Yes Status: Chronic Assessment and Plan: Continue home dose of Xanax (3) COPD exacerbation Current Visit: Yes Status: Acute Assessment and Plan: Pulmonology is following. He was on 15 liters of high flow oxygen and his saturation was poor, subsequently switched to BiPAP. Continue BiPAP to have his oxygen saturation above 88%. Continue symbicort and duobeb. (4) Acute on chronic respiratory failure with hypoxia and hypercapnia Current Visit: Yes Status: Acute Assessment and Plan: Patient saturating in the high 80s on 15 L HF nasal cannula. CXR 07/15 showed worsening infiltrates, attributed to pneumonia or nodules 07/[address] showed lymphadenopathy and nodules, with accompanying RLL pleural effusion Diagnosed with small cell lung cancer after bronchoscopy pathology results were positive Legionella and Streptococcus pneumonia antigens negative, sputum culture negative Plan: Patient is receiving 40 mg prednisone daily Continue BiPAP or high flow supplemental oxygen to maintain saturation above 88% Patient received 7 days Cefepime, 7 days Flagyl during this admission antibiotics discontinued Pulmonology consulted, antibiotics discontinued Patient's respiratory distress more likely related to nodules than infection, reason for antibiotic discontinuation We will continue Duonebs and symbicort as scheduled (5) Atrial fibrillation with RVR Current Visit: Yes Status: Resolved Assessment and Plan: Patient developed new onset atrial fibrillation with rapid ventricular rate Cardizem drip was started and cardiology was consulted Rate was controlled on Cardizem drip and is transitioned to oral cardizem Patient converted back to sinus normal rate Patient currently hemodynamically stable Having increased episodes of RVR, likely due to hypoxia We will continue to monitor and treat with rate control Metoprolol 25mg po bid started Cardiology signed off (6) Pneumonia Current Visit: Yes Status: Resolved Assessment and Plan: Pulmonology assisting Antibiotics discontinued Clinical picture is not infectious etiology due to ongoing respiratory distress after completion of antibiotics and requiring more oxygen. White count stable at 22.6, likely due to steroids and neoplastic process Sputum culture, strep pneumo antigen, legionella antigen all negative Plan: Blood cultures negative for growth so far We will continue to monitor labs and clinical disposition Plan as seen above (7) Advanced care planning/counseling discussion Current Visit: Yes Status: Acute Assessment and Plan: Today he changed his code to DNR/DNI after understanding his diagnosis. Spoke with sister at bedside about his prognosis. Also, called the son and spoke with him over the phone to discuss his current prognosis. He would like to continue chemotherapy if his body can tolerate it. (8) Chronic pain Current Visit: Yes Status: Chronic Assessment and Plan: He stated his pain is under control and pain control is being managed by palliative. He wanted to have his pain medication dose decreased and spoke with palliative about it. (9) DVT prophylaxis Current Visit: Yes Status: Acute Assessment and Plan: Continue SQ Lovenox (10) Small cell lung cancer Current Visit: Yes Status: Acute Assessment and Plan: Lung nodules noted on CT from 07/14 Large right lung mass obstructing right middle and lower lobes noted on bronchoscopy on 07/21 Pathology result positive for small cell lung cancer Management per heme/onc - Two days of chemotherapy completed They started allopurinol for tumor lysis syndrome prevention. Chemo on hold for now due to evidence of tumor lysis syndrome per last lab findings. Will continue to monitor labs. DVT Prophylaxis: Sub Q heparin - Time Spent with Patient Total time spent is greater than 50% in coordination of care (as documented) at patient's floor/unit and/or counseling patient: 25 - 35 minutes Plan of Care Discussed with: family (And his family) Internal Medicine: Result - Labs CBC & Chem 7: 07/26/18 04:11 07/26/18 04:11 Labs: Short CBC 07/26/18 Range/Units 04:11 WBC 22.6 H (4.3-11.1) K/mcL Hgb 12.1 L D (12.9-16.9) g/dL Hct 38.1 (37.5-50.1) % Plt Count 134 L (140-400) K/mcL BMP 07/26/18 04:11 Sodium 133 L Potassium 5.2 H Chloride 88 L Carbon Dioxide 43 H* BUN 43 H Creatinine 1.13 Glucose 145 H Calcium 8.3 L Liver Function 07/26/18 Range/Units 04:11 Total Bilirubin 0.4 (0.3-1.0) mg/dL AST 18 (13-39) Units/L ALT 33 (7-52) Units/L Alkaline Phosphatase 56 (34-104) Units/L Albumin 2.8 L (3.5-5.7) g/dL - ABG Interpretation ABG results: ABG ABG pH 7.35 pH Units (7.32-7.45) 07/16/18 02:35 ABG pCO2 73 mmHg (35-45) H* D 07/16/18 02:35 ABG pO2 75 mmHg (85-104) L D 07/16/18 02:35 ABG O2 Saturation 93 % (95-98) L 07/16/18 02:35 PT/INR, D-dimer PT 11.1 Seconds (9.4-12.1) 07/17/18 05:43 Consult Discharge Plan - Plan Referrals: Andry Abdi Jr, MD [Primary Care Provider] - (Please follow up as schedule.... ) Regis Braga MD [Partnered Physician] - 08/31/18 9:30 am <Martha Vasques - Last Filed: 07/26/18 19:29> Hospitalist Progress Note - Encounter Date of Encounter: 07/26/18 - Exam Vitals: Temp Pulse Resp BP Pulse Ox 97.9 F 66 20 107/67 90 07/26/18 15:49 07/26/18 15:49 07/26/18 19:23 07/26/18 16:34 07/26/18 19:23 - Assessment and Plan (1) Tobacco abuse Current Visit: No Status: Chronic (2) DVT prophylaxis Current Visit: Yes Status: Acute (3) Anxiety Current Visit: Yes Status: Chronic (4) COPD exacerbation Current Visit: Yes Status: Acute (5) Acute on chronic respiratory failure with hypoxia and hypercapnia Current Visit: Yes Status: Acute (6) Pneumonia Current Visit: Yes Status: Resolved (7) Atrial fibrillation with RVR Current Visit: Yes Status: Resolved (8) Advanced care planning/counseling discussion Current Visit: Yes Status: Acute (9) Chronic pain Current Visit: Yes Status: Chronic (10) Small cell lung cancer Current Visit: Yes Status: Acute - Time Spent with Patient Total time spent is greater than 50% in coordination of care (as documented) at patient's floor/unit and/or counseling patient: Internal Medicine: Result - Labs CBC & Chem 7: 07/26/18 04:11 07/26/18 04:11 Labs: Short CBC 07/26/18 Range/Units 04:11 WBC 22.6 H (4.3-11.1) K/mcL Hgb 12.1 L D (12.9-16.9) g/dL Hct 38.1 (37.5-50.1) % Plt Count 134 L (140-400) K/mcL BMP 07/26/18 04:11 Sodium 133 L Potassium 5.2 H Chloride 88 L Carbon Dioxide 43 H* BUN 43 H Creatinine 1.13 Glucose 145 H Calcium 8.3 L Liver Function 07/26/18 Range/Units 04:11 Total Bilirubin 0.4 (0.3-1.0) mg/dL AST 18 (13-39) Units/L ALT 33 (7-52) Units/L Alkaline Phosphatase 56 (34-104) Units/L Albumin 2.8 L (3.5-5.7) g/dL - ABG Interpretation ABG results: ABG ABG pH 7.35 pH Units (7.32-7.45) 07/16/18 02:35 ABG pCO2 73 mmHg (35-45) H* D 07/16/18 02:35 ABG pO2 75 mmHg (85-104) L D 07/16/18 02:35 ABG O2 Saturation 93 % (95-98) L 07/16/18 02:35 PT/INR, D-dimer PT 11.1 Seconds (9.4-12.1) 07/17/18 05:43 - Attending Attestation I examined this patient and my medical decision-making was reviewed with the Resident Physician Dr. Johnson. I agree with the documented findings, disposition and treatment plan as described except to the extent set forth below. Mr. Bermudez is a 58 year old male with a known past medical history of COPD, chronic hypoxic respiratory failure on 4 lit oxygen dependent at home, hypertension and chronic tobacco dependence patient presented emergency room complaining about a progressively worsening shortness of breath, cough with expectoration. Patient was admitted in the hospital for acute hypoxic respiratory failure due to pneumonia. His his CT of the chest showed left lower lobe nodule and severe mediastinal lymphadenopathy concerning for metastatic disease.Had bronchoscopy on 07/21/18. currently he is on BiPAP. Pt' s breathing seems to be worsening. He is getting confused at times. Gen: A, A, O x3 Chest: Diminished BS b/l moderate wheezing, mild crackles,rales + Heart: S1S2+ a/p 1. Acute pneumonia - bacterial 2. Acute COPD exacerbation 3. Acute on chronic hypoxic respiratory failure 4. Small cell lung cancer Finished 2 days Chemo Developed tumor lysis syndrome cont IV hydration close f/u on electrolytes talked to pt along with Heme Onc Dr. Chiu and explained to him about over all poor prognosis. Pt wanted to change to code status to DNR and DNI. He is going to think about hospice care too Talked to pt's family Sister and his Son JUAREZ @ [phone].. He is coming to see his father today and most likely going to stay with him. <Charu Johnson - Last Filed: 07/26/18 18:56> (6) Pneumonia Qualifiers: Pneumonia type: due to unspecified organism Laterality: right Lung location : lower lobe of lung Qualified Code(s): J18.1 - Lobar pneumonia, unspecified organism (8) Chronic pain Qualifiers: Chronic pain type: chronic pain syndrome Qualified Code(s): G89.4 - Chronic pain syndrome <Martha Vasques - Last Filed: 07/26/18 19:29> (6) Pneumonia Qualifiers: Pneumonia type: due to unspecified organism Laterality: right Lung location : lower lobe of lung Qualified Code(s): J18.1 - Lobar pneumonia, unspecified organism (9) Chronic pain Qualifiers: Chronic pain type: chronic pain syndrome Qualified Code(s): G89.4 - Chronic pain syndrome
[2018-07-27] MEDS: *HR* OxyCODONE Immed Rel 5 MG TABLET PO PRN ×3 (02:13→14:27)
[2018-07-27] MEDS: Ipratropium/Albuterol Neb 3 ML IH SCH ×5 (03:54→19:52)
[2018-07-27 05:04] LABS: Basophils % 0.1 %; Eosinophils % 0.1 %; Hematocrit 36.2 % (37.5-50.1); Hemoglobin 11.7 g/dL (12.9-16.9); Immature Granulocytes % 0.6 % (0-4); Lymphocytes # 0.5 K/mcL (0.6-4.6); Lymphocytes % 2.6 %; Mean Corpuscular HGB Conc 32.3 g/dL (31.6-35.5); Mean Corpuscular Volume 89.8 fL (83.0-100.0); Mean Platelet Volume 10.7 fL (9.4-12.4); Monocytes # 0.3 K/mcL (0.0-1.3); Monocytes % 1.6 %; Neutrophils # 16.7 K/mcL (1.6-8.9); Platelet Count 108 K/mcL (140-400); Red Blood Count 4.03 M/mcL (4.19-5.50); Red Cell Distribution Width 13.6 % (11.5-14.5)
[2018-07-27 05:21] LABS: Magnesium 2.1 mg/dL (1.6-2.6)
[2018-07-27 05:24] LABS: Albumin 2.8 g/dL (3.5-5.7); Albumin/Globulin Ratio 1.8 (1.1-2.2); Bilirubin,Direct 0.1 mg/dL (0.0-0.2); Bilirubin,Indirect 0.4 mg/dL (0.0-1.2); Bilirubin,Total 0.5 mg/dL (0.3-1.0); Globulin 1.6 g/dL (2.4-3.5); Total Protein 4.4 g/dL (6.4-8.9)
[2018-07-27 05:25] LABS: Alanine Aminotransferase 32 Units/L (7-52); Albumin 2.8 g/dL (3.5-5.7); Albumin/Globulin Ratio 1.6 (1.1-2.2); Alkaline Phosphatase 53 Units/L (34-104); Aspartate Amino Transferase 22 Units/L (13-39); BUN/Creatinine Ratio 39 (6-26); Bilirubin,Total 0.5 mg/dL (0.3-1.0); Blood Urea Nitrogen 37 mg/dL (8-23); Calcium 8.1 mg/dL (8.6-10.3); Carbon Dioxide 40 mEq/L (23-29); Chloride 90 mEq/L (98-107); Globulin 1.7 g/dL (2.4-3.5); Glucose 97 mg/dL (70-105); Osmolality,Calculated 285 (280-300); Potassium 4.8 mEq/L (3.5-5.1); Sodium 133 mEq/L (136-145); Total Protein 4.5 g/dL (6.4-8.9); Uric Acid 3.4 mg/dL (2.3-7.6); eGFR For Non-African Americans > 60 (> 60)
[2018-07-27] MEDS: *HR* Enoxaparin 40 MG/0.4 ML SYRINGE SQ SCH (05:54)
[2018-07-27] MEDS: *HR* OxyCODONE ER (12 HR) 20 MG TABLET PO SCH ×2 (05:54→17:35)
[2018-07-27] MEDS: Diltiazem CD (24hr) 300 MG CAPSULE PO SCH (08:25)
[2018-07-27] MEDS: Aspirin Enteric Coated 81 MG Tablet PO SCH (08:25)
[2018-07-27] MEDS: predniSONE 10 MG TABLET PO SCH (08:25)
[2018-07-27] MEDS: Sennosides/Docusate Sodium TABLET PO SCH (08:25)
[2018-07-27] MEDS: Budesonide/Formoterol 80/4.5 MDI IH SCH ×2 (11:15→19:52)
[2018-07-27] MEDS: ALPRAZolam 0.5 MG TABLET PO PRN (11:34)
--- NOTE | 2018-07-27 14:01 | Palliative Progress Note ---
Date of Encounter: 07/28/18 Time of Encounter: 13:00 - Assessment and plan (1) Goals of care, counseling/discussion Status: Acute Assessment and plan: Met with pt and son Gurpreet Zimmerman discussed current medical condition, trajectory of illness, prognosis and treatment options. Pt is aware that his cancer is stage 4, and he has worsened clinically since the chemotherapy. He was informed by oncology that prognosis is poor and that treatment is not recommended at this time. Patient's most important goal at this time is to return home. He is aware that he is unstable and his oxygen needs have increased, however, he wants to return to his home and see his before dying. Son was agreeable. Patient is hospice appropriate, with a hospice diagnosis of stage 4 small cell lung cancer, he does not desire any further treatment, his prognosis is days to weeks and less than 6 months. Contacted [facility] and referred the case. [facility] will arrange for pt to return home. Discussed with primary team physician, he agrees with the plan. (2) Chronic pain Status: Chronic Assessment and plan: Patient feels he is getting more pain medication then usual. discussed pain medication regimen, explained to pt the use of long acting medication, and that the PRN medication is to be requested only for breakthrough pain and not routinely. patient agrees to continue current dosage of long acting, and reduce the request of prn doses to the minimum necessary. will continue Oxycodone ER 20 mg q12hr, and Oxycodone IR 10 mg q6hrs for breakthrough. Qualifiers: Chronic pain type: chronic pain syndrome Qualified Code(s): G89.4 - Chronic pain syndrome (3) COPD with acute exacerbation Status: Acute (4) Small cell lung cancer Status: Acute Assessment and plan: Stage 4 Patient does not desire any further treatment. - Time Spent With Patient Total time spent is greater than 50% face to face with pt, in coordination of care (as documented) at patient's floor/unit and/or counseling patient: Greater than 35 minutes - Subjective Interval history: Patient is feeling more SOB today, he is now on NC 10L, with a SpO2 80-81% - Constitutional Vitals: Abnormal lab results WBC 17.5 K/mcL (4.3-11.1) H 07/27/18 04:20 RBC 4.03 M/mcL (4.19-5.50) L 07/27/18 04:20 Hgb 11.7 g/dL (12.9-16.9) L 07/27/18 04:20 Hct 36.2 % (37.5-50.1) L 07/27/18 04:20 Plt Count 108 K/mcL (140-400) L 07/27/18 04:20 Neutrophils # 16.7 K/mcL (1.6-8.9) H 07/27/18 04:20 Lymphocytes # 0.5 K/mcL (0.6-4.6) L 07/27/18 04:20 Toxic Granulation Present (Not Present) A 07/23/18 03:33 APTT 22.5 Seconds (26.0-36.0) L 07/17/18 05:43 Heparin Anti-Xa, LM Wt 0.09 IU/mL (0.50-1.10) L 07/17/18 05:43 ABG pCO2 73 mmHg (35-45) H* D 07/16/18 02:35 ABG pO2 75 mmHg (85-104) L D 07/16/18 02:35 ABG HCO3 41 mEq/L (21-27) H 07/16/18 02:35 ABG Total CO2 43 mEq/L (20-26) H 07/16/18 02:35 ABG O2 Saturation 93 % (95-98) L 07/16/18 02:35 ABG Base Excess 12 mEq/L (-2 to 3) H 07/16/18 02:35 VBG pCO2 80 mmHg (41-51) H* 07/11/18 17:41 VBG HCO3 43 mEq/L (21-27) H 07/11/18 17:41 Sodium 133 mEq/L (136-145) L 07/27/18 04:20 Chloride 90 mEq/L (98-107) L 07/27/18 04:20 Carbon Dioxide 40 mEq/L (23-29) H* 07/27/18 04:20 BUN 37 mg/dL (8-23) H 07/27/18 04:20 BUN/Creatinine Ratio 39 (6-26) H 07/27/18 04:20 Calcium 8.1 mg/dL (8.6-10.3) L 07/27/18 04:20 Venous Ioniz Calcium 1.08 mmol/L (1.15-1.35) L 07/16/18 11:04 Phosphorus 5.0 mg/dL (2.7-4.5) H 07/27/18 04:20 Serum Total Protein 4.5 g/dL (6.4-8.9) L 07/27/18 04:20 Albumin 2.8 g/dL (3.5-5.7) L 07/27/18 04:20 Globulin 1.7 g/dL (2.4-3.5) L 07/27/18 04:20 TSH 0.275 mcIU/mL (0.340-5.600) L 07/15/18 14:15 Free T3 2.36 pg/mL (2.50-3.90) L 07/16/18 05:16 Fluid Appearance Cloudy (Clear) A 07/21/18 08:00 Exam: General appearance: alert, oriented x3, in no acute distress Eyes: nonicteric, left lower eyelid edema EENT: oropharynx moist Chest: reduced breath sounds, increased effort Cardiovascular: regular rate and rhythm Gastrointestinal: soft, non-tender, non-distended, palpable subcutaneous abdominal mass in left upper quadrant Integumentary: normal Extremities: bilateral edema Neurologic: normal mental status, non-focal exam Psych: mood appropriate, affect normal Palliative Quality Palliative Quality: Screen for Code Status: NA, Screen for Goals of Care: NA, Screen for Pain: NA, If Pain Regimen Started, Initiate Bowel Regimen: NA, Screen for Nausea/Vomitting: NA Code Status: 07/26/18 16:32 CODE [Resuscitation Status: Active] [RES] Routine Comment: Resuscitation Status: [id number] - Labs CBC & Chem 7: 07/27/18 04:20 07/27/18 04:20 Labs: Laboratory Results - last 24 hr 07/27/18 07/27/18 07/27/18 04:20 04:20 04:20 WBC RBC Hgb Hct MCV MCH MCHC RDW Plt Count MPV Immature Gran % Seg Neutrophils % Lymphocytes % Monocytes % Eosinophils % Basophils % Neutrophils # Lymphocytes # Monocytes # Eosinophils # Basophils # Sodium 133 L Potassium 4.8 Chloride 90 L Carbon Dioxide 40 H* BUN 37 H Creatinine 0.95 Est GFR ( Amer) > 60 Est GFR (Non-Af Amer) > 60 BUN/Creatinine Ratio 39 H Glucose 97 Calculated Osmolality 285 Uric Acid 3.4 Calcium 8.1 L Phosphorus 5.0 H Magnesium 2.1 Total Bilirubin 0.5 Direct Bilirubin Indirect Bilirubin AST 22 ALT 32 Alkaline Phosphatase 53 Serum Total Protein 4.5 L Albumin 2.8 L Globulin 1.7 L Albumin/Globulin Ratio 1.6 Prealbumin 25.0 07/27/18 07/27/18 04:20 04:20 WBC 17.5 H RBC 4.03 L Hgb 11.7 L Hct 36.2 L MCV 89.8 MCH 29.0 MCHC 32.3 RDW 13.6 Plt Count 108 L MPV 10.7 Immature Gran % 0.6 Seg Neutrophils % 95.0 Lymphocytes % 2.6 Monocytes % 1.6 Eosinophils % 0.1 Basophils % 0.1 Neutrophils # 16.7 H Lymphocytes # 0.5 L Monocytes # 0.3 Eosinophils # 0.0 Basophils # 0.0 Sodium Potassium Chloride Carbon Dioxide BUN Creatinine Est GFR ( Amer) Est GFR (Non-Af Amer) BUN/Creatinine Ratio Glucose Calculated Osmolality Uric Acid Calcium Phosphorus Magnesium Total Bilirubin 0.5 Direct Bilirubin 0.1 Indirect Bilirubin 0.4 AST 22 ALT 32 Alkaline Phosphatase 53 Serum Total Protein 4.4 L Albumin 2.8 L Globulin 1.6 L Albumin/Globulin Ratio 1.8 Prealbumin - ABG Interpretation ABG results: ABG ABG pH 7.35 pH Units (7.32-7.45) 07/16/18 02:35 ABG pCO2 73 mmHg (35-45) H* D 07/16/18 02:35 ABG pO2 75 mmHg (85-104) L D 07/16/18 02:35 ABG O2 Saturation 93 % (95-98) L 07/16/18 02:35 PT/INR, D-dimer PT 11.1 Seconds (9.4-12.1) 07/17/18 05:43 Consult Discharge Plan - Plan Instructions: Laxative, Stimulant (By mouth), Oxycodone, Slow Release (By mouth ), Laxative, Stimulant Combination (By mouth), Acute Respiratory Distress Syndrome (DC), Using Oxygen at Home (DC), Chronic Obstructive Pulmonary Disease (DC) Referrals: Andry Abdi Jr, MD [Primary Care Provider] - (Please follow up as schedule.... ) Regis Braga MD [Partnered Physician] - 08/31/18 9:30 am Prescriptions: Ipratropium/Albuterol Neb [Duoneb] 3 ml IH [id number] 30 Days #30 inhsol OxyCODONE ER (12 HR) [OxyCONTIN] 20 mg PO Q12HR 3 Days #6 tab.er.12h Budesonide/Formoterol 80/4.5 [Symbicort 80/4.5] 2 puff IH BIDR 30 Days #60 inhaler Diltiazem CD (24hr) [Cardizem CD] 300 mg PO DAILY 30 Days #30 cap.er.24h Metoprolol [Lopressor] 25 mg PO BID 30 Days #60 tablet OxyCODONE Immed Rel [Roxicodone 10 MG] 10 mg PO Q6H PRN 3 Days #12 tab PRN Reason: pain predniSONE [PredniSONE] 30 mg PO DAILY 2 Days #2 tablet Sennosides/Docusate Sodium [Senna Plus] 1 each PO DAILY 3 Days #6 tablet
--- NOTE | 2018-07-27 16:31 | Discharge Summary ---
<Charu Johnson - Last Filed: 07/27/18 16:23> - NOTES TO OUTPATIENT PROVIDER Notes to Outpatient Provider: Mr. Bermudez is a 58 year old male who presented for COPD exacerbation. During his stay he developed a fib with RVR. His rhythm has stayed normal sinus since converting with cardizem. Pulmonology was consulted due to his increased oxygenation demand. He had a bronchoscopy on which showed small cell lung cancer. He was started on chemotherapy and received 2 courses. He has decided to go home with hospice and only get comfort care for his cancer. Orders not resulted at time of discharge: Pending orders 07/23/18 04:58 Culture,Blood [BC] Stat 07/28/18 04:00 Comprehensive Metabolic Panel AM 0400 Uric Acid AM 0400 Date of Encounter: 07/27/18 Time of Encounter: 16:24 - Discharge Diagnosis (1) Small cell lung cancer Priority: Primary Status: Acute (2) Tobacco abuse Priority: Secondary Status: Chronic (3) Anxiety Priority: Secondary Status: Chronic (4) COPD exacerbation Priority: Secondary Status: Acute (5) Acute on chronic respiratory failure with hypoxia and hypercapnia Priority: Secondary Status: Acute (6) Atrial fibrillation with RVR Priority: Secondary Status: Resolved (7) Pneumonia Priority: Secondary Status: Resolved Qualifiers: Pneumonia type: due to unspecified organism Laterality: right Lung location: lower lobe of lung Qualified Code(s): J18.1 - Lobar pneumonia, unspecified organism (8) Advanced care planning/counseling discussion Priority: Secondary Status: Acute (9) Chronic pain Priority: Secondary Status: Chronic Qualifiers: Chronic pain type: chronic pain syndrome Qualified Code(s): G89.4 - Chronic pain syndrome (10) DVT prophylaxis Priority: Secondary Status: Resolved Hospital course: Mr. Bermudez is a 58 year old male who presented here for COPD exacerbation on 07/11. During his stay he developed a fib. He was converted to normal sinus rhythm. He continued to have increased oxygen demand. He had completed course of antibiotics for pneumonia. Pulmonology was consulted and he underwent bronchoscopy. The bronchoscopy showed small cell lung cancer. Oncology was consulted and he started chemotherapy and received two days of chemotherapy. He started having tumor lysis syndrome. The patient then chose to have comfort care measure and wanted to go home with hospice. This morning he is still on 15 liters of oxygen and requires BiPAP at night. He continues to have decreased appetite. He denied emesis, chest pain or abdominal pain today. Discharge discussed with: patient Time spent discussing smoking cessation with patient: more than 10 minutes - Time Spent with Patient Total time spent providing and/or coordinating discharge services: Less than 30 minutes - Discharge Medications Prescriptions: Ipratropium/Albuterol Neb [Duoneb] 3 ml IH [id number] 30 Days #30 inhsol OxyCODONE ER (12 HR) [OxyCONTIN] 20 mg PO Q12HR 3 Days #6 tab.er.12h Budesonide/Formoterol 80/4.5 [Symbicort 80/4.5] 2 puff IH BIDR 30 Days #60 inhaler Diltiazem CD (24hr) [Cardizem CD] 300 mg PO DAILY 30 Days #30 cap.er.24h Metoprolol [Lopressor] 25 mg PO BID 30 Days #60 tablet OxyCODONE Immed Rel [Roxicodone 10 MG] 10 mg PO Q6H PRN 3 Days #12 tab PRN Reason: pain predniSONE [PredniSONE] 30 mg PO DAILY 2 Days #2 tablet Sennosides/Docusate Sodium [Senna Plus] 1 each PO DAILY 3 Days #6 tablet Home Medications: ALPRAZolam [Xanax 1 MG Tablet] 1 mg PO TID PRN 01/08/16 [History] Carisoprodol [Soma] 350 mg PO DAILY PRN 01/08/16 [History] Albuterol Sulfate [Proair Hfa] 2 puff IH Q4H PRN 07/12/18 [History] Budesonide/Formoterol 80/4.5 [Symbicort 80/4.5] 2 puff IH BIDR 30 Days #60 inhaler 07/27/18 [Rx] Diltiazem CD (24hr) [Cardizem CD] 300 mg PO DAILY 30 Days #30 cap.er.24h [Rx] Ipratropium/Albuterol Neb [Duoneb] 3 ml IH [id number] 30 Days #30 inhsol 07/27/18 [ Rx] Metoprolol [Lopressor] 25 mg PO BID 30 Days #60 tablet 07/27/18 [Rx] OxyCODONE ER (12 HR) [OxyCONTIN] 20 mg PO Q12HR 3 Days #6 tab.er.12h 07/27/18 [ Rx] OxyCODONE Immed Rel [Roxicodone 10 MG] 10 mg PO Q6H PRN 3 Days #12 tab 07/27/18 [Rx] Sennosides/Docusate Sodium [Senna Plus] 1 each PO DAILY 3 Days #6 tablet [Rx] predniSONE [PredniSONE] 30 mg PO DAILY 2 Days #2 tablet 07/27/18 [Rx] Allergies/Adverse Reactions: 3 Allergy/AdvReac Type Severity Reaction Status Date / Time No Known Allergies Allergy Verified 01/08/16 09:48 Date of admission: 07/11/18 17:51 Primary care physician: Andry Abdi Jr, MD Consults: 07/11/18 19:54 Consult to Nutrition [CONS] Routine Comment: Consulting Provider: NUTRITION Reason for Dietary Consult: MST Score Consult to Reporting Developer [CONS] Routine Reason for SW Consult: [facility] O[facility], UNABLE TO AFFORD MEDICATIONS, REHAB ( NOT SNF, BUT WOULD CONSIDER HH) 07/13/18 09:03 Consult to Physical Therapy [CONS] Routine Comment: Evaluate, develop and implement POC Reason for Consult: Patient has diminished mobility secondary to weakness, likely physical deconditioning. This is apart from his shortness of breath. Does patient have active BEDREST order?: No Is patient medically & hemodynamically stable?: Yes Patient assessed for mobility or mobilized this visit?: No 07/15/18 11:37 Consult to Cardiology [CONS] Routine Comment: Consulting Provider: [facility] [place] Reason for Consult: Patient with COPD exacerbation and community acquired pneumonia on levaquin and steroid/bronchodilator therapy with new onset AFib RVR during hospital stay Call Completed: No 07/16/18 09:25 Consult to Pulmonology [CONS] Routine Consulting Provider: [facility] Reason for Consult: Increasing hypoxia and sputum production in the setting of COPD exacerbation and community acquired pneumonia Call Completed: Yes 07/18/18 10:21 Consult to Oncology [CONS] Routine Consulting Provider: [facility] Reason for Consult: Abormal findings on CT Abdomen/Pelvis/Chest Call Completed: Yes 07/21/18 14:11 Consult to Palliative Care [CONS] Routine Comment: Consulting Provider: [facility] [place] Reason for Consult: Newly discovered lesions, most likely primary lung with mets, most likely small cell, patient will require goals of care and prognosis discussion Call Completed: Yes Discharging clinician: Charu Johnson (Needs home oxygen and BiPAP prior to discharge) Anticipated date of discharge: 07/27/18 (Needs home oxygen and Bipap prior to discharge) - Constitutional Vitals: Temp Pulse Resp BP Pulse Ox 98.2 F 69 18 112/68 84 07/27/18 11:36 07/27/18 11:36 07/27/18 11:36 07/27/18 11:36 07/27/18 11:36 General appearance: Present: cooperative, mild distress (Able to finish full sentence without any pause), A&O X 3, answers questions appropriately Exam: Constitutional: Alert, in no acute distress HEENT: Normocephalic, atraumatic Heart: Normal, regular rate and rhythm, no murmurs Lungs: diminished breath sounds at all lung lobes no wheezes, rales, or rhonchi Abdomen: Soft, non distended, non tender Extremities: No clubbing, +3 pitting edema bilateral lower extremities Skin: Skin warm and dry, no lesions, no rashes, no jaundice Neurologic: Cooperative with exam, oriented to person, place and time Psych: Thought content congruent, appropriate affect - Head Head exam: Present: atraumatic - Eye Eye exam: Present: EOMI, normal appearance, sclera anicteric - Neck Neck exam general surgery: Present: full ROM - Respiratory Respiratory exam: Absent: rhonchi, stridor Additional comments: decreased breath sounds at all lung lobes - Cardiovascular Cardiovascular exam: Present: RRR, +S1, +S2. Absent: systolic murmur - GI/Abdominal GI/Abdominal exam: Present: hypoactive bowel sounds, soft. Absent: firm, tenderness - Extremities Exam Extremities exam: Present: pedal edema (+3 pitting edema bilateral lower extremities), warm. Absent: tenderness - Neurological Exam Neurological exam: Present: alert, oriented X3, no focal deficits - Psychiatric Psychiatric exam: Present: normal affect, normal mood. Absent: flat affect - Skin Skin exam: Present: intact, warm - Patient Status Disposition: Hospice - Home Condition: Fair Overall status at discharge: patient is not back to baseline (small cell lung cancer) - Discharge Instructions Instructions: Laxative, Stimulant (By mouth), Oxycodone, Slow Release (By mouth ), Laxative, Stimulant Combination (By mouth), Acute Respiratory Distress Syndrome (DC), Using Oxygen at Home (DC), Chronic Obstructive Pulmonary Disease (DC) Follow Up With: Andry Abdi Jr, MD [Primary Care Provider] - (Please follow up as schedule.... ) Regis Braga MD [Partnered Physician] - 08/31/18 9:30 am - Diet and Activity Activity: as per physical therapy Diet: regular diet <Rachel Costa - Last Filed: 07/27/18 17:35> Orders not resulted at time of discharge: Pending orders 07/23/18 04:58 Culture,Blood [BC] Stat 07/28/18 04:00 Comprehensive Metabolic Panel AM 0400 Uric Acid AM 0400 Date of Encounter: 07/27/18 - Discharge Diagnosis (1) Small cell lung cancer Status: Acute Hospital course: Mr. Bermudez is a 58 year old male - Time Spent with Patient Total time spent providing and/or coordinating discharge services: Date of admission: 07/11/18 17:51 Primary care physician: Andry Abdi Jr, MD Consults: 07/11/18 19:54 Consult to Nutrition [CONS] Routine Comment: Consulting Provider: NUTRITION Reason for Dietary Consult: MST Score Consult to Reporting Developer [CONS] Routine Reason for SW Consult: [facility], UNABLE TO AFFORD MEDICATIONS, REHAB ( NOT SNF, BUT WOULD CONSIDER HH) 07/13/18 09:03 Consult to Physical Therapy [CONS] Routine Comment: Evaluate, develop and implement POC Reason for Consult: Patient has diminished mobility secondary to weakness, likely physical deconditioning. This is apart from his shortness of breath. Does patient have active BEDREST order?: No Is patient medically & hemodynamically stable?: Yes Patient assessed for mobility or mobilized this visit?: No 07/15/18 11:37 Consult to Cardiology [CONS] Routine Comment: Consulting Provider: [facility] [place] Reason for Consult: Patient with COPD exacerbation and community acquired pneumonia on levaquin and steroid/bronchodilator therapy with new onset AFib RVR during hospital stay Call Completed: No 07/16/18 09:25 Consult to Pulmonology [CONS] Routine Consulting Provider: [facility] [place] Reason for Consult: Increasing hypoxia and sputum production in the setting of COPD exacerbation and community acquired pneumonia Call Completed: Yes 07/18/18 10:21 Consult to Oncology [CONS] Routine Consulting Provider: [facility] [place] Reason for Consult: Abormal findings on CT Abdomen/Pelvis/Chest Call Completed: Yes 07/21/18 14:11 Consult to Palliative Care [CONS] Routine Comment: Consulting Provider: [facility] [place] Reason for Consult: Newly discovered lesions, most likely primary lung with mets, most likely small cell, patient will require goals of care and prognosis discussion Call Completed: Yes - Constitutional Vitals: Temp Pulse Resp BP Pulse Ox 98.3 F 65 16 104/68 83 07/27/18 16:36 07/27/18 16:36 07/27/18 16:36 07/27/18 16:36 07/27/18 16:36 - Attending Attestation I have seen and examined this pt independently. I have discussed with resident physician Dr. Johnson regarding the management plan. Agree with the documentation. Pt was diagnosed as stage IV SCLC, oncology saw pt and tried chemotherapy. However, Pt cannot tolerate chemo. Palliative care consult was called and saw pt , prognosis and management discussed with pt. Pt is AAO x 3, understand his prognosis is poor and he meets hospice criteria. Pt have discussed with oncology regarding the treatment options already and knows the medical treatment is futile. Pt decides to go home and persue home hospice. He understand he needs high O2 now and he may soon at home but still asking to go home. Inpatient hospice offered but pt refused. Home hospice and home O2/ BiPAP was set up and pt will D/C home with home hospice.
[2018-07-27 16:42] VITALS: BP 104/68
--- NOTE | 2018-07-27 16:56 | Physician Discharge Referral ---
<Charu Johnson - Last Filed: 07/27/18 16:54> Home Health/Hosp Referral Info Transfer to: Hospice (Home hospice) Provider in Charge Post Discharge: PCP - Diagnosis (1) Small cell lung cancer Priority: Primary Status: Acute (2) Tobacco abuse Priority: Secondary Status: Chronic (3) Anxiety Priority: Secondary Status: Chronic (4) COPD exacerbation Priority: Secondary Status: Acute (5) Acute on chronic respiratory failure with hypoxia and hypercapnia Priority: Secondary Status: Acute (6) Atrial fibrillation with RVR Priority: Secondary Status: Resolved (7) Pneumonia Priority: Secondary Status: Resolved (8) Advanced care planning/counseling discussion Priority: Secondary Status: Acute (9) Chronic pain Priority: Secondary Status: Chronic (10) DVT prophylaxis Priority: Secondary Status: Resolved - Respiratory Orders Oxygen / L per min (requiring 15 liters, will need oxygen qualification), Other (BiPAP) Smoking Cessation: Smoking cessation has been advised. For more information, call the [employer] Quit Line at 9-393-VMQO-NOW. - Diet/Nutrition Diet/Nutrition Orders: Regular - Activity Activity Orders: Chair Activity: List: As tolerated - Services Needed Following services are medically necessary services: Home Health Aide - Transfer Medications Prescriptions: Ipratropium/Albuterol Neb [Duoneb] 3 ml IH [id number] 30 Days #30 inhsol OxyCODONE ER (12 HR) [OxyCONTIN] 20 mg PO Q12HR 3 Days #6 tab.er.12h Budesonide/Formoterol 80/4.5 [Symbicort 80/4.5] 2 puff IH BIDR 30 Days #60 inhaler Diltiazem CD (24hr) [Cardizem CD] 300 mg PO DAILY 30 Days #30 cap.er.24h Metoprolol [Lopressor] 25 mg PO BID 30 Days #60 tablet OxyCODONE Immed Rel [Roxicodone 10 MG] 10 mg PO Q6H PRN 3 Days #12 tab PRN Reason: pain predniSONE [PredniSONE] 30 mg PO DAILY 2 Days #2 tablet Sennosides/Docusate Sodium [Senna Plus] 1 each PO DAILY 3 Days #6 tablet Home Medications: ALPRAZolam [Xanax 1 MG Tablet] 1 mg PO TID PRN 01/08/16 [History] Carisoprodol [Soma] 350 mg PO DAILY PRN 01/08/16 [History] Albuterol Sulfate [Proair Hfa] 2 puff IH Q4H PRN 07/12/18 [History] Budesonide/Formoterol 80/4.5 [Symbicort 80/4.5] 2 puff IH BIDR 30 Days #60 inhaler 07/27/18 [Rx] Diltiazem CD (24hr) [Cardizem CD] 300 mg PO DAILY 30 Days #30 cap.er.24h [Rx] Ipratropium/Albuterol Neb [Duoneb] 3 ml IH [id number] 30 Days #30 inhsol 07/27/18 [ Rx] Metoprolol [Lopressor] 25 mg PO BID 30 Days #60 tablet 07/27/18 [Rx] OxyCODONE ER (12 HR) [OxyCONTIN] 20 mg PO Q12HR 3 Days #6 tab.er.12h 07/27/18 [ Rx] OxyCODONE Immed Rel [Roxicodone 10 MG] 10 mg PO Q6H PRN 3 Days #12 tab 07/27/18 [Rx] Sennosides/Docusate Sodium [Senna Plus] 1 each PO DAILY 3 Days #6 tablet [Rx] predniSONE [PredniSONE] 30 mg PO DAILY 2 Days #2 tablet 07/27/18 [Rx] Allergies/Adverse Reactions: 3 Allergy/AdvReac Type Severity Reaction Status Date / Time No Known Allergies Allergy Verified 01/08/16 09:48 Certification: Further, I certify that my clinical findings support that this patient is homebound (i.e. absences from home require considerable and taxing effort and are for medical reasons or sabianist services or infrequently or short duration when for other reasons) because: Homebound Reason: Leaving home requires considerable and taxing effort due to condition (High supplemental oxygen demand) Attestation: My signature below is to certify that this patient is under my care and that I, or nurse practitioner, or a physician's certified surgical first assistant working with me, has a face-to -face encounter with this patient. <Rachel Costa - Last Filed: 07/27/18 17:23> Home Health/Hosp Referral Info Transfer to: Hospice Provider in Charge Post Discharge: Neon Sign Maker - Diagnosis (1) Small cell lung cancer Priority: Primary Status: Acute - Respiratory Orders Other (BiPAP (Setting 16/8 FiO2 60%) as needed) Smoking Cessation: Smoking cessation has been advised. For more information, call the [place] [employer] Quit Line at 3-259-KGQI-NOW. Certification: Further, I certify that my clinical findings support that this patient is homebound (i.e. absences from home require considerable and taxing effort and are for medical reasons or sabianist services or infrequently or short duration when for other reasons) because: Attestation: My signature below is to certify that this patient is under my care and that I, or nurse practitioner, or a physician's certified surgical first assistant working with me, has a face-to -face encounter with this patient.
== END 2018-07-27 19:40 | disposition hospice, home (50) | DRG 166 ==
LOC: EMEROOARM 15:12 → 2ANU 15:12 → SUATTDRO 17:51 → 2ANU 18:55 → 2NNU 07-16 11:40 → UNDODISIN 07-16 13:31
PROVIDERS: ADMIT Internal Medicine; ATTEND Internal Medicine

== ENCOUNTER 2018-07-29 04:55 | Inpatient (IN) ==
[2018-07-29] MEDS ORDERED: methylPREDNISolone 125 MG/2 ML VIAL IVP ONE (05:13)
[2018-07-29] MEDS ORDERED: Ipratropium/Albuterol Neb 3 ML IH ONE (05:13)
[2018-07-29] MEDS ORDERED: 0.9 % Sodium Chloride 1,000 ML ONE ×2 (05:15→05:49)
--- NOTE | 2018-07-29 05:17 | Emergency Department Note ---
Disposition Clinical Impression: Acute on chronic respiratory failure with hypoxia and hypercapnia, Atrial fibrillation with rapid ventricular response, Pleural effusion, Mass of right lung, Hypoxia Disposition: Admitted As Inpatient Condition: Fair Referrals: Andry Abdi Jr, MD [Primary Care Provider] - Forms: ED Satisfaction Letter Time of Disposition: 05:54 SOB HPI - General Chief Complaint: ED Shortness of Breath/Dyspnea Stated Complaint: johann Time Seen by Provider: 07/29/18 05:13 Source: patient, EMS Mode of arrival: EMS Limitations: no limitations Nursing Notes Reviewed: Yes Vital Signs Reviewed: Yes - History of Present Illness 58-year-old male history of lung cancer and COPD on home oxygen supplementation presents emergency department via EMS for respiratory distress. Patient was recently hospitalized in discharge 2 days ago for similar complaints. Since his discharge home he has progressively got more short of breath. Tonight he was found with increase work of breathing and hypoxia in the mid 70s. He was wearing his home oxygen supplementation of 4 L. Patient was given the breathing treatment by EMS in his oxygen saturation increased admitted 80s. He is denying any chest pain. Denies any recent fever chills. He does report some blood when he coughed. He was taken off his chemotherapy medication 2 days ago after 3 days of treatment as it made him sick. He follows with oncology here at [facility]. Patient is severely tachycardic and it appears irregular. His prior EKG showed atrial fibrillation. Patient denies anticoagulant use other than baby aspirin. Patient was immediately placed on BiPAP on arrival with improvement of his oxygen saturation from mid-70s up to upper 80s. He states he is normally at baseline 89 to 90%. I discussed code status with the patient and he wishes for everything to be done as this is what his would wish for as well as himself. He denies intubation on his prior admission. He on antibiotic and steroids. Denies history of cardiac ischemic disease. Denies history of congestive heart failure. Pt Subjective Complaint: shortness of breath - Related Data Home Medications Medication Instructions Recorded Confirmed ALPRAZolam [Xanax 1 MG Tablet] 1 mg PO TID PRN 01/08/16 07/12/18 Carisoprodol [Soma] 350 mg PO DAILY PRN 01/08/16 07/12/18 Albuterol Sulfate [Proair Hfa] 2 puff IH Q4H PRN 07/12/18 07/12/18 Previous Rx's Medication Instructions Recorded Budesonide/Formoterol 80/4.5 2 puff IH BIDR 30 Days #60 inhaler 07/27/18 [Symbicort 80/4.5] Diltiazem CD (24hr) [Cardizem CD] 300 mg PO DAILY 30 Days #30 07/27/18 cap.er.24h Ipratropium/Albuterol Neb [Duoneb] 3 ml IH [id number] 30 Days #30 inhsol 07/27/18 Metoprolol [Lopressor] 25 mg PO BID 30 Days #60 tablet 07/27/18 OxyCODONE ER (12 HR) [OxyCONTIN] 20 mg PO Q12HR 3 Days #6 tab.er.12h 07/27/18 OxyCODONE Immed Rel [Roxicodone 10 10 mg PO Q6H PRN 3 Days #12 tab 07/27/18 MG] Sennosides/Docusate Sodium [Senna 1 each PO DAILY 3 Days #6 tablet 07/27/18 Plus] predniSONE [PredniSONE] 30 mg PO DAILY 2 Days #2 tablet 07/27/18 Allergies Allergy/AdvReac Type Severity Reaction Status Date / Time No Known Allergies Allergy Verified 01/08/16 09:48 All systems ED: reviewed and negative except as stated. Review of Systems: As Per HPI Constitutional: Denies: fever, chills Cardiovascular: Denies: chest pain Respiratory: Reports: cough, dyspnea, hemoptysis Gastrointestinal: Denies: abdominal pain, nausea, vomiting Genitourinary: Denies: dysuria, frequency Musculoskeletal: Denies: back pain Integumentary: Denies: rash Neurological: Denies: headache, confusion Past Medical History - Past Medical History Attestation: Yes The following information was validated with the patient. Source: patient Medical history: Reports: COPD, hypertension, other Surgical history: Reports: no surgical history Psychiatric history: Reports: anxiety - Social History Smoking Status: Current every day smoker Smokeless Tobacco Status: No Alcohol use: Reports: none Drug use: Reports: none Physical Exam - General Limitations: no limitations General appearance: alert, in distress (Respiratory distress) - Head Head exam: atraumatic, normocephalic, normal inspection - Eye Eye exam: Present: normal appearance, PERRL, EOMI - ENT ENT exam: normal exam, normal oropharynx, mucous membranes moist - Neck Neck exam: Present: normal inspection, full ROM, trachea midline - Chest Chest inspection: Present: normal inspection, symmetric chest wall rise - Respiratory Respiratory exam: Present: respiratory distress, wheezes, prolonged expiratory phase, other (Diminished breath sounds bilaterally R > L, poor aeration) - Cardiovascular Cardiovascular exam: Present: tachycardia, irregular rhythm, normal heart sounds - Expanded Cardiovascular Exam Peripheral pulses: 2+: radial (R), radial (L) - Abdominal Exam Abdominal exam: Present: soft, Non-Tender. Absent: tenderness, distention, guarding, rebound, rigidity - Extremities Exam Extremities exam: Present: normal inspection, full ROM, pedal edema (+2 bilaterally). Absent: tenderness - Neurological Exam Neurological exam: Present: alert, oriented X3 - Expanded Neurological Exam Coma Scale Eye Opening: Spontaneous Coma Scale Motor Response: Obeys Commands Coma Scale Verbal Response: Oriented Coma Scale Total: 15 - Psychiatric Psychiatric exam: Present: normal affect, anxious - Skin Skin exam: Present: warm, dry, intact, normal color, cyanosis (mildly), mottled Course Course Narrative: Patient presents in respiratory distress ongoing for the past 2 days worse tonight. Recent admission for COPD exacerbation. Recent diagnosis of right- sided lung cancer. Patient is found hypoxic and was placed on BiPAP which improved his oxygen saturation. On auscultation his lungs are diminished bilaterally with prolonged expiratory phase. He has pitting edema to his bilateral lower extremities. He is awake and talking to us without confusion. This initial blood pressure reading is low to believe is false. He has a good palpable radial pulse. His EKG is consistent with atrial fibrillation with rapid ventricular response. However given the hypotension will hold off on any treatment pending improvement with the BiPAP breathing. Patient will receive additional DuoNeb treatment as well steroids and EKG with a chest x-ray basic labs. Patient is denying any chest pain. - Reevaluation(s) Reevaluation #1: Patient continued to be persistently tachycardic 180s. He was placed on cardiac pads and given 6 mg of adenosine which slowed his heart rate down to 93 bpm and unveiled atrial fibrillation a quickly did go back up to 170s. At this time his blood pressure is stable systolic 114 after normal saline bolus. Patient will be given a small IV Cardizem bolus of 10 mg and continued on a drip for his atrial fibrillation with rapid ventricular response which could likely be contributing to his symptoms today. He has responded well with the BiPAP currently 94% and then increase to 100% with addition of DuoNeb treatment. Time: 05:45 Reevaluation #2: After 10 mg Cardizem patient's heart rate has decreased down to 115. His blood pressure remains stable with a systolic of 115. He continues to be awake alert and conversant. I suspect this is the likely underlying cause of his acute respiratory failure today. Patient will be placed on a Cardizem drip with maintenance fluid. Time: 05:51 Reevaluation #3: Shortly after Cardizem bolus patient converted to normal sinus rhythm. His work of breathing has improved. He continues to have good oxygen saturations. Review of his laboratory results shows hyper [place] that should improve BiPAP. His chest x-ray does show a pleural effusion on the right slightly worse than prior. EKG performed 0558 normal sinus rhythm 84 bpm incomplete right bundle branch block, no ST elevation or depression, no acute ischemic changes. Time: 05:56 Additional Reevaluation(s): Discussed goals of care with the patient. Further clarification he does not want to be intubated or have any heroic measures such as CPR. He does wish for comfort care to not I in any pain. Patient wishes to be admitted for further symptomatic control. His chest x-ray shows a worsening pleural effusion on the right which may be contributing to his respiratory failure. Patient has a history of stage IV lung cancer. At this time patient will be admitted for acute on chronic respiratory failure likely secondary to the atrial fibrillation with rapid ventricular response - Consultations Consultation #1: Spoke with on-call hospitalist arash Stapleton to admit for afib c RVR, pleural effusion, acute on chronic respiratory failure, lung cancer, hypoxia. No further orders at this time Time: 06:39 Vital Signs Temperature 98.2 F 07/29/18 04:58 Pulse Rate 185 07/29/18 04:58 Respiratory Rate 22 07/29/18 04:58 Blood Pressure 80/70 07/29/18 04:58 O2 Sat by Pulse Oximetry 75 07/29/18 04:58 Temperature 98.2 F 07/29/18 04:58 Pulse Rate 80 07/29/18 06:21 Respiratory Rate 18 07/29/18 06:21 Blood Pressure 99/68 07/29/18 06:21 O2 Sat by Pulse Oximetry 99 07/29/18 06:21 Oxygen Delivery Oxygen Delivery Bipap Shortness of Breath/Dyspnea - MDM Narrative Medical decision making narrative: Patient was discussed with my attending physician who agrees with ED management and final disposition. They independently evaluated the patient. Please refer to their attestation to this encounter for additional information. This note was generated by [email or web address] voice recognition software and as a result grammatical or spelling errors may occur using this program. - Medical Records Medical records reviewed: Yes I reviewed the patient's medical records. - Lab Data Lab results reviewed: Yes I reviewed the patient's lab results. Result diagrams: 07/29/18 05:18 07/29/18 05:18 Lab Results 07/29/18 07/29/18 07/29/18 Range/Units 05:18 05:18 05:18 WBC 17.9 H (4.3-11.1) K/mcL RBC 4.57 (4.19-5.50) M/mcL Hgb 13.3 D (12.9-16.9) g/dL Hct 41.3 (37.5-50.1) % MCV 90.4 (83.0-100.0) fL MCH 29.1 (28.0-33.3) pg MCHC 32.2 (31.6-35.5) g/dL RDW 13.7 (11.5-14.5) % Plt Count 76 L (140-400) K/mcL MPV 11.3 (9.4-12.4) fL Immature Gran % 1.3 (0-4) % Seg Neutrophils % 91.7 % Lymphocytes % 5.8 % Monocytes % 0.3 % Eosinophils % 0.7 % Basophils % 0.2 % Neutrophils # 16.4 H (1.6-8.9) K/mcL Lymphocytes # 1.0 (0.6-4.6) K/mcL Monocytes # 0.1 (0.0-1.3) K/mcL Eosinophils # 0.1 (0.0-0.6) K/mcL Basophils # 0.0 (0.0-0.2) K/mcL Platelet Estimate Decreased L (Normal) Immature Plt Fraction 12.5 H (1.1-6.1) % Sodium 134 L (136-145) mEq/L Potassium 4.4 (3.5-5.1) mEq/L Chloride 85 L (98-107) mEq/L Carbon Dioxide 45 H* (23-29) mEq/L BUN 22 (8-23) mg/dL Creatinine 0.73 (0.70-1.30) mg/dL Est GFR ( Amer) > 60 (> 60) Est GFR (Non-Af Amer) > 60 (> 60) BUN/Creatinine Ratio 30 H (6-26) Glucose 96 (70-105) mg/dL Calculated Osmolality 281 (280-300) Calcium 8.6 (8.6-10.3) mg/dL B-Natriuretic Peptide 85 (Less than 100) pg/mL TSH 3.236 (0.340-5.600) mcIU/mL - Radiology Data Radiology results reviewed: Yes I reviewed the patient's radiology results. Chest X-Ray 07/29/18 05:13 IMPRESSION: Interval increase in size of pleural effusions, now large on the right. Associated bibasilar opacities, in part reflecting atelectasis. Local disease spread/lymphangitic carcinomatosis not excluded. Right hilar prominence correlates with bulky mediastinal lymphadenopathy. D/ / Kamron Francisco / Kamron Francisco Interpreting Provider: Kamron Francisco - EKG Data EKG attestation: Yes I reviewed and interpreted this EKG. EKG results narrative: EKG performed 050 tachycardia 1 87 bpm, normal axis, appears irregularly irregular consistent with atrial fibrillation. No ST elevation. There are some ST depressions possibly rate related. Compared to prior EKG performed which showed atrial fibrillation 86 beats per minute. No acute ischemic changes.
[2018-07-29 05:30] LABS: Eosinophils % 0.7 %; Monocytes % 0.3 %
[2018-07-29 05:32] LABS: Basophils % 0.2 %; Eosinophils # 0.1 K/mcL (0.0-0.6); Hematocrit 41.3 % (37.5-50.1); Hemoglobin 13.3 g/dL (12.9-16.9); Immature Granulocytes % 1.3 % (0-4); Immature Platelets 12.5 % (1.1-6.1); Lymphocytes % 5.8 %; Mean Corpuscular HGB Conc 32.2 g/dL (31.6-35.5); Mean Corpuscular Hemoglobin 29.1 pg (28.0-33.3); Mean Corpuscular Volume 90.4 fL (83.0-100.0); Mean Platelet Volume 11.3 fL (9.4-12.4); Monocytes # 0.1 K/mcL (0.0-1.3); Neutrophils # 16.4 K/mcL (1.6-8.9); Red Blood Count 4.57 M/mcL (4.19-5.50); Red Cell Distribution Width 13.7 % (11.5-14.5); Segmented Neutrophils % 91.7 %
[2018-07-29] MEDS ORDERED: *HR* Adenosine 6 MG/2 ML VIAL IVP ONE (05:42)
[2018-07-29 05:50] LABS: BUN/Creatinine Ratio 30 (6-26); Blood Urea Nitrogen 22 mg/dL (8-23); Calcium 8.6 mg/dL (8.6-10.3); Carbon Dioxide 45 mEq/L (23-29); Chloride 85 mEq/L (98-107); Glucose 96 mg/dL (70-105); Osmolality,Calculated 281 (280-300); Potassium 4.4 mEq/L (3.5-5.1); Sodium 134 mEq/L (136-145); eGFR For Non-African Americans > 60 (> 60)
[2018-07-29 05:56] LABS: Platelet Count 76 K/mcL (140-400); Platelet Estimate Decreased (Normal)
[2018-07-29] MEDS ORDERED: 0.9 % Sodium Chloride 1,000 ML IVC ONE (05:56)
[2018-07-29] MEDS ORDERED: 0.9 % Sodium Chloride 1,000 ML IVC SCH (06:00)
--- NOTE | 2018-07-29 06:21 | Emergency Department Note ---
Disposition Clinical Impression: Acute on chronic respiratory failure with hypoxia and hypercapnia, Atrial fibrillation with rapid ventricular response, Pleural effusion, Mass of right lung, Hypoxia Disposition: Admitted As Inpatient Condition: Fair Referrals: Andry Abdi Jr, MD [Primary Care Provider] - Forms: ED Satisfaction Letter Time of Disposition: 05:54 General Adult HPI - General Chief complaint: ED Shortness of Breath/Dyspnea Stated complaint: johann Time Seen by Provider: 07/29/18 05:13 Source: patient, EMS Mode of arrival: EMS Limitations: no limitations Nursing Notes Reviewed: Yes Vital Signs Reviewed: Yes - History of Present Illness Pain Scale: 0 - Related Data Home Medications Medication Instructions Recorded Confirmed ALPRAZolam [Xanax 1 MG Tablet] 1 mg PO TID PRN 01/08/16 07/12/18 Carisoprodol [Soma] 350 mg PO DAILY PRN 01/08/16 07/12/18 Albuterol Sulfate [Proair Hfa] 2 puff IH Q4H PRN 07/12/18 07/12/18 Previous Rx's Medication Instructions Recorded Budesonide/Formoterol 80/4.5 2 puff IH BIDR 30 Days #60 inhaler 07/27/18 [Symbicort 80/4.5] Diltiazem CD (24hr) [Cardizem CD] 300 mg PO DAILY 30 Days #30 07/27/18 cap.er.24h Ipratropium/Albuterol Neb [Duoneb] 3 ml IH [id number] 30 Days #30 inhsol 07/27/18 Metoprolol [Lopressor] 25 mg PO BID 30 Days #60 tablet 07/27/18 OxyCODONE ER (12 HR) [OxyCONTIN] 20 mg PO Q12HR 3 Days #6 tab.er.12h 07/27/18 OxyCODONE Immed Rel [Roxicodone 10 10 mg PO Q6H PRN 3 Days #12 tab 07/27/18 MG] Sennosides/Docusate Sodium [Senna 1 each PO DAILY 3 Days #6 tablet 07/27/18 Plus] predniSONE [PredniSONE] 30 mg PO DAILY 2 Days #2 tablet 07/27/18 Allergies Allergy/AdvReac Type Severity Reaction Status Date / Time No Known Allergies Allergy Verified 01/08/16 09:48 Constitutional: Denies: fever, chills Cardiovascular: Denies: chest pain Respiratory: Reports: cough, dyspnea, hemoptysis Gastrointestinal: Denies: abdominal pain, nausea, vomiting Genitourinary: Denies: dysuria, frequency Musculoskeletal: Denies: back pain Integumentary: Denies: rash Neurological: Denies: headache, confusion Past Medical History - Past Medical History Medical history: Reports: COPD, hypertension, other Surgical history: Reports: no surgical history Psychiatric history: Reports: anxiety - Social History Smoking Status: Current every day smoker Smokeless Tobacco Status: No Alcohol use: Reports: none Drug use: Reports: none Physical Exam - General Limitations: no limitations General appearance: alert, in distress (Respiratory distress) Course Vital Signs Temperature 98.2 F 07/29/18 04:58 Pulse Rate 185 07/29/18 04:58 Respiratory Rate 22 07/29/18 04:58 Blood Pressure 80/70 07/29/18 04:58 O2 Sat by Pulse Oximetry 75 07/29/18 04:58 Temperature 98.2 F 07/29/18 04:58 Pulse Rate 80 07/29/18 06:21 Respiratory Rate 18 07/29/18 06:21 Blood Pressure 99/68 07/29/18 06:21 O2 Sat by Pulse Oximetry 99 07/29/18 06:21 Oxygen Delivery Oxygen Delivery Bipap Medical Decision Making - Medical Records Medical records reviewed: Yes I reviewed the patient's medical records. - Lab Data Lab results reviewed: Yes I reviewed the patient's lab results. Result diagrams: 07/29/18 05:18 07/29/18 05:18 Lab Results 07/29/18 07/29/18 07/29/18 Range/Units 05:18 05:18 05:18 WBC 17.9 H (4.3-11.1) K/mcL RBC 4.57 (4.19-5.50) M/mcL Hgb 13.3 D (12.9-16.9) g/dL Hct 41.3 (37.5-50.1) % MCV 90.4 (83.0-100.0) fL MCH 29.1 (28.0-33.3) pg MCHC 32.2 (31.6-35.5) g/dL RDW 13.7 (11.5-14.5) % Plt Count 76 L (140-400) K/mcL MPV 11.3 (9.4-12.4) fL Immature Gran % 1.3 (0-4) % Seg Neutrophils % 91.7 % Lymphocytes % 5.8 % Monocytes % 0.3 % Eosinophils % 0.7 % Basophils % 0.2 % Neutrophils # 16.4 H (1.6-8.9) K/mcL Lymphocytes # 1.0 (0.6-4.6) K/mcL Monocytes # 0.1 (0.0-1.3) K/mcL Eosinophils # 0.1 (0.0-0.6) K/mcL Basophils # 0.0 (0.0-0.2) K/mcL Platelet Estimate Decreased L (Normal) Immature Plt Fraction 12.5 H (1.1-6.1) % Sodium 134 L (136-145) mEq/L Potassium 4.4 (3.5-5.1) mEq/L Chloride 85 L (98-107) mEq/L Carbon Dioxide 45 H* (23-29) mEq/L BUN 22 (8-23) mg/dL Creatinine 0.73 (0.70-1.30) mg/dL Est GFR ( Amer) > 60 (> 60) Est GFR (Non-Af Amer) > 60 (> 60) BUN/Creatinine Ratio 30 H (6-26) Glucose 96 (70-105) mg/dL Calculated Osmolality 281 (280-300) Calcium 8.6 (8.6-10.3) mg/dL B-Natriuretic Peptide 85 (Less than 100) pg/mL TSH 3.236 (0.340-5.600) mcIU/mL - Radiology Data Radiology results reviewed: Yes I reviewed the patient's radiology results. Chest X-Ray 07/29/18 05:13 IMPRESSION: Interval increase in size of pleural effusions, now large on the right. Associated bibasilar opacities, in part reflecting atelectasis. Local disease spread/lymphangitic carcinomatosis not excluded. Right hilar prominence correlates with bulky mediastinal lymphadenopathy. D/ / Kamron Francisco / Kamron Francisco Interpreting Provider: Kamron Francisco - EKG Data EKG #1 EKG attestation: Yes I reviewed and interpreted this EKG. EKG results narrative: Initial EKG shows a wide QRS complex tachycardia with ventricular rate of 187. Right bundle branch block. I feel this is likely atrial fibrillation with RVR however difficult to tell due to the high rate. EKG #2 EKG attestation: Yes I reviewed and interpreted this EKG. EKG results narrative: Repeat EKG at 05:58 after patient converted shows a normal sinus rhythm with ventricular rate of 84. Incomplete right bundle branch block. No acute ST segment elevation or depression. Critical Care Time Critical Care Time: Yes Total Critical Care Time: 60 Attestation: Critical care performed: Time is exclusive of separately billable procedures. Time includes: direct patient care, patient reassessment, coordination of patient care, interpretation of data (laboratory data, radiology data, and respiratory data), review of patient's medical records, medical consultation and documentation of patient care. Procedures included in critical care time: Procedures excluded from critical care time: Attestation Statement - Attestation Attestation: I, Sunny Zee MD, personally evaluated this patient and discussed their management with the resident physician. I reviewed the resident's note and agree with the documented findings, medical decision making, and plan of care. 58-year-old male presents to the emergency department by EMS with a complaint of increasing shortness of breath for 2 days prior to arrival. She was just admitted to the hospital here about 2 weeks ago with acute shortness of breath. He was felt to have pneumonia however further workup after admission revealed stage IV lung cancer in the right lung. After workup he was initiated on chemotherapy but apparently did not tolerate the chemotherapy and it was discontinued. He was just discharged from the hospital here 2 or 3 days ago and states that ever since he went home he has been getting progressively more short of breath. He is on oxygen at 4 L/m by nasal cannula at home. EMS reports that on his home oxygen and his oxygen saturation was in the 70s on their arrival. He was given DuoNeb treatment in route and oxygen saturation improved into the low to mid 80s. Patient denies any chest pain or palpitations. He has had some cough with some hemoptysis. He states he hemoptysis started before he left the hospital. He denies any fever. Patient denies any known history of atrial fibrillation however his previous EKG dated does show atrial fibrillation with a rate of 86. On examination patient is a well-developed well-nourished male in moderate respiratory distress. He is alert and oriented 3. There is no diaphoresis. He was mildly cyanotic on arrival. Chest is nontender to palpation. Breath sounds are markedly decreased bilaterally especially in the right base. There are a few faint late expiratory wheezes. Heart is markedly tachycardic and regular. Abdomen is soft with present bowel sounds. One plus pedal edema bilaterally. EKG showed atrial fib with RVR. Chest x-ray shows increased right pleural effusion. Labs reviewed. Patient placed on BiPAP with improvement in his oxygen saturation. He received DuoNeb treatments and Solu-Medrol. Patient received adenosine 6 mg IV for his marked tachycardia which did reveal an underlying atrial fibrillation. He then received Cardizem 10 mg IV bolus and a Cardizem infusion was ordered however patient responded well to the Cardizem bolus and converted to a normal sinus rhythm prior to initiation of the Cardizem infusion. The hospitalist, Dr. Lord, was consulted and accepted admission of the patient.
[2018-07-29 06:22] LABS: Thyroid Stimulating Hormone 3.236 mcIU/mL (0.340-5.600)
[2018-07-29] MEDS ORDERED: *HR* OxyCODONE/APAP 7.5/325 TABLET PO STA (07:33)
--- NOTE | 2018-07-29 07:59 | Internal Med History&Physical ---
Date of Encounter: 07/29/18 Time of Encounter: 07:56 Internal Medicine - H&P: HPI Chief complaint: Shortness of Breath Admitted From: Home Plans for Post Hospital Care: Hospice - Home History of present illness: Mr. Bermudez is a 58 year old male with past history of recently diagnosed lung cancer presents to [facility] with chief and shortness of breath. Patient was found to be tachycardic and was found to be in atrial fibrillation with rapid ventricular response. Patient was also noted to be hypoxic at 75%. Patient was placed on BiPAP and received adenosine and Cardizem boluses which converted him to sinus rhythm. Chest x-ray revealed large right-sided pleural effusion. Patient patient was recently discharged from the hospital for COPD exacerbation and atrial fibrillation with rapid ventricular response home with home hospice. Patient states that his plan is to return to hospice and "ease into the [place]". I discussed performing thoracentesis for comfort; however the patient is unsure if he would like this done now and is waiting on his son to arrive before they make any further decisions. At this point I am unsure if his plan is to return home with home hospice as early as today or to have hospice performed in the hospital as he is does not want to discuss this until his son arrives. Patient states that he feels much improved from when he arrived to the emergency room. Patient still has continued shortness of breath and is on high flow nasal cannula, denies chest pain denies palpitations denies nausea, vomiting, diarrhea. Patient denies abdominal pain, blurry vision, double vision, headache. Patient is afebrile. Past Med Surg Social Fam HX - Past Medical History Medical history: COPD, hypertension, other Additional medical history: SMOKER ANXIETY, lung CA Psychiatric history: anxiety - Past Surgical History Surgical History: no surgical history - Social History Smoking Status: Current every day smoker Smokeless Tobacco Status: No Alcohol use: none Drug use: none - Family History Mother Living Status: Hx Family Endocrine Disorder: Yes (DM) Hx Family Neurologic Disorders: Yes (ALZHEIMERS) Father Living Status: Hx Family Respiratory Disorders: Yes (emphysema) - Additional Family History Additional family history: Other family history reviewed and not pertinent. Internal Medicine - H&P: Meds ALPRAZolam [Xanax 1 MG Tablet] 1 mg PO TID PRN 01/08/16 [History] Carisoprodol [Soma] 350 mg PO DAILY PRN 01/08/16 [History] Albuterol Sulfate [Proair Hfa] 2 puff IH Q4H PRN 07/12/18 [History] Budesonide/Formoterol 80/4.5 [Symbicort 80/4.5] 2 puff IH BIDR 30 Days #60 inhaler 07/27/18 [Rx] Diltiazem CD (24hr) [Cardizem CD] 300 mg PO DAILY 30 Days #30 cap.er.24h [Rx] Ipratropium/Albuterol Neb [Duoneb] 3 ml IH [id number] 30 Days #30 inhsol 07/27/18 [ Rx] Metoprolol [Lopressor] 25 mg PO BID 30 Days #60 tablet 07/27/18 [Rx] OxyCODONE ER (12 HR) [OxyCONTIN] 20 mg PO Q12HR 3 Days #6 tab.er.12h 07/27/18 [ Rx] OxyCODONE Immed Rel [Roxicodone 10 MG] 10 mg PO Q6H PRN 3 Days #12 tab 07/27/18 [Rx] Sennosides/Docusate Sodium [Senna Plus] 1 each PO DAILY 3 Days #6 tablet [Rx] predniSONE [PredniSONE] 30 mg PO DAILY 2 Days #2 tablet 07/27/18 [Rx] 3 Allergy/AdvReac Type Severity Reaction Status Date / Time No Known Allergies Allergy Verified 01/08/16 09:48 All Systems PM: A 10-system review of systems was performed and is negative for pertinent findings except as documented above in the HPI. Review of systems: 10 point review of systems is obtained and is otherwise negative other than described in history of present illness - Constitutional Vitals: Temp Pulse Resp BP Pulse Ox 98.2 F 96 10 108/70 90 07/29/18 04:58 07/29/18 07:31 07/29/18 07:31 07/29/18 07:31 07/29/18 07:31 Exam: Constitutional: Mild respiratory distress, alert on high flow nasal cannula Psych: AAO x 3 HEENT: NCAT, EOMI Neck: supple, no JVD Cardio: Tachycardic with regular rhythm, +s1s2, no murmurs/rubs/gallops, no JVD Resp: Decreased breath sounds bilaterally significant worse on right which correlates to pleural effusion; expiratory wheezes Abd: soft, non tender/non distended, positive bowel sounds, no gaurding/reboud/ ridgitity Extremities: 1+ pitting edema bilatateral lower extremities Neuro: no focal deficits appreciated Lymph: no cervical/supraclavicular adenopahty apprecitated Internal Med - H&P Results - Labs CBC & Chem 7: 07/29/18 05:18 07/29/18 05:18 Labs: Short CBC 07/29/18 Range/Units 05:18 WBC 17.9 H (4.3-11.1) K/mcL Hgb 13.3 D (12.9-16.9) g/dL Hct 41.3 (37.5-50.1) % Plt Count 76 L (140-400) K/mcL Neutrophils # 16.4 H (1.6-8.9) K/mcL BMP 07/29/18 05:18 Sodium 134 L Potassium 4.4 Chloride 85 L Carbon Dioxide 45 H* BUN 22 Creatinine 0.73 Glucose 96 Calcium 8.6 - Impressions ITS Impressions Chest X-Ray 07/29/18 05:13 IMPRESSION: Interval increase in size of pleural effusions, now large on the right. Associated bibasilar opacities, in part reflecting atelectasis. Local disease spread/lymphangitic carcinomatosis not excluded. Right hilar prominence correlates with bulky mediastinal lymphadenopathy. D/ / Kamron Francisco / Kamron Francisco Interpreting Provider: Kamron Francisco - Assessment and plan (1) Acute on chronic respiratory failure with hypoxia and hypercapnia Current Visit: Yes Status: Acute Assessment and plan: -Secondary to recurrent malignant pleural effusion with COPD exacerbation -Patient initially hypoxic in the 70s via pulse oximetry and placed on BiPAP with improvement of oxygenation -Currently on high flow nasal cannula with adequate saturation -Offered thoracentesis however the patient will wait until son arrives to make decisions -Continue by mouth steroids increased dose to 40 mg daily of prednisone -Bronchodilators -Bicarbonate on BMP is 45 suspect the patient has hypercapnic as well; however due to the patient's desire to have no significant intervention done currently will not obtain ABG -Patient will likely benefit more from BiPAP rather than I flow nasal cannula; however due to his hospice wishes will continue high flow nasal cannula as he does not want to be on BiPAP at the moment (2) Atrial fibrillation with rapid ventricular response Current Visit: Yes Status: Acute Assessment and plan: -Atrial fibrillation with rapid ventricular response possible component of multifocal atrial tachycardia secondary to underlying respiratory disease -EKG is personally reviewed initial significant for wide-complex tachycardia repeat EKG with normal sinus rhythm -Given bolus of IV Cardizem which converted patient to normal sinus rhythm -Continue by mouth Cardizem and by mouth Lopressor -Continue to treat respiratory failure/COPD with steroids and bronchodilators and thoracentesis if desired (3) Mass of right lung Current Visit: Yes Status: Acute Assessment and plan: -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 -Patient recently on hospice wishes to continue hospice (4) Pleural effusion Current Visit: Yes Status: Acute Assessment and plan: -Large right-sided pleural effusion -This is recurrent and malignant secondary to small cell lung cancer confirmed by recent thoracentesis -Offered repeat thoracentesis for comfort and/or Pleurx catheter; patient unwilling to make decision on this and will think about it and discuss with son -We will order if desired (5) Acute exacerbation of chronic obstructive airways disease Current Visit: Yes Status: Acute Assessment and plan: -With current exacerbation -Continue by mouth prednisone increased to 40 mg daily -Bronchodilators -BiPAP when necessary (6) Hospice care patient Current Visit: Yes Status: Acute Assessment and plan: Patiently recently discharged home with home hospice due to small cell lung cancer -Currently unsure of the patient's wishes to return home with home hospice today versus after improvement of his symptoms -The patient does not wish to discuss this until his son arrived later this morning -Thoracentesis was offered to the patient for symptom relief and comfort, he said he will think about it and discuss with his son -We will discuss case with case management social work -Likely consult palliative care but will wait for now until the son arrives in patient's and make decisions regarding the patient's wishes -He is DNR/DNI and states that he is ready to "ease into the [place]" (7) Anxiety Current Visit: Yes Status: Chronic Assessment and plan: -Continue home xanax (8) Chronic pain Current Visit: Yes Status: Chronic Assessment and plan: -Chronic back pain and pain related to cancer -continue analgesia program pt has been on Qualifiers: Chronic pain type: chronic pain syndrome Qualified Code(s): G89.4 - Chronic pain syndrome (9) Tobacco abuse Current Visit: Yes Status: Chronic Assessment and plan: -counseled on tobacco cessation (10) DVT prophylaxis Current Visit: Yes Status: Resolved Assessment and plan: -heparin sq - Time Spent With Patient Total time spent is greater than 50% in coordination of care (as documented) at patient's floor/unit and/or counseling patient: Greater than 35 minutes (38 minutes)
[2018-07-29] MEDS ORDERED: Carisoprodol 350 MG TABLET PO PRN (08:00)
[2018-07-29] MEDS ORDERED: *HR* OxyCODONE Immed Rel 5 MG TABLET PO PRN (08:00)
[2018-07-29] MEDS ORDERED: Naloxone 0.4 MG/ML INJ IVP PRN (08:18)
--- NOTE | 2018-07-29 08:32 | Event Note ---
Date of Encounter: 07/29/18 Time of Encounter: 08:31 Follow-up with patient. Patient states that he is unhappy with his current hospice situation and that hospice is not being very helpful. He states that they are frustrated with him because of his lack of symptoms. He also states that his is physically unable to take care of him. He is requesting if we are able to come up with a better plan so he can continue hospice. He currently states he does not wish to have a thoracentesis he states that his breathing is okay and he feels comfortable at the moment.
[2018-07-29] MEDS: predniSONE 20 MG TABLET PO SCH (09:52)
[2018-07-29] MEDS: Diltiazem CD (24hr) 300 MG CAPSULE PO SCH (09:53)
[2018-07-29] MEDS: Sennosides/Docusate Sodium TABLET PO SCH (09:53)
[2018-07-29] MEDS: *HR* Heparin 5,000 UNIT/ML VIAL SQ SCH ×3 (09:55→20:56)
[2018-07-29] MEDS: Ipratropium/Albuterol Neb 3 ML IH SCH ×5 (10:36→23:28)
[2018-07-29] MEDS: Budesonide/Formoterol 80/4.5 MDI IH SCH ×2 (10:37→19:22)
--- NOTE | 2018-07-29 10:37 | Palliative - Consult Note ---
Date of Encounter: 07/29/18 Time of Encounter: 10:29 - Assessment and Plan (1) Pleural effusion Current Visit: Yes Status: Acute Assessment and plan: Patient would like conservative measures and refusing thoracentesis. Patient dyspneic, but at baseline Trial of diuretic. (2) Small cell lung cancer Current Visit: No Status: Acute Assessment and plan: patient does not want to pursue any more cancer treatment (3) Chronic back pain Current Visit: No Status: Chronic Assessment and plan: Patient is on Oxycodone 15 mg q3hrs prn at home, and would like to continue the same regimen. will continue oxycodone IR 15mg q3hrs prn Qualifiers: Back pain location: low back pain Back pain laterality: bilateral Sciatica presence: unspecified whether sciatica present Qualified Code(s): M54.5 - Low back pain; G89.29 - Other chronic pain (4) Anxiety Current Visit: Yes Status: Chronic Assessment and plan: Xanax 1 mg prn (5) Goals of care, counseling/discussion Current Visit: No Status: Acute Assessment and plan: Met with patient an son Gurpreet Littlejohn at the bedside. Re-discussed current medical condition and prognosis. Pt is aware that his prognosis remains days to weeks, he noticed that his functional status is declining. He does not wish to pursue any disease modifying treatment and would like to avoid any measure that would prolong his dying process. Patient would like to remain on hospice, but is not able to return home because his have proven to be unable to take care of him, and there is no other caregiver in the family. Patient would be agreeable to be placed in a facility, but may ot be financially able to afford the cost. Reached [facility], due to patient being now admitted, he was discharged from hospice for non-compliance with plan of care. He will have to be re- evaluated for eligibility once a discharge plan is in place. (6) Dyspnea Current Visit: Yes Status: Acute Assessment and plan: Patient has end stage COPD, as well as a big lung mass with significant cancer burden. CXray showed a big R pleural effusion. Patient wants to be on conservative care with the goal to eventually returning to hospice care. continue inhaler Lasix IV 20 mg qd continue oxygen and Bipap prn Qualifiers: Dyspnea type: shortness of breath Qualified Code(s): R06.02 - Shortness of breath; R06.00 - Dyspnea, unspecified; R06.01 - Orthopnea Palliative-CN HPI - Data of Consult Patient: known to practice within the last 3 years Consult date: 07/29/18 Requesting Physician: Costa Lord MD Primary Care Provider: Andry Abdi Jr, MD - Consult Narrative Palliative Care/Comfort Measures: Palliative care Reason for consult: Hospice evaluation History of present illness: Mr. Bermudez is a 58 year old male that was recently diagnosed with lung cancer and was discharged home with home hospice, now presented to the ED complaining of SOB. In the ED, patient was found to be in aFib with RVR and was given adenosine and Diltiazem. Chest xray also showed a large R pleural effusion, thoracentesis was offered and patient declined. At the time of exam, patient was lying in bed, alert and oriented x3. He states that his breathing is back to baseline, he has back pain but it is well controlled with pain medication. He states that the reason he felt the need to come to the ER was that his and primary caregiver was unable to care for him at home, and he needs a better placement. he has been constipated, last BM 3 days ago. He denies any chest tsai, palpitation, nausea, vomiting, dysuria. CC: Costa Lord MD - Time Spent with Patient Time: Total time spent is greater than 50% face to face with patient, in coordination of care (as documented) at patient's floor/unit and/or counseling patient: Greater than 70 minutes Past Med Surg Social Fam HX - Past Medical History Medical history: COPD, hypertension, other Additional medical history: SMOKER ANXIETY, lung CA Psychiatric history: anxiety - Past Surgical History Surgical History: no surgical history - Social History Smoking Status: Current every day smoker Smokeless Tobacco Status: No Alcohol use: none Drug use: none - Family History Mother Living Status: Hx Family Endocrine Disorder: Yes (DM) Hx Family Neurologic Disorders: Yes (ALZHEIMERS) Father Living Status: Hx Family Respiratory Disorders: Yes (emphysema) Medications and Allergies ALPRAZolam [Xanax 1 MG Tablet] 1 mg PO TID PRN 01/08/16 [History] Carisoprodol [Soma] 350 mg PO DAILY PRN 03/08/16 [History] Albuterol Sulfate [Proair Hfa] 2 puff IH Q4H PRN 07/12/18 [History] Budesonide/Formoterol 80/4.5 [Symbicort 80/4.5] 2 puff IH BIDR 30 Days #60 inhaler 07/27/18 [Rx] Diltiazem CD (24hr) [Cardizem CD] 300 mg PO DAILY 30 Days #30 cap.er.24h [Rx] Ipratropium/Albuterol Neb [Duoneb] 3 ml IH [id number] 30 Days #30 inhsol 07/27/18 [ Rx] Metoprolol [Lopressor] 25 mg PO BID 30 Days #60 tablet 07/27/18 [Rx] Oxycodone HCl 15 mg PO Q3-4H PRN 07/29/18 [History] predniSONE [PredniSONE] 10 mg PO DAILY 07/29/18 [History] 3 Allergy/AdvReac Type Severity Reaction Status Date / Time No Known Allergies Allergy Verified 01/08/16 09:48 - Constitutional Constitutional ROS PAL: fatigue - EENT Eyes: as per HPI - Cardiovascular Cardiovascular ROS: as per HPI - Respiratory Respiratory: dyspnea, dyspnea on exertion - Gastrointestinal Gastrointestinal: as per HPI, constipation - Genitourinary Genitourinary ROS male: as per HPI, no dysuria - Musculoskeletal Musculoskeletal ROS IM: muscle weakness - Neurological Neurological ROS: as per HPI Palliative Care-Exam - Constitutional Vitals: Temp Pulse Resp BP Pulse Ox 98.4 F 95 19 130/78 90 07/29/18 09:38 07/29/18 09:38 07/29/18 09:38 07/29/18 09:38 07/29/18 09:38 Exam: Sick looking, in no acute distress. - Head Head Exam: Present: atraumatic - Neck Neck exam: Present: full ROM - Respiratory Respiratory exam: Present: accessory muscle use Additional comments: breath sounds reduced in R lower lobe - Cardiovascular Cardiovascular exam: Present: RRR Additional comments: Peripheral pulses present - GI/Abdominal Exam GI/Abdominal exam: Present: soft. Absent: tenderness - Extremities Exam Additional comments: bilateral lower extremities edema. - Back Exam Back exam: Present: paraspinal tenderness - Neurological Exam Neurological exam: Present: alert, oriented X3 Additional comments: no focal deficit - Psychiatric Psychiatric exam: Present: anxious Internal Medicine - CN: Reslt - Labs CBC & Chem 7: 07/29/18 05:18 07/29/18 05:18 Consult Discharge Plan - Plan Referrals: Andry Abdi Jr, MD [Primary Care Provider] - Palliative Quality Palliative Quality: Screen for Code Status: Yes, Screen for Goals of Care: Yes, Screen for Pain: Yes, If Pain Regimen Started, Initiate Bowel Regimen: Yes, Screen for Nausea/Vomitting: Yes
[2018-07-29] MEDS ORDERED: *HR* OxyCODONE Immed Rel 15 MG TABLET PO PRN (11:48)
[2018-07-29] MEDS ORDERED: *HR* Adenosine 6 MG/2 ML SYRINGE IVP ONE (13:23)
[2018-07-29] MEDS: *HR* OxyCODONE Immed Rel 5 MG TABLET PO PRN ×2 (15:41→19:02)
[2018-07-29] MEDS: ALPRAZolam 1 MG TABLET PO PRN (17:40)
[2018-07-29] MEDS ORDERED: *HR* OxyCODONE ER (12 HR) 20 MG TABLET PO SCH (18:00)
--- NOTE | 2018-07-30 00:53 | Electrocardiograph Report ---
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
[2018-07-30] MEDS: *HR* OxyCODONE Immed Rel 5 MG TABLET PO PRN ×5 (02:35→20:41)
[2018-07-30] MEDS: Ipratropium/Albuterol Neb 3 ML IH SCH ×5 (03:36→20:05)
[2018-07-30 04:19] LABS: Basophils % 0.2 %; Monocytes % 0.3 %
[2018-07-30 04:21] LABS: Hematocrit 33.8 % (37.5-50.1); Hemoglobin 11.1 g/dL (12.9-16.9); Immature Granulocytes % 1.8 % (0-4); Immature Platelets 14.2 % (1.1-6.1); Lymphocytes # 0.2 K/mcL (0.6-4.6); Lymphocytes % 1.4 %; Mean Corpuscular HGB Conc 32.8 g/dL (31.6-35.5); Mean Corpuscular Hemoglobin 29.3 pg (28.0-33.3); Mean Corpuscular Volume 89.2 fL (83.0-100.0); Mean Platelet Volume 11.6 fL (9.4-12.4); Neutrophils # 13.6 K/mcL (1.6-8.9); Red Blood Count 3.79 M/mcL (4.19-5.50); Red Cell Distribution Width 13.5 % (11.5-14.5); Segmented Neutrophils % 96.3 %
[2018-07-30 04:29] LABS: Platelet Count 60 K/mcL (140-400)
[2018-07-30 04:37] LABS: BUN/Creatinine Ratio 28 (6-26); Blood Urea Nitrogen 29 mg/dL (8-23); Calcium 8.2 mg/dL (8.6-10.3); Carbon Dioxide > 45 mEq/L (23-29); Chloride 83 mEq/L (98-107); Glucose 131 mg/dL (70-105); Osmolality,Calculated 282 (280-300); Potassium 3.8 mEq/L (3.5-5.1); Sodium 132 mEq/L (136-145); eGFR For Non-African Americans > 60 (> 60)
[2018-07-30] MEDS: *HR* Heparin 5,000 UNIT/ML VIAL SQ SCH ×3 (05:44→20:41)
[2018-07-30] MEDS: ALPRAZolam 1 MG TABLET PO PRN (05:48)
[2018-07-30] MEDS: Budesonide/Formoterol 80/4.5 MDI IH SCH ×2 (07:28→20:05)
[2018-07-30] MEDS: Diltiazem CD (24hr) 300 MG CAPSULE PO SCH (08:59)
[2018-07-30] MEDS: predniSONE 20 MG TABLET PO SCH (08:59)
[2018-07-30] MEDS: Sennosides/Docusate Sodium TABLET PO SCH (08:59)
[2018-07-30] MEDS ORDERED: Furosemide 20 MG/2 ML VIAL IVP SCH (09:00)
--- NOTE | 2018-07-30 10:43 | Internal Med Progress Note ---
Hospitalist Progress Note - Encounter Date of Encounter: 07/30/18 Time of Encounter: 10:43 - Subjective Interval History: Seen and examined at bedside, no new complains, requesting increment in pain meds Palliative care is following - Exam Vitals: Temp Pulse Resp BP Pulse Ox 98 F 86 18 98/55 89 07/30/18 10:22 07/30/18 10:22 07/30/18 10:22 07/30/18 10:22 07/30/18 10:22 Exam: Constitutional: Mild respiratory distress, alert on high flow nasal cannula Psych: AAO x 3 HEENT: NCAT, EOMI Neck: supple, no JVD Cardio: Tachycardic with regular rhythm, +s1s2, no murmurs/rubs/gallops, no JVD Resp: Decreased breath sounds bilaterally significant worse on right which correlates to pleural effusion; expiratory wheezes Abd: soft, non tender/non distended, positive bowel sounds, no gaurding/reboud/ ridgitity Extremities: 1+ pitting edema bilatateral lower extremities Neuro: no focal deficits appreciated Lymph: no cervical/supraclavicular adenopahty apprecitated - Assessment and Plan (1) Tobacco abuse Current Visit: Yes Status: Chronic Assessment and Plan: -counseled on tobacco cessation (2) Acute exacerbation of chronic obstructive airways disease Current Visit: Yes Status: Acute Assessment and Plan: -With current exacerbation, continue duonebs and prednisone -BiPAP when necessary (3) DVT prophylaxis Current Visit: Yes Status: Resolved Assessment and Plan: -heparin sq (4) Anxiety Current Visit: Yes Status: Chronic Assessment and Plan: -Continue home xanax (5) Acute on chronic respiratory failure with hypoxia and hypercapnia Current Visit: Yes Status: Acute Assessment and Plan: -Secondary to recurrent malignant pleural effusion with COPD exacerbation -Patient initially hypoxic in the 70s via pulse oximetry and placed on BiPAP with improvement of oxygenation -Currently on high flow nasal cannula with adequate saturation Refused invasive intervention, wants to be kept comfrtbale, code status changed per palliative Continue comfort care (6) Chronic pain Current Visit: Yes Status: Chronic Assessment and Plan: -Chronic back pain and pain related to cancer -continue analgesia program pt has been on (7) Mass of right lung Current Visit: Yes Status: Chronic Assessment and Plan: -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 -Patient recently on hospice wishes to continue hospice (8) Atrial fibrillation with rapid ventricular response Current Visit: Yes Status: Acute Assessment and Plan: -Atrial fibrillation with rapid ventricular response possible component of multifocal atrial tachycardia secondary to underlying respiratory disease Continue BB (9) Pleural effusion Current Visit: Yes Status: Acute Assessment and Plan: Recurrent, malignant, does not want intervention Continue O2 , comfort care, pain control (10) Hospice care patient Current Visit: Yes Status: Acute Assessment and Plan: 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 - Time Spent with Patient Total time spent is greater than 50% in coordination of care (as documented) at patient's floor/unit and/or counseling patient: Plan of Care Discussed with: patient Internal Medicine: Result - Labs CBC & Chem 7: 07/30/18 03:43 07/30/18 03:43 Labs: Short CBC 07/30/18 Range/Units 03:43 WBC 14.1 H (4.3-11.1) K/mcL Hgb 11.1 L D (12.9-16.9) g/dL Hct 33.8 L (37.5-50.1) % Plt Count 60 L (140-400) K/mcL Neutrophils # 13.6 H (1.6-8.9) K/mcL BMP 07/30/18 03:43 Sodium 132 L Potassium 3.8 Chloride 83 L Carbon Dioxide > 45 H* BUN 29 H Creatinine 1.05 Glucose 131 H Calcium 8.2 L Consult Discharge Plan - Plan Referrals: Andry Abdi Jr, MD [Primary Care Provider] - (6) Chronic pain Qualifiers: Chronic pain type: chronic pain syndrome Qualified Code(s): G89.4 - Chronic pain syndrome
--- NOTE | 2018-07-30 10:45 | Palliative Progress Note ---
Date of Encounter: 07/30/18 Time of Encounter: 10:40 - Assessment and plan (1) Pleural effusion Current Visit: Yes Status: Acute Assessment and plan: Patient is clinically better today, Oxygen was reduced from 15 to 12, SpO2 remains around 88-89% will continue Lasix 20 mg qd (2) Small cell lung cancer Current Visit: No Status: Acute Assessment and plan: Comfort measures only (3) Chronic back pain Current Visit: No Status: Chronic Assessment and plan: Patient is feeling better with the current pain regimen Oxycodone IR 20 mg q3hr. he required 5 doses in 24hrs. 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 There are some financial barriers to be considered, pt is no longer enrolled on hospice at this time. ELECT[employer]ICIAN RADIO Janine to evaluate and discuss possible options. Patient was agreeable to chance code status to DNRCC (6) Dyspnea Current Visit: Yes Status: Acute Assessment and plan: Patient more comfortable, on oxygen. Qualifiers: Dyspnea type: shortness of breath Qualified Code(s): R06.02 - Shortness of breath; R06.00 - Dyspnea, unspecified; R06.01 - Orthopnea - Time Spent With Patient Total time spent is greater than 50% face to face with the patient, in coordination of care (as documented) at patient's floor/unit and/or counseling patient: 25 - 35 minutes - Subjective Interval history: Patient was sitting in bed after breakfast. He states the back pain is present, but manageable with the current medication regimen. - Constitutional Vitals: Abnormal lab results WBC 14.1 K/mcL (4.3-11.1) H 07/30/18 03:43 RBC 3.79 M/mcL (4.19-5.50) L 07/30/18 03:43 Hgb 11.1 g/dL (12.9-16.9) L D 07/30/18 03:43 Hct 33.8 % (37.5-50.1) L 07/30/18 03:43 Plt Count 60 K/mcL (140-400) L 07/30/18 03:43 Neutrophils # 13.6 K/mcL (1.6-8.9) H 07/30/18 03:43 Lymphocytes # 0.2 K/mcL (0.6-4.6) L 07/30/18 03:43 Platelet Estimate Decreased (Normal) L 07/29/18 05:18 Immature Plt Fraction 14.2 % (1.1-6.1) H 07/30/18 03:43 Sodium 132 mEq/L (136-145) L 07/30/18 03:43 Chloride 83 mEq/L (98-107) L 07/30/18 03:43 Carbon Dioxide > 45 mEq/L (23-29) H* 07/30/18 03:43 BUN 29 mg/dL (8-23) H 07/30/18 03:43 BUN/Creatinine Ratio 28 (6-26) H 07/30/18 03:43 Glucose 131 mg/dL (70-105) H 07/30/18 03:43 Calcium 8.2 mg/dL (8.6-10.3) L 07/30/18 03:43 Exam: Head Exam: Present: atraumatic Respiratory exam: Present: accessory muscle use Additional comments: breath sounds reduced in R lower lobe Cardiovascular exam: Present: RRR GI/Abdominal exam: Present: soft. Absent: tenderness Extremities: bilateral lower extremities edema, improving. Back exam: paraspinal tenderness in lower back Neurological exam: Present: alert, oriented X3 no focal neurologic deficits Palliative Quality Palliative Quality: Screen for Code Status: Yes, Screen for Goals of Care: Yes, Screen for Pain: Yes, If Pain Regimen Started, Initiate Bowel Regimen: Yes, Screen for Nausea/Vomitting: Yes - Labs CBC & Chem 7: 07/30/18 03:43 07/30/18 03:43 Labs: Laboratory Results - last 24 hr 07/30/18 07/30/18 03:43 03:43 WBC 14.1 H RBC 3.79 L Hgb 11.1 L D Hct 33.8 L MCV 89.2 MCH 29.3 MCHC 32.8 RDW 13.5 Plt Count 60 L MPV 11.6 Immature Gran % 1.8 Seg Neutrophils % 96.3 Lymphocytes % 1.4 Monocytes % 0.3 Eosinophils % 0.0 Basophils % 0.2 Neutrophils # 13.6 H Lymphocytes # 0.2 L Monocytes # 0.0 Eosinophils # 0.0 Basophils # 0.0 Immature Plt Fraction 14.2 H Sodium 132 L Potassium 3.8 Chloride 83 L Carbon Dioxide > 45 H* BUN 29 H Creatinine 1.05 Est GFR ( Amer) > 60 Est GFR (Non-Af Amer) > 60 BUN/Creatinine Ratio 28 H Glucose 131 H Calculated Osmolality 282 Calcium 8.2 L Consult Discharge Plan - Plan Referrals: Andry Abdi Jr, MD [Primary Care Provider] -
[2018-07-31] MEDS: Ipratropium/Albuterol Neb 3 ML IH SCH ×7 (00:18→23:08)
[2018-07-31] MEDS: *HR* OxyCODONE Immed Rel 5 MG TABLET PO PRN ×4 (00:48→21:45)
[2018-07-31] MEDS: ALPRAZolam 1 MG TABLET PO PRN ×3 (04:05→21:51)
[2018-07-31 05:23] LABS: Basophils % 0.2 %; Monocytes % 0.4 %; Red Cell Distribution Width 13.3 % (11.5-14.5)
[2018-07-31 05:25] LABS: Eosinophils % 0.1 %; Hematocrit 30.4 % (37.5-50.1); Hemoglobin 9.9 g/dL (12.9-16.9); Immature Granulocytes % 1.3 % (0-4); Immature Platelets 15.4 % (1.1-6.1); Lymphocytes # 0.3 K/mcL (0.6-4.6); Lymphocytes % 2.6 %; Mean Corpuscular HGB Conc 32.6 g/dL (31.6-35.5); Mean Corpuscular Hemoglobin 28.5 pg (28.0-33.3); Mean Corpuscular Volume 87.6 fL (83.0-100.0); Mean Platelet Volume 11.9 fL (9.4-12.4); Monocytes # 0.1 K/mcL (0.0-1.3); Neutrophils # 10.9 K/mcL (1.6-8.9); Red Blood Count 3.47 M/mcL (4.19-5.50); Segmented Neutrophils % 95.4 %
[2018-07-31 05:35] LABS: Platelet Count 41 K/mcL (140-400); Platelet Estimate Decreased (Normal)
[2018-07-31 05:43] LABS: BUN/Creatinine Ratio 29 (6-26); Blood Urea Nitrogen 37 mg/dL (8-23); Carbon Dioxide 45 mEq/L (23-29); Chloride 84 mEq/L (98-107); Glucose 136 mg/dL (70-105); Osmolality,Calculated 287 (280-300); Potassium 3.6 mEq/L (3.5-5.1); Sodium 133 mEq/L (136-145); eGFR For Non-African Americans 58 (> 60)
[2018-07-31] MEDS: *HR* Heparin 5,000 UNIT/ML VIAL SQ SCH ×3 (05:50→21:39)
--- NOTE | 2018-07-31 07:28 | Internal Med Progress Note ---
Hospitalist Progress Note - Encounter Date of Encounter: 07/31/18 Time of Encounter: 07:22 - Subjective Interval History: no headache, dizziness, chest pain, dyspnea, n, v, abd pain, d, c Dyspnea on admission has now resolved - Exam Vitals: Temp Pulse Resp BP Pulse Ox 98.2 F 98 18 95/62 94 07/31/18 05:09 07/31/18 05:09 07/31/18 07:16 07/31/18 05:09 07/31/18 07:16 Exam: Constitutional: No respiratory distress, alert on BiPAP Psych: AAO x 3 HEENT: no scleral icterus Neck: supple, no JVD Cardio: S1, S2, no murmurs/rubs/gallops, no JVD Resp: Decreased breath sounds at bases, worse on right; scattered rhonchi Abd: soft, non tender/non distended,no guarding/rebound Extremities: trace edema Neuro: no focal deficits appreciated, no dysarthria - Assessment and Plan (1) Acute exacerbation of chronic obstructive airways disease Current Visit: Yes Status: Acute (2) Acute on chronic respiratory failure with hypoxia and hypercapnia Current Visit: Yes Status: Acute (3) Atrial fibrillation with rapid ventricular response Current Visit: Yes Status: Acute (4) Hospice care patient Current Visit: Yes Status: Acute (5) Pleural effusion Current Visit: Yes Status: Acute (6) Mass of right lung Current Visit: Yes Status: Chronic (7) DVT prophylaxis Current Visit: Yes Status: Resolved - Summary of Assessment and Plan Summary of Assessment and Plan: 58M with recently diagnosed lung cancer and enrolled in hospice presented due to dyspnea found to be due to a-fib with RVR and right sided pleural effusion. He has reaffirmed comfort care measures and is awaiting enrollment in inpatient hospice. 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 BP 95/62. Hold IV Lasix # A-fib with RVR on admission, now rate controlled: Cont metoprolol, diltiazem # Chronic pain: Cont home analgesics - Time Spent with Patient Total time spent is greater than 50% in coordination of care (as documented) at patient's floor/unit and/or counseling patient: less than 15 minutes Internal Medicine: Result - Labs CBC & Chem 7: 07/31/18 04:59 07/31/18 04:59 Labs: Short CBC 07/31/18 Range/Units 04:59 WBC 11.4 H (4.3-11.1) K/mcL Hgb 9.9 L (12.9-16.9) g/dL Hct 30.4 L (37.5-50.1) % Plt Count 41 L (140-400) K/mcL Neutrophils # 10.9 H (1.6-8.9) K/mcL BMP 07/31/18 04:59 Sodium 133 L Potassium 3.6 Chloride 84 L Carbon Dioxide 45 H* BUN 37 H Creatinine 1.27 Glucose 136 H Calcium 8.0 L Consult Discharge Plan - Plan Referrals: Andry Abdi Jr, MD [Primary Care Provider] -
[2018-07-31] MEDS: Diltiazem CD (24hr) 300 MG CAPSULE PO SCH (08:55)
[2018-07-31] MEDS: predniSONE 20 MG TABLET PO SCH ×2 (08:58→09:44)
[2018-07-31] MEDS: Sennosides/Docusate Sodium TABLET PO SCH ×2 (08:59→09:44)
[2018-07-31] MEDS: Budesonide/Formoterol 80/4.5 MDI IH SCH ×2 (10:57→19:47)
[2018-08-01] MEDS: *HR* OxyCODONE Immed Rel 5 MG TABLET PO PRN ×3 (00:35→09:46)
[2018-08-01] MEDS: ALPRAZolam 1 MG TABLET PO PRN (03:51)
[2018-08-01] MEDS: Ipratropium/Albuterol Neb 3 ML IH SCH ×4 (04:31→15:56)
[2018-08-01 05:21] LABS: BUN/Creatinine Ratio 33 (6-26); Blood Urea Nitrogen 46 mg/dL (8-23); Carbon Dioxide 45 mEq/L (23-29); Chloride 82 mEq/L (98-107); Glucose 143 mg/dL (70-105); Osmolality,Calculated 288 (280-300); Potassium 3.5 mEq/L (3.5-5.1); Sodium 132 mEq/L (136-145); eGFR For Non-African Americans 51 (> 60)
[2018-08-01] MEDS: *HR* Heparin 5,000 UNIT/ML VIAL SQ SCH (05:58)
[2018-08-01 08:23] VITALS: BP 76/46
[2018-08-01] MEDS ORDERED: Ondansetron 4 MG/2 ML VIAL IVP PRN (08:38)
[2018-08-01] MEDS: *HR* Morphine 2 MG/ML SYRINGE IVP PRN ×6 (08:42→18:17)
[2018-08-01] MEDS ORDERED: Scopolamine Patch 1.5 MG PATCH.TD72 TD SCH (08:45)
--- NOTE | 2018-08-01 08:47 | Internal Med Progress Note ---
Hospitalist Progress Note - Encounter Date of Encounter: 08/01/18 Time of Encounter: 08:44 - Subjective Interval History: patient took BiPAP off this morning, and said that he was ready to pass away - Exam Vitals: Temp Pulse Resp BP Pulse Ox 97.6 F 108 21 76/46 92 08/01/18 08:22 08/01/18 08:22 08/01/18 08:22 08/01/18 08:22 08/01/18 08:22 Exam: Appears comfortable, eyes closed, some wet sounding cough - Assessment and Plan (1) Acute exacerbation of chronic obstructive airways disease Current Visit: Yes Status: Acute (2) Acute on chronic respiratory failure with hypoxia and hypercapnia Current Visit: Yes Status: Acute (3) Atrial fibrillation with rapid ventricular response Current Visit: Yes Status: Acute (4) Hospice care patient Current Visit: Yes Status: Acute (5) Pleural effusion Current Visit: Yes Status: Acute (6) Mass of right lung Current Visit: Yes Status: Chronic (7) DVT prophylaxis Current Visit: Yes Status: Resolved - Summary of Assessment and Plan Summary of Assessment and Plan: 58M with recently diagnosed lung cancer and enrolled in hospice presented due to dyspnea found to be due to a-fib with RVR and right sided pleural effusion. He has reaffirmed comfort care measures and is awaiting enrollment in inpatient hospice. 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 # AECOPD # Chronic pain: Cont home analgesics - BiPAP as needed for comfort was refused by the patient on 08/01 - Bronchodilator nebs jf and prn for comfort only - Orders modified for comfort only, atropine, scopolamine, morphine and lorazepam started - palliative care following, appreciated - Time Spent with Patient Total time spent is greater than 50% in coordination of care (as documented) at patient's floor/unit and/or counseling patient: Internal Medicine: Result - Labs CBC & Chem 7: 07/31/18 04:59 08/01/18 04:24 Labs: BMP 08/01/18 04:24 Sodium 132 L Potassium 3.5 Chloride 82 L Carbon Dioxide 45 H* BUN 46 H Creatinine 1.41 H Glucose 143 H Calcium 8.0 L Consult Discharge Plan - Plan Referrals: Andry Abdi Jr, MD [Primary Care Provider] -
[2018-08-01] MEDS: *HR* LORazepam Oral Conc 2 MG/ML PO PRN ×2 (09:14→14:56)
[2018-08-01] MEDS: Atropine Sulfate 1% 40 DROP/2 ML BOTTLE SL PRN ×5 (09:16→18:30)
[2018-08-01] MEDS: predniSONE 20 MG TABLET PO SCH (09:18)
[2018-08-01] MEDS: Sennosides/Docusate Sodium TABLET PO SCH (09:18)
[2018-08-01] MEDS: Budesonide/Formoterol 80/4.5 MDI IH SCH (11:02)
[2018-08-01] MEDS ORDERED: *HR* LORazepam 2 MG/ML VIAL IVP SCH (16:00)
[2018-08-01] MEDS ORDERED: FentaNYL (PF) 1,000 MCG in 0.9 % Sodium Chloride 80 ML IVC SCH ×2 (17:00→18:21)
--- NOTE | 2018-08-01 21:01 | Electrocardiograph Report ---
[address] [place], [place] [address] Test Date: 2018-07-29 Pat Name: Gurpreet Bermudez Department: [id number] Room: 2A45 Gender: M Speech Language Therapist: : [id number] Requested By: Jg Lord Order Number: [id number] Reading MD: Sanchez Armstrong Measurements Intervals [place] Rate: 84 P: 103 WY: 131 QRS: 85 QRSD: 112 T: 77 QT: 330 QTc: 390 Interpretive Statements Sinus rhythm Probable left atrial enlargement Incomplete right bundle branch block Electronically Signed On 08-01-2018 20:59:58 EDT by Sanchez Armstrong
--- NOTE | 2018-08-02 00:19 | Death Note ---
Pronouncement Note - Date and Time of Date of : 08/01/18 Time of : 20:19 - Additional Data Confirmation of : no pulse, no respirations, no heart sounds, pupils fixed and dilated Family: at bedside Additional persons at bedside: other Attending physician: Costa Lord MD Was code activated?: No Autopsy requested?: No shot examiner notified?: No Organ bank notified?: No Advance directives: No
== END 2018-08-01 22:20 | disposition expired | DRG 180 ==
LOC: EMEROOARM 04:55 → 2ANU 08:20
PROVIDERS: ADMIT Internal Medicine; ATTEND Internal Medicine